=== PATIENT | female | born 1990 | race Caucasian/White ===

== ENCOUNTER → 2016-09-08 | Outpatient (CLI) | payer OTHER ==
[~2016-09-08] MED LIST: ACET500C PO; ANUS2.5C2 PR; DOCU10ELUD PO; DULO1CAP3 PO; FLUO1TAB3 PO; IBUP40TA PO; IBUP600T26 PO; MOM30SS PO; PRENTAB31 PO; PRENTAB74 PO; TOPI1TAB31 PO; VITMTA PO
[2016-09-08 18:08] LABS: BASO % 0.5 % (0.0-1.0); EOS # 0.1 K/mm3 (0.0-0.50); EOS % 0.9 % (0.0-3.0); LARGE UNSTAINED CELL # 0.1 K/mm3 (0.0-0.4); LARGE UNSTAINED CELL % 0.9 % (0.0-4.0); LYMPH # 2.4 K/mm3 (1.5-6.5); LYMPH % 21.2 % (24.0-44.0); MEAN CORPUSCULAR HEMOGLOBIN 30.8 pg (27.0-33.0); MEAN CORPUSCULAR HGB CONC 33.9 g/dl (32.0-36.5); MEAN CORPUSCULAR VOLUME 90.7 fl (80.0-96.0); MONO # 0.4 K/mm3 (0.0-0.8); MONO % 3.6 % (0.0-5.0); NEUTROPHILS # 8.3 K/mm3 (1.8-7.7); PLATELET COUNT, AUTOMATED 260 k/mm3 (150-450); WHITE BLOOD COUNT 11.3 K/mm3 (4.0-10.0)
[2016-09-08 19:03] LABS: ALBUMIN 3.8 GM/DL (3.2-5.2); ALBUMIN/GLOBULIN RATIO 1.23 (1.00-1.93); ALKALINE PHOSPHATASE 54 U/L (45-117); ALT/SGPT 11 U/L (12-78); ANION GAP 12 MEQ/L (8-16); AST/SGOT 11 U/L (15-37); BILIRUBIN,TOTAL 0.2 MG/DL (0.2-1.0); BLOOD UREA NITROGEN 6 MG/DL (7-18); CALCIUM LEVEL 8.8 MG/DL (8.5-10.1); CARBON DIOXIDE LEVEL 24 MEQ/L (21-32); CHLORIDE LEVEL 103 MEQ/L (98-107); CREATININE FOR GFR 0.52 MG/DL (0.55-1.02); GLOMERULAR FILTRATION RATE > 60.0 (>60); GLUCOSE, FASTING 85 MG/DL (70-105); POTASSIUM SERUM 3.7 MEQ/L (3.5-5.1); SODIUM LEVEL 139 MEQ/L (136-145); TOTAL PROTEIN 6.9 GM/DL (6.4-8.2)
[2016-09-11 00:08] LABS: BENZODIAZEPINES, URINE SCREEN Negative ng/mL (Cutoff=200); METHADONE, URINE SCREEN Negative ng/mL (Cutoff=300); pH, URINE 5.6 (4.5-8.9)
== END ==
LOC: M LAB 16:45
DX: D64.9 Anemia, unspecified (principal); M79.7 Fibromyalgia; F19.10 Other psychoactive substance abuse, uncomplicated

== ENCOUNTER → 2016-12-28 | Outpatient (CLI) | payer OTHER, SELFPAY ==
--- NOTE | 2016-12-29 04:47 | REP ---
Clinical: Anatomical evaluation. Comparison: 12/02/2016 . Findings: Examination demonstrates a single live intrauterine in breech presentation. motion is identified by technologist. Placenta is noted anteriorly and grade zero without evidence for placenta previa or abruption. Amniotic fluid volume is normal. Cervix measures 4.1 cm in length and appears closed. No evidence for nuchal cord. Gestational age by LMP 24 weeks 3 days with RYANN 04/16/2017 . Gestational age by current measurements 24 weeks 3 days with RYANN 04/16/2017 . FHR equals 131 beats per minute. Estimated weight 679 grams ( 40th percentile). Anatomical assessment demonstrates normal structures including cranium, choroid plexus, cavum, cerebellum/posterior fossa, facial features, lungs, four-chamber heart/ventricular outflow tracts, diaphragm, stomach, cord insertion/three-vessel cord, kidneys/bladder, spine, and extremities. Impression: Single live intrauterine in breech presentation. Appropriate interval growth is appreciated. Anatomical assessment is complete and normal. Signed by Tobin Michele MD 12/29/2016 04:39 A
== END ==
LOC: M RAD 16:34
PROVIDERS: ATTEND Advanced Practice Midwife
DX: Z36 Encounter for antenatal screening of mother (principal); O32.1XX0 Maternal care for breech presentation, not applicable or unspecified; Z3A.24 24 weeks gestation of pregnancy

== ENCOUNTER → 2017-02-01 | Outpatient (CLI) | payer OTHER ==
[2017-02-01 19:29] LABS: MEAN CORPUSCULAR HEMOGLOBIN 31.6 pg (27.0-33.0); MEAN CORPUSCULAR HGB CONC 33.7 g/dl (32.0-36.5); MEAN CORPUSCULAR VOLUME 93.8 fl (80.0-96.0); WHITE BLOOD COUNT 10.5 K/mm3 (4.0-10.0)
== END ==
LOC: M LAB 16:51
PROVIDERS: ATTEND Obstetrics & Gynecology
DX: Z36 Encounter for antenatal screening of mother (principal); Z3A.00 Weeks of gestation of pregnancy not specified

== ENCOUNTER → 2017-02-17 | Outpatient (REF) | payer OTHER ==
[~2017-02-17] MED LIST changes: +ACET50TA PO; +IBUP-1022 PO; +IBUP-1114 PO; -IBUP600T26 PO; +KLON0.5T PO; +PERC5TAB12 PO; +PRENTAB9 PO; +TOPA50TA8 PO; +TOPI100T9 PO; -TOPI1TAB31 PO
== END ==
LOC: M LAB REF 09:34
PROVIDERS: ATTEND Physician Assistant
DX: R30.0 Dysuria (principal)

== ENCOUNTER → 2017-03-13 | Outpatient (REF) | payer OTHER, MEDICAID | LOC: M LAB REF 08:07 | PROVIDERS: ATTEND Physician Assistant | DX: R30.0 Dysuria (principal) ==

== ENCOUNTER 2017-03-17 19:16 | Emergency (ER) | payer OTHER, MEDICAID ==
[~2017-03-17] VITALS: Ht 160 cm; Wt 82.7 kg
[~2017-03-17 19:16] MED LIST changes: -ACET50TA PO; -IBUP-1114 PO; -KLON0.5T PO; -PERC5TAB12 PO; -PRENTAB9 PO; -TOPA50TA8 PO
[2017-03-17 21:31] VITALS: BP 139/79
[2017-06-03] MEDS ORDERED: TOPA50TA8 PO (11:54)
[2017-06-03] MEDS ORDERED: KLON0.5T PO (11:54)
[2017-06-11] MEDS ORDERED: PERC5TAB12 PO (09:46)
== END 2017-03-17 21:32 | disposition home or self-care (01) ==
LOC: M ED 19:16
DX: F41.9 Anxiety disorder, unspecified (principal)

== ENCOUNTER → 2017-03-18 | Outpatient (REF) | payer OTHER, MEDICAID ==
[~2017-03-18] MED LIST changes: +ACET50TA PO; +IBUP-1114 PO; +KLON0.5T PO; +PERC5TAB12 PO; +PRENTAB9 PO; +TOPA50TA8 PO
== END ==
LOC: M LAB REF 17:17
PROVIDERS: ATTEND Obstetrics & Gynecology
DX: Z34.83 Encounter for supervision of other normal pregnancy, third trimester (principal)

== ENCOUNTER 2017-04-07 15:47 | Outpatient (CLI) | payer OTHER, MEDICAID ==
[~2017-04-07] VITALS: Ht 160 cm; Wt 81.0 kg
[~2017-04-07 15:47] MED LIST changes: -ACET50TA PO; -IBUP-1114 PO; -KLON0.5T PO; -PERC5TAB12 PO; -PRENTAB9 PO; -TOPA50TA8 PO
[2017-04-07] MEDS ORDERED: LR 800 ML IV ONE (16:00)
[2017-04-07 16:14] VITALS: BP 110/60
[2017-04-07] MEDS ORDERED: LR 1,000 ML IV SCH (17:00)
[2017-04-07 17:03] VITALS: BP 108/62
[2017-04-07] MEDS ORDERED: ACET50TA PO (17:07)
[2017-04-07 17:48] VITALS: BP 102/56
--- NOTE | 2017-04-08 13:16 | REP ---
BIOPHYSICAL PROFILE OB ULTRASOUND: 04/07/2017. Clinical history: Dehydration. Evaluate for well being. Findings: There is a single intrauterine gestation in vertex position. cranium shadowing obscures the cervix. The amniotic fluid volume is subjectively lower end of the normal range but the index measurement is 9.8 and the normal range is 7.2 - 23. Largest fluid pocket is 4.8 cm. Mid cord umbilical artery Doppler shows an S/D ratio 2.33 with normal forward diastolic flow and resistive index of 0.57. There is an anterior placenta with grade 3 changes but no previa or abruption. The cord is at least draped over the neck. I cannot definitely confirm a nuchal cord however. heart rate 156 and regular. Biophysical profile: Breathing 2 Movement 2 Tone 2 AFV 2 Impression: 1. Single intrauterine gestation in vertex presentation with anterior grade 3 placenta without previa or abruption, visually low normal amniotic fluid volume but the index measurement is 9.8, well in the normal range and the largest fluid pocket is 4.8 cm. 2. Normal midcord Doppler and heart rate of 156. 3. Biophysical profile score 8/8 Signed by Yuri Lei MD 04/08/2017 09:04 A
--- NOTE | 2017-04-12 19:50 | IPNPDOC ---
Text Note Date of Service The patient was seen on 04/07/17 at 1830. NOTE Subjective: Patient is a 26-year-old female who is a at 38 weeks and 5 days gestation with an RYANN of 04/16/2017 based off of her LMP and consistent with her first trimester ultrasound. She initiated care in her first trimester at [facility]. Her has been complicated by migraines, depression and anxiety. She presented to the office today with complaints of having a migraine for 3 days with no relief from Fioricet, back pain, decreased movement, dizziness, nausea, contractions and spotting. Her cervix upon examination in the office was closed. Dr. Lindsey evaluated patient and based on patient's complaints and low heart rate he obtained he recommended evaluation on labor and delivery. Current medications: BuSpar and Fioricet Allergies: No known drug allergies Medical history: Significant for migraines, depression, anxiety, varicella as a child Surgical history: Tonsillectomy Family history: Noncontributory Social history: Single. Father of baby is not involved. Unemployed. No history of abuse. No history of smoking, alcohol use or abuse, drug use or abuse. No history of any STDs. Her depression and anxiety started during this . She's been seen by [facility] behavioral [facility]. She was started on Zoloft and stopped taking it after 1 week due to the side effects she was experiencing. Currently taking BuSpar twice daily for her anxiety. Objective: Vital signs see below. heart rate 120, moderate variability, positive accelerations, no decelerations. Contractions are occasional. Fetus is very active as heard on the external monitor. BPP 10 out of 10. Assessment: IUP at 38 weeks 5 days gestation; category 1 heart rate tracing; decreased movement Plan: Patient has received 1 L of fluid via IV. Her BPP is 10 out of 10. This was reviewed with the patient. Patient reports that she is feeling much better and desires to be discharged. Reports active movement. Saline lock to be removed and patient to be discharged. Education reviewed with patient to include access to care, kick counts, signs symptoms of labor, and danger signs to report. Patient is to follow-up with routine OB care into be seen next week. VS,Fishbone, I+O VS, Fishbone, I+O Vital Signs Date Time Temp Pulse Resp B/P (MAP) Pulse Ox O2 Delivery O2 Flow Rate FiO2 04/07/17 17:48 76 18 102/56 (71) BPP: Impression: 1. Single intrauterine gestation in vertex presentation with anterior grade 3 placenta without previa or abruption, visually low normal amniotic fluid volume but the index measurement is 9.8, well in the normal range and the largest fluid pocket is 4.8 cm. 2. Normal midcord Doppler and heart rate of 156. 3. Biophysical profile score 03/30 SYEDA VALENZUELA CNM Apr 12, 2017 19:50
[2017-06-03] MEDS ORDERED: TOPA50TA8 PO (11:54)
[2017-06-03] MEDS ORDERED: KLON0.5T PO (11:54)
[2017-06-11] MEDS ORDERED: PERC5TAB12 PO (09:46)
== END 2017-04-07 19:05 | disposition home or self-care (01) ==
LOC: M LDO 15:47
PROVIDERS: ATTEND Advanced Practice Midwife
DX: O36.8130 Decreased fetal movements, third trimester, not applicable or unspecified (principal); O47.1 False labor at or after 37 completed weeks of gestation; Z3A.38 38 weeks gestation of pregnancy; G43.909 Migraine, unspecified, not intractable, without status migrainosus; F32.9 Major depressive disorder, single episode, unspecified; F41.9 Anxiety disorder, unspecified; Z79.899 Other long term (current) drug therapy; O99.343 Other mental disorders complicating pregnancy, third trimester; O99.353 Diseases of the nervous system complicating pregnancy, third trimester

== ENCOUNTER 2017-04-15 02:24 | Inpatient (IN) | payer OTHER, MEDICAID ==
[~2017-04-15] VITALS: Ht 160 cm; Wt 83.0 kg
[2017-04-15] VITALS (16 sets, daily range): BP systolic 86–132; BP diastolic 54–90
[~2017-04-15 02:24] MED LIST changes: +ACET50TA PO
[2017-04-15] MEDS ORDERED: LACTATED RINGER'S 1000 ML IV STA (03:05)
[2017-04-15] MEDS ORDERED: LR 1,000 ML IV SCH (03:05)
[2017-04-15 03:37] LABS: BASO % 0.3 % (0.0-1.0); EOS # 0.1 K/mm3 (0.0-0.50); EOS % 1.1 % (0.0-3.0); LARGE UNSTAINED CELL # 0.2 K/mm3 (0.0-0.4); LARGE UNSTAINED CELL % 1.7 % (0.0-4.0); LYMPH # 1.9 K/mm3 (1.5-6.5); LYMPH % 17.8 % (24.0-44.0); MEAN CORPUSCULAR HEMOGLOBIN 29.6 pg (27.0-33.0); MEAN CORPUSCULAR HGB CONC 33.9 g/dl (32.0-36.5); MEAN CORPUSCULAR VOLUME 87.4 fl (80.0-96.0); MONO # 0.5 K/mm3 (0.0-0.8); MONO % 4.8 % (0.0-5.0); NEUTROPHILS % 74.3 % (36.0-66.0); PLATELET COUNT, AUTOMATED 198 k/mm3 (150-450); RED CELL DISTRIBUTION WIDTH 13.9 % (11.5-14.5); WHITE BLOOD COUNT 10.7 K/mm3 (4.0-10.0)
[2017-04-15] MEDS ORDERED: FENTANYL 2MCG/ML ROPIVACAINE 0.2% IN 0.9% NACL 200ML IVBAG As Ordered ONE (04:20)
[2017-04-15] MEDS ORDERED: EPIDURAL COMMENT XX SCH (05:00)
[2017-04-15] MEDS ORDERED: NALOXONE INJ 0.4 MG/1 ML VIAL (J2310) IV PRN (05:00)
[2017-04-15] MEDS ORDERED: LACTATED RINGER'S 1000 ML IV PRN (05:00)
[2017-04-15] MEDS ORDERED: EPIDURAL/PCA KEYS XX PRN (05:00)
[2017-04-15] MEDS ORDERED: ePHEDrine SULFATE 25 MG/5 ML(5MG/ML) SYRINGE IV PRN (05:00)
[2017-04-15] MEDS ORDERED: diphenhydrAMINE INJ 50MG/ML VIAL (J1200) IV PRN (05:00)
[2017-04-15] MEDS ORDERED: FENTANYL/ROPIVACAINE/NACL BAG 200 ML EPIDURAL SCH (05:00)
[2017-04-15] MEDS ORDERED: ONDANSETRON 4MG/2ML VIAL (J2405) IV PRN (05:00)
[2017-04-15] MEDS ORDERED: REFRIGERATOR IV KEYS XX PRN (05:00)
[2017-04-15] MEDS ORDERED: OXYTOCIN 30 UNITS IN 0.9% NaCl 500ML IV BAG (J2590) As Ordered ONE (07:15)
[2017-04-15] MEDS ORDERED: OXYTOCIN DRIP 30 UNITS in APPROPRIATE DILUENT 1 EA IV SCH (07:29)
[2017-04-15] MEDS ORDERED: MEASLES,MUMPS,RUBELLA VACCINE INJ (MMR-II) (90707) SC SCH (07:30)
[2017-04-15] MEDS ORDERED: DOCUSATE SODIUM 100 MG CAP PO PRN (07:30)
[2017-04-15] MEDS ORDERED: METHYLERGONOVINE MALEATE 0.2 MG TAB PO PRN (07:30)
[2017-04-15] MEDS ORDERED: RHOGAM 300 MCG (1500 IU) INJ (J2790) IM SCH (07:30)
[2017-04-15] MEDS ORDERED: DIBUCAINE 1% OINTMENT 30GM TOP PRN (07:30)
[2017-04-15] MEDS ORDERED: ANUSOL HC CREAM 30GM TOP PRN (07:30)
[2017-04-15 07:58] LABS: CORD GAS ABE V -6.4; CORD GAS HCO3 V 18.5 MEQ/L; CORD GAS O2 SAT V 78.7 %; CORD GAS PCO2 V 35.4 mmHg; CORD GAS PH V 7.335 UNITS; CORD GAS PO2 V 33.9 mmHg; CORD GAS SBC V 18.9 MEQ/L; CORD GAS TCO2 V 19.5 MEQ/L
[2017-04-15 08:01] LABS: CORD GAS ABE A -4.5; CORD GAS HCO3 A 24.2 MEQ/L; CORD GAS O2 SAT A 23.1 %; CORD GAS PCO2 A 59.2 mmHg; CORD GAS PH A 7.229 UNITS
[2017-04-15] MEDS: PRENATAL VITAMINS CHEWABLE TABLET PO SCH (08:46)
[2017-04-15] MEDS: IBUPROFEN 800 MG TAB PO PRN ×2 (08:46→20:29)
[2017-04-15] MEDS: ACETAMINOPHEN 500 MG TAB PO PRN ×2 (13:21→23:21)
--- NOTE | 2017-04-15 17:53 | HPE ---
DATE OF ADMISSION: 04/15/2017 Melissa is a 26-year-old female, 7, para 4-0-2-4, with an estimated date of confinement (EDC) of 04/16/2017, estimated gestational age (EGA) 39-6/7 weeks gestation who presented to labor and delivery with complaints of contractions. Upon evaluation in labor and delivery, she was found to be in labor. At this point a decision was made for admission. Her care was essentially unremarkable. She initiated care in our office in the first trimester. LABORATORY: Blood type is AB positive, rubella immune, hepatitis negative, HIV negative, GC/chlamydia negative. One-hour sugar testing was within normal limits. Her GBS is negative. PAST MEDICAL HISTORY: Significant for migraine PAST SURGICAL HISTORY: Tonsillectomy. SOCIAL HISTORY: She denies any alcohol, drugs, or cigarette smoking. REVIEW OF SYSTEMS: Unremarkable. MEDICATIONS: vitamins ALLERGIES: No known drug allergies. PHYSICAL EXAMINATION ON ADMISSION: HEENT: Within normal limits. ABDOMEN: Soft, nontender, nondistended. EXTREMITIES: No clubbing, cyanosis, or edema. VAGINAL: Exam done by RN: 4 cm, 90% effaced, fetus at -2 station. Tracing reviewed. Category 1 tracing with contractions every 3-5 minutes. ASSESSMENT: 1. Intrauterine at 39-6/7 weeks gestation in labor. 2. Group B streptococcus negative. PLAN: Admit to labor and delivery. Routine labs sent. Anticipate delivery.
[2017-04-16] MEDS: IBUPROFEN 800 MG TAB PO PRN (05:45)
[2017-04-16 06:05] VITALS: BP 98/57
[2017-04-16] MEDS: PRENATAL VITAMINS CHEWABLE TABLET PO SCH (08:06)
[2017-04-16] MEDS: ACETAMINOPHEN 500 MG TAB PO PRN (08:08)
[2017-04-16] MEDS ORDERED: medroxyPROGESTERone ACET IM SUSP 150 MG/ML VIAL (J1050) IM ONE (14:45)
[2017-04-16] MEDS ORDERED: IBUP-1114 PO (14:58)
[2017-04-16] MEDS ORDERED: PRENTAB9 PO (14:58)
--- NOTE | 2017-04-16 18:23 | DN ---
DATE: 04/15/2017 Melissa is a 26-year-old female, 7, para 4-0-2-4, who is admitted at 39-6/7 weeks gestation in labor. She progressed to fully dilated. After spontaneous rupture of membrane, delivered a live female in left occiput anterior position. scores 9 and 9. weight 8 pounds. Placenta delivered spontaneously intact. Three-vessel cord. Perineum, vagina, cervix inspected. No laceration noted. Estimated blood loss 250 mL. Both mother and baby in stable condition.
[2017-06-03] MEDS ORDERED: TOPA50TA8 PO (11:54)
[2017-06-03] MEDS ORDERED: KLON0.5T PO (11:54)
== END 2017-04-16 15:23 | disposition home or self-care (01) | DRG 560 ==
LOC: M LDO 02:24 → M LDI 03:00 → M OBS 09:43
PROVIDERS: ADMIT Obstetrics & Gynecology; ATTEND Obstetrics & Gynecology
PROC: 10E0XZZ Delivery of Products of Conception, External Approach (ICD-10-PCS; principal; 2017-04-15)
DX: O80 Encounter for full-term uncomplicated delivery (principal); Z3A.39 39 weeks gestation of pregnancy; Z37.0 Single live birth

== ENCOUNTER → 2017-05-05 | Outpatient (REF) | payer OTHER, MEDICAID ==
[~2017-05-05] MED LIST changes: +IBUP-1114 PO; +KLON0.5T PO; +PERC5TAB12 PO; +PRENTAB9 PO; +TOPA50TA8 PO
== END ==
LOC: M LAB REF 12:55
PROVIDERS: ATTEND Physician Assistant Medical
DX: N39.0 Urinary tract infection, site not specified (principal)

== ENCOUNTER 2017-06-11 07:25 | Day surgery (SDC) | payer OTHER ==
[~2017-06-11] VITALS: Ht 160 cm; Wt 71.2 kg
[~2017-06-11 07:25] MED LIST changes: -PERC5TAB12 PO
[2017-06-11] MEDS ORDERED: LIDOCAINE 1% MDV 20ML VIAL SC PRN (07:45)
[2017-06-11] MEDS ORDERED: LR 1,000 ML IV ONE (07:45)
[2017-06-11 08:05] LABS: MEAN CORPUSCULAR HEMOGLOBIN 29.1 pg (27.0-33.0); MEAN CORPUSCULAR HGB CONC 33.1 g/dl (32.0-36.5); PLATELET COUNT, AUTOMATED 270 10^3/uL (150-450); WHITE BLOOD COUNT 8.8 10^3/uL (4.0-10.0)
[2017-06-11 08:16] LABS: CONTROL LINE HCG INT CTR LINE PRESENT
[2017-06-11] MEDS ORDERED: ACETAMINOPHEN 650 MG SUPP As Ordered ONE (09:02)
[2017-06-11] MEDS ORDERED: BUPIVACAINE/EPIN 0.25% 30 ML VIAL As Ordered ONE (09:02)
[2017-06-11] MEDS ORDERED: PROPOFOL 200 MG/20 ML VIAL As Ordered ONE (09:07)
[2017-06-11] MEDS ORDERED: ROCURONIUM BROMIDE 50 MG/5 ML VIAL/SYRINGE As Ordered ONE (09:07)
[2017-06-11] MEDS ORDERED: fentaNYL 100 MCG/2 ML INJECTION (J3010) As Ordered ONE (09:07)
[2017-06-11] MEDS ORDERED: LIDOCAINE 2% INJ 100 MG/5 ML SDV (FOR ANES.) As Ordered ONE (09:07)
[2017-06-11] MEDS ORDERED: MIDAZOLAM INJ 2 MG/2 ML VIAL (J2250) As Ordered ONE (09:07)
[2017-06-11] MEDS ORDERED: dexameTHASONE 4 MG/ML 1ML VIAL (J1100) As Ordered ONE (09:08)
[2017-06-11] MEDS ORDERED: GLYCOPYRROLATE INJ 0.2 MG/ML 2 ML VIAL As Ordered ONE ×2 (09:09→09:21)
[2017-06-11] MEDS ORDERED: NEOSTIGMINE 10 MG/10 ML VIAL (J2710) As Ordered ONE (09:09)
[2017-06-11] MEDS ORDERED: ONDANSETRON 4MG/2ML VIAL (J2405) As Ordered ONE (09:09)
[2017-06-11] MEDS ORDERED: KETOROLAC 60 MG/2 ML VIAL (J1885) As Ordered ONE (09:09)
[2017-06-11] MEDS ORDERED: PERC5TAB12 PO (09:46)
[2017-06-11] MEDS ORDERED: MEPERIDINE INJ 25 MG/ML VIAL (J2175) As Ordered ONE (09:51)
[2017-06-11] MEDS: MEPERIDINE INJ 25 MG/ML VIAL (J2175) IV PRN ×2 (09:54→10:02)
[2017-06-11] MEDS: PERCOCET 5MG/325MG TAB PO PRN ×2 (09:57→10:32)
[2017-06-11] MEDS ORDERED: ONDANSETRON 4MG/2ML VIAL (J2405) IV PRN (10:00)
[2017-06-11] MEDS ORDERED: LR 1,000 ML IV SCH (10:00)
[2017-06-11] MEDS ORDERED: METOCLOPRAMIDE INJ 10MG/2ML VIAL (J2765) IV PRN (10:00)
[2017-06-11] MEDS: fentaNYL 100 MCG/2 ML INJECTION (J3010) IV PRN ×4 (10:05→10:20)
[2017-06-11 11:35] VITALS: BP 133/67
--- NOTE | 2017-06-11 18:21 | RO ---
DATE OF PROCEDURE: 06/11/2017 Melissa is a 26-year-old multiparous female who desires a permanent tubal sterilization. After counseling in the office and discussing the permanent nature of the procedure, the patient wanted to proceed with the laparoscopic bilateral tubal ligation. PREOPERATIVE DIAGNOSIS: 1. Multiparity, desires permanent tubal sterilization. POSTOPERATIVE DIAGNOSIS: 1. Multiparity, desires permanent tubal sterilization. PROCEDURE: 1. Laparoscopic bilateral tubal ligation using Filshie clip. SURGEON: García Lindsey DO COMMERCIAL CREDIT SPECIALIST: ANESTHESIA: General. COMPLICATIONS: None. ESTIMATED BLOOD LOSS: Less than 10 mL. FINDINGS: Normal appearing tubes, ovaries and uterus. The pelvis was found to be within normal limits. SPECIMENS: No specimens were sent to lab. PROCEDURE: After visiting with the patient and the holding area and reaffirming the informed consent, the patient was taken to the operating room where general anesthetic was found to be adequate. She was then draped and prepped in the usual sterile fashion in dorsal lithotomy position. At this point, a straight cath of the bladder was performed for approximately 50 mL of clear urine. We then placed a sponge stick in the vagina for uterine manipulation. At this point, my attention was turned to the abdomen where a 5 mm infraumbilical incision was made. Using a Veress needle, the abdomen was insufflated with CO2 gas to approximately 3.5 liters. The 5 mm XCEL trocar as well as the laparoscope was inserted under direct visualization. We then placed an 8 mm right lateral port. The patient was placed in Trendelenburg. Fallopian tubes, pelvis, uterus and ovaries identified with the above-noted findings. At this point, the fallopian tube was identified with the fimbriated end and a Filshie clip was then applied approximately 2-3 cm from the cornual area on each tube. The pelvis was then copiously irrigated with normal saline. Good hemostasis noted. All instruments were removed and the laparoscopic ports were then closed using DERMABOND. 0.25% Marcaine was placed at the postoperative site for postoperative pain. The patient was then transferred to recovery room in stable condition.
== END 2017-06-11 12:00 | disposition home or self-care (01) ==
LOC: M SDC 07:25
PROVIDERS: ATTEND Obstetrics & Gynecology
DX: Z30.2 Encounter for sterilization (principal); F41.9 Anxiety disorder, unspecified; F32.9 Major depressive disorder, single episode, unspecified; G43.909 Migraine, unspecified, not intractable, without status migrainosus; Z79.899 Other long term (current) drug therapy

== ENCOUNTER 2017-07-19 19:46 | Emergency (ER) | payer MEDICAID, OTHER, SELFPAY ==
[~2017-07-19] VITALS: Ht 160 cm; Wt 68.4 kg
[~2017-07-19 19:46] MED LIST changes: +PERC5TAB12 PO
[2017-07-20] MEDS ORDERED: NS 1,000 ML IV ONE (01:00)
[2017-07-20 01:28] LABS: BASO # 0.1 10^3/uL (0.0-0.2); BASO % 0.7 % (0.0-1.0); EOS # 0.2 10^3/uL (0.0-0.50); EOS % 1.3 % (0.0-3.0); IMMATURE GRANULOCYTE % 0.3 % (0-0); LYMPH # 3.1 10^3/uL (1.5-6.5); LYMPH % 21.4 % (24.0-44.0); MEAN CORPUSCULAR HEMOGLOBIN 29.5 pg (27.0-33.0); MEAN CORPUSCULAR HGB CONC 34.8 g/dl (32.0-36.5); MEAN CORPUSCULAR VOLUME 84.7 fl (80.0-96.0); MONO # 1.1 10^3/uL (0.0-0.8); MONO % 7.6 % (0.0-5.0); NEUTROPHILS % 68.7 % (36.0-66.0); PLATELET COUNT, AUTOMATED 333 10^3/uL (150-450); RED CELL DISTRIBUTION WIDTH 13.2 % (11.5-14.5); WHITE BLOOD COUNT 14.6 10^3/uL (4.0-10.0)
[2017-07-20] MEDS ORDERED: LORazepam 2 MG/ML VIAL (J2060) IV STA (01:36)
[2017-07-20 01:44] LABS: CONTROL LINE HCG INT CTR LINE PRESENT
[2017-07-20 02:03] LABS: ALBUMIN 4.2 GM/DL (3.2-5.2); ALBUMIN/GLOBULIN RATIO 1.27 (1.00-1.93); ALKALINE PHOSPHATASE 97 U/L (45-117); ALT/SGPT 29 U/L (12-78); ANION GAP 10 MEQ/L (8-16); AST/SGOT 61 U/L (7-37); BILIRUBIN,DIRECT 0.4 MG/DL (0.0-0.2); BILIRUBIN,TOTAL 1.3 MG/DL (0.2-1.0); BLOOD UREA NITROGEN 10 MG/DL (7-18); CALCIUM LEVEL 9.1 MG/DL (8.5-10.1); CARBON DIOXIDE LEVEL 25 MEQ/L (21-32); CHLORIDE LEVEL 104 MEQ/L (98-107); GLOMERULAR FILTRATION RATE > 60.0 (>60); GLUCOSE, FASTING 78 MG/DL (70-105); POTASSIUM SERUM 3.2 MEQ/L (3.5-5.1); SODIUM LEVEL 139 MEQ/L (136-145); TOTAL PROTEIN 7.5 GM/DL (6.4-8.2)
[2017-07-20 02:08] LABS: METHADONE URINE NEGATIVE (NEGATIVE)
[2017-07-20 02:59] VITALS: BP 138/78
[2017-07-20] MEDS ORDERED: PATIENT COMMENT (21:07)
[2017-07-20] MEDS ORDERED: TOPI50TA9 PO (21:07)
--- NOTE | 2017-07-21 08:03 | ECGEPIP ---
Stationary ECG Study [facility] - ED Test Date: 2017-07-20 Pat Name: PATIENCE ESPINOZA Department: Room: - Gender: F Mailroom Personnel: : 1990 Requested By: YAMIL WALKER Order Number: [id number] Reading MD: Ada Ram Measurements Intervals Myton Rate: 69 P: 44 WA: 119 QRS: 10 QRSD: 99 T: 1 QT: 421 QTc: 453 Interpretive Statements SINUS RHYTHM WITH MARKED SINUS ARRHYTHMIA WITH SHORT WA INTERVAL DECREASED RATE 07/29/16 Electronically Signed On 07-21-2017 8:02:50 EST by Ada Ram
== END 2017-07-20 03:14 | disposition home or self-care (01) ==
LOC: M ED 19:46
DX: F19.10 Other psychoactive substance abuse, uncomplicated (principal); F41.9 Anxiety disorder, unspecified; F32.9 Major depressive disorder, single episode, unspecified
CPT/HCPCS: 80048; 80076; 80307; 82550; 84443; 84703; 85025; 93005; 96361; 96374; 99284; G0480; J2060

== ENCOUNTER 2017-07-20 17:18 | Inpatient (IN) | payer SELFPAY ==
[~2017-07-20] VITALS: Ht 160 cm; Wt 72.0 kg
[2017-07-20 18:59] LABS: MEAN CORPUSCULAR HEMOGLOBIN 29.6 pg (27.0-33.0); MEAN CORPUSCULAR HGB CONC 34.3 g/dl (32.0-36.5); MEAN CORPUSCULAR VOLUME 86.2 fl (80.0-96.0); PLATELET COUNT, AUTOMATED 314 10^3/uL (150-450); RED CELL DISTRIBUTION WIDTH 13.4 % (11.5-14.5); WHITE BLOOD COUNT 12.3 10^3/uL (4.0-10.0)
[2017-07-20 19:07] LABS: METHADONE URINE NEGATIVE (NEGATIVE)
[2017-07-20 19:20] LABS: ALBUMIN 3.7 GM/DL (3.2-5.2); ALBUMIN/GLOBULIN RATIO 1.23 (1.00-1.93); ALKALINE PHOSPHATASE 83 U/L (45-117); ALT/SGPT 27 U/L (12-78); ANION GAP 8 MEQ/L (8-16); AST/SGOT 41 U/L (7-37); BILIRUBIN,DIRECT 0.2 MG/DL (0.0-0.2); BILIRUBIN,TOTAL 0.7 MG/DL (0.2-1.0); BLOOD UREA NITROGEN 9 MG/DL (7-18); CALCIUM LEVEL 8.7 MG/DL (8.5-10.1); CARBON DIOXIDE LEVEL 24 MEQ/L (21-32); CHLORIDE LEVEL 114 MEQ/L (98-107); CREATININE FOR GFR 0.83 MG/DL (0.55-1.02); GLOMERULAR FILTRATION RATE > 60.0 (>60); GLUCOSE, FASTING 106 MG/DL (70-105); POTASSIUM SERUM 3.2 MEQ/L (3.5-5.1); SODIUM LEVEL 146 MEQ/L (136-145); TOTAL PROTEIN 6.7 GM/DL (6.4-8.2)
[2017-07-20] MEDS ORDERED: PATIENT COMMENT (21:07)
[2017-07-20] MEDS ORDERED: TOPI50TA9 PO (21:07)
[2017-07-20] MEDS ORDERED: cloNIDine 0.1 MG TAB PO ONE (21:15)
[2017-07-20] MEDS ORDERED: ONDANSETRON 4 MG ORAL DISINTEGRATING TAB (S0181) PO ONE (21:15)
[2017-07-21 00:40] VITALS: BP 123/75
[2017-07-21] MEDS ORDERED: traZODone 50 MG TAB PO PRN (01:45)
[2017-07-21] MEDS ORDERED: MAALOX 30 ML SUSP *UDC PO PRN (01:45)
[2017-07-21] MEDS ORDERED: MOM 30ML SUSPENSION UDC PO PRN (01:45)
[2017-07-21] MEDS ORDERED: OXAZEPAM 15 MG CAP PO PRN (01:45)
[2017-07-21 06:43] VITALS: BP 121/65
[2017-07-21] MEDS ORDERED: METHADONE 5 MG TAB (S0109) PO SCH (09:00)
--- NOTE | 2017-07-21 10:26 | HPEPDOC ---
[facility] Medical History & Physical Date of Admission Jul 20, 2017 History and Physical PCP: [facility] ATTENDING: Dr. Chaka Chan HPI: 26 yo F admitted to [facility] for unspecified depressive disorder, being medically examined today. The patient complains of left great toe pain. Toe has been swollen and tender to touch. She does not recall an injury house however states she might have hit her toe. Denies any fevers, chills, weakness, fatigue, CASTELLANOS, CP, SOB, cough, palpitations, abdominal pain, N/V/D or changes in bowel or bladder habits. PMHx: Depression Anxiety Substance use/IVDU Migraine headaches PSHX: Tubal ligation SOCHX: Resides in: [facility] Marital Status: Single Kids: 5 Employment: Unemployed Tobacco use: Denies ETOH: Denies Illicit Drugs: Cocaine and heroin. History of lindy. IV Drug Use: Cocaine and heroin Tattoos done unprofessionally: Denies FAMHX: Mother: Alive, well Father: Alive, well Siblings: Alive, well Children: Alive, well Unexpected deaths due to medical reasons: None. ROS: As noted in HPI, otherwise 11pt ROS of systems reviewed and remarkable only for LMP NA, tubal ligation. PE: GEN: 26 yo F, appears stated age. Well-nourished, well developed. No acute distress. Alert and oriented x 3. Pleasant, interactive. HEENT: Normocephalic, atraumatic. Pupils are equal, round, and reactive to light. Extraocular movements are intact. No nystagmus appreciated. Sclera are nonicteric. Conjunctiva without injection. Nose midline. Nasal turbinates without bogginess. EACs both patent BL. TMs both visualized and dunn with good cone of light, no bulging or erythema. No facial asymmetry. Moist mucous membranes. Dentition fair. Pharynx pink and moist, no cobblestoning. Neck supple , trachea midline. No lymphadenopathy or thyromegaly appreciated. CHEST: Regular rate and rhythm, +S1, +S2 LUNGS: Clear to auscultation bilaterally. No wheezes, rales, or rhonchi. Breathing appears symmetric and easy. Patient is speaking in full sentences. No accessory muscle use. ABD: Round, soft, mild suprapubic TTP noted, non-distended. +Bowel sounds throughout. No rebound or guarding. No costovertebral angle tenderness. EXT: Pulses 2+ bilaterally dorsalis pedis and radial. No lower extremity edema appreciated. There is tenderness with palpation at the tip of the left great toe. There appears to be mild ecchymosis. There is no erythema. No warmth. No streaking. SKIN: [place], dry, warm. Capillary refill <2sec. No rashes. Injection sites are noted in the left antecubital area. No edema, erythema, streaking. NEURO: Alert and oriented x 3. Cranial nerves III-XII are intact. No focal deficits appreciated. EK07/20/17 SINUS RHYTHM WITH MARKED SINUS ARRHYTHMIA WITH SHORT FL INTERVAL DECREASED RATE 07/29/16 A&P: 26 yo F admitted to [facility] for unspecified depressive disorder 1. Psych. Plan per Psychiatry. EKG on file. 2. Hypernatremia. Sodium is noted to be 146 on admission. Patient's oral intake has improved. Recheck BMP. 3. Borderline EKG. No cardiac signs or symptoms appreciated on exam, follow with PCP. 4. Follow up with PCP on discharge. 5. Substance abuse. Per psychiatry. 6. Hypokalemia. Recheck BMP. Supplement if needed. 7. Elevated AST. Recheck CMP in a.m. Check hepatitis profile. 8. IVDU. Check HIV and hepatitis screening. 9. Left great toe pain. Check x-ray of the left foot. There are no injection sites noted on the left foot or toes. There does not appear to be cellulitis or infection at this time. There is no drainage. No streaking. Ecchymosis is noted , possible prior injury. 10. Staff member Mimi MARTÍNEZ present throughout exam. Vital Signs Vital Signs Date Time Temp Pulse Resp B/P (MAP) Pulse Ox O2 Delivery O2 Flow Rate FiO2 07/21/17 09:26 16 07/21/17 06:43 98.2 73 121/65 (83) Room Air 07/21/17 00:40 97 Laboratory Data Labs 24H Laboratory Tests 2 07/20/17 18:01: Nucleated Red Blood Cells % (auto) 0.0, Anion Gap 8, Glomerular Filtration Rate > 60.0, Calcium Level 8.7, Aspartate Amino Transf (AST/SGOT) 41H, Alanine Aminotransferase (ALT/SGPT) 27, Alkaline Phosphatase 83, Total Bilirubin 0.7, Direct Bilirubin 0.2, Total Protein 6.7, Albumin 3.7, Albumin/Globulin Ratio 1.23, Thyroid Stimulating Hormone (TSH) 0.260L, Salicylates Level < 1.7L, Urine Amphetamines Screen NEGATIVE, Urine Benzodiazepines Screen NEGATIVE, Urine Opiates Screen POSITIVEH, Urine Methadone Screen NEGATIVE, Acetaminophen Level < 2.0L, Urine Barbiturates Screen NEGATIVE, Urine Phencyclidine Screen NEGATIVE , Urine Cocaine Metabolite Screen POSITIVEH, Urine Cannabinoids Screen NEGATIVE , Ethyl Alcohol Level 0.006 CBC/BMP Laboratory Tests 07/20/17 18:01 Red Blood Count 4.43, Mean Corpuscular Volume 86.2, Mean Corpuscular Hemoglobin 29.6, Mean Corpuscular Hemoglobin Concent 34.3, Red Cell Distribution Width 13.4 Home Medications Scheduled Topiramate (Topiramate) 50 Mg Tab, 50 MG PO BID Miscellaneous Medications [Patient Comment] PATIENT STATES THAT SHE HAS NOT TAKEN HER MEDICATION FOR DAYS. Allergies Coded Allergies: No Known Allergies (Verified Allergy, Unknown, 03/09/06) Kelley Harrison Jul 21, 2017 10:26
--- NOTE | 2017-07-21 11:03 | REP ---
Left foot series: Four views. History: Great toe pain. FINDINGS: Four views of the left foot demonstrate overall normal mineralization. There is no evidence of fracture, subluxation or erosive change. Impression: Negative left foot radiographs. Signed by Clayton Goode MD 07/21/2017 11:20 A
[2017-07-21] MEDS ORDERED: METHADONE 10 MG TAB (S0109) PO ONE (12:00)
[2017-07-21] MEDS: CitaloPRAM (CeleXA) 10 MG TABLET PO SCH (12:07)
[2017-07-21 12:30] LABS: MEAN CORPUSCULAR HEMOGLOBIN 29.6 pg (27.0-33.0); MEAN CORPUSCULAR HGB CONC 33.5 g/dl (32.0-36.5); MEAN CORPUSCULAR VOLUME 88.3 fl (80.0-96.0); PLATELET COUNT, AUTOMATED 330 10^3/uL (150-450); RED CELL DISTRIBUTION WIDTH 13.5 % (11.5-14.5); WHITE BLOOD COUNT 10.6 10^3/uL (4.0-10.0)
[2017-07-21 12:45] VITALS: BP 132/83
[2017-07-21 13:07] LABS: ANION GAP 6 MEQ/L (8-16); BLOOD UREA NITROGEN 8 MG/DL (7-18); CALCIUM LEVEL 9.4 MG/DL (8.5-10.1); CARBON DIOXIDE LEVEL 29 MEQ/L (21-32); CHLORIDE LEVEL 110 MEQ/L (98-107); CREATININE FOR GFR 0.89 MG/DL (0.55-1.02); GLOMERULAR FILTRATION RATE > 60.0 (>60); GLUCOSE, FASTING 96 MG/DL (70-105); SODIUM LEVEL 145 MEQ/L (136-145)
--- NOTE | 2017-07-21 13:32 | MHHPE ---
DATE OF ADMISSION: 07/20/2017 LEGAL STATUS AT ADMISSION: 9.39 legal status. CHIEF COMPLAINT: "I have been feeling very depressed." HISTORY OF PRESENT ILLNESS: 26-year-old female with history of depression and polysubstance dependency admitted to our unit on a 9.39 legal status. According to the record, the patient sent text messages expressing suicidal thoughts. She found out that [facility] has a waiting period of approximately two weeks and she wants to stop using drugs. The patient came to the emergency department a day prior to this admission asking for help and the referral to [facility] was made. The patient reports that she has been feeling depressed, tearful with low energy, low appetite, having trouble sleeping, feeling hopeless and helpless. The patient reported she has been using heroin and cocaine IV for the last four months and she wants to stop using. The patient states she has five children ages 11, 6, 4, 2 and 3 months old. Says that she owns a house and her brother and her brother's girlfriend, who are addicts, have been using and "this has been part of the problem." During the interview, there is no evidence of psychotic symptoms. No auditory or visual hallucinations are delusions. PAST MEDICAL HISTORY: Patient denies any acute medical problems. ALLERGIES: No known drug allergies. PAST PSYCHIATRIC HISTORY: Patient denies any psychiatric diagnosis other than depression and polysubstance dependency. FAMILY HISTORY: Patient reports her mom was an alcoholic and her father uses drugs. SUBSTANCE ABUSE HISTORY: As above, the patient has been using cocaine and heroin IV for the last four months. She would like to go to detox/rehab. SOCIAL HISTORY: Patient had a very difficult childhood. Says her parents were arguing most of the time. Her mother was an alcoholic and she quit school at tenth grade because she got , but then she got her GED. As above, she owns a house where she lives with her five children. PSYCHIATRIC REVIEW OF SYSTEMS: BIPOLAR DISORDER/CHRISTOS: No distractibility or grandiosity. No flight of ideas or pressured speech. ANXIETY DISORDER: Patient is anxious, denies panic, agoraphobia, obsessive-compulsive disorder (OCD), washing hands repeatedly, or checking things over and over. SOMATIZATION DISORDER: Screening for pain, conversion, gastrointestinal (GI) and sexual symptoms is negative. EATING DISORDER: Screening for dieting, use of laxatives, eating in binges is negative. COGNITIVE DISORDER: Memory, attention, concentration and general information is negative for cognitive disorder. PSYCHOTIC DISORDER: No evidence of delusions. No paranoia. No grandiosity. No bahai preoccupation. No hallucinations. No looseness of associations. PHYSICAL EXAMINATION: As per physician's lab assistant. LABS AT ADMISSION: CBC showed WBC of 12.3, rest within normal limits. CMP shows sodium of 146, potassium 3.2, AST of 41, rest within normal limits. TSH 0.26. Urine drug screen (UDS) positive for opiates and cocaine. Blood alcohol level is negative. MENTAL STATUS EXAMINATION: Patient is dressed in [facility]. The patient is cooperative. Her speech is soft and monotone. She has poor eye contact. Mood is anxious and depressed. Affect is labile. Patient is oriented to time, place, person and situation. Maintains attention and concentration correctly. Instant recall, recent and remote memory are intact. Thought processes are coherent, logical and goal directed. Patient does not have auditory or visual hallucinations. Patient does not have paranoid, persecutory, somatic, grandiose or bahai delusions. The patient is denying suicidal or homicidal ideation during the interview. Insight and judgment is limited. DIAGNOSIS: Kirksey I: Unspecified depressive disorder. Polysubstance dependency (cocaine and heroin IV). Rule out major depressive disorder. Rule out substance induced mood disorder. Kirksey II: Deferred. Kirksey III: None acute. INITIAL TREATMENT PLAN: Patient was admitted on a 9.39 legal status. Complete was obtained. With her permission, family will be contacted and database will be expanded. Her medication regime will be reviewed and changed accordingly. She will be provided with protected environment. She will be treated with individual, group and milieu therapy. She will also receive supportive psychoeducation. Discharge planning will commence immediately. Length of stay will be between 5 and 7 days. Outpatient followup will be strongly recommended. The treatment plan will focus initially on depression, risk for suicide and substance abuse.
[2017-07-21] MEDS: ACETAMINOPHEN TAB 650MG DOSE (2X325MG) PO PRN (15:07)
[2017-07-21] MEDS: chlordiazePOXIDE 25 MG CAP PO SCH ×2 (16:00→20:39)
[2017-07-21 18:00] VITALS: BP 109/67
[2017-07-21] MEDS: METHADONE 10 MG TAB (S0109) PO SCH (20:39)
[2017-07-21] MEDS: traZODone 100 MG TAB PO SCH (20:39)
[2017-07-21 21:00] VITALS: BP 118/74
[2017-07-22 06:52] VITALS: BP 102/53
[2017-07-22 07:51] LABS: MEAN CORPUSCULAR HEMOGLOBIN 29.6 pg (27.0-33.0); MEAN CORPUSCULAR HGB CONC 32.7 g/dl (32.0-36.5); MEAN CORPUSCULAR VOLUME 90.6 fl (80.0-96.0); PLATELET COUNT, AUTOMATED 252 10^3/uL (150-450); RED CELL DISTRIBUTION WIDTH 13.6 % (11.5-14.5); WHITE BLOOD COUNT 8.4 10^3/uL (4.0-10.0)
[2017-07-22] MEDS: chlordiazePOXIDE 25 MG CAP PO SCH ×2 (08:08→20:33)
[2017-07-22] MEDS: METHADONE 10 MG TAB (S0109) PO SCH (08:09)
[2017-07-22] MEDS: CitaloPRAM (CeleXA) 10 MG TABLET PO SCH (08:09)
[2017-07-22 08:30] LABS: ALBUMIN 3.1 GM/DL (3.2-5.2); ALBUMIN/GLOBULIN RATIO 1.15 (1.00-1.93); ALKALINE PHOSPHATASE 68 U/L (45-117); ALT/SGPT 21 U/L (12-78); ANION GAP 5 MEQ/L (8-16); AST/SGOT 16 U/L (7-37); BILIRUBIN,TOTAL 0.2 MG/DL (0.2-1.0); BLOOD UREA NITROGEN 8 MG/DL (7-18); CALCIUM LEVEL 8.7 MG/DL (8.5-10.1); CARBON DIOXIDE LEVEL 30 MEQ/L (21-32); CHLORIDE LEVEL 110 MEQ/L (98-107); GLOMERULAR FILTRATION RATE > 60.0 (>60); GLUCOSE, FASTING 92 MG/DL (70-105); POTASSIUM SERUM 3.8 MEQ/L (3.5-5.1); SODIUM LEVEL 145 MEQ/L (136-145); T UPTAKE 38 % (30-39); THYROXINE (T4) 8.7 UG/DL (4.5-12.0); TOTAL PROTEIN 5.8 GM/DL (6.4-8.2)
[2017-07-22 12:00] VITALS: BP 87/50
--- NOTE | 2017-07-22 16:19 | MHIPN ---
DATE: 07/22/2017 HISTORY: 26-year-old female with a history of depression and polysubstance dependency, admitted for depression and suicidal ideation. The patient has been using heroin intravenously and cocaine intravenously for the last several months. MEDICATIONS: - Librium 25 mg by mouth three times a day - methadone 10 mg by mouth twice a day - Celexa 10 mg by mouth in the morning SUBJECTIVE: "I am not feeling well this morning." OBJECTIVE: The patient is tearful, anxious, depressed, somewhat irritable. Denies side effect from the medications. The patient reports getting help from the low dosage of methadone to help with the withdrawal symptoms. The patient was able to sleep better last night. MENTAL STATUS EXAMINATION: The patient is dressed in [facility]. The patient is cooperative during the interview. The patient is tearful, labile, depressed. Poor eye contact. No delusions. No hallucinations. Memory, attention and concentration are fair. The patient is able to contract for safety during the hospitalization. Insight and judgment is limited. ASSESSMENT: 1. Depression. 2. Suicidal ideation. 3. Polysubstance dependency. PLAN: 1. Continue Librium 25 mg by mouth twice a day, tapering. 2. Continue methadone 10 mg by mouth twice a day, tapering. 3. Increase Celexa to 20 mg by mouth in the morning.
[2017-07-22] MEDS: traZODone 100 MG TAB PO SCH (20:33)
[2017-07-22] MEDS ORDERED: METHADONE 10 MG TAB (S0109) PO ONE (21:00)
[2017-07-22 22:15] VITALS: BP 117/69
[2017-07-23 06:19] VITALS: BP 96/53
[2017-07-23] MEDS: chlordiazePOXIDE 25 MG CAP PO SCH (08:27)
[2017-07-23] MEDS: CitaloPRAM (CeleXA) 20 MG TAB PO SCH (08:27)
[2017-07-23] MEDS: METHADONE 5 MG TAB (S0109) PO SCH ×2 (08:28→20:41)
--- NOTE | 2017-07-23 15:46 | MHIPN ---
DATE OF SERVICE: 07/23/2017 HISTORY: 26-year-old female with a history of depression and polysubstance dependency, admitted for depression and suicidal ideation. The patient has been using heroin and cocaine intravenously for the last several months. MEDICATIONS: - Librium 25 mg by mouth three times a day - methadone 5 mg by mouth every morning and 10 mg by mouth at bedtime - Celexa 20 mg by mouth every morning SUBJECTIVE: "I am feeling a little better". OBJECTIVE: The patient shows no signs or symptoms of opioid withdraw with help of the medication. Patient was tearful and labile early in the morning, she was very frustrated after she was told by Child and Protective Services (CPS) that she could not keep the children until she recovers. Patient has been able to sleep well. Denies side effect from the medications. She feels less depressed. MENTAL STATUS EXAMINATION: The patient is dressed in [facility]. The patient is cooperative during the interview. The patient was labile, but less depressed. No delusions. No hallucinations. Memory, attention and concentration are fair. The patient is able to contract for safety during her hospitalization. Insight and judgment is limited. ASSESSMENT: 1. Depression. 2. Suicidal ideation. 3. Polysubstance dependency. PLAN: 1. Continue Librium taper. 2. Continue methadone taper. 3. Increase Celexa 20 mg by mouth in the morning.
[2017-07-23] MEDS ORDERED: chlordiazePOXIDE 25 MG CAP PO PRN (16:15)
[2017-07-23 18:00] VITALS: BP 98/54
[2017-07-23] MEDS: traZODone 100 MG TAB PO SCH (20:41)
[2017-07-24 07:04] VITALS: BP 96/51
[2017-07-24] MEDS: METHADONE 5 MG TAB (S0109) PO SCH ×2 (08:21→20:22)
[2017-07-24] MEDS: CitaloPRAM (CeleXA) 20 MG TAB PO SCH (08:21)
[2017-07-24] MEDS: ACETAMINOPHEN TAB 650MG DOSE (2X325MG) PO PRN (17:24)
[2017-07-24 18:00] VITALS: BP 108/56
[2017-07-24] MEDS: traZODone 100 MG TAB PO SCH (20:23)
--- NOTE | 2017-07-24 20:29 | MHIPN ---
DATE: 07/24/2017 CHIEF COMPLAINT: Says doing okay. SUBJECTIVE: Is seen for followup in the presence of staff. Says is doing okay, and that her mood is better. She says that she had better sleep, and that appetite is okay. MENTAL STATUS EXAMINATION: Neat. Somewhat guarded, possibly appears disinterested as well. She is coherent. No agitation. No psychomotor retardation. Affect is restricted in range but shows reactivity. Denies any suicidal thoughts or intents. No homicidal ideas or intents. No evidence of any psychosis. Cognition is grossly intact. Judgment and insight are questionable. ASSESSMENT: 1. Other specified depressive disorder. 2. Opioid use disorder. 3. Consider alcohol use disorder. PLAN: Continue current care and methadone at 5 mg twice a day, currently no overt withdrawal symptoms from the opiates. She is to continue with the taper of Librium as well. I would suggest obtaining collateral information. Encourage participation in activities on the unit. She is on Celexa 30 mg daily, this is to continue. Also consider substance abuse treatment upon discharge, may require rehabilitation, though she does not think that she does at present. Suggests would want to attend outpatient care.
[2017-07-25 06:48] VITALS: BP_SYST 64
[2017-07-25] MEDS: CitaloPRAM (CeleXA) 20 MG TAB PO SCH (08:10)
[2017-07-25] MEDS ORDERED: METHADONE 5 MG TAB (S0109) PO ONE ×2 (09:00)
[2017-07-25 18:00] VITALS: BP 134/80
[2017-07-25] MEDS: traZODone 100 MG TAB PO SCH (20:40)
[2017-07-26 07:23] VITALS: BP 15/92
[2017-07-26] MEDS: CitaloPRAM (CeleXA) 20 MG TAB PO SCH (08:08)
[2017-07-26] MEDS ORDERED: TRAZ10TA PO (09:20)
[2017-07-26] MEDS ORDERED: CELE20TA PO (09:20)
--- NOTE | 2017-07-26 18:02 | MHDS ---
DATE OF ADMISSION: 07/20/2017 DATE OF DISCHARGE: 07/26/2017 LEGAL STATUS AT ADMISSION: 9.39 legal status. HISTORY OF PRESENT ILLNESS: 26-year-old female with history of depression and polysubstance dependency admitted to our unit on a 9.39 legal status. According to the record, the patient sent text messages expressing suicidal thoughts. She found out that [facility] has a waiting period for admission of 2 weeks for detoxification/rehabilitation. The patient reports that has been depressed, tearful, with low energy, low appetite, having trouble sleeping, feeling hopeless and helpless. The patient says that has been using heroin and cocaine intravenous (IV) for the last 4 months and wants to stop using. The patient states that has five children. She owns a house and her brother, her brother's girlfriend, and her father have been using drugs. During the interview, there was no evidence of psychotic symptoms. No auditory or visual hallucinations or delusions. LABORATORIES AT ADMISSION: Her CBC was unremarkable. CMP within normal limits except sodium of 146, potassium of 3.2, TSH was within normal limits. Urine drug screen was positive for opiates and cocaine. Blood alcohol level was negative. HOSPITAL COURSE: After the first evaluation, she was started on methadone 10 mg by mouth twice a day, Librium 25 mg by mouth three times a day, Celexa 10 mg by mouth every morning, and trazodone 100 mg by mouth nightly. The patient had no complication during this hospital admission. The patient was motivated for treatment and wanted to stop using drugs. The patient had no side effects from the medications. The taper of methadone and Librium went well. The patient did not suffer signs or symptoms of opiate withdrawal during her hospitalization due to the above medications. At the moment of discharge, the patient is in a stable condition with no auditory or visual hallucinations, delusions, suicidal or homicidal ideation. The patient originally wanted to be admitted to inpatient facility for detoxification, but since she was admitted to our service for depression and suicidal ideation, and detoxification was completed, she then preferred to be treated in outpatient basis at [facility], so she is being discharged, and appointment will be given to her to follow her treatment at [facility]. MENTAL STATUS EXAMINATION AT DISCHARGE: The patient is dressed in [facility]. The patient is calm and cooperative. Her speech is clear, coherent, with normal rate, and is spontaneous. The patient has good eye contact. Mood is euthymic. Affect is appropriate and congruent with mood. The patient is oriented to time, place, person, and situation. Maintains attention and concentration correctly. Instant recall, recent and remote memory are intact. Thought processes are coherent, logical, and goal directed. The patient does not have auditory or visual hallucinations. The patient does not have paranoid, persecutory, somatic, grandiose, or episcopal delusions. The patient is denying suicidal or homicidal ideation. Insight and judgment are fair. DISCHARGE DIAGNOSES: [place] I: Adjustment disorder with depressed and anxious moods. Substance-induced mood disorder. Polysubstance dependency. [place] II: Deferred. [place] III: None acute. MEDICATIONS AT DISCHARGE: - Celexa 20 mg by mouth every morning - trazodone 100 mg by mouth nightly CONDITION AT DISCHARGE: Stable. No auditory or visual hallucinations. No delusion. No suicidal or homicidal ideation. INSTRUCTIONS TO THE PATIENT: The patient is to continue taking her medications as prescribed and followup appointments. She is advised to maintain absolute sobriety from drugs and alcohol. The patient has scheduled appointment for medication management, individual psychotherapy, [facility], and primary care physician.
== END 2017-07-26 13:50 | disposition home or self-care (01) | DRG 755 ==
LOC: M ED 17:18 → M ED INP 20:50 → M PSY 07-21 00:34
PROVIDERS: ADMIT Psychiatry & Neurology Psychiatry; ATTEND Psychiatry & Neurology Psychiatry
DX: F43.23 Adjustment disorder with mixed anxiety and depressed mood (principal); F14.24 Cocaine dependence with cocaine-induced mood disorder; F11.24 Opioid dependence with opioid-induced mood disorder; G43.909 Migraine, unspecified, not intractable, without status migrainosus; E87.0 Hyperosmolality and hypernatremia; E87.6 Hypokalemia; M79.672 Pain in left foot; Z81.1 Family history of alcohol abuse and dependence; Z81.3 Family history of other psychoactive substance abuse and dependence; Z79.899 Other long term (current) drug therapy

== ENCOUNTER 2017-08-12 11:39 | Emergency (ER) | payer MEDICAID, OTHER, SELFPAY ==
[~2017-08-12] VITALS: Ht 160 cm; Wt 69.5 kg
[~2017-08-12 11:39] MED LIST changes: -AMOX875T PO; -CELE40TA PO; -TOPI50TA9
[2017-08-12 11:40] VITALS: BP 112/72
[2017-08-12] MEDS ORDERED: TOPI50TA9 (11:51)
[2017-08-12] MEDS ORDERED: CELE40TA PO (11:51)
[2017-08-12] MEDS ORDERED: AMOX875T PO (12:18)
== END 2017-08-12 12:27 | disposition home or self-care (01) ==
LOC: M ED 11:39
DX: J01.90 Acute sinusitis, unspecified (principal); F19.11 Other psychoactive substance abuse, in remission; F41.9 Anxiety disorder, unspecified; F33.9 Major depressive disorder, recurrent, unspecified; Z79.899 Other long term (current) drug therapy

== ENCOUNTER → 2017-08-12 | Outpatient (CLI) | payer MEDICAID, OTHER ==
[~2017-08-12] MED LIST changes: +AMOX875T PO; +CELE20TA PO; +CELE40TA PO; +PATIENT COMMENT; +TOPI50TA9; +TOPI50TA9 PO; +TRAZ10TA PO
[2017-08-12 13:41] LABS: BASO # 0.1 10^3/uL (0.0-0.2); BASO % 0.7 % (0.0-1.0); EOS # 0.2 10^3/uL (0.0-0.50); EOS % 1.3 % (0.0-3.0); IMMATURE GRANULOCYTE % 0.3 % (0-0); LYMPH # 3.1 10^3/uL (1.5-6.5); LYMPH % 26.7 % (24.0-44.0); MEAN CORPUSCULAR HEMOGLOBIN 30.1 pg (27.0-33.0); MEAN CORPUSCULAR HGB CONC 32.7 g/dl (32.0-36.5); MEAN CORPUSCULAR VOLUME 92.1 fl (80.0-96.0); MONO # 0.7 10^3/uL (0.0-0.8); NEUTROPHILS # 7.5 10^3/uL (1.8-7.7); PLATELET COUNT, AUTOMATED 346 10^3/uL (150-450); RED CELL DISTRIBUTION WIDTH 13.4 % (11.5-14.5); WHITE BLOOD COUNT 11.6 10^3/uL (4.0-10.0)
[2017-08-12 13:53] LABS: ALBUMIN 4.2 GM/DL (3.2-5.2); ALBUMIN/GLOBULIN RATIO 1.35 (1.00-1.93); ALKALINE PHOSPHATASE 74 U/L (45-117); ALT/SGPT 11 U/L (12-78); ANION GAP 8 MEQ/L (8-16); AST/SGOT 12 U/L (7-37); BILIRUBIN,DIRECT 0.1 MG/DL (0.0-0.2); BILIRUBIN,TOTAL 0.3 MG/DL (0.2-1.0); BLOOD UREA NITROGEN 12 MG/DL (7-18); CALCIUM LEVEL 9.4 MG/DL (8.5-10.1); CARBON DIOXIDE LEVEL 27 MEQ/L (21-32); CHLORIDE LEVEL 109 MEQ/L (98-107); CREATININE FOR GFR 0.85 MG/DL (0.55-1.02); GLOMERULAR FILTRATION RATE > 60.0 (>60); GLUCOSE, FASTING 84 MG/DL (70-105); POTASSIUM SERUM 4.7 MEQ/L (3.5-5.1); SODIUM LEVEL 144 MEQ/L (136-145); TOTAL PROTEIN 7.3 GM/DL (6.4-8.2)
== END ==
LOC: M LAB 12:38
PROVIDERS: ATTEND Student in an Organized Health Care Education/Training Program
DX: E87.6 Hypokalemia (principal); D72.829 Elevated white blood cell count, unspecified; F19.10 Other psychoactive substance abuse, uncomplicated

== ENCOUNTER → 2017-08-19 | Outpatient (CLI) | payer MEDICAID ==
[2017-08-24 14:19] LABS: AMPHETAMINE SCREEN, URINE Negative ng/mL (Cutoff=1000); BARBITURATES SCREEN, URINE Negative ng/mL (Cutoff=200); BENZODIAZEPINES, URINE SCREEN Negative ng/mL (Cutoff=200); CANNABINOID SCREEN, URINE Negative ng/mL (Cutoff=20); COCAINE SCREEN, URINE Negative ng/mL (Cutoff=300); FENTANYL URINE SCREEN Negative pg/mL (Cutoff=2000); METHADONE, URINE SCREEN Negative ng/mL (Cutoff=300); OPIATE SCREEN, URINE Negative ng/mL (Cutoff=300); OXYCODONE, SCREEN, URINE Negative ng/mL (Cutoff=100); PCP SCREEN, URINE Negative ng/mL (Cutoff=25); pH, URINE 6.6 (4.5-8.9)
== END ==
LOC: M LAB 16:38
DX: F19.10 Other psychoactive substance abuse, uncomplicated (principal)

== ENCOUNTER → 2017-09-15 | Outpatient (CLI) | payer OTHER ==
[2017-09-15 16:01] LABS: HEMATOCRIT 41.3 % (36.0-47.0); HEMOGLOBIN 13.7 g/dl (12.0-16.0); MEAN CORPUSCULAR HGB CONC 33.2 g/dl (32.0-36.5); MEAN CORPUSCULAR VOLUME 90.4 fl (80.0-96.0); PLATELET COUNT, AUTOMATED 237 10^3/uL (150-450); RED BLOOD COUNT 4.57 10^6/uL (4.00-5.40); RED CELL DISTRIBUTION WIDTH 12.1 % (11.5-14.5); WHITE BLOOD COUNT 7.1 10^3/uL (4.0-10.0)
[2017-09-15 17:10] LABS: ALBUMIN 3.9 GM/DL (3.2-5.2); ALBUMIN/GLOBULIN RATIO 1.34 (1.00-1.93); ALKALINE PHOSPHATASE 76 U/L (45-117); ALT/SGPT 187 U/L (12-78); ANION GAP 6 MEQ/L (8-16); AST/SGOT 243 U/L (7-37); BILIRUBIN,TOTAL 0.4 MG/DL (0.2-1.0); BLOOD UREA NITROGEN 13 MG/DL (7-18); CALCIUM LEVEL 8.8 MG/DL (8.5-10.1); CARBON DIOXIDE LEVEL 29 MEQ/L (21-32); CHLORIDE LEVEL 104 MEQ/L (98-107); CREATININE FOR GFR 0.61 MG/DL (0.55-1.02); GLOMERULAR FILTRATION RATE > 60.0 (>60); GLUCOSE, FASTING 94 MG/DL (70-100); POTASSIUM SERUM 4.2 MEQ/L (3.5-5.1); SODIUM LEVEL 139 MEQ/L (136-145); TOTAL PROTEIN 6.8 GM/DL (6.4-8.2)
[2017-09-16 08:30] LABS: CHLAMYDIA DNA AMPLIFICATION NEGATIVE (NEGATIVE); GC DNA AMPLIFICATION NEGATIVE (NEGATIVE)
[2017-09-17 10:27] LABS: HEPATITIS B SURFACE ANTIGEN NEGATIVE (NEGATIVE)
[2017-09-17 10:41] LABS: HIV 1&2 SCREEN CENTAUR NEGATIVE (NEGATIVE)
[2017-09-17 12:09] LABS: HEPATITIS C VIRUS ABY INDEX 4.9 INDEX (<0.8)
[2017-09-20 08:06] LABS: HCV RNA NAA QUALITATIVE Positive (Negative)
== END ==
LOC: M LAB 14:52
DX: F11.20 Opioid dependence, uncomplicated (principal)
CPT/HCPCS: 93005

== ENCOUNTER 2017-09-20 16:45 | Emergency (ER) | payer OTHER ==
[2017-09-20] MEDS: NAPROXEN 250 MG TAB PO (19:00)
[2017-09-20 19:28] LABS: INFLUENZA A AMPLIFICATION NEGATIVE (NEGATIVE); INFLUENZA B AMPLIFICATION NEGATIVE (NEGATIVE); RSV AMPLIFICATION NEGATIVE (NEGATIVE)
== END 2017-09-20 19:54 | disposition home or self-care (01) ==
LOC: M ED 16:45
DX: J02.9 Acute pharyngitis, unspecified (principal); F33.9 Major depressive disorder, recurrent, unspecified; F41.9 Anxiety disorder, unspecified; F19.10 Other psychoactive substance abuse, uncomplicated
CPT/HCPCS: 87631

== ENCOUNTER → 2017-09-24 | Outpatient (CLI) | payer OTHER ==
[2017-09-24 15:14] LABS: BASO # 0.1 10^3/uL (0.0-0.2); BASO % 0.7 % (0.0-1.0); EOS # 0.2 10^3/uL (0.0-0.50); EOS % 2.2 % (0.0-3.0); HEMATOCRIT 40.2 % (36.0-47.0); HEMOGLOBIN 13.3 g/dl (12.0-16.0); IMMATURE GRANULOCYTE % 0.1 % (0-0); LYMPH # 2.1 10^3/uL (1.5-6.5); LYMPH % 30.6 % (24.0-44.0); MEAN CORPUSCULAR HEMOGLOBIN 29.9 pg (27.0-33.0); MEAN CORPUSCULAR HGB CONC 33.1 g/dl (32.0-36.5); MEAN CORPUSCULAR VOLUME 90.3 fl (80.0-96.0); MONO # 0.5 10^3/uL (0.0-0.8); MONO % 7.1 % (0.0-5.0); NEUTROPHILS % 59.3 % (36.0-66.0); PLATELET COUNT, AUTOMATED 215 10^3/uL (150-450); RED BLOOD COUNT 4.45 10^6/uL (4.00-5.40); RED CELL DISTRIBUTION WIDTH 12.2 % (11.5-14.5); WHITE BLOOD COUNT 6.7 10^3/uL (4.0-10.0)
[2017-09-24 15:25] LABS: INR 1.06; PROTHROMBIN TIME 13.9 SECONDS (12.4-14.5)
[2017-09-24 15:26] LABS: PARTIAL THROMBOPLASTIN TIME 35.1 SECONDS (26.8-37.9)
[2017-09-24 15:37] LABS: ALBUMIN 3.8 GM/DL (3.2-5.2); ALBUMIN/GLOBULIN RATIO 1.31 (1.00-1.93); ALKALINE PHOSPHATASE 132 U/L (45-117); ALT/SGPT 384 U/L (12-78); AST/SGOT 382 U/L (7-37); BILIRUBIN,DIRECT 0.1 MG/DL (0.0-0.2); BILIRUBIN,TOTAL 0.4 MG/DL (0.2-1.0); TOTAL PROTEIN 6.7 GM/DL (6.4-8.2)
== END ==
LOC: M LAB 14:38
DX: B17.10 Acute hepatitis C without hepatic coma (principal)
CPT/HCPCS: 84460

== ENCOUNTER → 2017-10-26 | Outpatient (REF) | payer OTHER ==
[2017-10-26 11:29] LABS: ALBUMIN/GLOBULIN RATIO 1.38 (1.00-1.93); ALKALINE PHOSPHATASE 116 U/L (45-117); ALT/SGPT 213 U/L (12-78); AST/SGOT 140 U/L (7-37); BILIRUBIN,DIRECT 0.2 MG/DL (0.0-0.2); BILIRUBIN,TOTAL 0.5 MG/DL (0.2-1.0); TOTAL PROTEIN 6.9 GM/DL (6.4-8.2)
[2017-10-27 11:02] LABS: HEPATITIS B SURFACE ANTIBODY POSITIVE (POSITIVE)
== END ==
LOC: M SFHCPLAZ 09:15
DX: B17.10 Acute hepatitis C without hepatic coma (principal)
CPT/HCPCS: 36415

== ENCOUNTER → 2017-11-17 | Outpatient (REF) | payer OTHER, MEDICAID | LOC: M LAB REF 17:45 | DX: F11.21 Opioid dependence, in remission (principal) | CPT/HCPCS: 80362 ==

== ENCOUNTER 2017-12-02 15:21 | Outpatient (RCR) | payer MEDICAID | END 2017-12-20 | LOC: M OUTALCOH 12-09 09:00 | DX: F11.20 Opioid dependence, uncomplicated (principal); F15.20 Other stimulant dependence, uncomplicated; F14.20 Cocaine dependence, uncomplicated ==

== ENCOUNTER → 2017-12-08 | Outpatient (REF) | payer MEDICAID | LOC: M LAB REF 17:29 | DX: F11.21 Opioid dependence, in remission (principal) | CPT/HCPCS: 80362 ==

== ENCOUNTER → 2017-12-09 | Outpatient (REF) | payer MEDICAID, OTHER | LOC: M SFHCPLAZ 12-10 11:35 | DX: J02.9 Acute pharyngitis, unspecified (principal) | CPT/HCPCS: 87081 ==

== ENCOUNTER 2017-12-21 10:18 | Outpatient (RCR) | payer MEDICAID | END 2018-01-20 | LOC: M OUTALCOH 10:18 | DX: F11.20 Opioid dependence, uncomplicated (principal); F14.20 Cocaine dependence, uncomplicated; F15.20 Other stimulant dependence, uncomplicated ==

== ENCOUNTER → 2017-12-22 | Outpatient (REF) | payer MEDICAID | LOC: M LAB REF 09:09 | DX: F11.21 Opioid dependence, in remission (principal) ==

== ENCOUNTER → 2017-12-28 | Outpatient (REF) | payer OTHER ==
[2017-12-28 13:54] LABS: ALBUMIN/GLOBULIN RATIO 1.25 (1.00-1.93); ALKALINE PHOSPHATASE 77 U/L (45-117); ALT/SGPT 20 U/L (12-78); AST/SGOT 26 U/L (7-37); BILIRUBIN,DIRECT 0.1 MG/DL (0.0-0.2); BILIRUBIN,TOTAL 0.4 MG/DL (0.2-1.0); TOTAL PROTEIN 7.2 GM/DL (6.4-8.2)
[2017-12-30 10:14] LABS: HEPATITIS C QUANTITATION 1680 IU/mL (.)
== END ==
LOC: M SFHCPLAZ 10:51
DX: B17.10 Acute hepatitis C without hepatic coma (principal)
CPT/HCPCS: 80076

== ENCOUNTER → 2018-01-05 | Outpatient (REF) | payer MEDICAID | LOC: M LAB REF 16:41 | DX: F11.21 Opioid dependence, in remission (principal) ==

== ENCOUNTER → 2018-01-12 | Outpatient (REF) | payer MEDICAID ==
[2018-01-20 10:13] LABS: AMPHETAMINE SCREEN, URINE Negative ng/mL (Cutoff=1000); BARBITURATES SCREEN, URINE Negative ng/mL (Cutoff=200); BENZODIAZEPINES, URINE SCREEN Negative ng/mL (Cutoff=200); BENZOYLECGONINE (GC/MS) 23880 ng/mL (Cutoff=150); CANNABINOID SCREEN, URINE Negative ng/mL (Cutoff=20); COCAINE + METABOLITE Positive (Cutoff=300); COCAINE SCREEN, URINE See Final Results ng/mL (Cutoff=300); CREATININE, URINE 182.5 mg/dL (20.0-300.0); FENTANYL URINE SCREEN Negative pg/mL (Cutoff=2000); METHADONE, URINE SCREEN Negative ng/mL (Cutoff=300); NALOXONE RESULT Negative (.); OPIATE SCREEN, URINE Negative ng/mL (Cutoff=300); OXYCODONE, SCREEN, URINE Negative ng/mL (Cutoff=100); PCP SCREEN, URINE Negative ng/mL (Cutoff=25); SPECIFIC GRAVITY, URINE 1.018 (.); URINE BUPRENORPHINE Positive (.); URINE BUPRENORPHINE Positive (Cutoff=10); URINE BUPRENORPHINE See Final Results ng/mL (Cutoff=10); URINE BUPRENORPHINE CONFIRM 188 ng/mL (Cutoff=10); URINE NORBUPRENORPHINE Positive (.); URINE NORBUPRENORPHINE CONFIRM 436 ng/mL (Cutoff=10); pH, URINE 6.6 (4.5-8.9)
== END ==
LOC: M LAB REF 19:15
DX: F11.21 Opioid dependence, in remission (principal)

== ENCOUNTER → 2018-01-19 | Outpatient (REF) | payer MEDICAID ==
[2018-01-26 14:17] LABS: AMPHETAMINE SCREEN, URINE Negative ng/mL (Cutoff=1000); BARBITURATES SCREEN, URINE Negative ng/mL (Cutoff=200); BENZODIAZEPINES, URINE SCREEN Negative ng/mL (Cutoff=200); CANNABINOID SCREEN, URINE Negative ng/mL (Cutoff=20); COCAINE SCREEN, URINE Negative ng/mL (Cutoff=300); CREATININE, URINE 92.5 mg/dL (20.0-300.0); FENTANYL URINE SCREEN Negative pg/mL (Cutoff=2000); METHADONE, URINE SCREEN Negative ng/mL (Cutoff=300); NALOXONE RESULT Positive (.); OPIATE SCREEN, URINE Negative ng/mL (Cutoff=300); OXYCODONE, SCREEN, URINE Negative ng/mL (Cutoff=100); PCP SCREEN, URINE Negative ng/mL (Cutoff=25); SPECIFIC GRAVITY, URINE 1.011 (.); pH, URINE 5.2 (4.5-8.9)
== END ==
LOC: M LAB REF 07:59
DX: F11.21 Opioid dependence, in remission (principal)

== ENCOUNTER 2018-10-29 11:37 | Inpatient (IN) | payer MEDICAID, OTHER ==
[~2018-10-29] VITALS: Ht 160 cm; Wt 73.7 kg
[~2018-10-29 11:37] MED LIST changes: -ACET50TA PO; +AMOX875T PO; +BUPRENORPHINE/NALOXONE 8-2MG SUBLINGUAL TABLET(SUBOXONE) SL SCH; +CELE40TA PO; +FLON1SPR; +MAPA500T2 PO; +SUBO2MIS SL; +SUBO4MIS SL; +TOPI50TA9; +TYLE325T5 PO
[2018-10-29] MEDS ORDERED: TOPA50TA8 PO (11:43)
[2018-10-29 12:15] LABS: HEMATOCRIT 41.6 % (36.0-47.0); HEMOGLOBIN 13.9 g/dl (12.0-15.5); MEAN CORPUSCULAR HEMOGLOBIN 29.8 pg (27.0-33.0); MEAN CORPUSCULAR HGB CONC 33.4 g/dl (32.0-36.5); MEAN CORPUSCULAR VOLUME 89.1 fl (80.0-96.0); PLATELET COUNT, AUTOMATED 275 10^3/uL (150-450); RED BLOOD COUNT 4.67 10^6/uL (4.00-5.40); WHITE BLOOD COUNT 10.8 10^3/uL (4.0-10.0)
[2018-10-29 13:35] LABS: AMPHETAMINES LEVEL URINE POSITIVE (NEGATIVE); BARBITURATES URINE NEGATIVE (NEGATIVE); BENZODIAZEPINES URINE NEGATIVE (NEGATIVE); CANNABINOIDS URINE NEGATIVE (NEGATIVE); COCAINE METABOLITE URINE NEGATIVE (NEGATIVE); METHADONE URINE NEGATIVE (NEGATIVE); OPIATES URINE NEGATIVE (NEGATIVE); PHENCYCLIDINE URINE NEGATIVE (NEGATIVE)
[2018-10-29 13:49] LABS: ACETAMINOPHEN LEVEL < 2.0 UG/ML (10.0-30.0); ALBUMIN 4.3 GM/DL (3.2-5.2); ALT/SGPT 42 U/L (12-78); BILIRUBIN,DIRECT 0.3 MG/DL (0.0-0.2); BILIRUBIN,TOTAL 1.1 MG/DL (0.2-1.0); BLOOD UREA NITROGEN 16 MG/DL (7-18); CALCIUM LEVEL 8.9 MG/DL (8.5-10.1); CARBON DIOXIDE LEVEL 23 MEQ/L (21-32); CHLORIDE LEVEL 111 MEQ/L (98-107); CREATININE FOR GFR 0.97 MG/DL (0.55-1.30); ETHYL ALCOHOL (ETHANOL) < 0.003 % (0.000-0.010); GLOMERULAR FILTRATION RATE > 60.0 (>60); GLUCOSE, FASTING 97 MG/DL (70-100); POTASSIUM SERUM 3.6 MEQ/L (3.5-5.1); SALICYLATE LEVEL < 1.7 MG/DL (5.0-30.0); SODIUM LEVEL 144 MEQ/L (136-145); TOTAL PROTEIN 8.1 GM/DL (6.4-8.2)
[2018-10-29] MEDS ORDERED: SUBO8MIS SL (14:20)
[2018-10-29] MEDS ORDERED: MAALOX 30 ML SUSP *UDC PO PRN (14:45)
[2018-10-29] MEDS ORDERED: ACETAMINOPHEN TAB 650MG DOSE (2X325MG) PO PRN (14:45)
[2018-10-29] MEDS ORDERED: traZODone 50 MG TAB PO PRN (14:45)
[2018-10-29] MEDS ORDERED: MOM 30ML SUSPENSION UDC PO PRN (14:45)
[2018-10-29 15:36] VITALS: BP 121/76
[2018-10-29] MEDS: BUPRENORPHINE/NALOXONE 8-2MG SUBLINGUAL TABLET(SUBOXONE) SL SCH (16:23)
[2018-10-29] MEDS: TOPIRAMATE (TopAMAX) 25 MG TAB PO SCH (21:00)
[2018-10-30 06:11] VITALS: BP 122/59
[2018-10-30] MEDS: BUPRENORPHINE/NALOXONE 8-2MG SUBLINGUAL TABLET(SUBOXONE) SL SCH ×3 (07:45→15:53)
[2018-10-30] MEDS: TOPIRAMATE (TopAMAX) 25 MG TAB PO SCH ×2 (08:01→21:30)
[2018-10-30 11:20] VITALS: BP 130/69
[2018-10-30 18:03] VITALS: BP 110/65
[2018-10-30 21:00] VITALS: BP 120/66
[2018-10-31 06:18] VITALS: BP 112/53
--- NOTE | 2018-10-31 09:38 | MHHPE ---
DATE OF ADMISSION: 10/29/2018 DATE OF EVALUATION: 10/30/2018 HISTORY OF PRESENT ILLNESS: This is a 28-year-old woman who was admitted after she presented to the emergency room complaining of depression and suicidal ideations, although she did not have a specific plan. She complained of being increasingly stressed out. Apparently, the father of her 1-year-old child just got out of halfway and she said she relapsed with lindy for a couple of days. This patient has a significant history of heroin abuse and she actually is supposed to be on Suboxone 8 mg three times a day. She is also Topamax 50 mg twice a day. When I saw her today, the patient was very irritable and basically did not want to answer most of my questions. She kept on stating, "I don't know if I am going to stay here". I did clarify to the patient that she had been committed to the hospital because of her voicing suicidal ideations. She then proceeded to tell me that she was not going to eat any of the food in the hospital because she did not like it. At that point, I did not continue with the interview. I did review some records from her last hospitalization at [facility] from 07/20/2017 until 07/26/2017. She presented with complaints of depression and suicidal ideation and she was abusing drugs at that time, which included heroin and cocaine intravenously. She was diagnosed with unspecified depressive disorder, polysubstance dependence (cocaine and heroin intravenously). The patient was placed on Suboxone 20 mg daily and trazodone 100 mg nightly. PAST PSYCHIATRIC HISTORY: Unable to obtain further information. FAMILY HISTORY: The patient's mother with alcohol and father with drugs. PAST MEDICAL HISTORY: There are no medical problems. SUBSTANCE ABUSE HISTORY: This is as noted above. REVIEW OF SYSTEMS: VITAL SIGNS: Blood pressure is 122/59, Pulse is 52, Respirations are 18. APPEARANCE: She appears to be in no apparent distress. The patient appears her stated age. All other systems found to be negative. MENTAL STATUS EXAMINATION: Patient is alert and oriented times three. Eye contact is fair. Psychomotor activity is normal. She is quite irritable as I said not really wanting to answer any more questions. There is no formal though disorder noted. Patient does admit that she is depressed. Affect appears to be somewhat labile. She is not psychotic. She denies suicidal ideations today. She denies homicidal ideations. Concentration is fair. Memory is grossly intact. Insight and judgment are poor. DIAGNOSES: Unspecified depressive disorder. Cocaine use disorder. Opioid use disorder. TREATMENT PLAN: Will continue to monitor the patient for any ongoing depression and for continued resolution of suicidal ideations. Will continue current medications of the Topamax 50 mg twice a day and Suboxone 8 mg three times a day. Hopefully, the patient will be more receptive obtaining further information tomorrow. We will adjust the medications as indicated. VIRGILIO
[2018-10-31] MEDS: TOPIRAMATE (TopAMAX) 25 MG TAB PO SCH ×2 (09:52→21:00)
[2018-10-31] MEDS: BUPRENORPHINE/NALOXONE 8-2MG SUBLINGUAL TABLET(SUBOXONE) SL SCH ×3 (09:53→16:00)
[2018-10-31 18:00] VITALS: BP 90/52
[2018-10-31] MEDS: traZODone 50 MG TAB PO PRN (21:03)
--- NOTE | 2018-11-01 06:12 | HPE ---
DATE OF ADMISSION: 10/29/2018 HISTORY OF PRESENT ILLNESS: Please refer to psychiatric history and evaluation for further details on this admission. This examination and history is intended for medical issues, which may need treatment, followup, or consult on this 28-year-old female. ALLERGIES: No known allergies. SOCIAL HISTORY: She is single. She does not drink alcohol. She does not smoke cigarettes. Recreational drug use. Joanna a few days ago. History of polysubstance abuse. She states she has not used heroin for approximately a year. PAST MEDICAL HISTORY: Migraines. PAST SURGICAL HISTORY: Tonsillectomy, wisdom teeth extraction, tubal ligation. HOME MEDICATIONS: - Suboxone 8-2 mg sublingual three times a day - Topamax 50 mg by mouth twice a day FAMILY HISTORY: Noncontributory. LABORATORY STUDIES: WBC 10.8, hemoglobin 13.9, hematocrit 41.6, platelets 275. Urine was positive for amphetamines. Sodium 144, potassium 3.6, chloride 111, anion gap is 23, BUN 16, creatinine 0.97, total bilirubin 1.1, direct bilirubin 0.3. REVIEW OF SYSTEMS: 10 systems review was done and was unremarkable. Patient had no complaints. Unremarkable. PHYSICAL EXAMINATION: 28--year-old cooperative female in no acute distress. Height 63 inches, weight 73 Kg. Patient is alert and oriented times three. Pupils equal and reactive to light. Extraocular movements (EOMs) intact. Cornea and sclerae clear. Conjunctivae normal. No facial asymmetry. Pharynx, tongue, gums pink and moist. Tongue is pierced. Neck is supple without lymphadenopathy. No thyromegaly. No goiter. Carotids 2+ without bruit. Chest: Clear to auscultation without wheezes or retraction. Heart: Is regular. Abdomen: Benign. Bowel sounds positive. Genitourinary/Rectal: Not done. Extremities: Show equal strength. Full range of motion. No cyanosis, clubbing, or edema. Peripheral pulse equal and palpable bilaterally. Trace bilateral pedal edema. IMPRESSION/PLAN: Psychiatric plan for psychiatry. No acute medical issues. MTDD
[2018-11-01 06:42] VITALS: BP 92/50
[2018-11-01] MEDS ORDERED: BUPRENORPHINE/NALOXONE 8-2MG SUBLINGUAL TABLET(SUBOXONE) SL SCH (08:00)
[2018-11-01] MEDS: BUPRENORPHINE/NALOXONE 8-2MG SUBLINGUAL TABLET(SUBOXONE) SL SCH ×2 (08:00→14:00)
--- NOTE | 2018-11-01 08:13 | MHIPNPDOC ---
[facility] Progress Note Progress Note DATE OF SERVICE: 10/31/18 HISTORY: See HPI. Interval history: States she was called by ex-boyfriend who was just released from detention and decided to go take "lindy" at his apartment. Today says she has a migraine headache, states she has not tried imitrex before and that topomax only partially controls headache. Agrees to PRN Imitrex. She states she started using drugs 2 years ago and that her work hours at [employer] were decreased recently due to "work cuts". States that lonmgest sober period was several months and that her kids and job kept her from using drugs. Says she has 5 children she needs to care for and despite working at [employer] there is some financial strain. She states she wants inpatient rehab to help with her drug use. Agrees to start fluoxetine 20 mg PO for chronic depressed mood. She denies SI/HI/AVH/zoe/PTSD. VITAL SIGNS: See below. NEW TEST RESULTS: None CURRENT MEDICATIONS: See below. MENTAL STATUS EXAMINATION: Patient is a 28-year old female, who is wearing red casual clothing, mildly withdrawn. Speech: Is slow rate, rhythm and normal volume. Language skills are normal, no profanity. Thought processes including: circumstantial. Thought content: States she has poor concentration since withdrawing from drugs. Description of abnormal or psychotic thoughts: denies paranoia/AVH/delusions Judgment: poor Insight: very limited Orientation: lethargic and oriented Recent and remote memory: fair Attention span and concentration: poor. Fund of knowledge: poor Mood: "depressed" Affect: dysthymic, congruent, blunted, does not smile DIAGNOSES: 1. Persistent depressive disorder 2. Other substance use disorder ("lindy"), severe 3. Opioid use disorder 4. Cocaine use disorder in remission ASSESSMENT:Patient is a 28 woman with history polysubstance abuse and reported depression who was admitted after arriving to the ED stating she was having Suicidal thoughts. On interview she endorsed chronic depressed mood, poor sleep, poor appetite and withdrawal symptoms. Per chart review she was last admitted Jun 2017, reporting she "was stressed out" and wanted admission inpatient rehab. She denies any past SA. MANAGEMENT PLAN: Will continue to monitor for mood, anxiety and worsening withdrawal symptoms. Started patient on fluoxetine 20 mg PO daily for mood. States she felt dizzy and was "knocked out" by trazodone 50 mg QHS, decreased to 25 mg QHS. Agrees to have PRN imitrex 25 mg PRN, MDD 2 for migraines and continue topiramate. She was made aware of common and rare side effects and agreed to start the medication. Was hesitant to decreased suboxone from a reported 20 mg daily (seemed unclear which dose she was taking). Nursing told to hold suboxone overnight. TIME SPENT: 30 minutes. Vital Signs Vital Signs Date Time Temp Pulse Resp B/P (MAP) Pulse Ox O2 Delivery O2 Flow Rate FiO2 10/31/18 06:18 98.9 65 18 112/53 (72) 10/29/18 14:37 98 Room Air Current Medications Current Medications Acetaminophen (Tylenol Tab) 650 mg Q6HP PRN PO HEADACHE or DISCOMFORT; Start 10/29/18 at 14:45 Al Hydrox/Mg Hydrox/Simethicone (Mylanta) 30 ml Q4HP PRN PO HEARTBURN/INDIGESTION; Start 10/29/18 at 14:45 Buprenorphine/ Naloxone (Suboxone 8/2mg) 1 tab TID@0800,1200,1600 SL Last administered on 10/31/18at 12:53; Start 10/29/18 at 16:00 Buprenorphine/ Naloxone (Suboxone 8/2mg) 3 tab DAILY SL ; Start 10/29/18 at 09:00; Stop 10/29/18 at 16:10; Status DC Magnesium Hydroxide (Milk Of Magnesia) 30 ml DAILYPRN PRN PO CONSTIPATION; Start 10/29/18 at 14:45 Topiramate (TopAMAX) 50 mg BID PO Last administered on 10/31/18at 09:52; Start 10/29/18 at 21:00 Trazodone HCl (Desyrel) 50 mg QHSP PRN PO INSOMNIA Last administered on 10/30/18at 21:30; Start 10/29/18 at 14:45 Allergies Coded Allergies: No Known Allergies (Verified Allergy, Unknown, 03/09/06) WILLY GUZMAN PGY-1 Oct 31, 2018 20:08
[2018-11-01] MEDS: FLUoxetine 20 MG CAP PO SCH (09:00)
[2018-11-01] MEDS: TOPIRAMATE (TopAMAX) 25 MG TAB PO SCH ×2 (09:00→21:00)
--- NOTE | 2018-11-01 15:08 | MHIPNPDOC ---
[facility] Progress Note Progress Note DATE OF SERVICE: 11/01/18 HISTORY: See HPI. Interval history: Patient was seen lying in bed stating she has a migraine headache and not willing to engage in further interview. Told her she has as needed imitrex she has to ask for which may help with headaches, but she decides to remain in bed. States she is not feeling great and just wants to sleep. Denies SI/HI/AVH/paranoia/zoe. When asked if she wants to discuss withdrawal symptoms and possible adjuvant medications she states she just wants to sleep. VITAL SIGNS: See below. NEW TEST RESULTS: none CURRENT MEDICATIONS: See below. MENTAL STATUS EXAMINATION: Patient is a 28-year old female, who is who is lying in bed, wearing casual clothing and fair hygiene. Speech: Is slowed, minimal volume and minimal Language skills are poor Thought processes including: linear, logical Thought content: irritable and wants to wait for rehab. Abstract reasoning, and computation: intact Description of associations: normal Description of abnormal or psychotic thoughts: none, no AVH/zoe Judgment:poor Insight:fair Orientation: x3 Recent and remote memory: intact Attention span and concentration: poor Language: italian Fund of knowledge: low Mood: "not great" Affect: dysthymic, irritable, blunted, does not smile DIAGNOSES: 1. Persistent depressive disorder 2. Other substance use disorder ("lindy"), severe 3. Opioid use disorder 4. Cocaine use disorder in remission 5. Unspecified personality disorder ASSESSMENT:Patient is a 28 woman with history polysubstance abuse and reported depression who was admitted after arriving to the ED stating she was having Suicidal thoughts. Patient continues to be withdrawing from "lindy" intoxication, has depressed mood. She appears somnolent and also unwilling to engage further at this time in her treatment. She denies SI/HI/AVH/zoe/PTSD. Continues to want inpatient rehab. Likely will use drugs if discharged. She needs further time in the hospital for stabilization of her withdrawals/medication management/safety plan. MANAGEMENT PLAN: Will continue to monitor for mood, anxiety and worsening withd tasha symptoms. Continue on fluoxetine 20 mg PO daily for mood, trazodone 25 mg QHS. Agrees to continue with PRN imitrex 25 mg PRN, MDD 2 for migraines and continue topiramate. Continue suboxone 16 mg daily. BP was low range, asked nursing to get manual vitals and encourage PO intake of fluids. Continue with inpatient rehab. planning. TIME SPENT: 10 minutes. Vital Signs Vital Signs Date Time Temp Pulse Resp B/P (MAP) Pulse Ox O2 Delivery O2 Flow Rate FiO2 11/01/18 08:11 Room Air 11/01/18 06:42 97.2 58 12 92/50 (64) 10/29/18 14:37 98 Current Medications Current Medications Acetaminophen (Tylenol Tab) 650 mg Q6HP PRN PO HEADACHE or DISCOMFORT; Start 10/29/18 at 14:45 Al Hydrox/Mg Hydrox/Simethicone (Mylanta) 30 ml Q4HP PRN PO HEARTBURN/INDIGESTION; Start 10/29/18 at 14:45 Buprenorphine/ Naloxone (Suboxone 8/2mg) 1 tab BID@0800,1200 SL ; Start 11/01/18 at 08:00; Stop 11/01/18 at 10:19; Status DC Buprenorphine/ Naloxone (Suboxone 8/2mg) 1 tab BID@0800,1400 SL ; Start 11/01/18 at 08:00 Buprenorphine/ Naloxone (Suboxone 8/2mg) 1 tab TID@0800,1200,1600 SL Last administered on 10/31/18at 12:53; Start 10/29/18 at 16:00; Stop 10/31/18 at 20:48; Status DC Buprenorphine/ Naloxone (Suboxone 8/2mg) 3 tab DAILY SL ; Start 10/29/18 at 09:00; Stop 10/29/18 at 16:10; Status DC Fluoxetine HCl (PROzac) 20 mg QAM PO ; Start 11/01/18 at 09:00 Magnesium Hydroxide (Milk Of Magnesia) 30 ml DAILYPRN PRN PO CONSTIPATION; Start 10/29/18 at 14:45 Topiramate (TopAMAX) 50 mg BID PO Last administered on 10/31/18at 21:00; Start 10/29/18 at 21:00 Trazodone HCl (Desyrel) 25 mg QHSP PRN PO INSOMNIA Last administered on 10/31/18at 21:03; Start 10/31/18 at 21:00 Trazodone HCl (Desyrel) 50 mg QHSP PRN PO INSOMNIA Last administered on 10/30/18at 21:30; Start 10/29/18 at 14:45; Stop 10/31/18 at 20:48; Status DC Allergies Coded Allergies: No Known Allergies (Verified Allergy, Unknown, 03/09/06) WILLY GUZMAN PGY-1 Nov 01, 2018 14:58
[2018-11-01 18:00] VITALS: BP 116/58
[2018-11-02 06:00] VITALS: BP 100/56
[2018-11-02] MEDS: FLUoxetine 20 MG CAP PO SCH (08:34)
[2018-11-02] MEDS: TOPIRAMATE (TopAMAX) 25 MG TAB PO SCH ×2 (08:34→20:27)
[2018-11-02] MEDS: BUPRENORPHINE/NALOXONE 8-2MG SUBLINGUAL TABLET(SUBOXONE) SL SCH ×2 (08:35→13:02)
[2018-11-02 11:48] VITALS: BP 107/53
[2018-11-02 18:13] VITALS: BP 98/58
[2018-11-02] MEDS: traZODone 50 MG TAB PO PRN (20:28)
[2018-11-03 06:34] VITALS: BP 102/58
[2018-11-03] MEDS: BUPRENORPHINE/NALOXONE 8-2MG SUBLINGUAL TABLET(SUBOXONE) SL SCH (07:58)
[2018-11-03] MEDS: FLUoxetine 20 MG CAP PO SCH (08:00)
[2018-11-03] MEDS: TOPIRAMATE (TopAMAX) 25 MG TAB PO SCH (08:01)
--- NOTE | 2018-11-03 09:03 | MHIPNPDOC ---
[facility] Progress Note Progress Note DATE OF SERVICE: 11/02/18 HISTORY: See HPI. Interval history: Patient reports mood has improved, with increased energy and imitrex helps with migraines. Told her will reach out to provider and can consider discharge tomorrow if has appointment set up and can go to inpatient rehab from her home. She states she is interested in inpatient rehab, has been attending some groups and spends majority of the day sleeping in her room. Denies SI/HI/AVH/paranoia/zoe. VITAL SIGNS: See below. NEW TEST RESULTS: none CURRENT MEDICATIONS: See below. MENTAL STATUS EXAMINATION: Patient is a 28-year old female, who is who is lying in bed, wearing casual clothing and fair hygiene. Speech: Is slowed, minimal volume and minimal Language skills are poor Thought processes including: linear, logical Thought content: irritable and wants to wait for rehab. Abstract reasoning, and computation: intact Description of associations: normal Description of abnormal or psychotic thoughts: none, no AVH/zoe Judgment:poor Insight:fair Orientation: x3 Recent and remote memory: intact Attention span and concentration: poor Language: malay Fund of knowledge: low Mood: "better" Affect: mildly dysthymic, irritable, constricted, does not smile DIAGNOSES: 1. Persistent depressive disorder 2. Other substance use disorder ("lindy"), severe 3. Opioid use disorder 4. Cocaine use disorder in remission 5. Unspecified personality disorder ASSESSMENT:Patient is a 28 woman with history polysubstance abuse and reported depression who was admitted after arriving to the ED stating she was having Suicidal thoughts. Possible withdrawal from "lindy improved. Imitrex continues to help treat headaches, denies any side effects from medications. MANAGEMENT PLAN: Will continue to monitor for mood, anxiety and worsening withdrawal symptoms. Continue on fluoxetine 20 mg PO daily for mood, trazodone 25 mg QHS. Continue with PRN imitrex 25 mg PRN, MDD 2 for migraines and continue topiramate. Continue suboxone 16 mg daily. Time spent: 15 minutes Vital Signs Vital Signs Date Time Temp Pulse Resp B/P (MAP) Pulse Ox O2 Delivery O2 Flow Rate FiO2 11/03/18 06:34 98.0 50 16 102/58 (73) 11/01/18 08:11 Room Air 10/29/18 14:37 98 Current Medications Current Medications Acetaminophen (Tylenol Tab) 650 mg Q6HP PRN PO HEADACHE or DISCOMFORT Last administered on 11/03/18 07:58; Start 10/29/18 at 14:45 Al Hydrox/Mg Hydrox/Simethicone (Mylanta) 30 ml Q4HP PRN PO HEARTBURN/INDIGESTION; Start 10/29/18 at 14:45 Buprenorphine/ Naloxone (Suboxone 8/2mg) 1 tab BID@0800,1200 SL ; Start 11/01/18 at 08:00; Stop 11/01/18 at 10:19; Status DC Buprenorphine/ Naloxone (Suboxone 8/2mg) 1 tab BID@0800,1400 SL Last administered on 11/03/18 07:58; Start 11/01/18 at 08:00 Buprenorphine/ Naloxone (Suboxone 8/2mg) 1 tab TID@0800,1200,1600 SL Last administered on 10/31/18at 12:53; Start 10/29/18 at 16:00; Stop 10/31/18 at 20:48; Status DC Buprenorphine/ Naloxone (Suboxone 8/2mg) 3 tab DAILY SL ; Start 10/29/18 at 09:00; Stop 10/29/18 at 16:10; Status DC Fluoxetine HCl (PROzac) 20 mg QAM PO Last administered on 11/03/18 08:00; Start 11/01/18 at 09:00 Magnesium Hydroxide (Milk Of Magnesia) 30 ml DAILYPRN PRN PO CONSTIPATION; Start 10/29/18 at 14:45 Topiramate (TopAMAX) 50 mg BID PO Last administered on 11/03/18 08:01; Start 10/29/18 at 21:00 Trazodone HCl (Desyrel) 25 mg QHSP PRN PO INSOMNIA Last administered on 11/02/18at 20:28; Start 10/31/18 at 21:00 Trazodone HCl (Desyrel) 50 mg QHSP PRN PO INSOMNIA Last administered on 10/30/18 21:30; Start 10/29/18 at 14:45; Stop 10/31/18 at 20:48; Status DC Allergies Coded Allergies: No Known Allergies (Verified Allergy, Unknown, 03/09/06) WILLY GUZMAN PGY-1 Nov 03, 2018 09:03
[2018-11-03] MEDS ORDERED: FLUO20CA19 PO (09:42)
[2018-11-03] MEDS ORDERED: TRAZO50TA PO (09:42)
--- NOTE | 2018-11-03 11:00 | MHDSPDOC ---
[facility] Discharge Summary Discharge Summary DATE OF ADMISSION: Oct 29, 2018 at 14:33 DATE OF DISCHARGE: Nov 03, 2018 DISCHARGE DIAGNOSES: 1. Persistent depressive disorder 2. Other substance use disorder ("lindy"), severe 3. Opioid use disorder 4. Cocaine use disorder in remission 5. Unspecified personality disorder REASON FOR ADMISSION: Per Dr. Cardenas's H and P note 10/31/18: "This is a 28-year-old woman who was admitted after she presented to the emergency room complaining of depression and suicidal ideations, although she did not have a specific plan. She complained of being increasingly stressed out. Apparently, the father of her 1-year-old child just got out of penitentiary and she said she relapsed with lindy for a couple of days. This patient has a significant history of heroin abuse and she actually is supposed to be on Suboxone 8 mg t hree times a day. She is also Topamax 50 mg twice a day. When I saw her today, the patient was very irritable and basically did not want to answer most of my questions. She kept on stating, "I don't know if I am going to stay here". I did clarify to the patient that she had been committed to the hospital because of her voicing suicidal ideations. She then proceeded to tell me that she was not going to eat any of the food in the hospital because she did not like it. At that point, I did not continue with the interview. I did review some records from her last hospitalization at [facility] from 07/20/2017 until 07/26/2017. She presented with complaints of depression and suicidal ideation and she was abusing drugs at that time, which included heroin and cocaine intravenously. She was diagnosed with unspecified depressive disorder, polysubstance dependence (cocaine and heroin intravenously). The patient was placed on Suboxone 20 mg daily and trazodone 100 mg nightly." CONSULTANTS INVOLVED: none TREATMENT AND PROGRESS ON THE UNIT : Patient presented on a 9.39 to [facility] psychiatry after being seen in the ED. The patient reported depressed mood and suicidal ideations. Her CMP was unremarkable, urine drug screen was positive for amphetamines, TSH was within normal limits at 1.5. She was started on fluoxetine 20 mg Po daily for mood and trazodone 50 mg Po nightly for sleep. She was continued on home medications; topiramate 50 BID for headaches and suboxone 8 mg TID, which was decreased to 8 mg BID. During stay she attended less than half of the therapy groups and reported withdrawal symptoms decreased, including headache. She reported mood and sleep improved during stay. EKG for monitoring showed Qtc of 485 ms and sinus bradycardia at 48 BPM, patient states she chronically has bradycardia. HOSPITAL COURSE: as above. DISCHARGE ASSESSMENT: Patient is A/O x3, in no acute distress, denies hallucinations, zoe, paranoia, suicidal or homicidal thoughts. States she is ready to leave and wants to return home to see her kids. MENTAL STATUS EXAMINATION ON DISCHARGE: Patient is a 28-year old female, who is sitting in a chair, wearing casual clothing and fair hygiene, long nails. Speech: Is slowed, normal volume and normal quantity Language skills are poor Thought processes including: linear, logical Thought content: States she is willing to return to rehab, misses children. Abstract reasoning, and computation: intact Description of associations: normal Description of abnormal or psychotic thoughts: none, no AVH/zoe Judgment:poor Insight:fair Orientation: x3 Recent and remote memory: intact Attention span and concentration: improved Language: azeri Fund of knowledge: low Mood: "better" Affect: euthymic, constricted, does not smile MEDICATIONS ON DISCHARGE: Scheduled Buprenorphine/Naloxone (Suboxone 8-2 mg) 1 Mis Mis, 1 STRIP SL TID, (Reported) Fluoxetine Hcl (Fluoxetine HCl) 20 Mg Cap, 20 MG PO QAM for mood for 7 Days, #7 Topiramate (Topamax) 50 Mg Tab, 50 MG PO BID, (Reported) Scheduled PRN Trazodone HCl (Trazodone HCl) 50 Mg Tab, 25 MG PO QHSP PRN for INSOMNIA for 7 Days, #7 PLAN/FOLLOWUP ARRANGEMENTS: Follow Up Care Education Label * Chemical Dependency Appt1 * Additional information [facility] in hours Wednesday - Wednesday 8-[address] [place] [address] [facility] Walk in hours Wednesday -Wednesday [phone] [place] [address] Follow Up Care Education Label * Mental Health Appt 1 * Mental Health [facility] * Established With This Provider No * Therapist PAMELLA BAH * Date Nov 08, 2018 * Time 08:00 * Address of Clinic or Practice [address] [place] [address] * Follow Up Care Education Label * Medical * Medical Follow Up [facility] * Established With This Provider Yes * Therapist DR. SCHRADER * Date Nov 15, 2018 * Time 15:00 * Address of Clinic or Practice [address] [place] [address] * Follow Up Care Education Label * Lorenzo [facility] Follow up program * Date Nov 08, 2018 * Time 11:00 * Additional information Lorenzo Jamil from [facility] follow up program will come to patient's home to follow up with patient following her discharge. The amount of time spent in the coordination of care for this patient was approximately 30 minutes. Vital Signs/I&Os Vital Signs Date Time Temp Pulse Resp B/P (MAP) Pulse Ox O2 Delivery O2 Flow Rate FiO2 11/03/18 06:34 98.0 50 16 102/58 (73) 11/01/18 08:11 Room Air 10/29/18 14:37 98 Medications Scheduled Buprenorphine/Naloxone (Suboxone 8-2 mg) 1 Mis Mis, 1 STRIP SL TID, (Reported) Fluoxetine Hcl (Fluoxetine HCl) 20 Mg Cap, 20 MG PO QAM for mood for 7 Days, #7 Topiramate (Topamax) 50 Mg Tab, 50 MG PO BID, (Reported) Scheduled PRN Trazodone HCl (Trazodone HCl) 50 Mg Tab, 25 MG PO QHSP PRN for INSOMNIA for 7 Days, #7 Allergies Coded Allergies: No Known Allergies (Verified Allergy, Unknown, 03/09/06) WILLY GUZMAN PGY-1 Nov 03, 2018 09:54 KADE WHITT MD Nov 04, 2018 20:23
--- NOTE | 2018-11-03 15:25 | ECGEPIP ---
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
== END 2018-11-03 11:50 | disposition home or self-care (01) | DRG 754 ==
LOC: M ED 11:37 → M ED INP 14:33 → M PSY 15:22
PROVIDERS: ADMIT Psychiatry & Neurology Psychiatry; ATTEND Psychiatry & Neurology Psychiatry
DX: F34.1 Dysthymic disorder (principal); F14.21 Cocaine dependence, in remission; F11.20 Opioid dependence, uncomplicated; F15.20 Other stimulant dependence, uncomplicated; F60.9 Personality disorder, unspecified; Z81.1 Family history of alcohol abuse and dependence; Z81.3 Family history of other psychoactive substance abuse and dependence

== ENCOUNTER → 2018-12-15 | Outpatient (REF) | payer MEDICAID ==
[~2018-12-15] MED LIST changes: -BUPRENORPHINE/NALOXONE 8-2MG SUBLINGUAL TABLET(SUBOXONE) SL SCH; -DOCU10ELUD PO; +DOCU5LIQ PO; +FLUO20CA19 PO; -IBUP40TA PO; +SUBO8MIS SL; +TRAZO50TA PO
== END ==
LOC: M LAB REF 16:34
PROVIDERS: ATTEND Family Medicine Addiction Medicine
DX: J02.8 Acute pharyngitis due to other specified organisms (principal)

== ENCOUNTER 2019-02-11 15:12 | Emergency (ER) | payer MEDICAID, OTHER ==
[~2019-02-11] VITALS: Ht 160 cm; Wt 76.9 kg
[~2019-02-11 15:12] MED LIST changes: +TRAZ1TAB10 PO; -TRAZO50TA PO
[2019-02-11] MEDS ORDERED: METH5TA PO (15:25)
[2019-02-11] MEDS ORDERED: NS 1,000 ML IV ONE (16:00)
[2019-02-11 16:58] LABS: BASO # 0.1 10^3/uL (0.0-0.2); BASO % 0.4 % (0.0-1.0); EOS # 0.6 10^3/uL (0.0-0.50); EOS % 3.9 % (0.0-3.0); HEMATOCRIT 44.7 % (36.0-47.0); HEMOGLOBIN 15.1 g/dl (12.0-15.5); LYMPH # 2.6 10^3/uL (1.5-4.5); LYMPH % 17.7 % (24.0-44.0); MEAN CORPUSCULAR HEMOGLOBIN 30.3 pg (27.0-33.0); MEAN CORPUSCULAR HGB CONC 33.8 g/dl (32.0-36.5); MEAN CORPUSCULAR VOLUME 89.6 fl (80.0-96.0); MONO # 0.9 10^3/uL (0.0-0.8); MONO % 6.1 % (0.0-5.0); NEUTROPHILS # 10.4 10^3/uL (1.8-7.7); NEUTROPHILS % 71.5 % (36.0-66.0); PLATELET COUNT, AUTOMATED 251 10^3/uL (150-450); RED BLOOD COUNT 4.99 10^6/uL (4.00-5.40); WHITE BLOOD COUNT 14.5 10^3/uL (4.0-10.0)
[2019-02-11 17:16] LABS: HCG, SERUM QUALITATIVE NEGATIVE (NEGATIVE)
[2019-02-11 17:31] LABS: ALBUMIN 3.7 GM/DL (3.2-5.2); ALT/SGPT 22 U/L (12-78); AMYLASE 36 U/L (25-115); BILIRUBIN,DIRECT 0.1 MG/DL (0.0-0.2); BILIRUBIN,TOTAL 0.6 MG/DL (0.2-1.0); BLOOD UREA NITROGEN 9 MG/DL (7-18); CALCIUM LEVEL 9.1 MG/DL (8.5-10.1); CARBON DIOXIDE LEVEL 30 MEQ/L (21-32); CHLORIDE LEVEL 102 MEQ/L (98-107); CREATININE FOR GFR 0.75 MG/DL (0.55-1.30); GLOMERULAR FILTRATION RATE > 60.0 (>60); GLUCOSE, FASTING 94 MG/DL (70-100); LIPASE 74 U/L (73-393); POTASSIUM SERUM 4.1 MEQ/L (3.5-5.1); SODIUM LEVEL 137 MEQ/L (136-145); TOTAL PROTEIN 7.7 GM/DL (6.4-8.2)
[2019-02-11] MEDS ORDERED: ISOVUE-370 76% 100ML VIAL (Q9967) As Ordered ONE (17:37)
--- NOTE | 2019-02-11 19:02 | REPVR ---
EXAM: CT Abdomen and Pelvis With Contrast EXAM DATE/TIME: 02/11/2019 5:39 PM CLINICAL HISTORY: 28 years old, female; Abdominal pain; Generalized; Additional info: Diffuse abdominal pain TECHNIQUE: Imaging protocol: Axial computed tomography images of the abdomen and pelvis with intravenous contrast. Coronal and sagittal reformatted images were created and reviewed. Radiation optimization: All CT scans at this facility use at least one of these dose optimization techniques: automated exposure control; mA and/or kV adjustment per patient size (includes targeted exams where dose is matched to clinical indication); or iterative reconstruction. Contrast material: ISOVUE 370; Contrast volume: 100 ml; Contrast route: IV; COMPARISON: US BPP W/O NON STRESS TEST 04/07/2017 4:33 PM FINDINGS: Liver: Normal. No mass. Gallbladder and bile ducts: Normal. No calcified stones. No ductal dilation. Pancreas: Normal. No ductal dilation. Spleen: Normal. No splenomegaly. Adrenals: Normal. No mass. Kidneys and ureters: Normal. No hydronephrosis. Stomach and bowel: There are a few mildly dilated air and fluid-filled loops of the proximal jejunum with a borderline mild wall thickening. Appendix: No evidence of appendicitis. Intraperitoneal space: Small amount of free fluid noted within the pelvis. Vasculature: Normal. No abdominal aortic aneurysm. Lymph nodes: Multiple mesenteric lymph nodes noted. They're notable for their number. All measure less than a centimeter in short axis. Bladder: Unremarkable as visualized. Reproductive: Tubal ligation clips noted within the pelvis. This is a normal finding in a menstruating female. Bones/joints: No acute fracture. No dislocation. Soft tissues: Unremarkable. IMPRESSION: 1. Finding suggests enteritis of the proximal jejunum. 2. Mesenteric adenitis may be secondary to #1 Electronically signed by: Kimberley Paz On 02/11/2019 19:01:58 PM
[2019-02-11] MEDS ORDERED: ONDA4TAB6 PO (19:17)
[2019-02-11 19:27] VITALS: BP 101/58
--- NOTE | 2019-02-13 13:14 | ED PDOC ---
Post-Departure [facility] faxed formal report of ct abd/p for fu Ania Gutierrez MD Feb 13, 2019 13:14
== END 2019-02-11 19:37 | disposition home or self-care (01) ==
LOC: M ED 15:12
DX: K52.9 Noninfective gastroenteritis and colitis, unspecified (principal); I88.0 Nonspecific mesenteric lymphadenitis; Z87.19 Personal history of other diseases of the digestive system; B19.20 Unspecified viral hepatitis C without hepatic coma; Z79.891 Long term (current) use of opiate analgesic
CPT/HCPCS: 36415; 74177; 80048; 80076; 81001; 82150; 83690; 84703; 85025; 87086; 96360; 96361; 99284; Q9967

== ENCOUNTER → 2019-03-02 | Outpatient (REF) | payer OTHER ==
[~2019-03-02] MED LIST changes: -DULO1CAP3 PO; +DULO1CAP6 PO; +METH5TA PO; +ONDA4TAB6 PO
[2019-03-03 11:19] LABS: HIV 1&2 SCREEN CENTAUR NEGATIVE (NEGATIVE)
[2019-03-07 14:07] LABS: HPV HYBRID CAPTURE II Negative (Negative)
== END ==
LOC: M SFHCWAGY 14:30
PROVIDERS: ATTEND Nurse Practitioner Women's Health
DX: Z12.4 Encounter for screening for malignant neoplasm of cervix (principal); Z11.4 Encounter for screening for human immunodeficiency virus [HIV]; Z11.3 Encounter for screening for infections with a predominantly sexual mode of transmission; R87.610 Atypical squamous cells of undetermined significance on cytologic smear of cervix (ASC-US)

== ENCOUNTER → 2019-03-02 | Outpatient (REF) | payer OTHER ==
[2019-03-02 22:39] LABS: CHLAMYDIA DNA AMPLIFICATION POSITIVE (NEGATIVE); GC DNA AMPLIFICATION NEGATIVE (NEGATIVE)
== END ==
LOC: M SFHCWAGY 17:24
PROVIDERS: ATTEND Nurse Practitioner Women's Health
DX: Z11.3 Encounter for screening for infections with a predominantly sexual mode of transmission (principal)

== ENCOUNTER → 2019-04-17 | Outpatient (REF) | payer OTHER ==
[2019-04-17 16:02] LABS: BASO # 0.1 10^3/uL (0.0-0.2); BASO % 0.7 % (0.0-1.0); EOS # 0.1 10^3/uL (0.0-0.50); EOS % 0.8 % (0.0-3.0); HEMATOCRIT 41.2 % (36.0-47.0); HEMOGLOBIN 13.4 g/dl (12.0-15.5); LYMPH % 26.4 % (24.0-44.0); MEAN CORPUSCULAR HEMOGLOBIN 30.1 pg (27.0-33.0); MEAN CORPUSCULAR HGB CONC 32.5 g/dl (32.0-36.5); MEAN CORPUSCULAR VOLUME 92.6 fl (80.0-96.0); MONO # 0.5 10^3/uL (0.0-0.8); NEUTROPHILS # 5.1 10^3/uL (1.8-7.7); PLATELET COUNT, AUTOMATED 250 10^3/uL (150-450); RED BLOOD COUNT 4.45 10^6/uL (4.00-5.40); WHITE BLOOD COUNT 7.7 10^3/uL (4.0-10.0)
[2019-04-17 16:05] LABS: ALBUMIN 3.8 GM/DL (3.2-5.2); ALT/SGPT 43 U/L (12-78); BILIRUBIN,TOTAL 0.4 MG/DL (0.2-1.0); BLOOD UREA NITROGEN 9 MG/DL (7-18); CARBON DIOXIDE LEVEL 31 MEQ/L (21-32); CHLORIDE LEVEL 103 MEQ/L (98-107); CREATININE FOR GFR 0.69 MG/DL (0.55-1.30); GLOMERULAR FILTRATION RATE > 60.0 (>60); GLUCOSE, FASTING 125 MG/DL (70-100); POTASSIUM SERUM 3.9 MEQ/L (3.5-5.1); SODIUM LEVEL 140 MEQ/L (136-145); TOTAL PROTEIN 7.3 GM/DL (6.4-8.2)
== END ==
LOC: M SFHCPLAZ 13:28
PROVIDERS: ATTEND Internal Medicine Infectious Disease
DX: B18.2 Chronic viral hepatitis C (principal)

== ENCOUNTER → 2019-05-11 | Outpatient (CLI) | payer OTHER ==
--- NOTE | 2019-05-12 04:24 | REP ---
Clinical: Pelvic pain . Technique: Transabdominal pelvic ultrasound followed by transvaginal examination for better evaluation of the endometrium and adnexa with color Doppler evaluation of the ovaries. Findings: Bladder is unremarkable and measures 9.2 x 9.5 x 7.5 cm . Heterogeneous anteverted uterus measures 7.9 x 3.8 x 5.5 cm . The endometrial complex measures 3.1 mm thickness. No discrete uterine or endometrial abnormalities are appreciated. Bilateral ovaries are normal in appearance and vascularity without evidence for torsion. Right ovary measures 3.7 x 2.5 x 3.5 cm ; R I = 0.56 . Left ovary measures 4.5 x 2.2 x 3.0 cm ; R I = 0.58 . Small amount of free fluid in the left adnexa is nonspecific and likely physiologic. Impression: 1. essentially normal pelvic ultrasound.
== END ==
LOC: M WHC 11:10
PROVIDERS: ATTEND Nurse Practitioner Women's Health
DX: R10.2 Pelvic and perineal pain (principal); N92.6 Irregular menstruation, unspecified

== ENCOUNTER → 2019-09-25 | Outpatient (CLI) | payer OTHER ==
[~2019-09-25] MED LIST changes: -TRAZ10TA PO; +TRAZ1TAB12 PO
[2019-09-25 13:50] LABS: HEMATOCRIT 41.1 % (36.0-47.0); HEMOGLOBIN 13.4 g/dl (12.0-15.5); MEAN CORPUSCULAR HEMOGLOBIN 30.3 pg (27.0-33.0); MEAN CORPUSCULAR HGB CONC 32.6 g/dl (32.0-36.5); PLATELET COUNT, AUTOMATED 254 10^3/uL (150-450); RED BLOOD COUNT 4.42 10^6/uL (4.00-5.40); WHITE BLOOD COUNT 11.6 10^3/uL (4.0-10.0)
[2019-09-25 14:29] LABS: ALBUMIN 3.9 GM/DL (3.2-5.2); ALT/SGPT 11 U/L (12-78); BILIRUBIN,TOTAL 0.4 MG/DL (0.2-1.0); BLOOD UREA NITROGEN 10 MG/DL (7-18); CALCIUM LEVEL 9.4 MG/DL (8.5-10.1); CARBON DIOXIDE LEVEL 30 MEQ/L (21-32); CHLORIDE LEVEL 104 MEQ/L (98-107); GLOMERULAR FILTRATION RATE > 60.0 (>60); GLUCOSE, FASTING 103 MG/DL (70-100); POTASSIUM SERUM 5.2 MEQ/L (3.5-5.1); SODIUM LEVEL 140 MEQ/L (136-145); TOTAL PROTEIN 7.4 GM/DL (6.4-8.2)
[2019-09-25 14:30] LABS: HCG, SERUM QUALITATIVE NEGATIVE (NEGATIVE)
[2019-09-25 14:44] LABS: HEPATITIS B SURFACE ANTIGEN NEGATIVE (NEGATIVE)
[2019-09-25 15:13] LABS: HIV 1&2 SCREEN CENTAUR NEGATIVE (NEGATIVE)
[2019-09-25 15:16] LABS: HEPATITIS C VIRUS ABY INDEX > 11.0 INDEX (<0.8)
[2019-09-25 15:17] LABS: CHLAMYDIA DNA AMPLIFICATION POSITIVE (NEGATIVE); GC DNA AMPLIFICATION NEGATIVE (NEGATIVE)
--- NOTE | 2019-09-25 20:56 | ECGEPIP ---
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
== END ==
LOC: M LAB 12:25
PROVIDERS: ATTEND Family Medicine
DX: F11.90 Opioid use, unspecified, uncomplicated (principal)

== ENCOUNTER → 2019-11-20 | Outpatient (CLI) | payer MEDICAID ==
[~2019-11-20] MED LIST changes: -FLUO20CA19 PO; +FLUO20CA22 PO
== END ==
LOC: M OUTALCOH 07:50
PROVIDERS: ATTEND Psychiatry & Neurology Addiction Medicine
DX: F11.20 Opioid dependence, uncomplicated (principal)

== ENCOUNTER 2019-11-27 15:09 | Outpatient (RCR) | payer MEDICAID | END 2019-12-21 | LOC: M OUTALCOH 15:09 | PROVIDERS: ATTEND Psychiatry & Neurology Addiction Medicine | DX: F11.20 Opioid dependence, uncomplicated (principal); 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, uncomplicated ==

== ENCOUNTER 2020-01-14 14:25 | Emergency (ER) | payer MEDICAID, OTHER ==
[~2020-01-14] VITALS: Ht 160 cm; Wt 74.8 kg
[2020-01-14 14:26] VITALS: BP 139/95
[2020-01-14] MEDS ORDERED: DOXYCYCLINE HYCLATE 100MG TABLET PO ONE (14:45)
[2020-01-14] MEDS ORDERED: BUPR1FIL3 (14:53)
[2020-01-14] MEDS ORDERED: DOXY100C37 PO (15:15)
[2020-01-14] MEDS ORDERED: IBUP-1022 PO (15:15)
--- NOTE | 2020-01-15 11:54 | REP ---
Clinical: Status post emergency CPR. Technique: Axial noncontrast images from the thoracic inlet to the upper abdomen with coronal and sagittal re-formations. Comparison: None. Findings: Bilateral lung milton are well-aerated and clear. No acute consolidation, nodule or mass lesion. No pleural effusion. No pneumothorax. Tracheobronchial tree is patent. No obvious adenopathy. The mediastinum demonstrates normal thoracic aorta, pulmonary vasculature, and heart/pericardium. Surrounding musculoskeletal structures are intact. Impression: Normal noncontrast chest CT. No acute mediastinal or pleuroparenchymal process. Electronically Signed by Tobin Michele MD 01/15/2020 11:45 A
== END 2020-01-14 15:24 | disposition home or self-care (01) ==
LOC: M ED 14:25
DX: S20.219A Contusion of unspecified front wall of thorax, initial encounter (principal); L03.114 Cellulitis of left upper limb; Y92.9 Unspecified place or not applicable; Y99.9 Unspecified external cause status

== ENCOUNTER → 2020-01-24 | Outpatient (REF) | payer OTHER, MEDICAID ==
[~2020-01-24] MED LIST changes: +BUPR1FIL3; +DOXY100C37 PO
[2020-01-24 17:46] LABS: BASO # 0.1 10^3/uL (0.0-0.2); BASO % 0.7 % (0.0-1.0); EOS # 0.2 10^3/uL (0.0-0.5); EOS % 2.4 % (0.0-3.0); HEMATOCRIT 41.7 % (36.0-47.0); HEMOGLOBIN 13.7 g/dl (12.0-15.5); LYMPH # 2.9 10^3/uL (1.5-5.0); LYMPH % 31.7 % (24.0-44.0); MEAN CORPUSCULAR HEMOGLOBIN 30.3 pg (27.0-33.0); MEAN CORPUSCULAR HGB CONC 32.9 g/dl (32.0-36.5); MEAN CORPUSCULAR VOLUME 92.3 fl (80.0-96.0); MONO # 0.4 10^3/uL (0.0-0.8); MONO % 4.7 % (0.0-5.0); NEUTROPHILS # 5.5 10^3/uL (1.5-8.5); NEUTROPHILS % 59.8 % (36.0-66.0); PLATELET COUNT, AUTOMATED 233 10^3/uL (150-450); RED BLOOD COUNT 4.52 10^6/uL (4.00-5.40); WHITE BLOOD COUNT 9.1 10^3/uL (4.0-10.0)
[2020-01-24 17:56] LABS: ALBUMIN 3.8 GM/DL (3.2-5.2); ALT/SGPT 14 U/L (12-78); BILIRUBIN,TOTAL 0.3 MG/DL (0.2-1.0); BLOOD UREA NITROGEN 13 MG/DL (7-18); CALCIUM LEVEL 8.8 MG/DL (8.5-10.1); CARBON DIOXIDE LEVEL 31 MEQ/L (21-32); CHLORIDE LEVEL 103 MEQ/L (98-107); CHOLESTEROL LEVEL 280 MG/DL (<200); CHOLESTEROL RISK RATIO 7.179 (<5); CREATININE FOR GFR 0.56 MG/DL (0.55-1.30); GLOMERULAR FILTRATION RATE > 60.0 (>60); GLUCOSE, FASTING 78 MG/DL (70-100); HDL CHOLESTEROL 39 MG/DL (>40); LDL CHOLESTEROL 186 MG/DL (<100); NON-HDL-C 241 MG/DL; POTASSIUM SERUM 4.1 MEQ/L (3.5-5.1); SODIUM LEVEL 139 MEQ/L (136-145); TOTAL PROTEIN 7.3 GM/DL (6.4-8.2); TRIGLYCERIDES LEVEL 274 MG/DL (<150)
[2020-01-24 18:43] LABS: HIV 1&2 SCREEN CENTAUR NEGATIVE (NEGATIVE)
[2020-01-26 09:03] LABS: HEPATITIS B SURFACE ANTIBODY POSITIVE (POSITIVE)
[2020-01-26 09:13] LABS: HEPATITIS B SURFACE ANTIGEN NEGATIVE (NEGATIVE)
[2020-01-31 23:13] LABS: HEPATITIS A IgG TOTAL Positive (Negative); HEPATITIS B CORE ANTIBODY IGG Negative (Negative); HEPATITIS C QUANTITATION <15 IU/mL (.)
== END ==
LOC: M LAB REF 16:37
PROVIDERS: ATTEND Nurse Practitioner Family
DX: Z13.9 Encounter for screening, unspecified (principal); B18.2 Chronic viral hepatitis C; F11.21 Opioid dependence, in remission

== ENCOUNTER → 2020-01-30 | Outpatient (REF) | payer OTHER, MEDICAID ==
[2020-01-30 20:28] LABS: CHLAMYDIA DNA AMPLIFICATION NEGATIVE (NEGATIVE); GC DNA AMPLIFICATION NEGATIVE (NEGATIVE)
== END ==
LOC: M SFHCWAGY 17:34
PROVIDERS: ATTEND Nurse Practitioner Family
DX: Z11.3 Encounter for screening for infections with a predominantly sexual mode of transmission (principal); Z12.4 Encounter for screening for malignant neoplasm of cervix; Z01.419 Encounter for gynecological examination (general) (routine) without abnormal findings

== ENCOUNTER → 2020-01-31 | Outpatient (REF) | payer OTHER, MEDICAID | LOC: M LAB REF 18:17 | PROVIDERS: ATTEND Nurse Practitioner Adult Health | DX: B18.2 Chronic viral hepatitis C (principal) ==

== ENCOUNTER → 2020-02-13 | Outpatient (REF) | payer OTHER | LOC: M SFHCWAGY 16:40 | PROVIDERS: ATTEND Nurse Practitioner Family | DX: R30.0 Dysuria (principal) ==

== ENCOUNTER 2020-09-07 19:14 | Emergency (ER) | payer OTHER ==
[~2020-09-07] VITALS: Ht 160 cm; Wt 78.2 kg
[2020-09-07 19:14] VITALS: BP 133/89
--- OUTSIDE RECORDS SUMMARY | 2020-09-07 19:22 | CCD ---
Author Author [facility] Organization [facility] Address Unknown Phone Unavailable Support Name Relationship Address Phone Migdalia Reese Next Of Kin Unknown Unavailable Dalia Horton Next Of Kin [address] [place] [address] MORTEZA REESE Next Of Kin Unknown Unavailable IHOP Next Of Kin [address] [place] [address] SOFIA ZAMBRANO Next Of Kin Unknown Unavailable Kevin Mackay MD Next Of Kin [address] [place] [address] UNEMPLOYED Next Of Kin [address] [place] [address] ORTIZ MOROCHO Next Of Kin [address] [place] [address] ZHAO PENA Next Of Kin [address] [place] [address] MIGDALIA REESE Next Of Kin [address] [place] [address] Neville REESE Next Of Kin [address] [facility] [address] [place] [address] FAMILY DOLLAR Next Of Kin [place] [address] GABY [employer] [place] [address] CONVERGY'S Next Of Kin [address] [place] [address] YAMILE MCLEAN Next Of Kin [address] [place] [address] STREAM Next Of Kin [address] [place] [address] [place] [address] UNK UE Next Of Kin Unknown Unavailable carlmigdalia castro [address] [place] [address] Care Team Providers Care Jewel Setter Name Role Phone LASHAUN SESAY MD Unavailable Unavailable LASHAUN SESAY MD Unavailable Unavailable LASHAUN SESAY MD Unavailable Unavailable LASHAUN SESAY MD Unavailable Unavailable LASHAUN SESAY MD Unavailable Unavailable LASHAUN SESAY MD Unavailable Unavailable LASHAUN SESAY MD Unavailable Unavailable Sam Null MD Unavailable Unavailable Zewe Jr, Pedro Migdalia DO Unavailable Unavailable Zewe Jr, Pedro Migdalia DO Unavailable Unavailable Zewe Jr, Pedro Migdalia DO Unavailable Unavailable Zewe Jr, Pedro Migdalia DO Unavailable Unavailable Zewe Jr, Pedro Migdalia DO Unavailable Unavailable Robles Sesay MD Unavailable Unavailable Naomi GONZALES MD Unavailable Unavailable Naomi GONZALES MD Unavailable Unavailable Naomi GONZALES MD Unavailable Unavailable Naomi GONZALES MD Unavailable Unavailable Naomi GONZALES MD Unavailable Unavailable Naomi GONZALES MD Unavailable Unavailable Naomi GONZALES MD Unavailable Unavailable Naomi GONZALES MD Unavailable Unavailable Naomi GONZALES MD Unavailable Unavailable Naomi GONZALES MD Unavailable Unavailable Naomi GONZALES MD Unavailable Unavailable Naomi GONZALES MD Unavailable Unavailable Naomi GONZALES MD Unavailable Unavailable Renato, A Dalia COMBINATION PRESSER Unavailable Unavailable Renato, A Dalia COMBINATION PRESSER Unavailable Unavailable Renato, A Dalia COMBINATION PRESSER Unavailable Unavailable Renato, A Dalia COMBINATION PRESSER Unavailable Unavailable Renato, A Dalia COMBINATION PRESSER Unavailable Unavailable Renato, A Dalia COMBINATION PRESSER Unavailable Unavailable Renato, A Dalia COMBINATION PRESSER Unavailable Unavailable Renato, A Dalia COMBINATION PRESSER Unavailable Unavailable Renato, A Dalia COMBINATION PRESSER Unavailable Unavailable Renato, A Dalia COMBINATION PRESSER Unavailable Unavailable Renato, A Dalia COMBINATION PRESSER Unavailable Unavailable Renato, A Dalia COMBINATION PRESSER Unavailable Unavailable Renato, A Dalia COMBINATION PRESSER Unavailable Unavailable Renato, A Dalia COMBINATION PRESSER Unavailable Unavailable Renato, A Dalia COMBINATION PRESSER Unavailable Unavailable Renato, A Dalia COMBINATION PRESSER Unavailable Unavailable Renato, A Dalia COMBINATION PRESSER Unavailable Unavailable Renato, A Dalia COMBINATION PRESSER Unavailable Unavailable Renato, A Dalia COMBINATION PRESSER Unavailable Unavailable Renato, A Dalia COMBINATION PRESSER Unavailable Unavailable Renato, A Dalia COMBINATION PRESSER Unavailable Unavailable Renato, A Dalia COMBINATION PRESSER Unavailable Unavailable Renato, A Dalia COMBINATION PRESSER Unavailable Unavailable Renato, A Dalia COMBINATION PRESSER Unavailable Unavailable Renato, A Dalia COMBINATION PRESSER Unavailable Unavailable Renato, A Dalia COMBINATION PRESSER Unavailable Unavailable Renato, A Dalia COMBINATION PRESSER Unavailable Unavailable Dion Stanford MD Unavailable Unavailable Dion Stanford MD Unavailable Unavailable Dion Stanford MD Unavailable Unavailable Dion Stanford MD Unavailable Unavailable Dion Stanford MD Unavailable Unavailable Dion Stanford MD Unavailable Unavailable Dion Stanford MD Unavailable Unavailable Dion Stanford MD Unavailable Unavailable Dion Stanford MD Unavailable Unavailable PHYSICIAN, ER Unavailable Unavailable Naomi Mackay MD Unavailable Unavailable Naomi Mackay MD Unavailable Unavailable Naomi Mackay MD Unavailable Unavailable Naomi Mackay MD Unavailable Unavailable Naomi Mackay MD Unavailable Unavailable Naomi Mackay MD Unavailable Unavailable Naomi Mackay MD Unavailable Unavailable Naomi Mackay MD Unavailable Unavailable Naomi Mackay MD Unavailable Unavailable Naomi Mackay MD Unavailable Unavailable Naomi Mackay MD Unavailable Unavailable Naomi Mackay MD Unavailable Unavailable Naomi Mackay MD Unavailable Unavailable Naomi Mackay MD Unavailable Unavailable Naomi Mackay MD Unavailable Unavailable Naoim Mackay MD Unavailable Unavailable Naomi Mackay MD Unavailable Unavailable Naomi Mackay MD Unavailable Unavailable Naomi Mackay MD Unavailable Unavailable Naomi Mackay MD Unavailable Unavailable Naomi Mackay MD Unavailable Unavailable Naomi Mackay MD Unavailable Unavailable Naomi Mackay MD Unavailable Unavailable Naomi Mackay MD Unavailable Unavailable Naomi Mackay MD Unavailable Unavailable Naomi Mackay MD Unavailable Unavailable Naomi Mackay MD Unavailable Unavailable Naomi Mackay MD Unavailable Unavailable Naomi Mackay MD Unavailable Unavailable Naomi Mackay MD Unavailable Unavailable Naomi Mackay MD Unavailable Unavailable Naomi Mackay MD Unavailable Unavailable Naomi Mackay MD Unavailable Unavailable Naomi Mackay MD Unavailable Unavailable Naomi Mackay MD Unavailable Unavailable Naomi Mackay MD Unavailable Unavailable Naomi Mackay MD Unavailable Unavailable Naomi Mackay MD Unavailable Unavailable Naomi Mackay MD Unavailable Unavailable Naomi Mackay MD Unavailable Unavailable Naomi Mackay MD Unavailable Unavailable Naomi Mackay MD Unavailable Unavailable Naomi Mackay MD Unavailable Unavailable Naomi Mackay MD Unavailable Unavailable Naomi Mackay MD Unavailable Unavailable Naomi Mackay MD Unavailable Unavailable Naomi Mackay MD Unavailable Unavailable Naomi Mackay MD Unavailable Unavailable Naomi Mackay MD Unavailable Unavailable Naomi Mackay MD Unavailable Unavailable Naomi Mackay MD Unavailable Unavailable Naomi Mackay MD Unavailable Unavailable Naomi Mackay MD Unavailable Unavailable Naomi Mackay MD Unavailable Unavailable Naomi Mackay MD Unavailable Unavailable Naomi Mackay MD Unavailable Unavailable Naomi Mackay MD Unavailable Unavailable Naomi Mackay MD Unavailable Unavailable Naomi Mackay MD Unavailable Unavailable Naomi Mackay MD Unavailable Unavailable Naomi Mackay MD Unavailable Unavailable Naomi Mackay MD Unavailable Unavailable Naomi Mackay MD Unavailable Unavailable Naomi Mackay MD Unavailable Unavailable Naomi Mackay MD Unavailable Unavailable Naomi Mackay MD Unavailable Unavailable Naomi Mackay MD Unavailable Unavailable Naomi Mackay MD Unavailable Unavailable Naomi Mackay MD Unavailable Unavailable Naomi Mackay MD Unavailable Unavailable Naomi Mackay MD Unavailable Unavailable Naomi Mackay MD Unavailable Unavailable Naomi Mackay MD Unavailable Unavailable Naomi Mackay MD Unavailable Unavailable Naomi Mackay MD Unavailable Unavailable Naomi Mackay MD Unavailable Unavailable Naomi Mackay MD Unavailable Unavailable Naomi Mackay MD Unavailable Unavailable Naomi Mackay MD Unavailable Unavailable Naomi Mackay MD Unavailable Unavailable Naomi Mackay MD Unavailable Unavailable Naomi Mackay MD Unavailable Unavailable Naomi Mackay MD Unavailable Unavailable Naomi Mackay MD Unavailable Unavailable Naomi Mackay MD Unavailable Unavailable Naomi Mackay MD Unavailable Unavailable Naomi Mackay MD Unavailable Unavailable Naomi Mackay MD Unavailable Unavailable Naomi Mackay MD Unavailable Unavailable Sam Null MD Unavailable [phone] Sam Null MD Unavailable [phone] Sam Null MD Unavailable [phone] SALONI IV, L BIRDIE COMBINATION PRESSER Unavailable Unavailable SALONI IV, L BIRDIE COMBINATION PRESSER Unavailable Unavailable SALONI IV, L BIRDIE COMBINATION PRESSER Unavailable Unavailable SALONI IV, L BIRDIE COMBINATION PRESSER Unavailable Unavailable SALONI IV, L BIRDIE COMBINATION PRESSER Unavailable Unavailable SALONI IV, L BIRDIE COMBINATION PRESSER Unavailable Unavailable SALONI IV, L BIRDIE COMBINATION PRESSER Unavailable Unavailable SALONI IV, L BIRDIE COMBINATION PRESSER Unavailable Unavailable SALONI IV, L BIRDIE COMBINATION PRESSER Unavailable Unavailable SALONI IV, L BIRDIE COMBINATION PRESSER Unavailable Unavailable SALONI IV, L BIRDIE COMBINATION PRESSER Unavailable Unavailable SALONI IV, L BIRDIE COMBINATION PRESSER Unavailable Unavailable SALONI IV, L BIRDIE COMBINATION PRESSER Unavailable Unavailable SALONI IV, L BIRDIE COMBINATION PRESSER Unavailable Unavailable SALONI IV, L BIRDIE COMBINATION PRESSER Unavailable Unavailable SALONI IV, L BIRDIE COMBINATION PRESSER Unavailable Unavailable SALONI IV, L BIRDIE COMBINATION PRESSER Unavailable Unavailable SALONI IV, L BIRDIE COMBINATION PRESSER Unavailable Unavailable SALONI IV, L BIRDIE COMBINATION PRESSER Unavailable Unavailable SALONI IV, L BIRDIE COMBINATION PRESSER Unavailable Unavailable SALONI IV, L BIRDIE COMBINATION PRESSER Unavailable Unavailable SALONI IV, L BIRDIE COMBINATION PRESSER Unavailable Unavailable SALONI IV, L BIRDIE COMBINATION PRESSER Unavailable Unavailable SALONI IV, L BIRDIE COMBINATION PRESSER Unavailable Unavailable SALONI IV, L BIRDIE COMBINATION PRESSER Unavailable Unavailable SALONI IV, L BIRDIE COMBINATION PRESSER Unavailable Unavailable SALONI IV, L BIRDIE COMBINATION PRESSER Unavailable Unavailable SALONI IV, L BIRDIE COMBINATION PRESSER Unavailable Unavailable SALONI IV, L BIRDIE COMBINATION PRESSER Unavailable Unavailable SALONI IV, L BIRDIE COMBINATION PRESSER Unavailable Unavailable SALONI IV, L BIRDIE COMBINATION PRESSER Unavailable Unavailable SALONI IV, L BIRDIE COMBINATION PRESSER Unavailable Unavailable Sparkle, L Meagan LAND ACQUISITION SPECIALIST Unavailable Unavailable Sparkle, L Meagan LAND ACQUISITION SPECIALIST Unavailable Unavailable Sparkle, L Meagan LAND ACQUISITION SPECIALIST Unavailable Unavailable Sparkle, L Meagan LAND ACQUISITION SPECIALIST Unavailable Unavailable Sparkle, L Meagan LAND ACQUISITION SPECIALIST Unavailable Unavailable Sparkle, L Meagan LAND ACQUISITION SPECIALIST Unavailable Unavailable Sparkle, L Meagan LAND ACQUISITION SPECIALIST Unavailable Unavailable Sparkle, L Meagan LAND ACQUISITION SPECIALIST Unavailable Unavailable Sparkle, L Meagan LAND ACQUISITION SPECIALIST Unavailable Unavailable Sparkle, L Meagan LAND ACQUISITION SPECIALIST Unavailable Unavailable Sparkle, L Meagan LAND ACQUISITION SPECIALIST Unavailable Unavailable Dodard, García DO Unavailable Unavailable Dodard, García DO Unavailable Unavailable Dodard, García DO Unavailable Unavailable Dodard, García DO Unavailable Unavailable Dodard, García DO Unavailable Unavailable Dodard, García DO Unavailable Unavailable Dodard, García DO Unavailable Unavailable Dodard, García DO Unavailable Unavailable Dodard, García DO Unavailable Unavailable Dodard, García DO Unavailable Unavailable Dodard, García DO Unavailable Unavailable Dodard, García DO Unavailable Unavailable Dodard, García DO Unavailable Unavailable Dodard, García DO Unavailable Unavailable Dodard, García DO Unavailable Unavailable Dodard, García DO Unavailable Unavailable Dodard, García DO Unavailable Unavailable Dodard, García DO Unavailable Unavailable Dodard, García DO Unavailable Unavailable Dodard, García DO Unavailable Unavailable Dodard, García DO Unavailable Unavailable Dodard, García DO Unavailable Unavailable Dodard, García DO Unavailable Unavailable Dodard, García DO Unavailable Unavailable Dodard, García DO Unavailable Unavailable Dodard, García DO Unavailable Unavailable Dodard, García DO Unavailable Unavailable Dodard, García DO Unavailable Unavailable Dodard, García DO Unavailable Unavailable Dodard, García DO Unavailable Unavailable Dodard, García DO Unavailable Unavailable Dodard, García DO Unavailable Unavailable Dodard, García DO Unavailable Unavailable Dodard, García DO Unavailable Unavailable Dodard, Agrcía DO Unavailable Unavailable Dodard, García DO Unavailable Unavailable Dodard, García DO Unavailable Unavailable Dodard, García DO Unavailable Unavailable Dodard, García DO Unavailable Unavailable Dodard, García DO Unavailable Unavailable Dodard, García DO Unavailable Unavailable Dodard, García DO Unavailable Unavailable Dodard, García DO Unavailable Unavailable Dodard, García DO Unavailable Unavailable Migdalia Alexis, DO Unavailable Unavailable Dalia Gross COMBINATION PRESSER COMBINATION PRESSER Unavailable Unavailable Atul Danielle MD Unavailable Unavailable Atul Danielle MD Unavailable Unavailable Atul Danielle MD Unavailable Unavailable Atul Danielle Sammaria eugenia SOLORZANO Unavailable Unavailable Atul Danielle MD Unavailable Unavailable Atul Danielle MD Unavailable Unavailable Atul Danielle Samah Unavailable Unavailable Atul Danielle MD Unavailable Unavailable Atul Danielleah Unavailable Unavailable Atul Danielle MD Unavailable Unavailable Atul Danielle MD Unavailable Unavailable Atul Danielle MD Unavailable Unavailable Atul Danielle MD Unavailable Unavailable Atul Danielle MD Unavailable Unavailable Atul Danielle MD Unavailable Unavailable Atul Danielle MD Unavailable Unavailable Atul Danielle MD Unavailable Unavailable Atul Danielle MD Unavailable Unavailable Atul Danielle MD Unavailable Unavailable Atul Danielle MD Unavailable Unavailable Atul Danielle MD Unavailable Unavailable Atul Danielle MD Unavailable Unavailable Atul Danielleah Unavailable Unavailable Atul Danielle MD Unavailable Unavailable Atul Danielle MD Unavailable Unavailable Atul Danielle MD Unavailable Unavailable Atul Danielle MD Unavailable Unavailable Atul Danielleah Unavailable Unavailable Atul Danielle Samah Unavailable Unavailable Lolis O Samah Unavailable Unavailable Atul Danielleah Unavailable Unavailable Atul Danielle Samah Unavailable Unavailable Atul Danielleah Unavailable Unavailable Atul Danielle Samah Unavailable Unavailable Atul Danielleah Unavailable Unavailable Atul Danielleah Unavailable Unavailable Atul Danielle MD Unavailable Unavailable Atul Danielleah Unavailable Unavailable Lolis, O Samah MD Unavailable Unavailable Lolis, O Samah MD Unavailable Unavailable Lolis, O Samah MD Unavailable Unavailable Lolis, O Samah MD Unavailable Unavailable Lolis, O Samah MD Unavailable Unavailable Lolis, O Samah MD Unavailable Unavailable Lolis, O Samah MD Unavailable Unavailable Lolis, O Samah MD Unavailable Unavailable Lolis, O Samah MD Unavailable Unavailable Lolis, O Samah MD Unavailable Unavailable Lolis, O Samah MD Unavailable Unavailable Lolis, O Samah MD Unavailable Unavailable Lolis, O Samah MD Unavailable Unavailable Lolis, O Samah MD Unavailable Unavailable Lolis, O Samah MD Unavailable Unavailable Lolis, O Samah MD Unavailable Unavailable Lolis, O Samah MD Unavailable Unavailable Lolis, O Samah MD Unavailable Unavailable Lolis, O Samah MD Unavailable Unavailable Lolis, O Samah MD Unavailable Unavailable Lolis, O Samah MD Unavailable Unavailable Lolis, O Samah MD Unavailable Unavailable Lolis, O Samah MD Unavailable Unavailable Lolis, O Samah MD Unavailable Unavailable Lolis, O Samah MD Unavailable Unavailable Lolis, O Samah MD Unavailable Unavailable Lolis, O Samah MD Unavailable Unavailable Lolis, O Samah MD Unavailable Unavailable Lolis, O Samah MD Unavailable Unavailable Lolis, O Samah MD Unavailable Unavailable Lolis, O Samah MD Unavailable Unavailable Lolis, O Samah MD Unavailable Unavailable Lolis, O Samah MD Unavailable Unavailable Lolis, O Samah MD Unavailable Unavailable Lolis, O Samah MD Unavailable Unavailable Lolis, O Samah MD Unavailable Unavailable Lolis, O Samah MD Unavailable Unavailable Re-disclosure Warning The records that you are about to access may contain information from federally-assisted alcohol or drug abuse programs. If such information is present, then the following federally mandated warning applies: This information has been disclosed to you from records protected by federal confidentiality rules (42 CFR part 2). The federal rules prohibit you from making any further disclosure of this information unless further disclosure is expressly permitted by the written consent of the person to whom it pertains or as otherwise permitted by 42 CFR part 2. A general authorization for the release of medical or other information is NOT sufficient for this purpose. The Federal rules restrict any use of the information to criminally investigate or prosecute any alcohol or drug abuse patient.The records that you are about to access may contain highly sensitive health information, the redisclosure of which is protected by Article 27-F of the [facility] Public Health law. If you continue you may have access to information: Regarding HIV / AIDS; Provided by facilities licensed or operated by the [facility] Office of Mental Health; or Provided by the [facility] Office for People With Developmental Disabilities. If such information is present, then the following [facility] mandated warning applies: This information has been disclosed to you from confidential records which are protected by state law. State law prohibits you from making any further disclosure of this information without the specific written consent of the person to whom it pertains, or as otherwise permitted by law. Any unauthorized further disclosure in violation of state law may result in a fine or [place] [facility] sentence or both. A general authorization for the release of medical or other information is NOT sufficient authorization for further disc losure. Allergies and Adverse Reactions Type Description Substance Reaction Status Data Source(s ) Drug allergy Drug allergy No Known Allergies [facility] Drug allergy Drug allergy No Known Allergies [facility] Family History Family Member Name Family Member Gender Family Member Status Date o f Status Description Data Source(s) Unknown Unknown Problem [facility] Encounters Encounter Providers Location Date Indications Data Source(s ) Outpatient Attender: BIRDIE GUALLPA [facility] 2019 04:30:00 PM [facility] 08/07/2020 04:31:00 PM [facility] Patient discharged. Outpatient Attender: BIRDIE GUALLPA [facility] 06/26/2020 05:00:00 PM [facility] Outpatient ED-[facility] 06/21/2020 12:00:00 PM [facility] Outpatient Attender: Dalia CHAVES 06/18/2020 02:0 6:02 PM [facility] Outpatient Attender: DEN[facility] CHAVES [facility]: Dal[facility] CHAVES 06/12/2020 02:0 7:00 PM EDT [facility] Outpatient Attender: DENISE WALKER 06/11/2020 03:56:01 P M EDT [facility] Outpatient Attender: Dalia Gross DENISE 06/04/2020 03:4 5:02 PM EDT [facility] Outpatient Attender: Dalia Gross DENISE 06/04/2020 03:3 8:00 PM EDT [facility] Outpatient ED-[facility] 05/29/2020 10:35 :00 AM EDT - 05/29/2020 10:36:00 AM EDT [facility] Patient discharged. Outpatient ED-[facility] 05/23/2020 02:00 :00 PM EDT - 05/23/2020 02:01:00 PM EDT [facility] Patient discharged. Outpatient Attender: DENISE WALKER 05/23/2020 08:41:03 A M EDT [facility] 12:02:15 A M EDT [facility]/22/2020 02:2 1:03 PM EDT [facility] Outpatient Attender: DENISE WALKER 05/22/2020 12:40:01 P M EDT [facility] Outpatient Attender: DENISE WALKER 05/21/2020 01:59:00 P M EDT [facility] Outpatient Attender: Stephane Danielle MD Main office - [facility] 05/20/2020 08:30:[facility] Outpatient ED-[facility] 05/15/2020 10:00 :00 AM EDT - 05/15/2020 10:01:00 AM EDT [facility] Patient discharged. Outpatient Attender: Dalia WALKER 05/07/2020 08:4 5:02 AM EDT [facility] Outpatient Attender: BIRDIE GUALLPA IV ED-[facility] 2019 11:30:00 AM EDT - 05/06/2020 11:31:00 AM EDT [facility] Patient discharged. Outpatient Attender: SHAHIDA GONZALES MD ED-[facility] 2019 01:23:00 PM EDT - 04/29/2020 01:24:00 PM EDT [facility] Patient discharged. Outpatient ED-[facility] 04/26/2020 01:00 :00 PM EDT - 04/26/2020 01:01:00 PM EDT [facility] Patient discharged. Preadmit Attender: BIRDIE GUALLPA LOIS ED-[facility] 04/22/2020 09:00:00 AM EDT [facility] Outpatient ED-[facility] 04/18/2020 12:00 :00 PM EDT - 04/18/2020 12:01:00 PM EDT [facility] Patient discharged. Outpatient Attender: BIRDIE GUALLPA IV [facility] 2019 12:01:00 PM EDT - 04/15/2020 12:02:00 PM EDT [facility] Patient discharged. Outpatient Attender: DENISE WALKER 04/15/2020 11:11:01 A M EDT [facility] Outpatient Attender: Dalia CHAVES 04/05/2020 08:4 7:00 AM EDT [facility] Outpatient ED-[facility] 04/04/2020 01:13 :00 PM EDT - 04/04/2020 01:14:00 PM EDT [facility] Patient discharged. Outpatient Attender: Dalia CHAVES 04/04/2020 12:1 6:59 AM EDT [facility] Outpatient Attender: Dalia CHAVES 04/03/2020 11:5 4:01 AM EDT [facility] Outpatient Attender: DENISE CHAVES 04/03/2020 07:39:00 A M EDT [facility] Outpatient Attender: DENISE CHAVES 04/01/2020 02:22:03 P M EDT [facility] Outpatient Attender: DENISE CHAVES 04/01/2020 01:28:01 P M EDT [facility] Outpatient Attender: BIRDIE GUALLPA IV [facility] 2019 11:14:00 AM EDT - 04/01/2020 11:15:00 AM EDT [facility] Patient discharged. Outpatient ED-[facility] 03/28/2020 01:18 :00 PM EDT - 03/28/2020 01:19:00 PM EDT [facility] Patient discharged. Preadmit Attender: BIRDIE GUALLPA [facility] 03/25/2020 09:00:00 AM EDT [facility] 03/22/2020 01:37 :00 PM EDT - 03/22/2020 01:38:00 PM EDT [facility] Patient discharged. Outpatient ED-[facility] 03/21/2020 02:25 :00 PM EDT - 03/21/2020 02:26:00 PM EDT [facility] Patient discharged. Outpatient Attender: BIRDIE GUALLPA [facility] 2019 11:59:00 AM EDT - 03/18/2020 12:00:00 PM EDT [facility] Patient discharged. Outpatient ED-[facility] 03/15/2020 03:21 :00 PM EDT - 03/15/2020 03:22:00 PM EDT [facility] Patient discharged. Outpatient ED-[facility] 03/14/2020 03:03 :00 PM EDT - 03/14/2020 03:04:00 PM EDT [facility] Patient discharged. Preadmit ED-[facility] 03/08/2020 04:30:00 PM EDT [facility] 03/07/2020 11:10 :00 AM EDT - 03/07/2020 11:11:00 AM EDT [facility] Patient discharged. Outpatient Attender: BIRDIE GUALLPA [facility] 2019 01:01:00 PM EDT - 03/04/2020 01:02:00 PM EDT [facility] MAR Patient discharged. [facility]/29/2020 04:2 9:02 PM EDT [facility] Outpatient Attender: Dalia WALKER 02/29/2020 04:2 8:00 PM EDT [facility] Outpatient ED-[facility] 02/22/2020 04:25 :00 PM EDT - 02/22/2020 04:26:00 PM EDT [facility] PSD Patient discharged. Outpatient ED-[facility] 02/15/2020 03:08 :00 PM EDT - 02/15/2020 03:09:00 PM EDT [facility] PSD Patient discharged. Outpatient ED-[facility] 02/14/2020 02:00 :00 PM EDT - 02/14/2020 02:01:00 PM EDT [facility] PSD Patient discharged. Outpatient ED-[facility] 02/08/2020 03:00 :00 PM EDT - 02/08/2020 03:01:00 PM EDT [facility] PSD Patient discharged. Outpatient ED-[facility] 02/07/2020 02:00 :00 PM EDT - 02/07/2020 02:01:00 PM EDT [facility] PSD Patient discharged. Outpatient Attender: Dalia CHAVES 02/07/2020 11:1 0:02 AM EDT [facility] Outpatient Attender: DENISE CHAVES 02/07/2020 11:10:02 A M EDT [facility] Outpatient Attender: Dalia CHAVES 02/05/2020 04:3 3:04 PM EDT [facility] Outpatient ED-[facility] 02/02/2020 03:00 :00 PM EDT - 02/02/2020 03:01:00 PM EDT [facility] PSD Patient discharged. Outpatient ED-[facility] 02/01/2020 03:00 :00 PM EDT - 02/01/2020 03:01:00 PM EDT [facility] PSD Patient discharged. Outpatient Attender: Dalia CHAVES 01/31/2020 04:4 6:02 PM EDT [facility] Outpatient Attender: DENISE CHAVES 01/31/2020 04:46:00 P M EDT [facility] Outpatient Attender: Dalia CHAVES 01/30/2020 11:5 8:01 PM EDT [facility] Outpatient Attender: DENISE CHAVES 01/30/2020 11:58:01 P M EDT [facility] Outpatient Attender: Dalia CHAVES 01/30/2020 11:5 7:00 PM EDT [facility] Outpatient Attender: DENISE CHAVES 01/30/2020 07:53:35 P M EDT [facility] Outpatient Attender: DENISE CHAVES 01/30/2020 11:39:00 A M EDT [facility] Outpatient [address] [facility] [address] 01/30/2020 12:00:00 AM EDT eC1 ([facility]) Outpatient ED-[facility] 01/29/2020 03:00 :00 PM EDT - 01/29/2020 03:01:00 PM EDT [facility] PSD Patient discharged. Outpatient Referrer: García Lindsey DO 01/25/2020 05:49:00 AM EDT [facility] Outpatient Attender: DENISE CHAVES 01/24/2020 02:44:01 P M EDT [facility] Outpatient Attender: DENISE CHAVES 01/24/2020 01:34:00 P M EDT [facility] Outpatient Attender: DENISE CHAVES 01/22/2020 11:09:00 A M EDT [facility] Outpatient Attender: BIRDIE GUALLPA IV ED-[facility] 2019 11:00:00 AM EDT - 01/22/2020 11:01:00 AM EDT [facility] MAR Patient discharged. Outpatient Attender: DENISE CHAVES 01/22/2020 10:55:00 A M EDT [facility] Outpatient Attender: DENISE CHAVES 01/22/2020 10:54:00 A M EDT [facility] Outpatient ED-[facility] 01/19/2020 01:00 :00 PM EDT - 01/19/2020 01:01:00 PM EDT [facility] PSD Patient discharged. Outpatient Attender: BIRDIE GUALLPA IV ED-[facility] 2019 03:00:00 PM EDT - 01/17/2020 03:01:00 PM EDT [facility] MAR Patient discharged. Outpatient Attender: Dalia CHAVES 01/11/2020 09:5 8:03 AM EDT [facility] Outpatient ED-[facility] 01/09/2020 02:00 :00 PM EDT - 01/09/2020 02:01:00 PM EDT [facility] PSD Patient discharged. Outpatient Attender: BIRDIE GUALLPA IV ED-[facility] 2019 04:00:00 PM EDT - 01/08/2020 04:01:00 PM EDT [facility] MAR Patient discharged. Outpatient Attender: DENISE WALKER 01/08/2020 11:56:00 A M EDT [facility] Outpatient ED-[facility] 01/05/2020 02:00 :00 PM EDT - 01/05/2020 02:01:00 PM EDT [facility] PSD Patient discharged. Outpatient Attender: Kevin Mackay MD 01/04/2020 10:45:00 AM EDT [facility] Outpatient ED-[facility] 01/03/2020 02:00 :00 PM EDT - 01/03/2020 02:01:00 PM EDT [facility] PSD Patient discharged. Outpatient ED-[facility] 01/02/2020 02:30 :00 PM EDT - 01/02/2020 02:31:00 PM EDT [facility] MAR Patient discharged. Outpatient Attender: Kevin Mackay MD 12/28/2019 08:37:01 AM EDT [facility] Outpatient Attender: BIRDIE GUALLPA IV ED-[facility] 2019 11:30:00 AM EDT - 12/25/2019 11:31:00 AM EDT [facility] MAR Patient discharged. Outpatient Attender: SHAHIDA GONZALES MD ED-[facility] 2019 02:00:00 PM EDT - 12/22/2019 02:01:00 PM EDT [facility] PSD Patient discharged. Outpatient ED-[facility] 12/20/2019 10:30 :00 AM EDT - 12/20/2019 10:31:00 AM EDT [facility] PSD Patient discharged. Outpatient ED-[facility] 12/18/2019 11:00 :00 AM EDT - 12/18/2019 11:01:00 AM EDT [facility] PSD Patient discharged. Outpatient Attender: BIRDIE GUALLPA LOIS ED-[facility] 2019 02:00:00 PM EDT - 12/15/2019 02:01:00 PM EDT [facility] PSD Patient discharged. Preadmit Attender: Meaganstacie Villagran NP ED-[facility] 12/14/2019 09:30:00 AM EDT [facility] Outpatient [facility] 12/12/2019 11:00 :00 AM EDT - 12/12/2019 11:01:00 AM EDT [facility] PSD Patient discharged. Outpatient [facility] 12/06/2019 09:37:00 AM EDT [facility] 12/05/2019 09:52:00 AM EDT [facility] Inpatient Attender: Sam Null MDA ttender: Sam Null MDAdmitter: Sam Null MD ED-[facility] 12/04/2019 10:19:00 PM EDT - 12/08/2019 09:25:00 AM EDT F19.20 [facility] F19.20 Patient discharged. Preadmit Attender: Meagan Villagran NP [facility] 11/30/2019 10:30:00 AM EDT [facility] Outpatient Attender: Kevin Mackay MD 11/26/2019 05:56:00 PM EDT [facility] Outpatient Attender: Kevin Mackay MD 11/26/2019 05:55:59 PM EDT [facility] Outpatient Attender: Kevin Mackay MD 11/22/2019 12:42:00 PM EDT [facility] Outpatient Attender: Kevin Mackay MD 11/22/2019 12:41:01 PM EDT [facility] Outpatient Attender: Kevin Mackay MD 11/22/2019 12:40:00 PM EDT [facility] Outpatient Attender: Kevin Mackay MD 11/21/2019 05:36:00 PM EDT [facility] Outpatient Attender: Kevin CHAVES 11/21/2019 05:13:01 PM EDT [facility] Outpatient Attender: Kevin Mackay MD 11/21/2019 03:54:00 PM EDT [facility] Outpatient Attender: Kevin Mackay MD 11/21/2019 01:20:00 PM EDT [facility] Outpatient Attender: Kevin CHAVES 11/21/2019 01:07:00 PM EDT [facility] Outpatient Attender: Kevin CHAVES 11/17/2019 08:58:01 AM EDT [facility] Outpatient Attender: Meagan Villagran [employer]IST [facility] 2019 08:25:00 AM EDT - 11/16/2019 08:26:00 AM EDT PSD [facility] PSD Patient discharged. Outpatient Attender: Kevin Mackay MD 11/02/2019 11:21:02 AM EDT [facility] Inpatient Attender: Lashaun Montalvo nder: LASHAUN SESAY MDAdmitter: LASHAUN SESAY MD [facility] 10/18/2019 10:49:00 AM EST - 11/15/2019 08:55:00 AM EDT PSYCHOACTIVE SUBSTANCE DEPENDENCE [facility] PSYCHOACTIVE SUBSTANCE DEPENDENCE Patient discharged. Outpatient [facility] 10/15/2019 02:26:00 PM EST [facility] Inpatient Attender: Jr Migdalia Salgado OAttender: Migdalia Alexis JrAdmitter: Migdalia Alexis Jr [facility] 10/14/2019 09:41:00 PM EST - 10/18/2019 08:15:00 AM EST F19.20 [facility] F19.20 Patient discharged. [facility] [place] [address] [place] [address] 09/18/2019 12:00:00 AM EST eCW1 ([facility]) [facility] [place] [address] [facility] [place] [address] 09/18/2019 12:00:00 AM EST eCW1 ([facility]) Emergency Attender: Laura Stanford MDAttender: ER PHYSICIAN 09/06/2019 11:26:00 AM EST - 09/06/2019 01:02:00 PM EST RING STUCK ON FINGER [facility] RING STUCK ON FINGER Patient discharged. Outpatient Attender: Kevin Mackay MD 08/31/2019 09:01:08 PM EST [facility] [address] [facility] [address] 08/07/2019 12:00:00 AM EST eCW1 ([facility]) Medications Medication Brand Name Start Date Product Form Dose Route Admi nistrative Instructions Pharmacy Instructions Status Indications Reaction Description Data Source(s) 300 mg 09/03/2020 12:00:00 AM EST capsule 20 TAKE ONE CAPSULE BY MOUTH EVERY 12 HOURS FOR 10 DAYS TAKE ONE CAPSULE BY MOUTH EVERY 12 HOURS FOR 10 DAYS S OLD: 09/03/2020 [facility] 150 mg 05/20/2020 12:00:00 AM EDT tablet 2 TAKE ONE TABLET BY MOUTH AT START OF SYMPTOMS AND MAY REPEAT IN 72 HOURS NEEDED TAKE ONE TABLET BY MOUTH AT START OF SYMPTOMS AND MAY REPEAT IN 72 HOURS NEEDED SOLD: 05/24/2020 [facility] 0.75 % 05/20/2020 12:00:00 AM EDT gel 70 APPLY 1 APPLICATORFUL VAGINALLY ONCE NIGHTLY FOR 7 DAYS APPLY 1 APPLICATORFUL VAGINALLY ONCE NIGHTLY FOR 7 DAY S SOLD: 05/24/2020 [facility] Amitriptyline Hydrochloride 25 MG Oral Tablet Amitriptyline HCL 05/20/2020 12:00:00 AM EDT active M EDENT ([facility]) Microgestin FE 1/20 1-20 MG-MCG Microgestin FE 1/20 1-20 MG- MCG 01/30/2020 12:00:00 AM EDT 1.0 {tablet} active Mi crogestin FE /20 1-20 MG-MCG eCW1 ([facility]) Clonidine Hydrochloride 0.1 MG Oral Tablet CLONIDINE HCL 09/22/2019 12:00:00 AM EST tablet 90 TAKE ONE TABLET BY MOUTH THR EE TIMES A DAY TAKE ONE TABLET BY MOUTH THREE TIMES A DAY SOLD: 09/22/2019 [facility] 8-2 mg 09/22/2019 12:00:00 AM EST film [address] ONE FILM UNDER THE TONGUE EVERY MORNING MAXIMUM DAILY DOSE = [address] ONE FILM UNDER THE TONGUE EVERY MORNING MAXIMUM DAILY DOSE = 1 STRIP SOLD: 09/22/2019 [facility] Insurance Providers Payer name Policy type / Coverage type Policy ID Covered libertarian ID Covered libertarian's relationship to melvin Policy Melvin Plan Information [facility] [id number] SP [id number] [facility] [address] [id number] Unemploye d [id number] Medicaid S [id number] S [id number] Managed Care - [facility] Community Plan P [id number] S [id number] [facility] [address] [id number] Unemploye d [id number] EMEDNY [id number] SP [id number] [facility](MCAID) O [id number] S [id number] Medicaid S [id number] S [id number] [facility] [id number] SP [id number] [facility] [address] [id number] S [id number] Managed Care - [facility] P [id number] S [id number] [facility] [address] [id number] S [id number] [facility] [address] [id number] S [id number] [facility] HEA [id number] S [id number] [facility] [address] [id number] S [id number] SELF PAY S ANSI-Medicaid [id number] ANSI-Medicaid [id number] ANSI-Medicaid [id number] ANSI-Medicaid [id number] ANSI-Medicaid [id number] ANSI-Medicaid [id number] Medicaid S [id number] S [id number] [facility] [id number] SP [id number] MEDICAID [id number] SP [id number] ANSI-Medicaid [id number] ANSI-Medicaid [id number] ANSI-Medicaid [id number] [facility] Care [facility] [id number] S [id number] ANSI-Medicaid [id number] ANSI-Medicaid [id number] ANSI-Medicaid [id number] ANSI-Medicaid [id number] ANSI-Medicaid [id number] ANSI-Medicaid [id number] ANSI-Medicaid [id number] ANSI-Medicaid [id number] ANSI-Medicaid [id number] ANSI-Medicaid [id number] ANSI-Medicaid [id number] ANSI-Medicaid [id number] ANSI-Medicaid [id number] ANSI-Medicaid [id number] ANSI-Medicaid [id number] SELF PAY ONLY UNAVAILABLE SP UNAV AILABLE Medicaid S [id number] S [id number] Managed Care - [facility] P [id number] S [id number] Medicaid S [id number] S [id number] Sliding Fee Scale P UNAVAILABLE S UNAVAILABLE MEDICAID M [id number] S [id number] SELF PAY ONLY [id number] SP [id number] [facility] [id number] S [id number] UNHC COMMUNITY PLAN MCDO [id number] SP [id number] [facility] [id number] SP [id number] SELF PAY ONLY [id number] SP [id number] SELF PAY ONLY UNAVAILABLE SP UNAV AILABLE UNHC COMMUNITY PLAN MCDO [id number] SP [id number] [facility] Layla/MCR Health Maintenance Organization (HMO) Self BS [facility] Plus Health Maintenance Organization (HMO) Self United HLCR/Community Arsenio Health Maintenance Organization (HMO) Self UNHC COMMUNITY PLAN MCDO [id number] SP [id number] UNHC AMERICHOICE XIX -HMO [id number] 18 [id number] [facility] FAMILY HLTH PLUS [id number] SP [id number] SELF PAY UNAVAILABLE UNAVAILA BLE [facility] [id number] SP [id number] NCO EPALS [id number] SP [id number] S [id number] Problems, Conditions, and Diagnoses Code Display Name Description Problem Type Effective Dates Data Source(s) 71099110 Migraine Migraine Problem 05/20/2020 12:00:00 AM ED T RIP ([facility]) V70.0 Encounter for general adult medical exam ination with abnormal findings Encounter for general adult medical examination with abnormal findings 04/01/2020 02:20:33 PM EDT [facility] V65.8 Person consulting for explanation of exa mination or test findings Person consulting for explanation of examination or test findings 04/01/2020 02:20:33 PM EDT [facility] [id number] Hyperlipidemia, unspecified Hyperlipidemia, unspecifie d 04/01/2020 02:20:33 PM EDT [facility] N94.12 [id number] Deep dyspareunia Problem 01/30/2020 12:00:00 AM EDT eCW1 ([facility]) 786.50 Rib pain Rib pain 01/24/2020 02:42:57 PM ED T [facility] V70.0 Health Screening Health Screening 01/24/2020 02 :42:57 PM EDT [facility] 070.54 Chronic hepatitis C Chronic hepatitis C 020 02:42:57 PM EDT [facility] [id number] Acute upper respiratory infection, unspe cified Acute upper respiratory infection, unspecified 11/21/2019 05:34:05 PM EDT [facility] 786.2 Cough Cough 11/21/2019 05:34:05 PM ED T [facility] 478.19 Congestion of nasal sinus Congestion of nasal sinus 11/21/2019 05:34:05 PM EDT [facility] R99 Ill-defined and unknown cause of mortali ty ILL-DEFINED AND UNKNOWN CAUSE OF MORTALITY Diagnosis 04/29/2020 01:23:00 PM EDT [facility] F11.20 Opioid dependence, uncomplicated OPIOID DEPENDEN CE, UNCOMPLICATED Diagnosis 03/15/2020 03:21:00 PM EDT [facility] F15.20 Other stimulant dependence, uncomplicate d OTHER STIMULANT DEPENDENCE, UNCOMPLICATED Diagnosis 03/07/2020 11:10:00 AM EDT [facility] B18.2 Chronic viral hepatitis C CHRONIC VIRAL HEPATITIS C Di agnosis 03/04/2020 01:01:00 PM EDT [facility] G47.9 Sleep disorder, unspecified SLEEP DISORDER, UNSPECIFIE D Diagnosis 01/29/2020 03:00:00 PM EDT [facility] F41.9 Anxiety disorder, unspecified ANXIETY DISORDER, UNSPEC IFIED Diagnosis 01/29/2020 03:00:00 PM EDT [facility] F19.20 Other psychoactive substance dependence, uncomplicated OTHER PSYCHOACTIVE SUBSTANCE DEPENDENCE, UNCOMPLICATED Diagnosis 01/17/2020 03:00:00 PM E [facility] R45.89 Other symptoms and signs involving emoti onal state OTHER SYMPTOMS AND SIGNS INVOLVING EMOTIONAL STATE Diagnosis 01/02/2020 02:30:00 PM EDT [facility] Z63.0 Problems in relationship with spouse or partner PROBLEMS IN RELATIONSHIP WITH SPOUSE OR PARTNER Diagnosis 12/15/2019 02:00:00 PM EDT [facility] Z60.8 Other problems related to social environ ment OTHER PROBLEMS RELATED TO SOCIAL ENVIRONMENT Diagnosis 12/12/2019 11:00:00 AM EDT [facility] F15.10 Other stimulant abuse, uncomplicated OTH ER STIMULANT ABUSE, UNCOMPLICATED Diagnosis 12/04/2019 10:19:00 PM EDT [facility]ital L03.113 Cellulitis of right upper limb CELLULITIS OF RIGHT UPP ER LIMB Diagnosis 12/04/2019 10:19:00 PM [facility] G43.909 Migraine, unspecified, not intractable, without status migrainosus MIGRAINE, UNSP, NOT INTRACTABLE, WITHOUT STATUS MIGRAINOSUS Diagnosis 12/04/2019 10:19:00 PM [facility] E66.9 Obesity, unspecified OBESITY, UNSPECIFIED Diagnosis 12/04/2019 10:19:00 PM [facility] Z68.31 Body mass index (BMI) 31.0-31.9, adult B HANS MASS INDEX (BMI) 31.0-31.9, ADULT Diagnosis 12/04/2019 10:19:00 PM [facility] spital E66.8 Other obesity OTHER OBESITY Diagnosis 12/04/2019 10:19:00 PM [facility] R74.8 Abnormal levels of other serum enzymes A BNORMAL LEVELS OF OTHER SERUM ENZYMES Diagnosis 12/04/2019 10:19:00 PM [facility] E86.0 Dehydration DEHYDRATION Diagnosis 12/04/2019 10:19:00 PM [facility] F32.9 Major depressive disorder, single episod e, unspecified MAJOR DEPRESSIVE DISORDER, SINGLE EPISODE, UNSPECIFIED Diagnosis 12/04/2019 10:19:00 PM [facility] D72.829 Elevated white blood cell count, unspeci fied ELEVATED WHITE BLOOD CELL COUNT, UNSPECIFIED Diagnosis 12/04/2019 10:19:00 PM [facility] E87.6 Hypokalemia HYPOKALEMIA Diagnosis 12/04/2019 10:19:00 PM [facility] F11.23 Opioid dependence with withdrawal OPIOID DEPENDE NCE WITH WITHDRAWAL Diagnosis 12/04/2019 10:19:00 PM [facility] Z63.72 Alcoholism and drug addiction in family ALCOHOLISM AND DRUG ADDICTION IN FAMILY Diagnosis 11/16/2019 08:25:00 AM [facility] spital F14.10 Cocaine abuse, uncomplicated COCAINE ABUSE, UNCOMPLICA SHOLA Diagnosis 11/16/2019 08:25:00 AM [facility] J10.1 Influenza due to other ident ified influenza virus with other respiratory manifestations FLU DUE TO OTH IDENT INFLUENZA VIRUS W OTH RESP MANIFE ST Diagnosis 10/18/2019 10:49:00 AM [facility] G43.909 Migraine, unspecified, not intractable, without status migrainosus MIGRAINE, UNSP, NOT INTRACTABLE, WITHOUT STATUS MIGRAINOSUS Diagnosis 10/18/2019 10:49:00 AM [facility] G47.00 Insomnia, unspecified INSOMNIA, UNSPECIFIED Diagnosis 10/18/2019 10:49:00 AM [facility] F41.9 Anxiety disorder, unspecified ANXIETY DISORDER, UNSPEC IFIED Diagnosis 10/18/2019 10:49:00 AM [facility] F32.9 Major depressive disorder, single episod e, unspecified MAJOR DEPRESSIVE DISORDER, SINGLE EPISODE, UNSPECIFIED Diagnosis 10/18/2019 10:49:00 AM [facility] Z86.19 Personal history of other infectious and parasitic diseases PERSONAL HISTORY OF OTHER INFECTIOUS AND PARASITIC DISEASES Diagnosis 10:49:00 AM [facility] F15.20 Other stimulant dependence, uncomplicate d OTHER STIMULANT DEPENDENCE, UNCOMPLICATED Diagnosis 10/18/2019 10:49:00 AM [facility] 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, uncomplicated H ALLUCINOGEN DEPENDENCE, UNCOMPLICATED Diagnosis 10/18/2019 10:49:00 AM [facility] F11.20 Opioid dependence, uncomplicated OPIOID DEPENDEN CE, UNCOMPLICATED Diagnosis 10/18/2019 10:49:00 AM [facility] 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 SICK-EUTHYROID SYNDROME Diagno sis 10/14/2019 09:41:00 PM [facility] E05.90 Thyrotoxicosis, unspecified without thyr otoxic crisis or storm THYROTOXICOSIS, UNSP WITHOUT THYROTOXIC CRISIS OR STORM Diagnosis 10/14/2019 09:41:00 PM [facility] R73.9 Hyperglycemia, unspecified HYPERGLYCEMIA, UNSPECIFIED Diagnosis 10/14/2019 09:41:00 PM [facility] Surgeries/Procedures Procedure Description Date Indications Data Source(s) Medication Management for Substance Abuse Treatment, N aloxone MEDS MGMT FOR SUBSTANCE ABUSE TREATMENT, NALOXONE 12/04/2019 12:00:00 AM [facility] Individual Counseling for Substance Abuse Treatment, C ontinuing Care INDIV SUPERVISOR KENNEL FOR SUBSTANCE ABUSE TREATMENT, CONTINUING CARE 12/04/2019 12:00:00 AM [facility] Detoxification Services for Substance Abuse Treatment DETOXIFICATION SERVICES FOR SUBSTANCE ABUSE TREATMENT 12/04/2019 12:00:00 AM [facility] Individual Counseling for Substance Abuse Treatment, C ognitive-Behavioral INDIV SUPERVISOR KENNEL FOR SUBSTANCE ABUSE, COGNITIVE BEHAVIORAL 10/18/2019 12:00:00 AM [facility] Group Counseling for Substance Abuse Treatment, Motiva tional Enhancement GROUP SUPERVISOR KENNEL FOR SUBSTANCE ABUSE, MOTIVATIONAL ENHANCE 10/18/2019 12:00:00 AM [facility] Group Counseling for Substance Abuse Treatment, Spirit ual GROUP COUNSELING FOR SUBSTANCE ABUSE TREATMENT, SPIRITUAL 10/18/2019 12:00:00 AM [facility] Group Counseling for Substance Abuse Treatment, Cognit isaiah-Behavioral GROUP SUPERVISOR KENNEL FOR SUBSTANCE ABUSE, COGNITIVE BEHAVIORAL 10/18/2019 12:00:00 AM [facility] Group Counseling for Substance Abuse Treatment, Interp ersonal GROUP SUPERVISOR KENNEL FOR SUBSTANCE ABUSE TREATMENT, INTERPERSONAL 10/17/2019 12:00:00 AM [facility] Group Counseling for Substance Abuse Treatment, Cognit isaiah-Behavioral GROUP SUPERVISOR KENNEL FOR SUBSTANCE ABUSE, COGNITIVE BEHAVIORAL 10/17/2019 12:00:00 AM [facility] Measurement of Cardiac Electrical Activity, External A pproach MEASUREMENT OF CARDIAC ELECTRICAL ACTIVITY, CHANGE MANAGEMENT SPECIALIST APPROACH 10/14/2019 12:00:00 AM [facility] Results ID Date Data Source [id number] 06/18/2020 12:33:52 PM EDT [facility] Current Problems: Encounter for general adult medical examination with abnormal findings (ICD-V70.0) (TQZ97-W64.01)Person consulting for explanation of examination or test findings (ICD-V65.8) (HJX64-J71.2)Hyperlipidemia, unspecified (JRL26-B56.5)Rib pain (ICD-786.50) (NUF53-R02.81)Health Screening (ICD-V70.0) (YCY94-V55.9)Chronic hepatitis C (ICD-070.54) (PCE63-O80.2)Acute upper respiratory infection, unspecified (OPQ73-C23.9)Cough (ICD-786.2) (ICD10- R05)Congestion of nasal sinus (ICD-478.19) (BVS80-S82.81)Acute pharyngitis due to other specified organisms (FXO58-W89.8)Other specified depressive episodes (AIN03-E33.89)Acute maxillary sinusitis, unspecified (QYJ19-K81.00)Opioid dependence, in remission (ICD-304.03) (HVC03-U01.21)Acute cystitis without hematuria (EDE87-I83.00)Problem list reviewed during this update.Current Medications: * GABAPENTIN 300 MG 3 times daily; Route: ORALSUBOXONE 8-2 MG SUBLINGUAL FILM (BUPRENORPHINE HCL-NALOXONE HCL) 3 films a day. MDD 3. KAREN [id number]. For the treatment of opiate addiction. [BMN]TOPAMAX 50 MG ORAL TABLET (TOPIRAMATE) take one tab po bid; Route: ORALMedication list reviewed during this update.Allergy list reviewed during this update.No known allergies. Dental Chart: Procedures:Type - CDT Code - Description B - (D2161) Amalgam, 4 or more surfaces, primary or permanent on Tooth # 3 on Tooth Surface DOLM (Performed by Mimi Kumar DDS) Chart Notes:paddy (Jun 18 2020 2:05PM): [facility] (-) per pt Took temp@ F. Additional PPE requirements due to COVID-19 in the dental setting, N95, surgical mask, hair covering, gown CC: none. HurriCaine (Watermelon) Topical, UR Infiltration 1 and a 1/2 carp. Septocaine (Articaine HCL 4%) X 1:200.000 epi. Operative: #3-MODL Gluma and amalgam. Excavated with High Speed, Slow Speed and Spoon. Occlusion checked. No complications. Informed pt befroe starting procedure that this filling is very big and under the gum line. If she feels sensitivy after fillings she may need rct and crown. Informed pt crown may or may not be able to be done due to cavitiy under the gum line.Pt chose to continue with filling. POI.Given. Assisted by AG . Pt was cooperative. NV:Mimi Ying DDS by paddy (06/18/2020 2:04 PM): Tooth Notes and Watches:- Tooth 19 Note: buccal is area very sensitiveRaso Francine CHAPMAN by paddy (05/22/2020 2:18 PM): Assessment & Plan Medications:GABAPENTIN 300 MGSUBOXONE 8-2 MG SUBLINGUAL FILMTOPAMAX 50 MG ORAL TABLETAllergies:No Known Allergies (updated 06/18/2020) Name Value Range Interpretation Code Description Data Desiree rce(s) Supporting Document(s) ID Date Data Source [id number] 06/12/2020 01:43:49 PM EDT [facility] Patient History Medical History:AnxietyS ubstance abuseFamily History:Hypertension (Mother)Social/Personal History: Smoking Status: never smokerCurrent Problems: Encounter for general adult medical examination with abnormal findings (ICD-V70.0) (XQO86-O82.01)Person consulting for explanation of examination or test findings (ICD-V65.8) (TFP19-S76.2)Hyperlipidemia, unspecified (BXJ97-R70.5)Rib pain (ICD-786.50) (EHG10-G24.81)Health Screening (ICD-V70.0) (FYR90-H71.9)Chronic hepatitis C (ICD-070.54) (QWI11-G16.2)Acute upper respiratory infection, unspecified (TUO94-X59.9)Cough (ICD-786.2) (WMQ40-A17)Congestion of nasal sinus (ICD-478.19) (ZUG59-A36.81)Acute pharyngitis due to other specified organisms (CFI80-E97.8)Other specified depressive episodes (ETV69-M98.89)Acute maxillary sinusitis, unspecified (ICD10- J01.00)Opioid dependence, in remission (ICD-304.03) (BSL76-T95.21)Acute cystitis without hematuria (ZLC00-N00.00)Problem list reviewed during this update.Current Medications: * GABAPENTIN 300 MG 3 times daily; Route: ORALSUBOXONE 8-2 MG SUBLINGUAL FILM (BUPRENORPHINE HCL-NALOXONE HCL) 3 films a day. MDD 3. KAREN [id number]. For the treatment of opiate addiction. [BMN]TOPAMAX 50 MG ORAL TABLET (TOPIRAMATE) take one tab po bid; Route: ORALMedication list reviewed during this update.Allergy list reviewed during this update.No known allergies.Past Medical History:(reviewed - no changes required) AnxietySubstance abuse Dental Chart: Procedures:Type - CDT Code - Description B - (D1110) Prophylaxis, adult (Performed by Francine Guerrier RDH) Treatments:Type - CDT Code - Description T - (D2150) Amalgam, 2 surfaces, primary or permanent on Tooth # 19 on Tooth Surface MO (Performed by Francine Guerrier RDH) T - (D2160) Amalgam, 3 surfaces, primary or permanent on Tooth # 3 on Tooth Surface DOM (Performed by Francine Guerrier RDH) T - (D2160) Amalgam, 3 surfaces, primary or permanent on Tooth # 15 on Tooth Surface BOD (Performed by Farncine Guerrier RDH) Chart Notes:laya (Jun 12 2020 2:06PM): [facility] with patient- no changes. No problems or concerns today. Adult prophy- handscaled, comoran- mint prophy paste, flossOH-Patient brushes twice/day and NOT flossing regularlyLT gen marginal biofilm and marginal/introproximal calculus on LA. Marginal tissue is slight inflamed with light bleeding on scaling. OHI- Advise to brush 2x a day and floss everyday. Went over brushing along the gum line and flossing properly. Patient is cooperative. NV- 6 month recall/fillingsRasFrancine dudley RDH by laya (06/12/2020 2:06 PM): Tooth Notes and Watches:- Tooth 19 Note: buccal is area very sensitiveRaso Francine CHAPMAN by paddy (05/22/2020 2:18 PM): - Tooth 3 Note: large decay and we are going to try to do a filling and if not then RC or extraction.Francine Guerrier RDH (05/22/2020 1:16 PM): Assessment & Plan Medications:GABAPENTIN 300 MGSUBOXONE 8-2 MG SUBLINGUAL FILMTOPAMAX 50 MG ORAL TABLETAllergies:No Known Allergies (updated 05/22/2020) Name Value Range Interpretation Code Description Data Desiree rce(s) Supporting Document(s) ID Date Data Source [id number] 05/22/2020 12:44:16 PM EDT [facility] Patient History Medical History:AnxietyS ubstance abuseFamily History:Hypertension (Mother)Social/Personal History: Smoking Status: never smokerCurrent Problems: Encounter for general adult medical examination with abnormal findings (ICD-V70.0) (IIJ55-F50.01)Person consulting for explanation of examination or test findings (ICD-V65.8) (WTT41-D79.2)Hyperlipidemia, unspecified (VQC70-H12.5)Rib pain (ICD-786.50) (RAG14-N42.81)Health Screening (ICD-V70.0) (RTS28-D38.9)Chronic hepatitis C (ICD-070.54) (PHL52-R77.2)Acute upper respiratory infection, unspecified (TFB13-Q21.9)Cough (ICD-786.2) (DJV25-U77)Congestion of nasal sinus (ICD-478.19) (XEM69-Z67.81)Acute pharyngitis due to other specified organisms (QBJ12-R73.8)Other specified depressive episodes (JET04-M43.89)Acute maxillary sinusitis, unspecified (ICD10- J01.00)Opioid dependence, in remission (ICD-304.03) (KZL42-O62.21)Acute cystitis without hematuria (UQQ04-E38.00)Problem list reviewed during this update.Current Medications: * GABAPENTIN 300 MG 3 times daily; Route: ORALSUBOXONE 8-2 MG SUBLINGUAL FILM (BUPRENORPHINE HCL-NALOXONE HCL) 3 films a day. MDD 3. KAREN [id number]. For the treatment of opiate addiction. [BMN]TOPAMAX 50 MG ORAL TABLET (TOPIRAMATE) take one tab po bid; Route: ORALMedication list reviewed during this update.Allergy list reviewed during this update.No known allergies.Past Medical History:(reviewed - no changes required) AnxietySubstance abuse Dental Chart: Procedures:Type - CDT Code - Description B - (D0150) Comprehensive oral evaluation - new or established patient (Performed by Mimi Kumar DDS) B - (D0274) Bitewings, 4 radiographic images (Performed by Francine Guerrier RDH) B - (D0220) Intraoral, periapical, first radiographic image on Tooth # 11 (Performed by Francine Guerrier RDH) B - (D 0230) Intraoral, periapical, each additional radiographic image on Tooth # 6 (Performed by Francine Guerrier RDH) B - (D0230) Intraoral, periapical, each additional radiographic image on Tooth # 8 (Performed by Francine Guerrier RDH) Existing:Type - CDT Code - Description[E] Decay On #15 Surface , #19 Surface OM, #3 Surface DOM[E] Amalgam Advent On #2 Surface MO, #31 Surface OB[E] Resin-Based Composite - Direct On #12 Surface DO, #13 Surface MOD, #14 Surface MO, #15 Surface DO, #18 Surface OL, #19 Surface DLOB, #29 Surface DO, #3 Surface ODBL[E] Missing - [place] and Root On #1 Surface O Region XR, #16 Surface O Region XR, #17 Surface O Region XR, #30 Surface O Region XR, #32 Surface O Region XR Chart Notes:sraso (May 22 2020 1:27PM): [facility] with NEW patient- updated. She is sensitive on the lower molar area. C exam, 4 BW's, 3 PA's, 1-4 mm probingOH-Patient brushes twice/day and NOT flossing regularlyLT gen marginal biofilm and marginal/introproximal calculus on LA. Marginal tissue is mostly pink with no BOP with localized areas of red inflamed gums- very little.OHI- Advise to brush 2x a day and floss everyday. Will give more instruction on cleaning day.Patient is cooperative. She has slight areas of recession on lower back molars that are causing sensitivity. Recommended to brush gently in that area- gave a extra soft toothbrush and instructed to use sensodyne toothpaste. NV- aprophy 45/ filling starting on #3RFrancine lópez RDH by laya (05/22/2020 1:27 PM): ; paddy (May 22 2020 2:19PM): [facility](-). CC: sensitieve # 19. Noted recession and enamel erosion. Reviewed Xrays. Exam: blair steven detected. OCS: WNL, IO/ EO completed, No significant hard findings upon clinical exam.Additional PPE requirements due to COVID-19 in the dental setting, N95, surgical mask, hair covering, gown and shield. recommend sensodyne, flouride rinse to help with sensitivity. Pt was cooperative. OHI given Referral: N/A NV:Francine Pagan RDH by paddy (05/22/2020 2:09 PM): Tooth Notes and Watches:- Tooth 19 Note: buccal is area very sensitiveFrancine Guerrier RDH by paddy (05/22/2020 2:18 PM): - Tooth 3 Note: large decay and we are going to try to do a filling and if not then RC or extraction.Francine Guerrier RDH (05/22/2020 1:16 PM): Assessment & Plan Medications:GABAPENTIN 300 MGSUBOXONE 8- 2 MG SUBLINGUAL FILMTOPAMAX 50 MG ORAL TABLETAllergies:No Known Allergies (updated 05/22/2020) Name Value Range Interpretation Code Description Data Desiree rce(s) Supporting Document(s) ID Date Data Source [id number] 04/01/2020 01:27:41 PM EDT [facility] Measurements & CalculationsHeight: 63 inches (5 ft. 3 in.) 160.02 cm Weight: 180 pounds 8 oz. 82.05 kg Body Mass Index (BMI): 32.09BMI Interpretation: ObeseBody Surface Area (BSA): 1.85Weight Management Education Done (Nutrition/Physical Activity)Vital SignsTemperature: 98.3FPulse Rate: 65 beats/minuteRespiratory Rate: 14 respirations/minuteBlood Pressure: 103/70 O2 Saturation: 97% Vital Signs performed by: Klaudia Dalton LPN, April 01, 2020 1:28 PMVital Signs performed by: Klaudia Dalton LPN, April 01, 2020 1:28 PMInitial Intake Information From: patientRoom #: 9Infectious Disease / Travel ScreeningRecent travel for you or any close contacts? NoHave you had any close contact with anyone diagnosed with or under investigation for COVID-19 (coronavirus)? NoFever? NoRespiratory symptoms: cough, cold, congestion, shortness of breath, difficulty breathing? NoLoss of smell? NoLoss of taste? NoSmoking, Tobacco, Vaping or Smoke Exposure StatusSmoke Status: never smokerTobacco Use: NoDo you vape? NoPassive Smoke Exposure: NoMenstrual HistoryLast Menstrual Period (LMP): 04/01/2020Any possibility of ? NoHealthcare HistorySince your last office visit...Have you been admitted to the hospital? NoHave you been to an emergency room (ER) or urgent care clinic? NoHave you seen another healthcare provider? Yes - DR Birdie Piña [facility] you [facility] a [facility] performed by: Klaudia Dalton LPN, April 01, 2020 1:31 PMRate Your HealthIn general, would you say your health is? GoodPain AssessmentAre you currently having any pain which... You would like your provider to address? No Affects your activity level? NoDepression Screening - PHQ-2Over the last two weeks, have you... Had little interest or pleasure in doing things? Not at all Been feeling down, depressed, or hopeless? Not at all PHQ-2 Score: 0Anxiety Screening - DENNIS-2Over the last two weeks, have you been... Feeling nervous, anxious, or on edge? Not at all Unable to stop or control worrying? Not at all DENNIS-2 Score: 0Food InsecurityWithin the past year...Did you worry whether your food would run out before you got money to buy more? NoWas there a time when the food you bought didn't last and you didn't have money to get more? NoPRAPARE Sociodemographic Characteristics Race: White Ethnicity: Not or Preferred Language: EnglishFamily and Home Address: [address] [place] [address] What is your housing situation today? I have housing Are you worried about losing your housing? NoMoney and Resources In the past year, have you or any family members you live with been unable to get any of the following when it was really needed? Denies Insecurity: food, utilities, clothing, director maternal child, phone, legal services, otherWithin the past year did you worry whether your food would run out before you got money to buy more? NoWithin the past year was there a time when the food you bought didn't last and you didn't have money to get more? NoSocial and Emotional Health How often do you see or talk to people that you care about and feel close to? More than 5 times a week How stressed are you? A little bitAdditional Optional Domains Do you feel physically and emotionally safe where you live? Yes In the past year, have you been afraid of a partner, ex-partner? YesScreening, Brief Intervention, & Referral to Treatment (SBIRT)Pre-Screening Questions How many times have you have 4 or more drinks in a day? 0How many times have you used an illegal drug or used a prescription medication for a non-medical reason? 0Performed by: Klaudia Dalton LPN, April 01, 2020 1:34 PMPatient History Medical History:AnxietySubstance abuseSurgical History:tubal ligation 2017Family History:Hypertension (Mother)Social/Personal History: Chief ComplaintAnnual Exam Room 9History of Present Illness (HPI)29 YO female here for annual exam.Pt states presently goes to [facility] for MAT, pt is interested in switching to in house. Pt states during winter months concerned may be difficult to get to her appointment. Pt states doing well no recent relapse. Pt states healthy diet and physical activities. HPI performed by: Dalia WALKER, April 01, 2020 2:06 PMTransitions of Care InboundMedication Reconciliation & ReviewMedication List was reviewed and/or updated during this visit, including review of any [id number] medications, herbal therapies, and/or supplements.Allergy ReviewAllergy List was reviewed and/or updated during this visit. Patient has no known allergies.Adult Preventive CareProvider Calculated and Reviewed all Clinical Protocols for patient today. Labs/Meds/Other Counseling-Nutrition and Physical Activity:BMI Interpretation: Obese (04/01/2020) Counseling: Done (04/01/2020) Physical Activity: Done (04/01/2020)Cancer Screening Pap Smear/HPV TestingReviewed: Patient Refused Pap SmearPrevious Comments: yesturday [facility] (01/31/2020)Today's Comments: Had done at [facility] 2019Review of Systems General: Denies loss of appetite, chills, dizziness, fatigue, fever, continued fever, headache, feeling ill, sweats, night sweats, sleep disturbances, weight loss. Eyes: Denies blurring of vision, double vision, irritation, discharge, vision loss, eye pain, eye swelling, droopy eyelid, sensitivity to light, redness, itching. Ears/Nose/Throat: Denies earache, ear discharge, ringing in ears, decreased hearing, nasal congestion, nosebleeds, runny nose, sore throat, hoarseness, difficulty swallowing, dry mouth, tooth pain, bleeding gums, swollen glands. Cardiovascular: Denies chest pain, palpitations, feeling faint, trouble breathing w/exertion, SOB upon lying down, SOB at night, peripheral edema, elevated blood pressure, decreased heart rate. Respiratory: Denies cough, difficulty breathing, shortness of breath, excessive sputum, coughing up blood, wheezing, chest pain. Breast: Denies discoloration, tenderness, breast changes, breast lump, nipple discharge. Gastrointestinal: Denies nausea, vomiting, bleeding, burning, itching, irritation, cramps, diarrhea, constipation. Genitourinary: Denies urinary incontinence, pain with urination, burning with urination, urinary frequency, urinary hesitancy, urinary urgency, urinary urgency at night, incomplete emptying, blood in urine. Musculoskeletal: Denies back pain, joint pain, leg pain, other pain-see comments, joint swelling, body aches, muscle aches, muscle cramps, muscle weakness, stiffness, recent injury. Skin: Denies rash, hives, redness, itching, dryness, nail changes, suspicious lesions, athlete's foot, rash on palms, rash on bottom of feet. Neurologic: Denies muscle impairment, weakness, numbness/tingling, seizures, slurred speech, feeling faint, tremors, vertigo, paralysis on one side, paralysis on both sides. Psychiatric: Denies depression, anxiety, memory loss, mental disturbance, suicidal ideation, homicidal ideation, hallucinations, paranoia, feeling stressed, hearing voices. Endocrine: Denies cold intolerance, heat intolerance, excessive thirst, excessive hunger, excessive urination, weight loss, weight gain. Heme/Lymphatic: Denies abnormal bruising, bleeding, enlarged lymph nodes. Physical ExamGeneral Appearance: well nourished, well hydrated, no acute distressEyes, External: conjunctivae and lids normal, EOMIRespiratory, Ausculta tion: clear to auscultation bilaterally; no rales, rhonchi, or wheezesRespiratory, Effort: no intercostal retractions or use of accessory musclesCardiovascular, Auscultation: S1, S2 audible; no murmur, rub, or gallop; RRRPeripheral Circulation: no clubbing, cyanosis, edema, or varicositiesAbdomen: soft, non-tender, no masses, bowel sounds normalGait & Station: normalSkin, Inspection: no rashes, lesions, or ulcerationsOrientation: oriented to time, place, and personMood & Affect: no depression, anxiety, or agitationJudgment & Insight: seems intactCare Management Plan Transitions of CareInboundRate Your HealthIn general, would you say your health is? GoodAssessment & Plan Problems:Added: Person consulting for explanation of examination or test findings (ICD-V65.8) (KLG38-F43.2) Assessment: Instructions: We have reviewed your lab results with you today. lab results were unremarkable except for elevated cholesterol levels. Please start/ continue lifestyle changes to include healthy diet and physical activities. Please try to maintain adequate intake of water daily. Please try to avoid processed foods.Hyperlipidemia, unspecified (KWI50-A63.5) Assessment: Instructions: Please start/ continue lifestyle changes to include healthy diet and physical activities. Please try to maintain adequate intake of water daily. Please try to avoid processed foods.Encounter for general adult medical examination with abnormal findings (ICD-V70.0) (QLI50-S65.01) Assessment: Instructions: You have had your annual physical exam done today.Assessed:Opioid dependence, in remission (ICD-30 4.03) (AMY61-E47.21) Assessment: Instructions: Please continue to follow with your specialist as scheduled.Opioid dependence, in remission (ICD-304.03) (OTP47-V70.21) Assessment: [place] substance abuse coordinator in to speak with patient.Assessment not Saved Person consulting for explanation of examination or test findings (JZF40-F61.2): Patient Instructions/Care Plan: Person consulting for explanation of examination or test findings: We have reviewed your lab results with you today. lab results were unremarkable except for elevated cholesterol levels. Please start/ continue lifestyle changes to include healthy diet and physical activities. Please try to maintain adequate intake of water daily. Please try to avoid processed foods.Hyperlipidemia- unspecified: Please start/ continue lifestyle changes to include healthy diet and physical activities. Please try to maintain adequate intake of water daily. Please try to avoid processed foods.Encounter for general adult medical examination with abnormal findings: You have had your annual physical exam done today.Opioid dependence- in remission: Please continue to follow with your specialist as scheduled. Plan developed in collaboration with patient and/or familyMedications:GABAPENTIN 300 MGSUBOXONE 8-2 MG SUBLINGUAL FILMTOPAMAX 50 MG ORAL TABLETAllergies:No Known Allergies (updated 04/01/2020) Orders:COMP METABOLIC PANEL [CPT-13043] CBC W/DIFF [CPT-64672] LIPID PANEL [CPT-06292] Adult - Ofc Vst, EST, Level IV [CPT-08397] Follow-Up Return to clinic: 6-8 weeks for follow up on cholesterol Clinical Visit Summary Completed Name Value Range Interpretation Code Description Data Desiree rce(s) Supporting Document(s) ID Date Data Source [id number] 01/31/2020 04:20:00 PM EDT [facility] Name Value Range Interpretation Code Description Data Desiree rce(s) Supporting Document(s) HEP C AB > 11.0 <0.8 H [facility] ID Date Data Source [id number] 01/31/2020 03:41:56 PM EDT [facility] Measurements & CalculationsHeight: 63 inches (5 ft. 3 in.) 160.02 cm Weight: 177 pounds 80.45 kg Body Mass Index (BMI): 31.47BMI Interpretation: ObeseBody Surface Area (BSA): 1.84Weight Management Education Done (Nutrition/Physical Activity)Vital SignsTemperature: 97.4FPulse Rate: 73 beats/minuteRespiratory Rate: 18 respirations/minuteBlood Pressure: 122/81 Vital Signs performed by: Nubia Chan MA, January 31, 2020 3:45 PMInitial Intake Information From: patientInfectious Disease / Travel ScreeningRecent travel for you or any close contacts? NoHave you had any close contact with anyone diagnosed with or under investigation for COVID-19 (coronavirus)? NoFever? NoRespiratory symptoms: cough, cold, congestion, shortness of breath, difficulty breathing? NoLoss of smell? NoLoss of taste? NoSmoking, Tobacco, Vaping or Smoke Exposure StatusSmoke Status: never smokerTobacco Use: NoDo you vape? NoMenstrual HistoryLast Menstru al Period (LMP): 01/05/2020Any possibility of ? NoHealthcare HistorySince your last office visit...Have you been admitted to the hospital? [facility] admission date reported today: 10/29/2018Have you been to an emergency room (ER) or urgent care clinic? No - [facility] ER Emergency room (ER) or urgent care date reported today: 01/17/2020Have you seen another healthcare provider? Yes - [facility] Have you seen a dentist? Yes - [facility] exam date reported today: 10/27/2017Intake performed by: Nubia Chan MA, January 31, 2020 3:43 PMRate Your HealthIn general, would you say your health is? FairPain AssessmentAre you currently having any pain which... You would like your provider to address? No Affects your activity level? NoDepression Screening - PHQ-2Over the last two weeks, have you... Had little interest or pleasure in doing things? Not at all Been feeling down, depressed, or hopeless? Not at all PHQ-2 Score: 0Anxiety Screening - DENNIS-2Over the last two weeks, have you been... Feeling nervous, anxious, or on edge? Not at all Unable to stop or control worrying? Not at all DENNIS-2 Score: 0Screening, Brief Intervention, & Referral to Treatment (SBIRT)Pre-Screening Questions How many times have you have 4 or more drinks in a day? 0How many times have you used an illegal drug or used a prescription medication for a non-medical reason? 0Performed by: Nubia Chan MA, January 31, 2020 3:45 PMPatient History Medical History:AnxietySubstance abuseSurgical History:tubal ligation 2017Family History:Hypertension (Mother)Social/Personal History: Chief Complainthep c History of Present Illness (HPI)Telemedicine visit with patient's location at [facility] and provider's location at offsite office. Additional person(s)participating in the visit: n/a. Pt here today for evaluation for hepatitis C treatment. She was diagnosed last year and was treated by Dr. Bass with [facility]. She states that she relapsed on IVDU and shared needles with someone and was told she was reinfected. She has never been diagnosed with liver disease. Denies abdominal pain, ascites, no edema, no jaundice. She is currently in an MAT program at [facility] and is taking Suboxone, she has hx of abusing opiates. Her last date of use of any opiates was 2 weeks ago. She does not drink alcohol. Labs reviewed, pt has +HCV antibody test, but no viral load available in chart.HPI performed by: Ines COTTER, January 31, 2020 3:50 PMTransitions of Care InboundProblem ReviewProblem List was reviewed and/or updated during this visit.Medication Reconciliation & ReviewMedication List was reviewed and/or updated during this visit, including review of any nxzt-qlw-sfnzeiu medications, herbal therapies, and/or supplements.Allergy ReviewAllergy List was reviewed and/or updated during this visit. Patient has no known allergies.Hepatitis C ScreeningHave you ever illegally used an injectable drug? YesHave you ever illegally used an intranasal drug? YesDid you receive any blood, organs, or tissue transplants before 1992? NoDid you receive any blood clotting products before 1986? NoHave you ever been diagnosed with HIV/AIDS? NoHave you ever been on hemodialysis? NoHave you ever had tattoos or body piecings? YesHave you ever had signs or symptoms of liver disease? NoWhen you were born, was your mother infected with Hepatitis C? NoDo you have a sexual partner with Hepatitis C virus? NoHave you ever been exposed to Hepatitis C at work? NoHave you ever had any other exposure to Hepatitis C? NoHepatitis C Management - TreatmentResponsible Provider for Hepatitis C Treatment: Ines COTTERHepatitis C Management - Patient EngagementPatient EducationDisease Process - Education Given Today:general Hepatitis C infoimpact of liver diseaseHarm Reduction - Education Given Today:abstaining from alcoholmaintaining a healthy weighthandwashing & infection controlproper needle use & disposalHepatitis A vaccineHepatitis B vaccineTrea tment - Education Given Today:risk/benefit assessmentside effectstreatment optionstreatment adherencelikelihood/benefits of curecost of treatmentFibrosis-4 (FIB-4) Score CalculatorPatient Age: 29 Years OldSGOT(AST): 16SGPT(ALT): 14PLATELETS: 233 Fibrosis-4 (FIB-4) Score = 0.57Adult Preventive CareProvider Calculated and Reviewed all Clinical Protocols for patient today. Labs/Meds/Other Counseling-Nutrition and Physical Activity:BMI Interpretation: Obese (01/31/2020) Counseling: Done (01/31/2020) Physical Activity: Done (01/31/2020)Cancer Screening Pap Smear/HPV TestingReviewed: Previous Comments: has [facility] for this (01/24/2020)Today's Comments: yesturday womenTaptu wellnessReview of Systems General: Denies chills, fatigue, fever, headache, feeling ill, sweats, night sweats, sleep disturbances. Cardiovascular: Denies chest pain. Respiratory: Denies cough. Gastrointestinal: Denies nausea, vomiting, diarrhea, constipation, abdominal pain, black or tarry stools, jaundice, heartburn. Psychiatric: Denies depression, anxiety. Physical ExamGeneral Appearance: well nourished, well hydrated, no acute distressEyes, External: conjunctivae and lids normal, EOMIHearing: grossly intactRespiratory, Effort: no intercostal retractions or use of accessory musclesGait & Station: normalOrientation: oriented to time, place, and personMood & Affect: no depression, anxiety, or agitationJudgment & Insight: need further assessmentMemory: intact for recent and remote eventsCare Management Plan Transitions of CareInboundRate Your HealthIn general, would you say your health is? FairAssessment & Plan Problems:Assessed:Chronic hepatitis C (ICD-070.54) (DXN35-S87.2) Assessment: Instructions: You have had blood work or a urine sample taken today. We will notify you within 7 days of any abnormal results. If everything is normal, you will not hear from us. You can check the portal or call if you want as well. I will send your script to our specialty pharmacy once we get the blood work back This process may take 1-2 weeks to get it approved. They will contact you when the medication gets approved or if we need more tests. The medication will get delivered to your home. Please return to clinic 1 month after starting the medication for labs and follow up.Chronic hepatitis C (ICD-070.54) (AAF13-Y76.2) Assessment: Needs viral load, genotyping, hep A antibody and HCV antiboday testing to determine if she was reinfected. Labs ordered, will follow up with pt based on results.Patient Instructions/Care Plan: Chronic hepatitis C: You have had blood work or a urine sample taken today. We will notify you within 7 days of any abnormal results. If everything is normal, you will not hear from us. You can check the portal or call if you want as well. I will send your script to our specialty pharmacy once we get the blood work back This process may take 1-2 weeks to get it approved. They will contact you when the medication gets approved or if we need more tests. The medication will get delivered to your home. Please return to clinic 1 month after starting the medication for labs and follow up. Plan developed in collaboration with patient and/or familyMedications:GABAPENTIN 300 MGSUBOXONE 8-2 MG SUBLINGUAL FILMTOPAMAX 50 MG ORAL TABLETAllergies:No Known Allergies (updated 01/31/2020) Orders:Hepatitis C Viral Load [CPT-03331] HCV Genotype [CPT-58072] HCV Antibody To RNA Reflex Test [CPT-24741] HepA IgG [CPT-43284] Office Visit - Established, Level 3 [CPT-77781NT] Follow-Up Return to clinic: 1 month after starting medication for Hep c for blood work Clinical Visit Summary Compl eted Name Value Range Interpretation Code Description Data Desiree rce(s) Supporting Document(s) ID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 Urine 0-2 Siu [facility] WBC Urine Auto 0-10 Normal (applies to non-numeric r esults) [facility] Casts,Hyaline,Urine Auto 0-2 Normal (applies to non -numeric results) [facility] Bacteria Urine Auto None Seen Normal (applies to non-nume rufina results) [facility] Epithelial Cell Ur Auto None-Few Normal (applies to non- numeric results) [facility] ID Date Data Source [id number] 10/29/2019 08:38:00 AM EDT [facility] Method performed by [employer]. Reference value: Influenza A and B viral RNA not detected. This result does not rule out co-infections with other pathogens or identify any specific influenza A or B virus subtype/lineage. Negative results do not preclude infection with influenza virus and should not be the sole basis of a patient treatment decision. Name Value Range Interpretation Code Description Data [facility](s) Supporting Document(s) ID Date Data Source [id number] 10/27/2019 12:09:00 PM EST [facility] Method performed by [employer]. Reference value: Influenza A and B viral RNA not detected. This result does not rule out co-infections with other pathogens or identify any specific influenza A or B virus subtype/lineage. Negative results do not preclude infection with influenza virus and should not be the sole basis of a patient treatment decision.Not detectedNot detected Name Value Range Interpretation Code Description Data [facility](s) Supporting Document(s) ID Date Data Source [id number] 10/19/2019 09:37:00 AM EST [facility] Name Value Range Interpretation Code Description Data Desiree rce(s) Supporting Document(s) HIV 1/2 Ab p24 Ag Screen Nonreactive Normal (applies to non-numeric results) [facility] ID Date Data Source [id number] 10/19/2019 09:37:[address] [facility] Name Value Range Interpretation Code Description Data Desiree rce(s) Supporting Document(s) HAVM Nonreactive Normal (applies to non-numeric resu lts) [facility] ID Date Data Source [id number] 10/19/2019 09:37:[address] [facility] Name Value Range Interpretation Code Description Data Desiree rce(s) Supporting Document(s) Vitamin D,Total (25OH) 30.0-100.0 Below low normal [facility] Reference Range: <10 ng/mL: Deficien t 10-30 ng/mL: Insufficient 30-100 ng/mL: Sufficient >100 ng/mL: Toxicity possible ID Date Data Source [id number] 10/19/2019 09:03:[address] [facility] Name Value Range Interpretation Code Description Data Desiree rce(s) Supporting Document(s) Sodium 138 mmol/L 137-145 Normal (applies to non-numeric resul ts) [facility] Potassium 3.5-5.1 Normal (applies to non-numeric resul ts) [facility] Chloride 107 mmol/L 98-112 Normal (applies to non-numeric resul ts) [facility] Carbon Dioxide CO2 22.0-33.0 Normal (applies to non-numer ic results) [facility] Anion Gap 4.0-11.0 Normal (applies to non-numeric resul ts) [facility] BUN 11 mg/dL 7-17 Normal (applies to non-numeric resul ts) [facility] Creatinine 0.70-1.20 Normal (applies to non-numeric resul ts) [facility] GFR 87 mL/min >60 Normal (applies to non-numeric resul ts) [facility] Result based on MDRD formula. Glucose Level 101 mg/dL 74-99 Above high normal [facility] The reference range is only applicable w hen fasting. Calcium-Uncorrected 8.4-10.2 Normal (applies to non-nume rufina results) [facility] Corrected Calcium 8.4-10.2 Normal (applies to non-numeri c results) [facility] Bilirubin,Total 0.2-1.3 Normal (applies to non-numeric results) [facility] Bilirubin,Direct 0.0-0.3 Normal (applies to non-numeric results) [facility] SGOT(AST) 12 U/L 14-36 Below low normal [facility] SGPT(ALT) 13 U/L 9-52 Normal (applies to non-numeric resul ts) [facility] Alkaline Phosphatase 79 U/L 38-126 Normal (applies to non-num estefania results) [facility] can increase Alkaline Phosp le vels up to 2 times the normal adult value. Normal values for children and adolescents are 2 to 3 times the normal adult value. CPK 56 U/L 26-192 Normal (applies to non-numeric resul ts) [facility] Total Protein 6.3-8.2 Normal (applies to non-numeric re sults) [facility] Albumin 3.5-5.0 Normal (applies to non-numeric resul ts) [facility] Thyroid Stimulate Hormone TSH 0.358-3.740 No rmal (applies to non-numeric results) [facility] ID Date Data Source [id number] 10/19/2019 09:03:[address] [facility] Name Value Range Interpretation Code Description Data Desiree rce(s) Supporting Document(s) Magnesium 1.80-2.40 Normal (applies to non-numeric resul ts) [facility] ID Date Data Source [id number] 10/19/2019 09:03:[address] [facility] Name Value Range Interpretation Code Description Data Desiree rce(s) Supporting Document(s) C-Reactive Protein,Wide Range <3.00 Above high normal [facility] ID Date Data Source [id number] 10/19/2019 08:34:[address] [facility] Name Value Range Interpretation Code Description Data Desiree rce(s) Supporting Document(s) White Blood Count 4.8-10.8 Above high normal [facility] Red Blood Count 3.68-5.22 Normal (applies to non-numeric results) [facility] Hemoglobin 11.2-15.7 Normal (applies to non-numeric resul ts) [facility] Hematocrit 34.1-44.9 Normal (applies to non-numeric resul ts) [facility] Mean Corpuscular Volume 81-99 Normal (applies to non- numeric results) [facility] Mean Corpuscular Hemoglobin 27.0-33.0 Normal (appli es to non-numeric results) [facility] Mean Corpuscular HGB Conc 32.0-36.0 Normal (applies to no n-numeric results) [facility] Red Cell Distribution Width 11.5-14.5 Normal (appli es to non-numeric results) [facility] Platelet Count 359 X10 3/uL 130-450 Normal (applies to non-numeric results) [facility] Mean Platelet Volume 9.5-12.7 Normal (applies to non-num estefania results) [facility] Imm Grans% (AUTO) 0 % 0-2 Normal (applies to non-numeri c results) [facility] Neutrophils % (AUTO) 62 % 40-75 Normal (applies to non-num estefania results) [facility] Lymphocytes % (AUTO) 31 % 21-46 Normal (applies to non-num estefania results) [facility] Monocytes % (AUTO) 6 % 5-12 Normal (applies to non-numer ic results) [facility] Eosinophils % (AUTO) 1 % 1-5 Normal (applies to non-num estefania results) [facility] Basophils % (AUTO) 1 % 0-1 Normal (applies to non-numer ic results) [facility] Imm Grans# (AUTO) 0.00-0.50 Normal (applies to non-numeri c results) [facility] Neutrophils # (AUTO) 1.5-8.1 Normal (applies to non-num estefania results) [facility] Lymphocytes # (AUTO) 1.0-3.1 Above high normal [facility] Monocytes # (AUTO) 0.2-1.3 Normal (applies to non-numer ic results) [facility] Eosinophils# (AUTO) 0.0-0.5 Normal (applies to non-nume rufina results) [facility] Basophils # (AUTO) 0.00-0.10 Normal (applies to non-numer ic results) [facility] ID Date Data Source [id number] 10/18/2019 12:48:00 PM [facility] Name Value Range Interpretation Code Description Data Desiree rce(s) Supporting Document(s) Opiate Screen,Urine Negative Normal (applies to non-nume rufina results) [facility] Amphetamine Screen,Urine Negative Normal (applies to non -numeric results) [facility] Benzodiazepines Scrn,Ur result Negative N ormal (applies to non-numeric results) [facility] Cocaine Screen,Urine Negative Normal (applies to non-num estefania results) [facility] Methadone Screen,Urine Negative Siu [facility] If a positive quantitative confirmation is desired, an additional order must be submitted and the specimen will be sent out to a reference lab. Cannabinoid Screen, Ur Negative Normal (applies to non-n umeric results) [facility] Therapeutic Drug Ranges for Emergency an d Rehabilitation Threshold Levels (ng/mL) Cocaine 300 Opiates 300 Cannabinoids 50 Barbiturates 200 Benzodiazepine 200 Methadone 300 Amphetamines 1000 Emergency toxicology analytes exceeding the therapeutic threshold levels are positive. The confirmation of all positive drug levels may be confirmed at the request of the attending physician. Results are to be used for medical treatment purposes only. ID Date Data Source [id number] 10/18/2019 12:12:00 PM [facility] Name Value Range Interpretation Code Description Data Desiree rce(s) Supporting Document(s) Color,Urine Yellow Siu [facility] Clarity,Urine Clear Normal (applies to non-numeric re sults) [facility] Specific [place],Urine 1.001-1.030 Normal (applies to non- numeric results) [facility] PH,Urine 5.0-8.0 Normal (applies to non-numeric resul ts) [facility] Protein,Urine Negative Normal (applies to non-numeric re sults) [facility] Glucose,Urine (UA) Negative Normal (applies to non-numer ic results) [facility] Ketones,Urine Negative Normal (applies to non-numeric re sults) [facility] Blood,Urine Negative Normal (applies to non-numeric resu lts) [facility] Bilirubin,Urine Negative Normal (applies to non-numeric results) [facility] Urobilinogen,Urine Norm 0.2-1 Normal (applies to non-numer ic results) [facility] Leukocyte Esterase,Urine Negative Siu [facility] Nitrite,Urine Negative Normal (applies to non-numeric re sults) [facility] ID Date Data Source [id number] 10/18/2019 12:12:[address] [facility] Name Value Range Interpretation Code Description Data Desiree rce(s) Supporting Document(s) RBC,Auto Urine 0-2 Normal (applies to non-numeric r esults) [facility] WBC Urine Auto 0-10 Normal (applies to non-numeric r esults) [facility] Casts,Hyaline,Urine Auto 0-2 Normal (applies to non -numeric results) [facility] Bacteria Urine Auto None Seen Normal (applies to non-nume rufina results) [facility] Epithelial Cell Ur Auto None-Few Normal (applies to non- numeric results) [facility] ID Date Data Source [id number] 10/18/2019 12:12:[address] [facility] Name Value Range Interpretation Code Description Data Desiree rce(s) Supporting Document(s) Urine HCG Negative Normal (applies to non-numeric resul ts) [facility] ID Date Data Source [id number] 10/17/2019 07:15:00 PM [facility] Name Value Range Interpretation Code Description Data Desiree rce(s) Supporting Document(s) Hepatitis A Ab,IgG result Normal (applies to no n-numeric results) [facility] Result indicates immunity to hepatitis A infection from either vaccination or past exposure to hepatitis A. False-positive results may be observed in patients with CMV antibodies or heterophilic antibodies. REFERENCE VALUE Unvaccinated: Negative Vaccinated: Positive Test Performed by: [place] [address] [employer] Ex[employer]itor: Jackson Alanis M.D. Ph.D.; CLIA# [id number] ID Date Data Source [id number] 10/17/2019 04:05:00 PM EST [facility] Name Value Range Interpretation Code Description Data Desiree rce(s) Supporting Document(s) Hepatitis A Ab,IgG result Normal (applies to no n-numeric results) [facility] Result indicates immunity to hepatitis A infection from either vaccination or past exposure to hepatitis A. False-positive results may be observed in patients with CMV antibodies or heterophilic antibodies. REFERENCE VALUE Unvaccinated: Negative Vaccinated: Positive Test Performed by: [facility] [place] [address] [employer] Ex[employer]itor: Jackson Alanis M.D. Ph.D.; CLIA# [id number] ID Date Data Source [id number] 10/15/2019 12:02:00 AM [facility] Name Value Range Interpretation Code Description Data [facility](s) Supporting Document(s) Sodium 141 mmol/L 136-145 Normal (applies to non-numeric resul ts) [facility] Potassium 3.5-5.1 Normal (applies to non-numeric resul ts) [facility] Chloride 103 mmol/L 98-107 Normal (applies to non-numeric resul ts) [facility] Carbon Dioxide CO2 21-32 Normal (applies to non-numer ic results) [facility] Anion Gap 5.0-16.0 Normal (applies to non-numeric resul ts) [facility] BUN 6 mg/dL 7-18 [facility] Creatinine,Serum 0.7-1.2 Normal (applies to non-numeric results) [facility] GFR >60 Normal (applies to non-numeric results) [facility] Glucose Level 104 mg/dL 60-99 Above high normal [facility] Reference range is only applicable when patient is fasting Note the following drug interference: Sulfasalazine Sulfapyridine Can see falsely depressed Can see falsely elevated result with up to 17% results with up to 11% decrease in measurement increase in measurement Recommend patients be collected for this test prior to administration of either drug. Calcium 8.5-10.1 Normal (applies to non-numeric resul ts) [facility] Bilirubin,Total 0.1-1.9 Normal (applies to non-numeric results) [facility] SGOT(AST) 19 U/L 15-37 Normal (applies to non-numeric resul ts) [facility] Note the following drug interference: Sulfasalazine Sulfapyridine Can see falsely depressed Can see falsely elevated result with up to 10% results with up to 10% decrease in measurement increase in measurement Recommend patients be collected for this test prior to administration of either drug. SGPT(ALT) 18 U/L 12-78 Normal (applies to non-numeric resul ts) [facility] Note the following drug interference: Sulfasalazine Sulfapyridine Can see falsely depressed Can see falsely elevated result with up to 29% results with up to 10% decrease in measurement increase in measurement Recommend patients be collected for this test prior to administration of either drug. Alkaline Phosphatase 82 U/L 38-126 Normal (applies to non-num estefania results) [facility] can increase Alkaline Phosp le vels up to 2 times the normal adult value. Normal values for children and adolescents are 2 to 3 times the normal adult value. Total Protein 6.0-8.2 Normal (applies to non-numeric re sults) [facility] Albumin Level 3.4-5.0 Normal (applies to non-numeric re sults) [facility] ID Date Data Source [id number] 10/15/2019 12:02:00 AM EST [facility] Name Value Range Interpretation Code Description Data Desiree rce(s) Supporting Document(s) Bilirubin,Direct 0.05-0.20 Below low normal [facility] ID Date Data Source [id number] 10/15/2019 12:02:00 AM [facility] Name Value Range Interpretation Code Description Data Desiree rce(s) Supporting Document(s) Magnesium 1.8-2.4 Normal (applies to non-numeric resul ts) [facility] ID Date Data Source [id number] 10/15/2019 12:02:00 AM [facility] Name Value Range Interpretation Code Description Data Desiree rce(s) Supporting Document(s) Phosphorus 2.5-4.9 Normal (applies to non-numeric resul ts) [facility] ID Date Data Source [id number] 10/15/2019 12:02:00 AM [facility] Name Value Range Interpretation Code Description Data Desiree rce(s) Supporting Document(s) Thyroid Stimulate Hormone TSH 0.358-3.74 Below low normal [facility] ID Date Data Source [id number] 10/14/2019 11:53:00 PM [facility] Name Value Range Interpretation Code Description Data Desiree rce(s) Supporting Document(s) Ethanol Less than 10.0 Normal (applies to non-numeric r esults) [facility] ID Date Data Source [id number] 10/14/2019 11:47:00 PM [facility] Name Value Range Interpretation Code Description Data Desiree rce(s) Supporting Document(s) Beta HCG,Screen Negative Normal (applies to non-numeric results) [facility] ID Date Data Source [id number] 10/14/2019 11:37:00 PM [facility] Name Value Range Interpretation Code Description Data Desiree rce(s) Supporting Document(s) White Blood Count 3.5-10.5 Normal (applies to non-numeri c results) [facility] Red Blood Count 3.90-5.00 Normal (applies to non-numeric results) [facility] Hemoglobin 12.0-15.5 Normal (applies to non-numeric resul ts) [facility] Hematocrit 34.9-44.5 Normal (applies to non-numeric resul ts) [facility] Mean Corpuscular Volume 81.2-95.1 Normal (applies to non- numeric results) [facility] Mean Corpuscular Hgb 25.6-32.2 Normal (applies to non-num estefania results) [facility] Mean Corpuscular Hgb Conc 32.0-36.0 Normal (applies to no n-numeric results) [facility] Red Cell Distribution Width 11.9-15.5 Normal (appli es to non-numeric results) [facility] Platelet Count 297 x10 3/uL 150-450 Normal (applies to non-numeric results) [facility] Mean Platelet Volume 9.4-12.4 Normal (applies to non-num estefania results) [facility] Neutrophils% (Auto) 31.0-71.0 Normal (applies to non-nume rufina results) [facility] Lymphocytes% (Auto) 20.0-55.0 Normal (applies to non-nume rufina results) [facility] Monocytes% (Auto) 4.0-12.0 Normal (applies to non-numeri c results) [facility] Eosinophils% (Auto) 1.0-8.0 Normal (applies to non-nume rufina results) [facility] Basophils% (Auto) 0.0-2.0 Normal (applies to non-numeri c results) [facility] Immature Granulocytes% (Auto) 0.0-2.0 Normal (dahlia lies to non-numeric results) [facility] Neutrophils# (Auto) 1.50-6.20 Normal (applies to non-nume rufina results) [facility] Lymphocytes# (Auto) 1.20-4.00 Normal (applies to non-nume rufina results) [facility] Monocytes# (Auto) 0.00-0.90 Normal (applies to non-numeri c results) [facility] Eosinophils# (Auto) 0.00-0.50 Normal (applies to non-nume rufina results) [facility] Basophils# (Auto) 0.00-0.20 Normal (applies to non-numeri c results) [facility] Immature Granulocytes# (Auto) 0.00-7.00 No rmal (applies to non-numeric results) [facility] ID Date Data Source [id number] 10/18/2019 09:59:00 AM EST [facility] Value Range Interpretation Code Description Data Desiree rce(s) Supporting Document(s) CPK result 176 U/L 26-192 Normal (applies to non-numeric resul ts) [facility] Test Performed By: [facility] [address] [place] [address] Director: Jesse Taylor MD ID Date Data Source [id number] 10/18/2019 09:59:00 AM EST [facility] Name Value Range Interpretation Code Description Data Desiree rce(s) Supporting Document(s) Hepatitis C Virus Ab result Nonreactive Very abnormal (applies to non-numeric units [facility] Test Performed By: [place] [address] Director: Jesse Taylor MD Results called 10/15/19 MOO Batista ([facility]) [facility] THIS IS A STATE REPORTABLE COMMUNICABLE DISEASE. Note: This patient's sample tests reactive with a high Index >/= 11.00. Samples with high indexes have been shown to repeat positive using a different methodology 95% of the time or greater but <5 of every 100 samples might be false positives. Additional testing for verification of the result can be requested by the physician if necessary. ([facility] MMWR No RR-3. 2002). ID Date Data Source [id number] 10/18/2019 09:59:00 AM [facility] Value Range Interpretation Code Description Data Desiree rce(s) Supporting Document(s) Hep Bs Ag result T-Test Nonreactive Normal (applies to non -numeric results) [facility] Test Performed By: [facility] [address] [place] [address] Director: Jesse Taylor MD ID Date Data Source [id number] 10/18/2019 09:59:00 AM [facility] Value Range Interpretation Code Description Data Desiree rce(s) Supporting Document(s) Syphilis Serology result Nonreactive Normal (applies to non-numeric results) [facility] Test Performed By: [facility] [address] [place] [address] Director: Jesse Taylor MD ID Date Data Source [id number] 10/18/2019 09:59:00 AM [facility] Name Value Range Interpretation Code Description Data Desiree rce(s) Supporting Document(s) Chlamydia,Urine result Negative Normal (applies to non-n umeric results) [facility] Test Performed By: [facility] [address] [place] [address] Director: Jesse Taylor MD . GC Urine result Negative Normal (applies to non-numeric results) [facility] Test Performed By: [place] [address] Director: Jesse Taylor MD . Methodology: Second generation nucleic acid amplification. ID Date Data Source [id number] 10/18/2019 09:28:00 AM [facility] Name Value Range Interpretation Code Description Data Desiree rce(s) Supporting Document(s) Chlamydia,Urine Negative Normal (applies to non-numeric results) [facility] Test Performed By: [place] [address] Director: Jesse Taylor MD . GC Urine Negative Normal (applies to non-numeric resul ts) [facility] Test Performed By: [place] [address] Director: Jesse Taylor MD . Methodology: Second generation nucleic acid amplification. ID Date Data Source [id number] 10/15/2019 09:32:00 PM EST [facility] Test Performed By: [facility] [address] [place] [address] Director: Jesse Taylor MD Test Performed By: [place] [address] Director: Jesse Taylor MD Name Value Range Interpretation Code Description Data Desiree rce(s) Supporting Document(s) Hep C Ab-T Test Nonreactive [facility] Test Performed By: [facility] [address] [place] [address] Director: Jesse Taylor MD Results called 10/15/19 1919,MOO MASON ([facility]) read back information to [facility] THIS IS A STATE REPORTABLE COMMUNICABLE DISEASE. Note: This patient's sample tests reactive with a high Index >/= 11.00. Samples with high indexes have been shown to repeat positive using a different methodology 95% of the time or greater but <5 of every 100 samples might be false positives. Additional testing for verification of the result can be requested by the physician if necessary. ([facility] MMWR No RR-3. 2002). ID Date Data Source [id number] 10/15/2019 09:32:00 PM EST [facility] Test Performed By: [facility] [address] [place] [address] Director: Jesse Taylor MD Test Performed By: [facility] [address] [place] [address] Director: Jesse Taylor MD Name Value Range Interpretation Code Description Data Desiree rce(s) Supporting Document(s) ID Date Data Source [id number] 10/15/2019 09:32:00 PM EST [facility] Test Performed By: [facility] [address] [place] [address] Director: Jesse Taylor MD Test Performed By: [facility] [address] [place] [address] Director: Jesse Taylor MD Name Value Range Interpretation Code Description Data Desiree rce(s) Supporting Document(s) ID Date Data Source [id number] 10/15/2019 06:33:00 PM [facility] Name Value Range Interpretation Code Description Data Desiree rce(s) Supporting Document(s) CPK 176 U/L 26-192 Normal (applies to non-numeric resul ts) [facility] Test Performed By: [facility] [address] [place] [address] Director: Jesse Taylor MD ID Date Data Source [id number] 10/14/2019 11:23:00 PM [facility] Name Value Range Interpretation Code Description Data [facility] rce(s) Supporting Document(s) UDS Phencyclidine Screen Negative Normal (applies to non -numeric results) [facility] UDS Benzodiazepines Screen Negative Normal (applies to n on-numeric results) [facility] UDS Cocaine Screen Negative Normal (applies to non-numer ic results) [facility] UDS Ampetamine Screen Negative Normal (applies to non-nu meric results) [facility] UDS Cannabinoids Screen Negative Normal (applies to non- numeric results) [facility] UDS Opiates Screen Negative Siu [facility] UDS Barbiturates Screen Negative Normal (applies to non- numeric results) [facility] UDS Tricyclic Screen Negative Normal (applies to non-num estefania results) [facility] Therapeutic Drug Ranges for Emergency Threshold Levels (ng/mL) PCP 25 Benzodiazepine 300 Cocaine 300 Amphetamines 1000 Cannabinoids 50 Opiates 300 Barbiturates 300 Tricyclic(TCA) 1000 Emergency toxicology analytes exceeding the therapeutic threshold levels are positive. Positive findings are unconfirmed. Positive drug levels may be confirmed at the request of the ordering provider. Results are to be used for medical treatment purposes only. ID Date Data Source [id number] 10/14/2019 11:22:00 PM [facility] Collected By: Nurse Initials: CF Time Collected: 2302 Collected By: Nurse Initials: CF Time Collected: 2302 Name Value Range Interpretation Code Description Data Desiree rce(s) Supporting Document(s) Color,Urine Colorl-Dk Y Normal (applies to non-numeric res ults) [facility] Clarity,Urine [facility] [place],Urine 1.005-1.030 Normal (applies to non- numeric results) [facility] pH,Urine 5.0-8.0 Normal (applies to non-numeric resul ts) [facility] Protein,Urine Negative Normal (applies to non-numeric re sults) [facility] Glucose,Urine Negative Normal (applies to non-numeric re sults) [facility] Ketones,Urine Negative Normal (applies to non-numeric re sults) [facility] Blood,Urine Negative [facility] l Bilirubin,Urine Negative Normal (applies to non-numeric results) [facility] Urobilinogen,Urine 0.2-1.0 Normal (applies to non-numer ic results) [facility] Leukocyte Esterase,Urine Negative [facility] Nitrite,Urine Negative Normal (applies to non-numeric re sults) [facility] ID Date Data Source [id number] 10/14/2019 11:22:00 PM EST [facility] Collected By: Nurse Initials: CF Time Collected: 2302 Collected By: Nurse Initials: CF Time Collected: 2302 Name Value Range Interpretation Code Description Data Desiree rce(s) Supporting Document(s) RBC,Urine None Seen [facility] WBC,Urine None Seen [facility] Casts,Urine None Seen Normal (applies to non-numeric resu lts) [facility] Squamous Cells,Urine None Seen [facility] Bacteria,Urine None Seen [facility] ital Procedure Social History Code Duration Value Status Description Data Source(s ) Smoking 01/30/2020 12:00:00 AM EDT Never Smoker completed Never S mateo eCW1 ([facility]) Vital Signs ID Date Data Source UNK Name Value Range Interpretation Code Description Data Source(s) Body height 53 [in_i] 53 [in_i] [facility] 4'5" Respiratory rate 12 /min 12 /min [facility] ( [facility]) [place] body weight 100 [lb_av] 100 [lb_av] MEDEN T ([facility]) Body mass index (BMI) [Ratio] 42.5 kg/m2 42.5 k g/m2 [facility] ([facility]) Body weight 170.00 [lb_av] 170.00 [lb_av] MEDEN T ([facility]) Diastolic blood pressure 74 mm[Hg] 74 mm[Hg] eCW1 ([facility]) Systolic blood pressure 116 mm[Hg] 116 mm[Hg] e CW1 ([facility]) Body mass index (BMI) [Ratio] 31.24 kg/m2 31.24 kg/m2 eCW1 ([facility]) Body height 63 [in_i] 63 [in_i] eCW1 ([facility]) Body weight 176.4 [lb_av] 176.4 [lb_av] eCW1 ([facility]) Body temperature 36.7 leonardo Normal (applies to non-numeric results) 36.7 leonardo [facility] Respiratory rate 16 min Normal (applies to non-numeric results) 16 min [facility] Deprecated Oxygen saturation in Capillary blood by Oximetry 96 % Normal (applies to non-numeric results) 96 % [facility] Body height 159.7152 cm Normal (applies to non-numeric res ults) 159.7152 cm [facility] Heart rate 84 min Normal (applies to non-numeric resul ts) 84 min [facility] Body mass index (BMI) [Ratio] 29.2 kg/m2 No rmal (applies to non-numeric results) 29.2 kg/m2 [facility] Diastolic blood pressure 81 mm[Hg] Normal (applies to non-numeric results) 81 mm[Hg] [facility] Systolic blood pressure 120 mm[Hg] Normal (applies t o non-numeric results) 120 mm[Hg] [facility] Body weight Measured 165 [lb_av] Normal (applies to n on-numeric results) 165 [lb_av] [facility] ID Date Data Source [id number] 08/09/[facility] Interpretation Code Description Data Source(s) Weight (Calculated Kilograms) 80.29 80.29 [facility] Height (Calculated Centimeters) 160.02 160. 02 [facility] Body Mass Index (BMI) 31.3 31.3 [facility] ID Date Data Source [id number] 07/09/2020 11:35:00 AM EST [facility] Name Value Range Interpretation Code Description Data Source(s) Weight (Calculated Kilograms) 80.29 80.29 [facility] Height (Calculated Centimeters) 160.02 160. 02 [facility] Body Mass Index (BMI) 31.3 31.3 [facility] ID Date Data Source [id number] 06/28/2020 11:28:00 AM EST [facility] Name Value Range Interpretation Code Description Data Source(s) Weight (Calculated Kilograms) 80.29 80.29 [facility] Height (Calculated Centimeters) 160.02 160. 02 [facility] Body Mass Index (BMI) 31.3 31.3 [facility] ID Date Data Source [id number] 05/30/2020 12:01:00 AM EDT [facility] Name Value Range Interpretation Code Description Data Source(s) Weight (Calculated Kilograms) 80.29 80.29 [facility] Height (Calculated Centimeters) 160.02 160. 02 [facility] Body Mass Index (BMI) 31.3 31.3 [facility] ID Date Data Source [id number] 05/25/2020 12:01:00 AM EDT [facility] Name Value Range Interpretation Code Description Data Source(s) Weight (Calculated Kilograms) 80.29 80.29 [facility] Height (Calculated Centimeters) 160.02 160. 02 [facility] Body Mass Index (BMI) 31.3 31.3 [facility] ID Date Data Source [id number] 05/16/2020 12:01:00 AM [facility] Name Value Range Interpretation Code Description Data Source(s) Weight (Calculated Kilograms) 80.29 80.29 [facility] Height (Calculated Centimeters) 160.02 160. 02 [facility] Body Mass Index (BMI) 31.3 31.3 [facility] ID Date Data Source [id number] 05/08/2020 12:00:00 AM EDT [facility] Name Value Range Interpretation Code Description Data Source(s) Weight (Calculated Kilograms) 80.29 80.29 [facility] Height (Calculated Centimeters) 160.02 160. 02 [facility] Body Mass Index (BMI) 31.3 31.3 [facility] ID Date Data Source [id number] 05/09/2020 07:16:00 AM EDT [facility] Name Value Range Interpretation Code Description Data Source(s) Weight (Calculated Kilograms) 80.29 80.29 [facility] Height (Calculated Centimeters) 160.02 160. 02 [facility] Body Mass Index (BMI) 31.3 313 [facility] Weight (Calculated Kilograms) 80.29 80.29 [facility] Height (Calculated Centimeters) 160.02 160. 02 [facility] Body Mass Index (BMI) 31.3 31.3 [facility] ID Date Data Source [id number] 05/01/2020 12:01:00 AM EDT [facility] Name Value Range Interpretation Code Description Data Source(s) Weight (Calculated Kilograms) 80.29 80.29 [facility] Height (Calculated Centimeters) 160.02 160. 02 [facility] Body Mass Index (BMI) 31.3 313 [facility] ID Date Data Source [id number] 04/18/2020 08:51:00 AM EDT [facility] Name Value Range Interpretation Code Description Data Source(s) Weight (Calculated Kilograms) 80.29 80.29 [facility] Height (Calculated Centimeters) 160.02 160. 02 [facility] Body Mass Index (BMI) 31.3 31.3 [facility] ID Date Data Source [id number] 04/19/2020 12:01:00 AM EDT [facility] Name Value Range Interpretation Code Description Data Source(s) Weight (Calculated Kilograms) 80.29 80.29 [facility] Height (Calculated Centimeters) 160.02 160. 02 [facility] Body Mass Index (BMI) 31.3 313 [facility] ID Date Data Source [id number] 04/16/2020 12:01:00 AM EDT [facility] Name Value Range Interpretation Code Description Data Source(s) Weight (Calculated Kilograms) 80.29 80.29 [facility] Height (Calculated Centimeters) 160.02 160. 02 [facility] Body Mass Index (BMI) 31.3 313 [facility] Weight (Calculated Kilograms) 80.29 80.29 [facility] Height (Calculated Centimeters) 160.02 160. 02 [facility] Body Mass Index (BMI) 31.3 31.3 [facility] Weight (Calculated Kilograms) 80.29 80.29 [facility] Height (Calculated Centimeters) 160.02 160. 02 [facility] Body Mass Index (BMI) 31.3 31.3 [facility] ID Date Data Source [id number] 04/05/2020 12:01:00 AM EDT [facility] Name Value Range Interpretation Code Description Data Source(s) Weight (Calculated Kilograms) 80.29 80.29 [facility] Height (Calculated Centimeters) 160.02 160. 02 [facility] Body Mass Index (BMI) 31.3 31.3 [facility] Weight (Calculated Kilograms) 80.29 80.29 [facility] Height (Calculated Centimeters) 160.02 160. 02 [facility] Body Mass Index (BMI) 31.3 31.3 [facility] ID Date Data Source [id number] 04/02/2020 12:00:00 AM EDT [facility] Name Value Range Interpretation Code Description Data Source(s) Weight (Calculated Kilograms) 80.29 80.29 [facility] Height (Calculated Centimeters) 160.02 160. 02 [facility] Body Mass Index (BMI) 31.3 31.3 [facility] Weight (Calculated Kilograms) 80.29 80.29 [facility] Height (Calculated Centimeters) 160.02 160. 02 [facility] Body Mass Index (BMI) 31.3 313 [facility] ID Date Data Source [id number] 03/29/2020 12:01:00 AM EDT [facility] Name Value Range Interpretation Code Description Data Source(s) Weight (Calculated Kilograms) 80.29 80.29 [facility] Height (Calculated Centimeters) 160.02 160. 02 [facility] Body Mass Index (BMI) 31.3 31.3 [facility] ID Date Data Source [id number] 03/19/2020 11:59:00 AM EDT [facility] Name Value Range Interpretation Code Description Data Source(s) Weight (Calculated Kilograms) 80.29 80.29 [facility] Height (Calculated Centimeters) 160.02 160. 02 [facility] Body Mass Index (BMI) 31.3 31.3 [facility] ID Date Data Source [id number] 03/23/2020 12:00:00 AM EDT [facility] Name Value Range Interpretation Code Description Data Source(s) Weight (Calculated Kilograms) 80.29 80.29 [facility] Height (Calculated Centimeters) 160.02 160. 02 [facility] Body Mass Index (BMI) 31.3 31.3 [facility] ID Date Data Source [id number] 03/22/2020 12:01:00 AM EDT [facility] Name Value Range Interpretation Code Description Data Source(s) Weight (Calculated Kilograms) 80.29 80.29 [facility] Height (Calculated Centimeters) 160.02 160. 02 [facility] Body Mass Index (BMI) 31.3 31.3 [facility] ID Date Data Source [id number] 03/19/2020 12:01:00 AM EDT [facility] Name Value Range Interpretation Code Description Data Source(s) Weight (Calculated Kilograms) 80.29 80.29 [facility] Height (Calculated Centimeters) 160.02 160. 02 [facility] Body Mass Index (BMI) 31.3 31.3 [facility] Weight (Calculated Kilograms) 80.29 80.29 [facility] Height (Calculated Centimeters) 160.02 160. 02 [facility] Body Mass Index (BMI) 31.3 31.3 [facility] ID Date Data Source [id number] 03/26/2020 02:31:00 PM EDT [facility] Name Value Range Interpretation Code Description Data Source(s) Weight (Calculated Kilograms) 80.29 80.29 [facility] Height (Calculated Centimeters) 160.02 160. 02 [facility] Body Mass Index (BMI) 31.3 31.3 [facility] Weight (Calculated Kilograms) 80.29 80.29 [facility] Height (Calculated Centimeters) 160.02 160. 02 [facility] Body Mass Index (BMI) 31.3 31.3 [facility] Weight (Calculated Kilograms) 80.29 80.29 [facility] Height (Calculated Centimeters) 160.02 160. 02 [facility] Body Mass Index (BMI) 31.3 31.3 [facility] ID Date Data Source [id number] 03/27/2020 02:22:00 PM EDT [facility] Name Value Range Interpretation Code Description Data Source(s) Weight (Calculated Kilograms) 80.29 80.29 [facility] Height (Calculated Centimeters) 160.02 160. 02 [facility] Body Mass Index (BMI) 31.3 31.3 [facility] Weight (Calculated Kilograms) 80.29 80.29 [facility] Height (Calculated Centimeters) 160.02 160. 02 [facility] Body Mass Index (BMI) 31.3 313 [facility] Weight (Calculated Kilograms) 80.29 80.29 [facility] Height (Calculated Centimeters) 160.02 160. 02 [facility] Body Mass Index (BMI) 31.3 31.3 [facility] ID Date Data Source [id number] 03/08/2020 04:10:00 PM EDT [facility] Name Value Range Interpretation Code Description Data Source(s) Weight (Calculated Kilograms) 80.29 80.29 [facility] Height (Calculated Centimeters) 160.02 160. 02 [facility] Body Mass Index (BMI) 31.3 31.3 [facility] ID Date Data Source [id number] 03/12/2020 11:07:00 AM EDT [facility] Name Value Range Interpretation Code Description Data Source(s) Weight (Calculated Kilograms) 80.29 80.29 [facility] Height (Calculated Centimeters) 160.02 160. 02 [facility] Body Mass Index (BMI) 31.3 31.3 [facility] Weight (Calculated Kilograms) 80.29 80.29 [facility] Height (Calculated Centimeters) 160.02 160. 02 [facility] Body Mass Index (BMI) 31.3 31.3 [facility] ID Date Data Source [id number] 03/11/2020 10:50:00 AM EDT [facility] Name Value Range Interpretation Code Description Data Source(s) Weight (Calculated Kilograms) 80.29 80.29 [facility] Height (Calculated Centimeters) 160.02 160. 02 [facility] Body Mass Index (BMI) 31.3 31.3 [facility] Weight (Calculated Kilograms) 80.29 80.29 [facility] Height (Calculated Centimeters) 160.02 160. 02 [facility] Body Mass Index (BMI) 31.3 31.3 [facility] Weight (Calculated Kilograms) 80.29 80.29 [facility] Height (Calculated Centimeters) 160.02 160. 02 [facility] Body Mass Index (BMI) 31.3 31.3 [facility] Weight (Calculated Kilograms) 80.29 80.29 [facility] Height (Calculated Centimeters) 160.02 160. 02 [facility] Body Mass Index (BMI) 31.3 31.3 [facility] Weight (Calculated Kilograms) 80.29 80.29 [facility] Height (Calculated Centimeters) 160.02 160. 02 [facility] Body Mass Index (BMI) 31.3 31.3 [facility] Weight (Calculated Kilograms) 80.29 80.29 [facility] Height (Calculated Centimeters) 160.02 160. 02 [facility] Body Mass Index (BMI) 31.3 31.3 [facility] Weight (Calculated Kilograms) 80.29 80.29 [facility] Height (Calculated Centimeters) 160.02 160. 02 [facility] Body Mass Index (BMI) 31.3 31.3 [facility] ID Date Data Source [id number] 02/28/2020 02:24:00 PM EDT [facility] Name Value Range Interpretation Code Description Data Source(s) Weight (Calculated Kilograms) 80.29 80.29 [facility] Height (Calculated Centimeters) 160.02 160. 02 [facility] Body Mass Index (BMI) 31.3 31.3 [facility] Weight (Calculated Kilograms) 80.29 80.29 [facility] Height (Calculated Centimeters) 160.02 160. 02 [facility] Body Mass Index (BMI) 31.3 31.3 [facility] ID Date Data Source [id number] 02/20/2020 03:20:00 PM EDT [facility] Name Value Range Interpretation Code Description Data Source(s) Weight (Calculated Kilograms) 80.29 80.29 [facility] Height (Calculated Centimeters) 160.02 160. 02 [facility] Body Mass Index (BMI) 31.3 31.3 [facility] Weight (Calculated Kilograms) 80.29 80.29 [facility] Height (Calculated Centimeters) 160.02 160. 02 [facility] Body Mass Index (BMI) 31.3 31.3 [facility] Weight (Calculated Kilograms) 80.29 80.29 [facility] Height (Calculated Centimeters) 160.02 160. 02 [facility] Body Mass Index (BMI) 31.3 31.3 [facility] ID Date Data Source [id number] 02/16/2020 01:53:00 PM EDT [facility] Name Value Range Interpretation Code Description Data Source(s) Weight (Calculated Kilograms) 80.29 80.29 [facility] Height (Calculated Centimeters) 160.02 160. 02 [facility] Body Mass Index (BMI) 31.3 31.3 [facility] Weight (Calculated Kilograms) 80.29 80.29 [facility] Height (Calculated Centimeters) 160.02 160. 02 [facility] Body Mass Index (BMI) 31.3 31.3 [facility] Weight (Calculated Kilograms) 80.29 80.29 [facility] Height (Calculated Centimeters) 160.02 160. 02 [facility] Body Mass Index (BMI) 31.3 31.3 [facility] ID Date Data Source [id number] 02/13/2020 02:15:00 PM EDT [facility] Name Value Range Interpretation Code Description Data Source(s) Weight (Calculated Kilograms) 80.29 80.29 [facility] Height (Calculated Centimeters) 160.02 160. 02 [facility] Body Mass Index (BMI) 31.3 31.3 [facility] Weight (Calculated Kilograms) 80.29 80.29 [facility] Height (Calculated Centimeters) 160.02 160. 02 [facility] Body Mass Index (BMI) 31.3 31.3 [facility] ID Date Data Source [id number] 02/13/2020 01:30:00 PM EDT [facility] Name Value Range Interpretation Code Description Data Source(s) Weight (Calculated Kilograms) 80.29 80.29 [facility] Height (Calculated Centimeters) 160.02 160. 02 [facility] Body Mass Index (BMI) 31.3 31.3 [facility] Weight (Calculated Kilograms) 80.29 80.29 [facility] Height (Calculated Centimeters) 160.02 160. 02 [facility] Body Mass Index (BMI) 31.3 31.3 [facility] ID Date Data Source [id number] 02/07/2020 09:42:00 AM EDT [facility] Name Value Range Interpretation Code Description Data Source(s) Weight (Calculated Kilograms) 80.29 80.29 [facility] Height (Calculated Centimeters) 160.02 160. 02 [facility] Body Mass Index (BMI) 31.3 31.3 [facility] Weight (Calculated Kilograms) 80.29 80.29 [facility] Height (Calculated Centimeters) 160.02 160. 02 [facility] Body Mass Index (BMI) 31.3 31.3 [facility] ID Date Data Source [id number] 02/06/2020 01:42:00 PM EDT [facility] Name Value Range Interpretation Code Description Data Source(s) Weight (Calculated Kilograms) 80.29 80.29 [facility] Height (Calculated Centimeters) 160.02 160. 02 [facility] Body Mass Index (BMI) 31.3 31.3 [facility] Weight (Calculated Kilograms) 80.29 80.29 [facility] Height (Calculated Centimeters) 160.02 160. 02 [facility] Body Mass Index (BMI) 31.3 31.3 [facility] ID Date Data Source [id number] 02/02/2020 01:11:00 PM EDT [facility] Name Value Range Interpretation Code Description Data Source(s) Weight (Calculated Kilograms) 80.29 80.29 [facility] Height (Calculated Centimeters) 160.02 160. 02 [facility] Body Mass Index (BMI) 31.3 31.3 [facility] Weight (Calculated Kilograms) 80.29 80.29 [facility] Height (Calculated Centimeters) 160.02 160. 02 [facility] Body Mass Index (BMI) 31.3 31.3 [facility] Weight (Calculated Kilograms) 80.29 80.29 [facility] Height (Calculated Centimeters) 160.02 160. 02 [facility] Body Mass Index (BMI) 31.3 31.3 [facility] ID Date Data Source [id number] 01/29/2020 03:18:00 PM EDT [facility] Name Value Range Interpretation Code Description Data Source(s) Weight (Calculated Kilograms) 80.29 80.29 [facility] Height (Calculated Centimeters) 160.02 160. 02 [facility] Body Mass Index (BMI) 31.3 31.3 [facility] Weight (Calculated Kilograms) 80.29 80.29 [facility] Height (Calculated Centimeters) 160.02 160. 02 [facility] Body Mass Index (BMI) 31.3 31.3 [facility] Weight (Calculated Kilograms) 80.29 80.29 [facility] Height (Calculated Centimeters) 160.02 160. 02 [facility] Body Mass Index (BMI) 31.3 31.3 [facility] ID Date Data Source [id number] 01/24/2020 07:47:00 AM EDT [facility] Name Value Range Interpretation Code Description Data Source(s) Weight (Calculated Kilograms) 80.29 80.29 [facility] Height (Calculated Centimeters) 160.02 160. 02 [facility] Body Mass Index (BMI) 31.3 31.3 [facility] Weight (Calculated Kilograms) 80.29 80.29 [facility] Height (Calculated Centimeters) 160.02 160. 02 [facility] Body Mass Index (BMI) 31.3 31.3 [facility] ID Date Data Source [id number] 01/19/2020 11:17:00 AM EDT [facility] Name Value Range Interpretation Code Description Data Source(s) Weight (Calculated Kilograms) 80.29 80.29 [facility] Height (Calculated Centimeters) 160.02 160. 02 [facility] Body Mass Index (BMI) 31.3 31.3 [facility] Weight (Calculated Kilograms) 80.29 80.29 [facility] Height (Calculated Centimeters) 160.02 160. 02 [facility] Body Mass Index (BMI) 31.3 31.3 [facility] Weight (Calculated Kilograms) 80.29 80.29 [facility] Height (Calculated Centimeters) 160.02 160. 02 [facility] Body Mass Index (BMI) 31.3 31.3 [facility] ID Date Data Source [id number] 01/11/2020 09:33:00 AM EDT [facility] Name Value Range Interpretation Code Description Data Source(s) Weight (Calculated Kilograms) 80.29 80.29 [facility] Height (Calculated Centimeters) 160.02 160. 02 [facility] Body Mass Index (BMI) 31.3 31.3 [facility] Weight (Calculated Kilograms) 80.29 80.29 [facility] Height (Calculated Centimeters) 160.02 160. 02 [facility] Body Mass Index (BMI) 31.3 31.3 [facility] ID Date Data Source [id number] 01/10/2020 09:37:00 AM EDT [facility] Name Value Range Interpretation Code Description Data Source(s) Weight (Calculated Kilograms) 80.29 80.29 [facility] Height (Calculated Centimeters) 160.02 160. 02 [facility] Body Mass Index (BMI) 31.3 31.3 [facility] Weight (Calculated Kilograms) 80.29 80.29 [facility] Height (Calculated Centimeters) 160.02 160. 02 [facility] Body Mass Index (BMI) 31.3 31.3 [facility] Weight (Calculated Kilograms) 80.29 80.29 [facility] Height (Calculated Centimeters) 160.02 160. 02 [facility] Body Mass Index (BMI) 31.3 31.3 [facility] ID Date Data Source [id number] 01/09/2020 09:43:00 AM EDT [facility] Name Value Range Interpretation Code Description Data Source(s) Weight (Calculated Kilograms) 80.29 80.29 [facility] Height (Calculated Centimeters) 160.02 160. 02 [facility] Body Mass Index (BMI) 31.3 31.3 [facility] Weight (Calculated Kilograms) 80.29 80.29 [facility] Height (Calculated Centimeters) 160.02 160. 02 [facility] Body Mass Index (BMI) 31.3 31.3 [facility] ID Date Data Source [id number] 01/05/2020 11:23:00 AM EDT [facility] Name Value Range Interpretation Code Description Data Source(s) Weight (Calculated Kilograms) 80.29 80.29 [facility] Height (Calculated Centimeters) 160.02 160. 02 [facility] Body Mass Index (BMI) 31.3 31.3 [facility] Weight (Calculated Kilograms) 80.29 80.29 [facility] Height (Calculated Centimeters) 160.02 160. 02 [facility] Body Mass Index (BMI) 31.3 31.3 [facility] ID Date Data Source [id number] 01/04/2020 10:18:00 AM EDT [facility] Name Value Range Interpretation Code Description Data Source(s) Weight (Calculated Kilograms) 80.29 80.29 [facility] Height (Calculated Centimeters) 160.02 160. 02 [facility] Body Mass Index (BMI) 31.3 31.3 [facility] Weight (Calculated Kilograms) 80.29 80.29 [facility] Height (Calculated Centimeters) 160.02 160. 02 [facility] Body Mass Index (BMI) 31.3 31.3 [facility] Weight (Calculated Kilograms) 80.29 80.29 [facility] Height (Calculated Centimeters) 160.02 160. 02 [facility] Body Mass Index (BMI) 31.3 31.3 [facility] Weight (Calculated Kilograms) 80.29 80.29 [facility] Height (Calculated Centimeters) 160.02 160. 02 [facility] Body Mass Index (BMI) 31.3 31.3 [facility] ID Date Data Source [id number] 12/27/2019 09:18:00 AM EDT [facility] Name Value Range Interpretation Code Description Data Source(s) Weight (Calculated Kilograms) 80.29 80.29 [facility] Height (Calculated Centimeters) 160.02 160. 02 [facility] Body Mass Index (BMI) 31.3 31.3 [facility] Weight (Calculated Kilograms) 80.29 80.29 [facility] Height (Calculated Centimeters) 160.02 160. 02 [facility] Body Mass Index (BMI) 31.3 31.3 [facility] Weight (Calculated Kilograms) 80.29 80.29 [facility] Height (Calculated Centimeters) 160.02 160. 02 [facility] Body Mass Index (BMI) 31.3 31.3 [facility] ID Date Data Source [id number] 12/26/2019 10:41:00 AM EDT [facility] Name Value Range Interpretation Code Description Data Source(s) Weight (Calculated Kilograms) 80.29 80.29 [facility] Height (Calculated Centimeters) 160.02 160. 02 [facility] Body Mass Index (BMI) 31.3 31.3 [facility] Weight (Calculated Kilograms) 80.29 80.29 [facility] Height (Calculated Centimeters) 160.02 160. 02 [facility] Body Mass Index (BMI) 31.3 313 [facility] ID Date Data Source [id number] 12/22/2019 10:24:00 AM EDT [facility] Name Value Range Interpretation Code Description Data Source(s) Weight (Calculated Kilograms) 80.29 80.29 [facility] Height (Calculated Centimeters) 160.02 160. 02 [facility] Body Mass Index (BMI) 31.3 313 [facility] Weight (Calculated Kilograms) 80.29 80.29 [facility] Height (Calculated Centimeters) 160.02 160. 02 [facility] Body Mass Index (BMI) 31.3 31.3 [facility] ID Date Data Source [id number] 12/20/2019 10:14:00 AM EDT [facility] Name Value Range Interpretation Code Description Data Source(s) Weight (Calculated Kilograms) 80.29 80.29 [facility] Height (Calculated Centimeters) 160.02 160. 02 [facility] Body Mass Index (BMI) 31.3 31.3 [facility] Weight (Calculated Kilograms) 80.29 80.29 [facility] Height (Calculated Centimeters) 160.02 160. 02 [facility] Body Mass Index (BMI) 31.3 31.3 [facility] ID Date Data Source [id number] 12/19/2019 10:45:00 AM EDT [facility] Name Value Range Interpretation Code Description Data Source(s) Weight (Calculated Kilograms) 80.29 80.29 [facility] Height (Calculated Centimeters) 160.02 160. 02 [facility] Body Mass Index (BMI) 31.3 31.3 [facility] Weight (Calculated Kilograms) 80.29 80.29 [facility] Height (Calculated Centimeters) 160.02 160. 02 [facility] Body Mass Index (BMI) 31.3 31.3 [facility] Weight (Calculated Kilograms) 80.29 80.29 [facility] Height (Calculated Centimeters) 160.02 160. 02 [facility] Body Mass Index (BMI) 31.3 31.3 [facility] Weight (Calculated Kilograms) 80.29 80.29 [facility] Height (Calculated Centimeters) 160.02 160. 02 [facility] Body Mass Index (BMI) 31.3 31.3 [facility] ID Date Data Source [id number] 12/14/2019 09:02:00 AM EDT [facility] Name Value Range Interpretation Code Description Data Source(s) Weight (Calculated Kilograms) 80.29 80.29 [facility] Height (Calculated Centimeters) 160.02 160. 02 [facility] Body Mass Index (BMI) 31.3 31.3 [facility] ID Date Data Source [id number] 12/14/2019 07:36:00 AM EDT [facility] Name Value Range Interpretation Code Description Data Source(s) Weight (Calculated Kilograms) 80.29 80.29 [facility] Height (Calculated Centimeters) 160.02 160. 02 [facility] Body Mass Index (BMI) 31.3 31.3 [facility] Weight (Calculated Kilograms) 80.29 80.29 [facility] Height (Calculated Centimeters) 160.02 160. 02 [facility] Body Mass Index (BMI) 31.3 31.3 [facility] ID Date Data Source [id number] 12/12/2019 04:52:00 PM EDT [facility] Name Value Range Interpretation Code Description Data Source(s) Weight (Calculated Kilograms) 71.21 71.21 [facility] Height (Calculated Centimeters) 160.02 160. 02 [facility] Body Mass Index (BMI) 27.[address] [facility] ID Date Data Source [id number] 12/07/2019 09:26:00 AM EDT [facility] Name Value Range Interpretation Code Description Data Source(s) Weight (Calculated Kilograms) 71.21 71.21 [facility] Height (Calculated Centimeters) 160.02 160. 02 [facility] Body Mass Index (BMI) 27.8 27.8 [facility] ID Date Data Source [id number] 12/12/2019 04:56:00 PM EDT [facility] Name Value Range Interpretation Code Description Data Source(s) Weight Measurement Method 1 1 [facility] Weight (Calculated Kilograms) 80.29 80.29 [facility] Weight 2832 2832 [facility] pital Temperature Source 7 7 [facility] Temperature 97.6 97.6 [facility] Respiratory Effort 1 1 [facility] Respiratory Rate 17 17 [facility] Pulse Assessment Method 1 1 [facility] Pulse Rate 60 60 [facility] Height (Calculated Centimeters) 160.02 160. 02 [facility] Height 63 63 [facility] pital Blood Pressure 113/67 113/67 [facility] Body Mass Index (BMI) 31.3 31.3 [facility] Weight Measurement Method 1 1 [facility] Weight (Calculated Kilograms) 80.29 80.29 [facility] Weight 2832 2832 [facility] pital Temperature Source 7 7 [facility] Temperature 97.6 97.6 [facility] Respiratory Effort 1 1 [facility] Respiratory Rate 17 17 [facility] Pulse Assessment Method 1 1 [facility] Pulse Rate 60 60 [facility]ital Height (Calculated Centimeters) 160.02 160. 02 [facility] Height 63 63 [facility] pital Blood Pressure 113/67 113/67 [facility] Body Mass Index (BMI) 31.3 31.3 [facility] Weight Measurement Method 1 1 [facility] Weight (Calculated Kilograms) 80.29 80.29 [facility] Weight 2832 2832 [facility] pital Temperature Source 7 7 [facility] Temperature 97.6 97.6 [facility] Respiratory Effort 1 1 [facility] Respiratory Rate 17 17 [facility] Pulse Assessment Method 1 1 [facility] Pulse Rate 60 60 [facility] Height (Calculated Centimeters) 160.02 160. 02 [facility] 63 63 [facility] 113/67 113/67 [facility] Body Mass Index (BMI) 31.3 31.3 [facility] Weight Measurement Method 1 1 [facility] Weight (Calculated Kilograms) 80.29 80.29 [facility] Weight 2832 2832 [facility] pital Temperature Source 7 7 [facility] Temperature 98.7 98.7 [facility] Respiratory Effort 1 1 [facility] Respiratory Rate 18 18 [facility] Pulse Assessment Method 4 4 G [facility] Pulse Rate 83 83 [facility]ital Height (Calculated Centimeters) 160.02 160. 02 [facility] Height 63 63 [facility] Blood Pressure 137/89 137/89 [facility] Body Mass Index (BMI) 31.3 31.3 [facility] Weight (Calculated Kilograms) 81.37 81.37 [facility] Height (Calculated Centimeters) 160.02 160. 02 [facility] Body Mass Index (BMI) 31.8 31.8 [facility] Weight (Calculated Kilograms) 81.37 81.37 [facility] Height (Calculated Centimeters) 160.02 160. 02 [facility] Body Mass Index (BMI) 31.8 31.8 [facility] ID Date Data Source [id number] 11/29/2019 12:33:00 PM EDT [facility] Name Value Range Interpretation Code Description Data Source(s) Weight (Calculated Kilograms) 81.37 81.37 [facility] Height (Calculated Centimeters) 160.02 160. 02 [facility] Body Mass Index (BMI) 31.8 318 [facility] ID Date Data Source [id number] 11/17/2019 10:13:00 AM EDT [facility] Name Value Range Interpretation Code Description Data Source(s) Weight (Calculated Kilograms) 81.37 81.37 [facility] Height (Calculated Centimeters) 160.02 160. 02 [facility] Body Mass Index (BMI) 31.8 318 [facility] Weight (Calculated Kilograms) 81.37 81.37 [facility] Height (Calculated Centimeters) 160.02 160. 02 [facility] Body Mass Index (BMI) 31.8 318 [facility] Weight (Calculated Kilograms) 81.37 81.37 [facility] Height (Calculated Centimeters) 160.02 160. 02 [facility] Body Mass Index (BMI) 31.8 318 [facility] Weight (Calculated Kilograms) 81.37 81.37 [facility] Height (Calculated Centimeters) 160.02 160. 02 [facility] Body Mass Index (BMI) 31.8 318 [facility] ID Date Data Source [id number] 11/20/2019 04:23:00 AM EDT [facility] Name Value Range Interpretation Code Description Data Source(s) Weight Measurement Method 1 1 [facility] Weight (Calculated Kilograms) 71.21 71.21 [facility] Weight 3088 3088 [facility] Temperature Source 7 7 [facility] Temperature 96.1 96.1 [facility] Respiratory Effort 1 1 [facility] Respiratory Rate 15 15 [facility] Pulse Assessment Method 4 4 [facility] Pulse Rate 74 74 [facility] Height (Calculated Centimeters) 160.02 160. 02 [facility] Height 63 63 [facility] Blood Pressure 106/70 106/70 [facility] Body Mass Index (BMI) 27.[address] [facility] Weight Measurement Method 1 1 [facility] Weight (Calculated Kilograms) 71.21 71.21 [facility] Weight 3088 3088 [facility] Temperature Source 7 7 [facility] Temperature 96.1 96.1 [facility] Respiratory Effort 1 1 [facility] Respiratory Rate 15 15 [facility] Pulse Assessment Method 4 4 [facility] Pulse Rate 74 74 [facility] Height (Calculated Centimeters) 160.02 160. 02 [facility] Height 63 63 [facility] Blood Pressure 106/70 106/70 [facility] Body Mass Index (BMI) 27.[address] [facility] Weight Measurement Method 1 1 [facility] Weight (Calculated Kilograms) 71.21 71.21 [facility] Weight 3088 3088 [facility] Temperature Source 7 7 [facility] Temperature 96.1 96.1 [facility] Respiratory Effort 1 1 [facility] Respiratory Rate 15 15 [facility] Pulse Assessment Method 4 4 [facility] Pulse Rate 74 74 [facility] Height (Calculated Centimeters) 160.02 160. 02 [facility] Height 63 63 [facility] Blood Pressure 106/70 106/70 [facility] Body Mass Index (BMI) 27.[address] [facility] Weight Measurement Method 1 1 [facility] Weight (Calculated Kilograms) 71.21 71.21 [facility] Weight 3088 3088 [facility] Temperature Source 7 7 [facility] Temperature 96.1 96.1 [facility] Respiratory Effort 1 1 [facility] Respiratory Rate 15 15 [facility] Pulse Assessment Method 4 4 [facility] Pulse Rate 74 74 [facility] Height (Calculated Centimeters) 160.02 160. 02 [facility] Height 63 63 [facility] Blood Pressure 106/70 106/70 [facility] Body Mass Index (BMI) 27.[address] [facility] Weight Measurement Method 1 1 [facility] Weight (Calculated Kilograms) 71.21 71.21 [facility] Weight 2512 2512 [facility] Temperature Source 7 7 [facility] Temperature 97.8 97.8 [facility] Respiratory Effort 1 1 [facility] Respiratory Rate 15 15 [facility] Pulse Rate 77 77 [facility] Height (Calculated Centimeters) 160.02 160. 02 [facility] Height 63 63 [facility] Blood Pressure 137/88 137/88 [facility] Body Mass Index (BMI) [address] [facility] Weight Measurement Method 1 1 [facility] Weight (Calculated Kilograms) 71.21 71.21 [facility] Weight 2512 2512 [facility] Temperature Source 7 7 [facility] Temperature 97.8 97.8 [facility] Respiratory Effort 1 1 [facility] Respiratory Rate 15 15 [facility] Pulse Rate 77 77 [facility] Height (Calculated Centimeters) 160.02 160. 02 [facility] Height 63 63 [facility] Blood Pressure 137/88 137/88 [facility] Body Mass Index (BMI) 27.[address] [facility] ID Date Data Source [id number] 10/19/2019 07:57:00 AM EST [facility] Name Value Range Interpretation Code Description Data Source(s) Weight Measurement Method 1 1 [facility] Weight (Calculated Kilograms) 81.37 81.37 [facility] Weight 2870.4 2870.4 [facility] pital Temperature Source 7 7 [facility] Temperature 97.6 97.6 [facility] spital Respiratory Effort 1 1 [facility] Respiratory Rate 18 18 [facility] Pulse Assessment Method 1 1 [facility]ulse [facility] 99 99 [facility] Height (Calculated Centimeters) 160.02 160. 02 [facility] Height 63 63 [facility] Blood Pressure 123/91 123/91 [facility] Body Mass Index (BMI) 31.8 31.8 [facility] Weight Measurement Method 1 1 [facility] Weight (Calculated Kilograms) 81.37 81.37 [facility] Weight 2870.4 2870.4 [facility] pital Temperature Source 7 7 [facility] Temperature 97.6 97.6 [facility] Res[facility] Effort 1 1 [facility] Respiratory Rate 18 18 [facility] Pulse Assessment Method 1 1 [facility] Pulse Rate 99 99 [facility] pital Height (Calculated Centimeters) 160.02 160. 02 [facility] Height 63 63 [facility] pital Blood Pressure 123/91 123/91 [facility] Body Mass Index (BMI) 31.8 31.8 [facility] Weight Measurement Method 1 1 [facility] Weight (Calculated Kilograms) 81.37 81.37 [facility] Weight 2870.4 2870.4 [facility] pital Temperature Source 7 7 [facility] Temperature 97.6 97.6 [facility] Res[facility] Effort 1 1 [facility] Respiratory Rate 18 18 [facility] Pulse Assessment Method 1 1 G [facility] Pulse Rate 99 99 [facility] pital Height (Calculated Centimeters) 160.02 160. 02 [facility] Height 63 63 [facility] pital Blood Pressure 123/91 123/91 [facility] Body Mass Index (BMI) 31.8 31.8 [facility] Weight Measurement Method 1 1 [facility] Weight (Calculated Kilograms) 81.37 81.37 [facility] Weight 2870.4 2870.4 [facility] pital Temperature Source 7 7 [facility] Temperature 97.2 97.2 [facility] Res[facility] Effort 1 1 [facility] Respiratory Rate 18 18 [facility] Pulse Assessment Method 4 4 G [facility] Pulse Rate 51 51 [facility] pital Height (Calculated Centimeters) 160.02 160. 02 [facility] Height 63 63 [facility] pital Blood Pressure 122/72 122/72 [facility] Body Mass Index (BMI) 31.8 31.8 [facility] Weight Measurement Method 1 1 [facility] Weight (Calculated Kilograms) 81.37 81.37 [facility] Weight 2870.4 2870.4 [facility] pital Temperature Source 7 7 [facility] Temperature 98.0 98.0 [facility] spital Respiratory Effort 1 1 [facility] Respiratory Rate 18 18 [facility] Pulse Assessment Method 4 4 G [facility] Pulse Rate 86 86 [facility] pital Height (Calculated Centimeters) 160.02 160. 02 [facility] Height 63 63 [facility] pital Blood Pressure 133/85 133/85 [facility] Body Mass Index (BMI) 31.8 31.8 [facility] Weight (Calculated Kilograms) 76.93 76.93 [facility] Weight 2864 2864 [facility] pital Temperature 98.4 98.4 [facility] spital Respiratory Rate 18 18 [facility] Pulse Rate 64 64 [facility] pital Height (Calculated Centimeters) 160.02 160. 02 [facility] Height 63 63 [facility] pital Blood Pressure 139/84 139/84 [facility] Body Mass Index (BMI) 30.0 30.0 [facility] Weight (Calculated Kilograms) 76.93 76.93 [facility] Height (Calculated Centimeters) 160.02 160. 02 [facility] Body Mass Index (BMI) 30.0 30.0 [facility] Patient Treatment Plan of Care Planned Activity Planned Date Details Description Data Source (s) Microgestin FE 09/11 1-20 [facility] 01/30/2020 12:00:00 AM EDT [email or web address] ([facility])
[2020-09-07] MEDS ORDERED: GABA-845 (19:26)
[2020-09-07] MEDS ORDERED: BUNA10MI PO (19:26)
--- OUTSIDE RECORDS SUMMARY | 2020-09-07 20:25 | CCD ---
Author Author [facility] Organization [facility] Address Unknown Phone Unavailable Support Name Relationship Address Phone SHAWN Next Of Kin [address] [place] [address] Migdalia Reese Next Of Kin Unknown Unavailable Dalia Horton Next Of Kin [address] [place] [address] MORTEZA REESE Next Of Kin Unknown Unavailable IHJUANJOSE Next Of Kin [address] [place] [address] SOFIA ZAMBRANO Next Of Kin Unknown Unavailable Kevin Mackay MD Next Of Kin [address] [place] [address] UNEMPLOYED Next Of Kin [address] [place] [address] ORTIZ MOROCHO Next Of Kin [address] [place] [address] ZHAO PENA Next Of Kin [address] [address] [place] [address] MIGDALIA REESE Next Of Kin [address] [place] [address] Neville REESE Next Of Kin [address] [place] [address] FAMILY DOLLAR Next Of [place] [address] GABY INNS [employer] [place] [address] CONVERGY'S Next Of Kin [address] [place] [address] YAMILE MCLEAN Next Of Kin [address] [place] [address] STREAM Next Of Kin [address] [place] [address] [place] [address] UNK UE Next Of Kin Unknown Unavailable migdalia reese [address] [place] [address] [phone] Care Team Providers Care Drafter Mechanical Name Role Phone LASHAUN SESAY MD Unavailable [...] GONZALES MD Unavailable Unavailable Renato, A Dalia AUTOMOTIVE PARTS CLERK Unavailable Unavailable Renato, A Dalia AUTOMOTIVE PARTS CLERK Unavailable Unavailable Renato, A Dalia AUTOMOTIVE PARTS CLERK Unavailable Unavailable Renato, A Dlaia AUTOMOTIVE PARTS CLERK Unavailable Unavailable Renato, A Dalia AUTOMOTIVE PARTS CLERK Unavailable Unavailable Renato, A Dalia AUTOMOTIVE PARTS CLERK Unavailable Unavailable Renato, A Dalia AUTOMOTIVE PARTS CLERK Unavailable Unavailable Renato, A Dalia AUTOMOTIVE PARTS CLERK Unavailable Unavailable Renato, A Dalia AUTOMOTIVE PARTS CLERK Unavailable Unavailable Renato, A Dalia AUTOMOTIVE PARTS CLERK Unavailable Unavailable Renato, A Dalia AUTOMOTIVE PARTS CLERK Unavailable Unavailable Renato, A Dalia AUTOMOTIVE PARTS CLERK Unavailable Unavailable Renato, A Dalia AUTOMOTIVE PARTS CLERK Unavailable Unavailable Renato, A Dalia AUTOMOTIVE PARTS CLERK Unavailable Unavailable Renato, A Dalia AUTOMOTIVE PARTS CLERK Unavailable Unavailable Renato, A Dalia AUTOMOTIVE PARTS CLERK Unavailable Unavailable Renato, A Dalia AUTOMOTIVE PARTS CLERK Unavailable Unavailable Renato, A Dalia AUTOMOTIVE PARTS CLERK Unavailable Unavailable Renato, A Dalia AUTOMOTIVE PARTS CLERK Unavailable Unavailable Renato, A Dalia AUTOMOTIVE PARTS CLERK Unavailable Unavailable Renato, A Dalia AUTOMOTIVE PARTS CLERK Unavailable Unavailable Renato, A Dalia AUTOMOTIVE PARTS CLERK Unavailable Unavailable Renato, A Dalia AUTOMOTIVE PARTS CLERK Unavailable Unavailable Renato, A Dalia AUTOMOTIVE PARTS CLERK Unavailable Unavailable Renato, A Dalia AUTOMOTIVE PARTS CLERK Unavailable Unavailable Renato, A Dalia AUTOMOTIVE PARTS CLERK Unavailable Unavailable Renato, A Dalia AUTOMOTIVE PARTS CLERK Unavailable Unavailable Dion Stanford MD Unavailable Unavailable [...] MD Unavailable Unavailable Sam Null MD Unavailable [phone] Sam Null MD Unavailable [phone] Sam Null MD Unavailable [phone] SALONI IV, L BIRDIE AUTOMOTIVE PARTS CLERK Unavailable Unavailable SALONI IV, L BIRDIE AUTOMOTIVE PARTS CLERK Unavailable Unavailable SALONI IV, L BIRDIE AUTOMOTIVE PARTS CLERK Unavailable Unavailable SALONI IV, L BIRDIE AUTOMOTIVE PARTS CLERK Unavailable Unavailable SALONI IV, L BIRDIE AUTOMOTIVE PARTS CLERK Unavailable Unavailable SALONI IV, L BIRDIE AUTOMOTIVE PARTS CLERK Unavailable Unavailable SALONI IV, L BIRDIE AUTOMOTIVE PARTS CLERK Unavailable Unavailable SALONI IV, L BIRDIE AUTOMOTIVE PARTS CLERK Unavailable Unavailable SALONI IV, L BIRDIE AUTOMOTIVE PARTS CLERK Unavailable Unavailable SALONI IV, L BIRDIE AUTOMOTIVE PARTS CLERK Unavailable Unavailable SALONI IV, L BIRDIE AUTOMOTIVE PARTS CLERK Unavailable Unavailable SALONI IV, L BIRDIE AUTOMOTIVE PARTS CLERK Unavailable Unavailable SALONI IV, L BIRDIE AUTOMOTIVE PARTS CLERK Unavailable Unavailable SALONI IV, L BIRDIE AUTOMOTIVE PARTS CLERK Unavailable Unavailable SALONI IV, L BIRDIE AUTOMOTIVE PARTS CLERK Unavailable Unavailable SALONI IV, L BIRDIE AUTOMOTIVE PARTS CLERK Unavailable Unavailable SALONI IV, L BIRDIE AUTOMOTIVE PARTS CLERK Unavailable Unavailable SALONI IV, L BIRDIE AUTOMOTIVE PARTS CLERK Unavailable Unavailable SALONI IV, L BIRDIE AUTOMOTIVE PARTS CLERK Unavailable Unavailable SALONI IV, L BIRDIE AUTOMOTIVE PARTS CLERK Unavailable Unavailable SALONI IV, L BIRDIE AUTOMOTIVE PARTS CLERK Unavailable Unavailable SALONI IV, L BIRDIE AUTOMOTIVE PARTS CLERK Unavailable Unavailable SALONI IV, L BIRDIE AUTOMOTIVE PARTS CLERK Unavailable Unavailable SALONI IV, L BIRDIE AUTOMOTIVE PARTS CLERK Unavailable Unavailable SALONI IV, L BIRDIE AUTOMOTIVE PARTS CLERK Unavailable Unavailable SALONI IV, L BIRDIE AUTOMOTIVE PARTS CLERK Unavailable Unavailable SALONI IV, L BIRDIE AUTOMOTIVE PARTS CLERK Unavailable Unavailable SALONI IV, L BIRDIE AUTOMOTIVE PARTS CLERK Unavailable Unavailable SALONI IV, L BIRDIE AUTOMOTIVE PARTS CLERK Unavailable Unavailable SALONI IV, L BIRDIE AUTOMOTIVE PARTS CLERK Unavailable Unavailable SALONI IV, L BIRDIE AUTOMOTIVE PARTS CLERK Unavailable Unavailable SALONI IV, L BIRDIE AUTOMOTIVE PARTS CLERK Unavailable Unavailable Sparkle, L Meagan CHILLER OPERATOR Unavailable Unavailable Sparkle, L Meagan CHILLER OPERATOR Unavailable Unavailable Sparkle, L Meagan CHILLER OPERATOR Unavailable Unavailable Sparkle, L Meagan CHILLER OPERATOR Unavailable Unavailable Sparkle, L Meagan CHILLER OPERATOR Unavailable Unavailable Sparkle, L Meagan CHILLER OPERATOR Unavailable Unavailable Sparkle, L Meagan CHILLER OPERATOR Unavailable Unavailable Sparkle, L Meagan CHILLER OPERATOR Unavailable Unavailable Sparkle, L Meagan CHILLER OPERATOR Unavailable Unavailable Sparkle, L Meagan CHILLER OPERATOR Unavailable Unavailable Sparkle, L Meagan CHILLER OPERATOR Unavailable Unavailable Dodard, García DO Unavailable Unavailable [...] Migdalia Alexis, DO Unavailable Unavailable Dalia Gross AUTOMOTIVE PARTS CLERK AUTOMOTIVE PARTS CLERK Unavailable Unavailable Atul Danielle MD Unavailable Unavailable Atul Danielle Sammaria eugenia SOLORZANO Unavailable Unavailable Atul Danielle Sammaria eugenia SOLORZANO Unavailable Unavailable Atul Danielle Samah Unavailable Unavailable Atul Danielle Sammaria eugenia SOLORZANO Unavailable Unavailable Atul Danielle Sammaria eugenia SOLORZANO Unavailable Unavailable Atul Danielle Sammaria eugenia SOLORZANO Unavailable Unavailable Atul Danielle MD Unavailable Unavailable Atul Danielle MD Unavailable Unavailable Atul Danielle MD Unavailable Unavailable Atul Dainelle MD Unavailable Unavailable Atul Danielle MD Unavailable [...] Sammaria eugenia SOLORZANO Unavailable Unavailable Atul Danielle Sammaria eugenia SOLORZANO Unavailable Unavailable Atul Danielle Samah Unavailable Unavailable Atul Danielle Samah Unavailable Unavailable Lolis O Samah Unavailable Unavailable Atul Danielle Samah Unavailable Unavailable Atul Danielle Samah Unavailable Unavailable Atul Danielle Samah Unavailable Unavailable Atul Danielle Samah Unavailable Unavailable Atul Danielle Samah Unavailable Unavailable Atul Danielle Samah Unavailable Unavailable Atul Danielleah Unavailable Unavailable Atul Danielle MD Unavailable Unavailable Atul Danielle Samah Unavailable Unavailable Lolis, O Samah MD Unavailable [...] Samah MD Unavailable Unavailable Lolis, O Samah Unavailable Unavailable Re-disclosure Warning The records that [...] is protected by Article 27-F of the [facility] Public Health law. If you continue you may have access to information: Regarding HIV / AIDS; Provided by facilities licensed or operated by the [facility] Office of Mental Health; or Provided by the [facility] Office for People With Developmental Disabilities. If such information is present, then the following [facility] mandated warning applies: This information has [...] law may result in a fine or intermediate sentence or both. A general authorization for the release of medical or other information is NOT sufficient authorization for further disc losure. Allergies and Adverse Reactions Type Description Substance Reaction Status Data Source(s ) Drug allergy Drug allergy No Known Allergies [facility] Drug allergy Drug allergy No Known Allergies [facility] Family History Family Member Name Family Member Gender Family Member Status Date o f Status Description Data Source(s) Unknown Unknown Problem [facility] ) Encounters Encounter Providers Location Date Indications Data Source(s ) Outpatient Attender: BIRDIE GUALLPA [facility] 2019 04:30:00 PM [facility] 08/07/2020 04:31:00 PM [facility] Patient discharged. Outpatient Attender: BIRDIE [facility] 06/26/2020 05:00:00 PM [facility] Outpatient [facility] 06/21/2020 12:00:00 PM EDT [facility] Outpatient Attender: Dalia CHAVES 06/18/2020 02:0 6:02 PM EDT [facility] Outpatient Attender: DENISE WALKER 06/17/2020 10:16:01 A M EDT [facility] Outpatient Attender: Dalia Renato WALKER 06/12/2020 02:0 7:00 PM EDT [facility] Outpatient Attender: DENISE Renato DENISE 06/11/2020 03:56:01 P M EDT [facility] Outpatient Attender: Dalia Renato WALKER 06/04/2020 03:4 5:02 PM EDT [facility] Outpatient Attender: Dalia Renato WALKER 06/04/2020 03:3 8:00 PM EDT [facility] Outpatient [facility] 05/29/2020 10:35 :00 AM EDT - 05/29/2020 10:36:00 AM EDT [facility] Patient discharged. Outpatient [facility] 05/23/2020 02:00 :00 PM EDT - 05/23/2020 02:01:00 PM EDT [facility] Patient discharged. Outpatient Attender: DENISE WALKER 05/23/2020 08:41:03 A M EDT [facility] Outpatient Attender: DENISE WALKER 05/23/2020 12:02:15 A M EDT [facility] Outpatient Attender: Daliara Renato WALKER 05/22/2020 02:2 1:03 PM EDT [facility] Outpatient Attender: DENISE WALKER 05/22/2020 12:40:01 P M EDT [facility] Outpatient Attender: DENISE WALKER 05/21/2020 01:59:00 P M EDT [facility] Outpatient Attender: Stephane Danielle MD Main office - [facility] 05/20/2020 08:30:00 AM EDT [facility] ([facility] [place]) Outpatient [facility] 05/15/2020 10:00 :00 AM EDT - 05/15/2020 10:01:00 AM EDT [facility] Patient discharged. Outpatient Attender: Dalia WALKER 05/07/2020 08:4 5:02 AM EDT [facility] Outpatient Attender: BIRDIE GUALLPA IV [facility] 2019 11:30:00 AM EDT - 05/06/2020 11:31:00 AM EDT [facility] Patient discharged. Outpatient Attender: SHAHIDA GONZALES MD ED-[facility] 2019 01:23:00 PM EDT - 04/29/2020 01:24:00 PM EDT [facility] Patient discharged. Outpatient [facility] 04/26/2020 01:00 :00 PM EDT - 04/26/2020 01:01:00 PM EDT [facility] Patient discharged. Preadmit Attender: BIRDIE GUALLPA IV [facility] 04/22/2020 09:00:00 AM EDT [facility]patient [facility] 04/18/2020 12:00 :00 PM EDT - 04/18/2020 12:01:00 PM EDT [facility] Patient discharged. Outpatient Attender: BIRDIE GUALLPA IV [facility] 2019 12:01:00 PM EDT - 04/15/2020 12:02:00 PM EDT [facility] Patient discharged. Outpatient Attender: DENISE CHAVES 04/15/2020 11:11:01 A M EDT [facility] Outpatient Attender: Dalia WALKER 04/05/2020 08:4 7:00 AM EDT [facility] Outpatient [facility] 04/04/2020 01:13 :00 PM EDT - 04/04/2020 01:14:00 PM EDT [facility] Patient discharged. Outpatient Attender: Dalia CHAVES 04/04/2020 12:1 6:59 AM EDT [facility] Outpatient Attender: Dalia CHAVES 04/03/2020 11:5 4:01 AM EDT [facility] Outpatient Attender: DENISE CHAVES 04/03/2020 07:39:00 A M EDT [facility] Outpatient Attender: DENISE CHAVES 04/01/2020 02:22:03 P M EDT [facility] Outpatient Attender: DENISE CHAVES 04/01/2020 01:28:01 P M EDT [facility] Outpatient Attender: BIRDIE GUALLPA IV [facility] 2019 11:14:00 AM EDT - 04/01/2020 11:15:00 AM EDT [facility] Patient discharged. Outpatient [facility] 03/28/2020 01:18 :00 PM EDT - 03/28/2020 01:19:00 PM EDT [facility] Patient discharged. Preadmit Attender: BIRDIE GUALLPA IV [facility] 03/25/2020 09:00:00 AM EDT [facility] Outpatient [facility] 03/22/2020 01:37 :00 PM EDT - 03/22/2020 01:38:00 PM EDT [facility] Patient discharged. Outpatient [facility] 03/21/2020 02:25 :00 PM EDT - 03/21/2020 02:26:00 PM EDT [facility] Patient discharged. Outpatient Attender: BIRDIE GUALLPA [facility] 2019 11:59:00 AM EDT - 03/18/2020 12:00:00 PM EDT [facility] Patient discharged. Outpatient [facility] 03/15/2020 03:21 :00 PM EDT - 03/15/2020 03:22:00 PM EDT [facility] Patient discharged. Outpatient [facility] 03/14/2020 03:03 :00 PM EDT - 03/14/2020 03:04:00 PM EDT [facility] Patient discharged. Preadmit [facility] 03/08/2020 04:30:00 PM EDT [facility] Outpatient [facility] 03/07/2020 11:10 :00 AM EDT - 03/07/2020 11:11:00 AM EDT [facility] Patient discharged. Outpatient Attender: BIRDIE GUALLPA [facility] 2019 01:01:00 PM EDT - 03/04/2020 01:02:00 PM EDT [facility] MAR Patient discharged. Outpatient Attender: Dalia CARDENASP FP 02/29/2020 04:2 9:02 PM EDT [facility] Outpatient Attender: Dalia CHAVES 02/29/2020 04:2 8:00 PM EDT [facility] Outpatient [facility] 02/22/2020 04:25 :00 PM EDT - 02/22/2020 04:26:00 PM EDT [facility] Patient discharged. Outpatient [facility] 02/15/2020 03:08 :00 PM EDT - 02/15/2020 03:09:00 PM EDT [facility] Patient discharged. Outpatient [facility] 02/14/2020 02:00 :00 PM EDT - 02/14/2020 02:01:00 PM EDT [facility] Patient discharged. Outpatient [facility] 02/08/2020 03:00 :00 PM EDT - 02/08/2020 03:01:00 PM EDT [facility] Patient discharged. Outpatient [facility] 02/07/2020 02:00 :00 PM EDT - 02/07/2020 02:01:00 PM EDT [facility] Patient discharged. Outpatient Attender: Dalia CHAVES 02/07/2020 11:1 0:02 AM EDT [facility] Outpatient Attender: DENISE CHAVES 02/07/2020 11:10:02 A M EDT [facility] Outpatient Attender: Dalia CHAVES 02/05/2020 04:3 3:04 PM EDT [facility] Outpatient [facility] 02/02/2020 03:00 :00 PM EDT - 02/02/2020 03:01:00 PM EDT [facility] Patient discharged. Outpatient [facility] 02/01/2020 03:00 :00 PM EDT - 02/01/2020 03:01:00 PM EDT [facility] Patient discharged. Outpatient Attender: Dalia CHAVES 01/31/2020 04:4 6:02 PM EDT [facility] Outpatient Attender: DENISE CHAVES 01/31/2020 04:46:00 P M EDT [facility] Outpatient Attender: Dalia CHAVES 01/30/2020 11:5 8:01 PM EDT [facility] Outpatient Attender: DENISE CHAVES 01/30/2020 11:58:01 P M EDT [facility] Outpatient Attender: Dalia CHAVES 01/30/2020 11:5 7:00 PM EDT [facility] Outpatient Attender: DENISE CHAVES 01/30/2020 07:53:35 P M EDT [facility] Outpatient Attender: DNEISE CHAVES 01/30/2020 11:39:00 A M EDT [facility] Outpatient [address] [facility] [address] 01/30/2020 12:00:00 AM EDT [facility] Outpatient [facility] 01/29/2020 03:00 :00 PM EDT - 01/29/2020 03:01:00 PM EDT [facility] Patient discharged. Outpatient Referrer: García Lindsey DO 01/25/2020 05:49:00 AM EDT [facility] Outpatient Attender: DENISE WALKER 01/24/2020 02:44:01 P M EDT [facility] Outpatient Attender: DENISE CHAVES 01/24/2020 01:34:00 P M EDT [facility] Outpatient Attender: DENISE CHAVES 01/22/2020 11:09:00 A M EDT [facility] Outpatient Attender: BIRDIE GUALLPA IV [facility] 2019 11:00:00 AM EDT - 01/22/2020 11:01:00 AM EDT [facility] MAR Patient discharged. Outpatient Attender: DENISE WALKER 01/22/2020 10:55:00 A M EDT [facility] Outpatient Attender: DENISE CHAVES 01/22/2020 10:54:00 A M EDT [facility] Outpatient [facility] 01/19/2020 01:00 :00 PM EDT - 01/19/2020 01:01:00 PM EDT [facility] Patient discharged. Outpatient Attender: BIRDIE GUALLPA IV [facility] 2019 03:00:00 PM EDT - 01/17/2020 03:01:00 PM EDT [facility] MAR Patient discharged. Outpatient Attender: Dalia CHAVES 01/11/2020 09:5 8:03 AM EDT [facility] Outpatient [facility] 01/09/2020 02:00 :00 PM EDT - 01/09/2020 02:01:00 PM EDT [facility] Patient discharged. Outpatient Attender: BIRDIE GUALLPA IV [facility] 2019 04:00:00 PM EDT - 01/08/2020 04:01:00 PM EDT [facility] MAR Patient discharged. Outpatient Attender: DENISE CHAVES 01/08/2020 11:56:00 A M EDT [facility] Outpatient [facility] 01/05/2020 02:00 :00 PM EDT - 01/05/2020 02:01:00 PM EDT [facility] Patient discharged. Outpatient Attender: Kevin Mackay MD 01/04/2020 10:45:00 AM EDT [facility] Outpatient [facility] 01/03/2020 02:00 :00 PM EDT - 01/03/2020 02:01:00 PM EDT [facility] Patient discharged. Outpatient [facility] 01/02/2020 02:30 :00 PM EDT - 01/02/2020 02:31:00 PM EDT [facility] MAR Patient discharged. Outpatient Attender: Kevin CHAVES 12/28/2019 08:37:01 AM EDT [facility] Outpatient Attender: BIRDIE GUALLPA IV [facility] 2019 11:30:00 AM EDT - 12/25/2019 11:31:00 AM EDT [facility] MAR Patient discharged. Outpatient Attender: SHAHIDA GONZALES MD [facility] 2019 02:00:00 PM EDT - 12/22/2019 02:01:00 PM EDT [facility] Patient discharged. Outpatient [facility] 12/20/2019 10:30 :00 AM EDT - 12/20/2019 10:31:00 AM EDT [facility] Patient discharged. Outpatient [facility] 12/18/2019 11:00 :00 AM EDT - 12/18/2019 11:01:00 AM EDT [facility] Patient discharged. Outpatient Attender: BIRDIE GUALLPA OLIS [facility] 2019 02:00:00 PM EDT - 12/15/2019 02:01:00 PM EDT [facility] Patient discharged. Preadmit Attender: Meagan Villagran NP [facility] 12/14/2019 09:30:00 AM EDT [facility] Outpatient [facility] 12/12/2019 11:00 :00 AM EDT - 12/12/2019 11:01:00 AM EDT [facility] 09:37:[address] [facility] 12/05/2019 09:52:[address] [facility] Inpatient Attender: Sam Null MDA ttender: Sam Null MDAdmitter: Sam Null MD [facility] 12/04/2019 10:19:00 PM EDT - 12/08/2019 09:25:00 AM EDT F19.20 [facility] F19.20 Patient discharged. Preadmit Attender: Meagan Villagran NP -[facility] 11/30/2019 10:30:00 AM EDT [facility] Outpatient Attender: Kevin Mackay MD 11/26/2019 05:56:00 PM EDT [facility] Outpatient Attender: Kevin Mackay MD 11/26/2019 05:55:59 PM EDT [facility] Outpatient Attender: Kevin CHAVES 11/22/2019 12:42:00 PM EDT [facility] Outpatient Attender: Kevin CHAVES 11/22/2019 12:41:01 PM EDT [facility] Outpatient Attender: Kevin CHAVES 11/22/2019 12:40:00 PM EDT [facility] Outpatient Attender: Kevin CHAVES 11/21/2019 05:36:00 PM EDT [facility] Outpatient Attender: Kevin CHAVES 11/21/2019 05:13:01 PM EDT [facility] Outpatient Attender: Kevin CHAVES 11/21/2019 03:54:00 PM EDT [facility] Outpatient Attender: Kevin CHAVES 11/21/2019 01:20:00 PM EDT [facility] Outpatient Attender: Kevin CHAVES 11/21/2019 01:07:00 PM EDT [facility] Outpatient Attender: Kevin CHAVES 11/17/2019 08:58:01 AM EDT [facility] Outpatient Attender: Meagan Villagran CHILLER OPERATOR [facility] 2019 08:25:00 AM EDT - 11/16/2019 08:26:00 AM EDT [facility] Patient discharged. Outpatient Attender: Kevin Mackay MD 11/02/2019 11:21:02 AM EDT [facility] Inpatient Attender: Lashaun Montalvo nder: LASHAUN SESAY MDAdmitter: LASHAUN SESAY MD [facility] 10/18/2019 10:49:00 AM EST - 11/15/2019 08:55:00 AM EDT PSYCHOACTIVE SUBSTANCE DEPENDENCE [facility] PSYCHOACTIVE SUBSTANCE DEPENDENCE Patient discharged. Outpatient [facility] 10/15/2019 02:26:[address] [facility] Inpatient Attender: Jr Migdalia Salgado OAttender: Migdalia Alexis JrAdmitter: Migdalia Alexis Jr [facility] 10/14/2019 09:41:00 PM EST - 10/18/2019 08:15:00 AM EST F19.20 [facility] F19.20 Patient discharged. [facility] [address] [facility] [address] 09/18/2019 12:00:00 AM EST eCW1 ([facility]) [facility] [address] [facility] [address] 09/18/2019 12:00:00 AM EST eCW1 ([facility]) Emergency Attender: Laura Stanford MDAttender: ER PHYSICIAN 09/06/2019 11:26:00 AM EST - 09/06/2019 01:02:00 PM EST RING STUCK ON FINGER [facility] RING STUCK ON FINGER Patient discharged. Outpatient Attender: Kevin CHAVES 08/31/2019 09:01:08 PM EST [facility] Edie [address] [place] [address], [place] [address] 08/07/2019 12:00:00 AM EST eCW1 ([facility]) Medications Medication Brand Name Start Date [...] NIGHTLY FOR 7 DAY S SOLD: 05/24/2020 [facility] Amitriptyline Hydrochloride 25 MG Oral Tablet Amitriptyline HCL 05/20/2020 12:00:00 AM EDT active M EDENT ([facility]) Microgestin FE 1/20 1-20 MG-MCG Microgestin FE 1/20 1-20 MG- MCG 01/30/2020 12:00:00 AM EDT 1.0 {tablet} active Mi crogestin FE 1/20 1-20 [facility] eCW1 ([facility]) Clonidine Hydrochloride 0.1 MG Oral Tablet CLONIDINE HCL 09/22/2019 12:00:00 AM EST tablet 90 TAKE ONE TABLET BY MOUTH THR EE TIMES A DAY TAKE ONE TABLET BY MOUTH THREE TIMES A DAY SOLD: 09/22/2019 [facility] 8-2 mg 09/22/2019 12:00:00 AM EST film [address] PL[address] ONE FILM UNDER THE TONGUE EVERY MORNING MAXIMUM DAILY DOSE = [address] ONE FILM UNDER THE TONGUE EVERY MORNING MAXIMUM DAILY DOSE = 1 STRIP SOLD: 09/22/2019 [employer] Insurance Providers Payer name Policy type / Coverage type Policy ID Covered constitution party ID Covered constitution party's relationship to melvin Policy Melvin Plan Information [employer] COMMUNITY PLAN MCDHMO [id number] SP [id number] [facility] PL [id number] Unemploye d [id number] Medicaid S [id number] S [id number] Managed Care - [facility] Community Plan P [id number] S [id number] [facility] PL [id number] Unemploye d [id number] [place]ED[place] [id number] SP [id number] [facility](MCAID) O [id number] S [id number] Medicaid S [id number] S [id number] [facility] LAYLA [id number] SP [id number] [facility] PL [id number] S [id number] Managed Care - [facility] P [id number] S [id number] [facility] PL [id number] S [id number] [facility] PL [id number] S [id number] [facility] HEA [id number] S [id number] [facility] PL [id number] S [id number] SELF PAY S ANS-Medicaid [id number] ANSI-Medicaid [id number] ANSI-Medicaid [id number] ANSI-Medicaid [id number] ANSI-Medicaid [id number] ANSI-Medicaid [id number] Medicaid S [id number] S [id number] [facility] [id number] SP [id number] MEDICAID [id number] SP [id number] ANSI-Medicaid [id number] ANSI-Medicaid [id number] ANSI-Medicaid [id number] [facility] [id number] S [id number] ANSI-Medicaid [id number] ANSI-Medicaid [id number] ANSI-Medicaid [id number] ANSI-Medicaid [id number] ANSI-Medicaid [id number] ANSI-Medicaid [id number] ANSI-Medicaid [id number] ANSI-Medicaid [id number] ANSI-Medicaid [id number] ANSI-Medicaid [id number] ANSI-Medicaid [id number] ANSI-Medicaid [id number] ANSI-Medicaid [id number] ANSI-Medicaid [id number] ANSI-Medicaid [id number] SELF PAY ONLY UNAVAILABLE SP UNAV AILABLE Medicaid S [id number] S [id number] Managed Care [facility] P [id number] S [id number] Medicaid S [id number] S [id number] Sliding Fee Scale P UNAVAILABLE S UNAVAILABLE MEDICAID M [id number] S [id number] SELF PAY ONLY [id number] SP [id number] [facility] O [id number] S [id number] UNHC COMMUNITY PLAN MCDO [id number] SP [id number] [facility] LAYLA [id number] SP [id number] SELF PAY ONLY [id number] SP [id number] SELF PAY ONLY UNAVAILABLE SP UNAV AILABLE UNHC COMMUNITY PLAN MCDO [id number] SP [id number] [facility] Layla/MCR Health Maintenance Organization (HMO) Self BS [facility] Health Maintenance Organization (HMO) Self United HLCR/Community [facility]sen[facility] Health Maintenance Organization (HMO) Self UNHC COMMUNITY PLAN MCDO [id number] SP [id number] [facility] AMERICHOICE XIX -HMO [id number] 18 [id number] [facility] PLUS [id number] SP [id number] SELF PAY UNAVAILABLE UNAVAILA BLE UN COMMUNITY PLAN MCDO [id number] SP [id number] [facility] EPALS [id number] SP [id number] S [id number] Problems, Conditions, and Diagnoses Code Display Name Description Problem Type Effective Dates Data Source(s) 11388568 Migraine Migraine Problem 05/20/2020 12:00:00 AM ED T RIP ([facility]) V70.0 Encounter for general adult medical exam ination with abnormal findings Encounter for general adult medical examination with abnormal findings 04/01/2020 02:20:33 PM EDT [facility] V65.8 Person consulting for explanation of exa mination or test findings Person consulting for explanation of examination or test findings 04/01/2020 02:20:33 PM EDT [facility] [id number] Hyperlipidemia, unspecified Hyperlipidemia, unspecifie d 04/01/2020 02:20:33 PM EDT [facility] N94.12 [id number] Deep dyspareunia Problem 01/30/2020 12:00:00 AM EDT eCW1 ([facility]) 786.50 Rib pain Rib pain 01/24/2020 02:42:57 PM ED T [facility] V70.0 Health Screening Health Screening 01/24/2020 02 :42:57 PM EDT [facility] 070.54 Chronic hepatitis C Chronic hepatitis C 06/03/2 020 02:42:57 PM EDT [facility] [id number] Acute upper respiratory infection, unspe cified Acute upper respiratory infection, unspecified 11/21/2019 05:34:05 PM EDT [facility] 786.2 Cough Cough 11/21/2019 05:34:05 PM ED T [facility] 478.19 Congestion of nasal sinus Congestion of nasal sinus 11/21/2019 05:34:05 PM EDT [facility] R99 Ill-defined and unknown cause of mortali ty ILL-DEFINED AND UNKNOWN CAUSE OF MORTALITY Diagnosis 04/29/2020 01:23:00 [facility] F[facility]20 Opioid dependence, uncomplicated OPIOID DEPENDEN CE, UNCOMPLICATED Diagnosis 03/15/2020 03:21:00 PM EDT [facility] F15.20 Other stimulant dependence, uncomplicate d OTHER STIMULANT DEPENDENCE, UNCOMPLICATED Diagnosis 03/07/2020 11:10:00 AM EDT [facility] B18.2 Chronic viral hepatitis C CHRONIC VIRAL HEPATITIS C Di agnosis 03/04/2020 01:01:00 PM EDT [facility] G47.9 Sleep disorder, unspecified SLEEP DISORDER, UNSPECIFIE D Diagnosis 01/29/2020 03:00:00 PM EDT [facility] F41.9 Anxiety disorder, unspecified ANXIETY DISORDER, UNSPEC IFIED Diagnosis 01/29/2020 03:00:00 PM EDT [facility] F19.20 Other psychoactive substance dependence, uncomplicated OTHER PSYCHOACTIVE SUBSTANCE DEPENDENCE, UNCOMPLICATED Diagnosis 01/17/2020 03:00:00 PM [facility] R45.89 Other symptoms and signs involving emoti onal state OTHER SYMPTOMS AND SIGNS INVOLVING EMOTIONAL STATE Diagnosis 01/02/2020 02:30:00 PM EDT [facility] Z63.0 Problems in relationship with spouse or partner PROBLEMS IN RELATIONSHIP WITH SPOUSE OR PARTNER Diagnosis 12/15/2019 02:00:00 PM EDT [facility] Z60.8 Other problems related to social environ ment OTHER PROBLEMS RELATED TO SOCIAL ENVIRONMENT Diagnosis 12/12/2019 11:00:00 AM EDT [facility] F15.10 Other stimulant abuse, uncomplicated OTH ER STIMULANT ABUSE, UNCOMPLICATED Diagnosis 12/04/2019 10:19:00 PM [facility] L03.113 Cellulitis of right upper limb CELLULITIS OF RIGHT UPP ER LIMB Diagnosis 12/04/2019 10:19:00 PM [facility] G43.909 Migraine, unspecified, not intractable, without status migrainosus MIGRAINE, UNSP, NOT INTRACTABLE, WITHOUT STATUS MIGRAINOSUS Diagnosis 12/04/2019 10:19:00 PM [facility] E66.9 Obesity, unspecified OBESITY, UNSPECIFIED Diagnosis 12/04/2019 10:19:00 PM [facility] Z68.31 Body mass index (BMI) 31.0-31.9, adult B HANS MASS INDEX (BMI) 31.0-31.9, ADULT Diagnosis 12/04/2019 10:19:00 PM [facility] E66.8 Other obesity OTHER OBESITY Diagnosis 12/04/2019 10:19:00 PM [facility] R74.8 Abnormal levels of other serum enzymes A BNORMAL LEVELS OF OTHER SERUM ENZYMES Diagnosis 12/04/2019 10:19:00 PM [facility] E86.0 Dehydration DEHYDRATION Diagnosis 12/04/2019 10:19:00 PM [facility] F32.9 Major depressive disorder, single episod e, unspecified MAJOR DEPRESSIVE DISORDER, SINGLE EPISODE, UNSPECIFIED Diagnosis 12/04/2019 10:19:00 PM [facility] D72.829 Elevated white blood cell count, unspeci fied ELEVATED WHITE BLOOD CELL COUNT, UNSPECIFIED Diagnosis 12/04/2019 10:19:00 PM [facility] E87.6 Hypokalemia HYPOKALEMIA Diagnosis 12/04/2019 10:19:00 PM [facility] F11.23 Opioid dependence with withdrawal OPIOID DEPENDE NCE WITH WITHDRAWAL Diagnosis 12/04/2019 10:19:00 PM [facility] Z63.72 Alcoholism and drug addiction in family ALCOHOLISM AND DRUG ADDICTION IN FAMILY Diagnosis [facility] Cocaine abuse, uncomplicated COCAINE ABUSE, UNCOMPLICA SHOLA Diagnosis 11/16/2019 08:25:00 AM EDT [facility] J10.1 Influenza due to other ident ified influenza virus with other respiratory manifestations FLU DUE TO OTH IDENT INFLUENZA VIRUS W OTH RESP MANIFE ST Diagnosis 10/18/2019 10:49:00 AM [facility] G43.909 Migraine, unspecified, not intractable, without status migrainosus MIGRAINE, UNSP, NOT INTRACTABLE, WITHOUT STATUS MIGRAINOSUS Diagnosis 10/18/2019 10:49:00 AM [facility] G47.00 Insomnia, unspecified INSOMNIA, UNSPECIFIED Diagnosis 10/18/2019 10:49:00 AM [facility] F41.9 Anxiety disorder, unspecified ANXIETY DISORDER, UNSPEC IFIED Diagnosis 10/18/2019 10:49:00 AM [facility] F32.9 Major depressive disorder, single episod e, unspecified MAJOR DEPRESSIVE DISORDER, SINGLE EPISODE, UNSPECIFIED Diagnosis 10/18/2019 10:49:00 AM [facility] Z86.19 Personal history of other infectious and parasitic diseases PERSONAL HISTORY OF OTHER INFECTIOUS AND PARASITIC DISEASES Diagnosis 10:49:00 AM [facility] F15.20 Other stimulant dependence, uncomplicate d OTHER STIMULANT DEPENDENCE, UNCOMPLICATED Diagnosis 10/18/2019 10:49:00 AM [facility] 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, uncomplicated H ALLUCINOGEN DEPENDENCE, UNCOMPLICATED Diagnosis 10/18/2019 10:49:00 AM [facility] F11.20 Opioid dependence, uncomplicated OPIOID DEPENDEN CE, UNCOMPLICATED Diagnosis 10/18/2019 10:49:00 AM [facility] 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 SICK-EUTHYROID SYNDROME Diagno sis 10/14/2019 09:41:00 PM [facility] E05.90 Thyrotoxicosis, unspecified without thyr otoxic crisis or storm THYROTOXICOSIS, UNSP WITHOUT THYROTOXIC CRISIS OR STORM Diagnosis 10/14/2019 09:41:00 PM [facility] R73.9 Hyperglycemia, unspecified HYPERGLYCEMIA, UNSPECIFIED Diagnosis 10/14/2019 09:41:00 PM [facility] Surgeries/Procedures Procedure Description Date Indications Data Source(s) Medication Management for Substance Abuse Treatment, N aloxone MEDS MGMT FOR SUBSTANCE ABUSE TREATMENT, NALOXONE 12/04/2019 12:00:00 AM [facility] Individual Counseling for Substance Abuse Treatment, C ontinuing Care INDIV SENIOR ONLINE MARKETING MANAGER FOR SUBSTANCE ABUSE TREATMENT, CONTINUING CARE 12/04/2019 12:00:00 AM [facility] Detoxification Services for Substance Abuse Treatment DETOXIFICATION SERVICES FOR SUBSTANCE ABUSE TREATMENT 12/04/2019 12:00:00 AM [facility] Individual Counseling for Substance Abuse Treatment, C ognitive-Behavioral INDIV SENIOR ONLINE MARKETING MANAGER FOR SUBSTANCE ABUSE, COGNITIVE BEHAVIORAL 10/18/2019 12:00:00 AM [facility] Group Counseling for Substance Abuse Treatment, Motiva tional Enhancement GROUP SENIOR ONLINE MARKETING MANAGER FOR SUBSTANCE ABUSE, MOTIVATIONAL ENHANCE 10/18/2019 12:00:00 AM [facility] Group Counseling for Substance Abuse Treatment, Spirit ual GROUP COUNSELING FOR SUBSTANCE ABUSE TREATMENT, SPIRITUAL 10/18/2019 12:00:00 AM [facility] Group Counseling for Substance Abuse Treatment, Cognit isaiah-Behavioral GROUP SENIOR ONLINE MARKETING MANAGER FOR SUBSTANCE ABUSE, COGNITIVE BEHAVIORAL 10/18/2019 12:00:00 AM [facility] Group Counseling for Substance Abuse Treatment, Interp ersonal GROUP SENIOR ONLINE MARKETING MANAGER FOR SUBSTANCE ABUSE TREATMENT, INTERPERSONAL 10/17/2019 12:00:00 AM [facility] Group Counseling for Substance Abuse Treatment, Cognit isaiah-Behavioral GROUP SENIOR ONLINE MARKETING MANAGER FOR SUBSTANCE ABUSE, COGNITIVE BEHAVIORAL 10/17/2019 12:00:00 AM [facility] Measurement of Cardiac Electrical Activity, External A pproach MEASUREMENT OF CARDIAC ELECTRICAL ACTIVITY, ADOPTION SOCIAL WORKER APPROACH 10/14/2019 12:00:00 AM [facility] Results ID Date Data Source [id number] 06/18/2020 12:33:52 PM EDT [facility] Current Problems: Encounter for general adult medical examination with abnormal findings (ICD-V70.0) (LAD87-Q77.01)Person consulting for explanation of examination or test findings (ICD-V65.8) (CCT42-O94.2)Hyperlipidemia, unspecified (GOV19-U53.5)Rib pain (ICD-786.50) (XSE44-B10.81)Health Screening (ICD-V70.0) (SYV51-Z02.9)Chronic hepatitis C (ICD-070.54) (KSN70-J64.2)Acute upper respiratory infection, unspecified (HZI57-X78.9)Cough (ICD-786.2) (ICD10- R05)Congestion of nasal sinus (ICD-478.19) (WDX79-A68.81)Acute pharyngitis due to other specified organisms (ENS66-U92.8)Other specified depressive episodes (OWP35-C09.89)Acute maxillary sinusitis, unspecified (ELE45-Z34.00)Opioid dependence, in remission (ICD-304.03) (VAS64-J15.21)Acute cystitis without hematuria (SVW78-J75.00)Problem list reviewed during this update.Current Medications: * GABAPENTIN 300 MG 3 times daily; Route: ORALSUBOXONE 8-2 MG SUBLINGUAL FILM (BUPRENORPHINE HCL-NALOXONE HCL) 3 films a day. MDD 3. KAREN [id number]. For the treatment of opiate addiction. [BMN]TOPAMAX [...] rce(s) Supporting Document(s) ID Date Data Source [id number] 06/12/2020 01:43:49 PM EDT [facility] Patient History Medical History:AnxietyS ubstance abuseFamily History:Hypertension (Mother)Social/Personal History: Smoking Status: never smokerCurrent Problems: Encounter for general adult medical examination with abnormal findings (ICD-V70.0) (KUT37-H04.01)Person consulting for explanation of examination or test findings (ICD-V65.8) (VMA80-M34.2)Hyperlipidemia, unspecified (MPV84-Q56.5)Rib pain (ICD-786.50) (HHU98-W00.81)Health Screening (ICD-V70.0) (QMO33-H75.9)Chronic hepatitis C (ICD-070.54) (VTV41-D93.2)Acute upper respiratory infection, unspecified (IHR96-J47.9)Cough (ICD-786.2) (ZYX58-P69)Congestion of nasal sinus (ICD-478.19) (UZR29-V07.81)Acute pharyngitis due to other specified organisms (EFZ07-L18.8)Other specified depressive episodes (VTC26-X50.89)Acute maxillary sinusitis, unspecified (ICD10- J01.00)Opioid dependence, in remission (ICD-304.03) (LDR23-S45.21)Acute cystitis without hematuria (HPX67-R38.00)Problem list reviewed during this update.Current Medications: * GABAPENTIN 300 MG 3 times daily; Route: ORALSUBOXONE 8-2 MG SUBLINGUAL FILM (BUPRENORPHINE HCL-NALOXONE HCL) 3 films a day. MDD 3. KAREN [id number]. For the treatment of opiate addiction. [BMN]TOPAMAX [...] 15 on Tooth Surface BOD (Performed by Francine Guerrier RDH) Chart Notes:laya (Jun 12 2020 2:06PM): [facility] with patient- no changes. No problems or concerns today. Adult prophy- handscaled, ecuadorean- mint prophy paste, flossOH-Patient brushes twice/day and NOT flossing regularlyLT gen marginal biofilm and marginal/introproximal calculus on LA. Marginal tissue is slight inflamed with light bleeding on scaling. OHI- Advise to brush 2x a day and floss everyday. Went over brushing along the gum line and flossing properly. Patient is cooperative. NV- 6 month recall/fillingsRFrancine lópez RDH by laya (06/12/2020 2:06 PM): Tooth Notes and Watches:- Tooth 19 Note: buccal is area very sensitiveFrancine Guerrier RDH by paddy (05/22/2020 2:18 PM): - Tooth 3 Note: large decay and we are going to try to do a filling and if not then RC or extraction.Francine Guerrier RDH by laya (05/22/2020 1:16 PM): Assessment & Plan Medications:GABAPENTIN 300 MGSUBOXONE 8-2 MG SUBLINGUAL FILMTOPAMAX 50 MG ORAL TABLETAllergies:No Known Allergies (updated 05/22/2020) Name Value Range Interpretation Code Description Data Desiree rce(s) Supporting Document(s) ID Date Data Source [id number] 05/22/2020 12:44:16 PM EDT [facility] Patient History Medical History:AnxietyS ubstance abuseFamily History:Hypertension (Mother)Social/Personal History: Smoking Status: never smokerCurrent Problems: Encounter for general adult medical examination with abnormal findings (ICD-V70.0) (HGP81-M63.01)Person consulting for explanation of examination or test findings (ICD-V65.8) (GOZ90-W07.2)Hyperlipidemia, unspecified (NRT30-I48.5)Rib pain (ICD-786.50) (ZAT33-G93.81)Health Screening (ICD-V70.0) (XOH31-A86.9)Chronic hepatitis C (ICD-070.54) (ANL00-I65.2)Acute upper respiratory infection, unspecified (VUM29-G05.9)Cough (ICD-786.2) (IZA28-F00)Congestion of nasal sinus (ICD-478.19) (BBT37-D84.81)Acute pharyngitis due to other specified organisms (BMZ73-B32.8)Other specified depressive episodes (EHQ06-M49.89)Acute maxillary sinusitis, unspecified (ICD10- J01.00)Opioid dependence, in remission (ICD-304.03) (NOR98-R20.21)Acute cystitis without hematuria (HOI99-W71.00)Problem list reviewed during this update.Current Medications: * GABAPENTIN 300 MG 3 times daily; Route: ORALSUBOXONE 8-2 MG SUBLINGUAL FILM (BUPRENORPHINE HCL-NALOXONE HCL) 3 films a day. MDD 3. KAREN [id number]. For the treatment of opiate addiction. [BMN]TOPAMAX [...] #19 Surface OM, #3 Surface DOM[E] [employer] On #2 Surface MO, #31 Surface OB[E] Resin-Based Composite - Direct On #12 Surface DO, #13 Surface MOD, #14 Surface MO, #15 Surface DO, #18 Surface OL, #19 Surface DLOB, #29 Surface DO, #3 Surface ODBL[E] Missing - [place] and [place] On #1 Surface O Region XR, #16 Surface O Region XR, #17 Surface O Region XR, #30 Surface O Region XR, #32 Surface O Region XR Chart Notes:sraso (May 22 2020 1:27PM): [facility] with NEW patient- updated. She is sensitive [...] toothpaste. NV- aprophy 45/ filling starting on #3Raso Francine CHAPMAN by laya (05/22/2020 1:27 PM): ; paddy (May 22 2020 2:19PM): [facility](-). CC: sensitieve # 19. Noted recession and enamel erosion. Reviewed Xrays. Exam: c maurizio detected. OCS: WNL, IO/ EO completed, No [...] buccal is area very sensitiveFrancine Guerrier RDH (05/22/2020 2:18 PM): - Tooth 3 Note: large decay and we are going to try to do a filling and if not then RC or extraction.Francine Guerrier RDH by laya (05/22/2020 1:16 PM): Assessment & Plan Medications:GABAPENTIN 300 MGSUBOXONE 8- 2 MG SUBLINGUAL FILMTOPAMAX 50 MG ORAL TABLETAllergies:No Known Allergies (updated 05/22/2020) Name Value Range Interpretation Code Description Data Desiree rce(s) Supporting Document(s) ID Date Data Source [id number] 04/01/2020 01:27:41 PM EDT [facility] Measurements & CalculationsHeight: 63 inches (5 [...] or Preferred Language: EnglishFamily and Home Address: [address] [place] [address] What is your housing situation today? I have housing Are you worried about losing your housing? NoMoney and Resources In the past year, have you or any family members you live with been unable to get any of the following when it was really needed? Denies Insecurity: food, utilities, clothing, registered nurse maternal child, phone, legal services, otherWithin the [...] for annual exam.Pt states presently goes to [facility] for MAT, pt is interested in [...] during this visit, including review of any vxkq-eid-ghcelnl medications, herbal therapies, and/or supplements.Allergy ReviewAllergy List was reviewed and/or updated during this visit. Patient has no known allergies.Adult Preventive CareProvider Calculated and Reviewed all Clinical Protocols for patient today. Labs/Meds/Other Counseling-Nutrition and Physical Activity:BMI Interpretation: Obese (04/01/2020) Counseling: Done (04/01/2020) Physical Activity: Done (04/01/2020)Cancer Screening Pap Smear/HPV TestingReviewed: Patient Refused Pap SmearPrevious Comments: yesturday [employer] (01/31/2020)Today's Comments: Had done at [employer] 2019Review of Systems General: Denies loss of [...] explanation of examination or test findings (ICD-V65.8) (AXQ23-V11.2) Assessment: Instructions: We have reviewed your lab results with you today. lab results were unremarkable except for elevated cholesterol levels. Please start/ continue lifestyle changes to include healthy diet and physical activities. Please try to maintain adequate intake of water daily. Please try to avoid processed foods.Hyperlipidemia, unspecified (JTT63-H17.5) Assessment: Instructions: Please start/ continue lifestyle changes to include healthy diet and physical activities. Please try to maintain adequate intake of water daily. Please try to avoid processed foods.Encounter for general adult medical examination with abnormal findings (ICD-V70.0) (UDW78-I32.01) Assessment: Instructions: You have had your annual physical exam done today.Assessed:Opioid dependence, in remission (ICD-30 4.03) (UCG88-D82.21) Assessment: Instructions: Please continue to follow with your specialist as scheduled.Opioid dependence, in remission (ICD-304.03) (FRT93-D09.21) Assessment: [place] substance abuse coordinator in to speak with patient.Assessment not Saved Person consulting for explanation of examination or test findings (TCJ93-Y71.2): Patient Instructions/Care Plan: Person consulting for explanation [...] Known Allergies (updated 04/01/2020) Orders:COMP METABOLIC PANEL [CPT-36605] CBC W/DIFF [CPT-22739] LIPID PANEL [CPT-06215] Adult - Ofc Vst, EST, Level IV [CPT-05210] Follow-Up Return to clinic: 6-8 weeks for follow up on cholesterol Clinical Visit Summary Completed Name Value Range Interpretation Code Description Data Desiree rce(s) Supporting Document(s) ID Date Data Source [id number] 01/31/2020 04:20:00 PM EDT [facility] Name Value Range Interpretation Code Description Data Desiree rce(s) Supporting Document(s) HEP C AB > 11.0 <0.8 H [facility] ID Date Data Source [id number] 01/31/2020 03:41:56 PM EDT [facility] Measurements & CalculationsHeight: 63 inches (5 [...] visit...Have you been admitted to the hospital? No - [facility] Hospital admission date reported today: 10/29/2018Have you been to an emergency room (ER) or urgent care clinic? No - [facility] ER Emergency room (ER) or urgent care date reported today: 01/17/2020Have you seen another healthcare provider? Yes - [facility] additions, [facility] Have you seen a dentist? Yes - [facility] exam date reported today: 10/27/2017Intake performed by: Nbuia Chan MA, January 31, 2020 3:43 PMRate [...] Illness (HPI)Telemedicine visit with patient's location at [facility] and provider's location at offsite office. Additional [...] is currently in an MAT program at [facility] and is taking Suboxone, she has [...] during this visit, including review of any fyxn-uji-zadixmm medications, herbal therapies, and/or supplements.Allergy ReviewAllergy List [...] Screening Pap Smear/HPV TestingReviewed: Previous Comments: has [employer] for this (01/24/2020)Today's Comments: yesturday womens wellnessReview of Systems General: Denies chills, fatigue, [...] FairAssessment & Plan Problems:Assessed:Chronic hepatitis C (ICD-070.54) (RLY91-S01.2) Assessment: Instructions: You have had blood work [...] labs and follow up.Chronic hepatitis C (ICD-070.54) (UKO26-Y80.2) Assessment: Needs viral load, genotyping, hep A [...] Allergies (updated 01/31/2020) Orders:Hepatitis C Viral Load [CPT-95403] HCV Genotype [CPT-37265] HCV Antibody To RNA Reflex Test [CPT-91515] HepA IgG [CPT-36519] Office Visit - Established, Level 3 [CPT-61590IT] Follow-Up Return to clinic: 1 month after starting medication for Hep c for blood work Clinical Visit Summary Compl eted Name Value Range Interpretation Code Description Data Desiree rce(s) Supporting Document(s) ID Date Data Source [id number] 01/31/2020 03:41:56 PM EDT [facility] Name Value Range Interpretation Code Description Data Desiree rce(s) Supporting Document(s) PLATELETS 233 10*3/mm3 [facility] ID Date Data Source [id number] 01/24/2020 02:55:00 PM EDT [facility] Name Value Range Interpretation Code Description Data Desiree rce(s) Supporting Document(s) HCT 41.7 % 36.0-47.0 [facility] HGB 13.7 g/dL 12.0-15.5 [facility] MCH 32.9 G/DL pg 32.0-36.5 N [facility] MCHC 30.3 PG % 27.0-33.0 N [facility] PLATELETS 233 10 10*3/mm3 150-450 [facility] RBC 4.52 10 10*6/mm3 4.00-5.40 [facility] RDW 12.3 % 11.5-14.5 [facility] WBC TOTAL 9.1 4.0-10.0 [facility] ID Date Data Source [id number] 01/24/2020 02:55:00 PM EDT [facility] Name Value Range Interpretation Code Description Data Desiree rce(s) Supporting Document(s) BG FASTING 78 mg/dL 70-100 [facility] ID Date Data Source [id number] 01/24/2020 01:51:08 PM EDT [facility] Measurements & CalculationsHeight: 63 inches (5 [...] (ER) or urgent care clinic? Yes - [facility] ER Emergency room (ER) or urgent care date reported today: 01/17/2020Have you seen another healthcare provider? Yes - [facility] additions Have you seen a dentist? Yes - [facility] Intake performed by: Klaudia Dalton LPN, [...] suboxone program with Dr Birdie Pelaez in [facility]. Pt states no illicit drug use x [...] during this visit, including review of any wuow-zrf-fhonmex medications, herbal therapies, and/or supplements.Allergy ReviewAllergy List [...] FairAssessment & Plan Problems:Added: Health Screening (ICD-V70.0) (YZR55-W67.9) Assessment: Instructions: Fasting labs ordered for you today.Rib pain (ICD- 786.50) (XJT83-I04.81) Assessment: Instructions: Please continue ibuprofen as prescribed. May use moist heat as neededChronic hepatitis C (ICD-070.54) (I WO40-E13.2) Assessment: Instructions: Labs ordered , will contact you to set up an appointment with our Hep c specialist.Rib pain (ICD-786.50) (ICD10- R07.81) Assessment: patient states pain to right rib area,Assessed:Opioid dependence, in remission (ICD-304.03) (UCB82-M44.21) Assessment: Instructions: Please try to avoid illicit [...] Known Allergies (updated 01/24/2020) Orders:COMP METABOLIC PANEL [CPT-85930] CBC W/DIFF [CPT-78288] LIPID PANEL [CPT- 12573] HepA IgG [CPT-44550] HBsAg [CPT-99036] HEPATITIS B SURF ANTIBODY HBSAB [CPT-73927] HEPATITIS B CORE ANTIBODY HBCAB TOTAL [CPT-29628] Hepatitis C Viral Load [CPT-58997] HCV Genotype [CPT-54646] HCV Antibody To RNA Reflex Test [CPT- 17805] HEPATITIS ANTIBODY HAAB TOTAL [CPT-35855] HIV Antibody [CPT-10738] 52138 - Venipuncture [CPT-58471] Adult - Ofc Vst, EST, Level III [CPT-26458] Follow-Up Return to clinic: as scheduled and as needed Clinical Visit Summary CompletedMedications:Cancelled TESSALON PERLES 100 MG ORAL CAPSULE (BENZONATATE) take one tablet by mouth three times daily as needed for cough #30[Capsule] x 0 Route:ORAL Entered by: Klaudia Dalton LPN Authorized by: Dalia WALKER Method used: Electronically to [facility] (retail) [address] [place] [address] RxID: [id number] FLONASE ALLERGY RELIEF 50 MCG/ACT NASAL SUSPENSION (FLUTICASONE PROPIONATE) one spray to each nostril twice daily as needed #1[Container] x 0 Route:NASAL Entered by: Klaudia Dalton LPN Authorized by: Dalia WALKER Method used: Electronically to [facility] (retail) [address] [place] [address] RxID: [id number] AZITHROMYCIN 250 MG ORAL TABLET (AZITHROMYCIN) take two tablets by mouth on day one then one tablet by mouth daily x 4 days #6[Tablet] x 0 Route:ORAL Entered by: Klaudia Dalton LPN Authorized by: Dalia WALKER Electronically sig saravanan by: Dalia WALKER on 01/24/2020 Method used: Electronically to [facility] (retail) [address] [place] [address] RxID: [id number] In-House Blood TestsDate/Time Collected: January 24, 2020 2:58 PMTest Result Reference Range Normal ValueComments: blood draw done in office, taken from right ac, tolerated well.Jasmine Rich, January 24, 2020 2:58 PM Name Value Range Interpretation Code Description Data Desiree rce(s) Supporting Document(s) ID Date Data Source [id number] 12/08/2019 10:49:00 AM EDT [facility] Name Value Range Interpretation Code Description Data Desiree rce(s) Supporting Document(s) Sodium 141 mmol/L 136-145 Normal (applies to non-numeric resul ts) [facility] Potassium 3.5-5.1 Below low normal [facility] spital Chloride 105 mmol/L 98-107 Normal (applies to non-numeric resul ts) [facility] Carbon Dioxide CO2 21-32 Normal (applies to non-numer ic results) [facility] Anion Gap 5.0-16.0 Normal (applies to non-numeric resul ts) [facility] BUN 11 mg/dL 7-18 Normal (applies to non-numeric results) [facility] Creatinine,Serum 0.7-1.2 Normal (applies to non-numeric results) [facility] GFR >60 Normal (applies to non-numeric results) [facility] Glucose Level 95 mg/dL 60-99 Normal (applies to non-numeric re sults) [facility] Reference range is only applicable when patient is fasting Note the following drug interference: Sulfasalazine Sulfapyridine Can see falsely depressed Can see falsely elevated result with up to 17% results with up to 11% decrease in measurement increase in measurement Recommend patients be collected for this test prior to administration of either drug. Calcium 8.5-10.1 Normal (applies to non-numeric resul ts) [facility] Bilirubin,Total 0.1-1.9 Normal (applies to non-numeric results) [facility] SGOT(AST) 21 U/L 15-37 Normal (applies to non-numeric resul ts) [facility] Note the following drug interference: Sulfasalazine Sulfapyridine Can see falsely depressed Can see falsely elevated result with up to 10% results with up to 10% decrease in measurement increase in measurement Recommend patients be collected for this test prior to administration of either drug. SGPT(ALT) 18 U/L 12-78 Normal (applies to non-numeric resul ts) [facility] Note the following drug interference: Sulfasalazine Sulfapyridine Can see falsely depressed Can see falsely elevated result with up to 29% results with up to 10% decrease in measurement increase in measurement Recommend patients be collected for this test prior to administration of either drug. Alkaline Phosphatase 76 U/L 38-126 Normal (applies to non-num estefania results) [facility] can increase Alkaline Phosp le vels up to 2 times the normal adult value. Normal values for children and adolescents are 2 to 3 times the normal adult value. Total Protein 6.0-8.2 Normal (applies to non-numeric re sults) [facility] Albumin Level 3.4-5.0 Normal (applies to non-numeric re sults) [facility] ID Date Data Source [id number] 12/08/2019 10:49:00 AM EDT [facility] Name Value Range Interpretation Code Description Data Desiree rce(s) Supporting Document(s) Phosphorus 2.5-4.9 Normal (applies to non-numeric resul ts) [facility] ID Date Data Source [id number] 12/08/2019 10:49:00 AM EDT [facility] Name Value Range Interpretation Code Description Data Desiree rce(s) Supporting Document(s) Magnesium 1.8-2.4 Normal (applies to non-numeric resul ts) [facility] ID Date Data Source [id number] 12/08/2019 10:49:00 AM EDT [facility] Name Value Range Interpretation Code Description Data Desiree rce(s) Supporting Document(s) White Blood Count 3.5-10.5 Normal (applies to non-numeri c results) [facility] Red Blood Count 3.90-5.00 Normal (applies to non-numeric results) [facility] Hemoglobin 12.0-15.5 Normal (applies to non-numeric resul ts) [facility] Hematocrit 34.9-44.5 Normal (applies to non-numeric resul ts) [facility] Mean Corpuscular Volume 81.2-95.1 Normal (applies to non- numeric results) [facility] Mean Corpuscular Hgb 25.6-32.2 Normal (applies to non-num estefania results) [facility] Mean Corpuscular Hgb Conc 32.0-36.0 Normal (applies to no n-numeric results) [facility] Red Cell Distribution Width 11.9-15.5 Normal (appli es to non-numeric results) [facility] Platelet Count 297 x10 3/uL 150-450 Normal (applies to non-numeric results) [facility] Mean Platelet Volume 9.4-12.4 Normal (applies to non-num estefania results) [facility] Neutrophils% (Auto) 31.0-71.0 Normal (applies to non-nume rufina results) [facility] Lymphocytes% (Auto) 20.0-55.0 Normal (applies to non-nume rufina results) [facility] Monocytes% (Auto) 4.0-12.0 Normal (applies to non-numeri c results) [facility] Eosinophils% (Auto) 1.0-8.0 Normal (applies to non-nume rufina results) [facility] Basophils% (Auto) 0.0-2.0 Normal (applies to non-numeri c results) [facility] Immature Granulocytes% (Auto) 0.0-2.0 Normal (dahlia lies to non-numeric results) [facility] Neutrophils# (Auto) 1.50-6.20 Normal (applies to non-nume rufina results) [facility] Lymphocytes# (Auto) 1.20-4.00 Normal (applies to non-nume rufina results) [facility] Monocytes# (Auto) 0.00-0.90 Normal (applies to non-numeri c results) [facility] Eosinophils# (Auto) 0.00-0.50 Normal (applies to non-nume rufina results) [facility] Basophils# (Auto) 0.00-0.20 Normal (applies to non-numeri c results) [facility] Immature Granulocytes# (Auto) 0.00-7.00 No rmal (applies to non-numeric results) [facility] ID Date Data Source [id number] 12/08/2019 10:49:00 AM EDT [facility] Name Value Range Interpretation Code Description Data Desiree rce(s) Supporting Document(s) HIV Screen result Nonreactive Normal (applies to non-numer ic results) [facility] Test Performed By: [facility] [address] [place] [address] Director: Jesse Taylor MD ID Date Data Source [id number] 12/06/2019 03:57:00 PM EDT [facility] Name Value Range Interpretation Code Description Data Desiree rce(s) Supporting Document(s) HIV 1/2 Ab p24 Ag Screen Nonreactive Normal (applies to non-numeric results) [facility] Test Performed By: [facility] [address] [place] [address] Director: Jesse Taylor MD ID Date Data Source [id number] 12/05/2019 04:05:00 PM EDT [facility] Collected By: Nurse Initials: MAURICIO Evangelista Name Value Range Interpretation Code Description Data Desiree rce(s) Supporting Document(s) Color,Urine Colorl-Dk Y Normal (applies to non-numeric res ults) [facility] Clarity,Urine Clear Normal (applies to non-numeric re sults) [facility] Specific [place],Urine 1.005-1.030 Normal (applies to non- numeric results) [facility] pH,Urine 5.0-8.0 Normal (applies to non-numeric resul ts) [facility] Protein,Urine Negative [facility] Glucose,Urine Negative Normal (applies to non-numeric re sults) [facility] Ketones,Urine Negative Normal (applies to non-numeric re sults) [facility] Blood,Urine Negative Normal (applies to non-numeric resu lts) [facility] Bilirubin,Urine Negative [facility] pital Urobilinogen,Urine 0.2-1.0 Normal (applies to non-numer ic results) [facility] Leukocyte Esterase,Urine Negative Normal (applies to non -numeric results) [facility] Nitrite,Urine Negative Normal (applies to non-numeric re sults) [facility] RBC,Urine None Seen Normal (applies to non-numeric resul ts) [facility] WBC,Urine None Seen [facility] Casts,Urine None Seen Normal (applies to non-numeric resu lts) [facility] Squamous Cells,Urine None Seen [facility] Bacteria,Urine None Seen [facility] ital ID Date Data Source [id number] 12/05/2019 10:58:00 AM EDT [facility] Name Value Range Interpretation Code Description Data Desiree rce(s) Supporting Document(s) Sodium 139 mmol/L 136-145 Normal (applies to non-numeric resul ts) [facility] Potassium 3.5-5.1 Normal (applies to non-numeric resul ts) [facility] Chloride 103 mmol/L 98-107 Normal (applies to non-numeric resul ts) [facility] Carbon Dioxide CO2 21-32 Normal (applies to non-numer ic results) [facility] Anion Gap 5.0-16.0 Normal (applies to non-numeric resul ts) [facility] BUN 12 mg/dL 7-18 Normal (applies to non-numeric results) [facility] Creatinine,Serum 0.7-1.2 Normal (applies to non-numeric results) [facility] GFR >60 Normal (applies to non-numeric results) [facility] Glucose Level 117 mg/dL 60-99 Above high normal [facility] Reference range is only applicable when patient is fasting Note the following drug interference: Sulfasalazine Sulfapyridine Can see falsely depressed Can see falsely elevated result with up to 17% results with up to 11% decrease in measurement increase in measurement Recommend patients be collected for this test prior to administration of either drug. Calcium 8.5-10.1 Normal (applies to non-numeric resul ts) [facility] Bilirubin,Total 0.1-1.9 Normal (applies to non-numeric results) [facility] SGOT(AST) 20 U/L 15-37 Normal (applies to non-numeric resul ts) [facility] Note the following drug interference: Sulfasalazine Sulfapyridine Can see falsely depressed Can see falsely elevated result with up to 10% results with up to 10% decrease in measurement increase in measurement Recommend patients be collected for this test prior to administration of either drug. SGPT(ALT) 20 U/L 12-78 Normal (applies to non-numeric resul ts) [facility] Note the following drug interference: Sulfasalazine Sulfapyridine Can see falsely depressed Can see falsely elevated result with up to 29% results with up to 10% decrease in measurement increase in measurement Recommend patients be collected for this test prior to administration of either drug. Alkaline Phosphatase 82 U/L 38-126 Normal (applies to non-num estefania results) [facility] can increase Alkaline Phosp le vels up to 2 times the normal adult value. Normal values for children and adolescents are 2 to 3 times the normal adult value. Total Protein 6.0-8.2 Normal (applies to non-numeric re sults) [facility] Albumin Level 3.4-5.0 Normal (applies to non-numeric re sults) [facility] ID Date Data Source [id number] 12/08/2019 10:54:00 AM EDT [facility] Name Value Range Interpretation Code Description Data Desiree rce(s) Supporting Document(s) Hepatitis A Ab,IgG result Normal (applies to no n-numeric results) [facility] Result indicates immunity to hepatitis A infection from either vaccination or past exposure to hepatitis A. False-positive results may be observed in patients with CMV antibodies or heterophilic antibodies. REFERENCE VALUE Unvaccinated: Negative Vaccinated: Positive Test Performed by: [facility] [place] [address] Crusher Feeder: Jackson Alanis M.D. Ph.D.; CLIA# [id number] ID Date Data Source [id number] 12/07/2019 09:26:00 AM EDT [facility] Name Value Range Interpretation Code Description Data Desiree rce(s) Supporting Document(s) Hepatitis A Ab,IgG result Normal (applies to no n-numeric results) [facility] Result indicates immunity to hepatitis A infection from either vaccination or past exposure to hepatitis A. False-positive results may be observed in patients with CMV antibodies or heterophilic antibodies. REFERENCE VALUE Unvaccinated: Negative Vaccinated: Positive Test Performed by: [facility] [place] [address] [employer]: Jackson Alanis M.D. Ph.D.; CLIA# [id number] ID Date Data Source [id number] 12/05/2019 02:27:00 PM EDT [facility] Name Value Range Interpretation Code Description Data Desiree rce(s) Supporting Document(s) CPK result 345 U/L 26-192 Siu [facility] Test Performed By: [place] [address] Director: Jesse Taylor MD ID Date Data Source [id number] 12/05/2019 02:27:00 PM EDT [facility] Value Range Interpretation Code Description Data Desiree rce(s) Supporting Document(s) Hep Bs Ag result T-Test Nonreactive Normal (applies to non -numeric results) [facility] Test Performed By: [place] [address] Director: Jesse Taylor MD ID Date Data Source [id number] 12/05/2019 02:27:00 PM EDT [facility] Value Range Interpretation Code Description Data Desiree rce(s) Supporting Document(s) Syphilis Serology result Nonreactive Normal (applies to non-numeric results) [facility] Test Performed By: [place] [address] Director: Jesse Taylor MD ID Date Data Source [id number] 12/05/2019 02:11:00 PM EDT [facility] Value Range Interpretation Code Description Data Desiree rce(s) Supporting Document(s) Hep Bs Ag Result T-Test Nonreactive Normal (applies to non -numeric results) [facility] Test Performed By: [facility] [address] [place] [address] Director: Jesse Taylor MD ID Date Data Source [id number] 12/05/2019 02:11:00 PM EDT [facility] Value Range Interpretation Code Description Data Desiree rce(s) Supporting Document(s) Syphilis Serology Nonreactive Normal (applies to non-numer ic results) [facility] Test Performed By: [facility] [address] [place] [address] Director: Jesse Taylor MD ID Date Data Source [id number] 12/05/2019 02:10:00 PM EDT [facility] Name Value Range Interpretation Code Description Data Desiree rce(s) Supporting Document(s) CPK 345 U/L 26-192 Above high normal [facility] Test Performed By: [facility] [address] [place] [address] Director: Jesse Taylor MD ID Date Data Source [id number] 12/05/2019 12:54:00 AM EDT [facility] Name Value Range Interpretation Code Description Data Desiree rce(s) Supporting Document(s) Sodium 139 mmol/L 136-145 Normal (applies to non-numeric resul ts) [facility] Potassium 3.5-5.1 PL [facility] MAURICIO HANKINS read back critical information 12/05/19 0053 [facility] Chloride 101 mmol/L 98-107 Normal (applies to non-numeric resul ts) [facility] Carbon Dioxide CO2 21-32 Normal (applies to non-numer ic results) [facility] Anion Gap 5.0-16.0 Normal (applies to non-numeric resul ts) [facility] BUN 14 mg/dL 7-18 Normal (applies to non-numeric results) [facility] Creatinine,Serum 0.7-1.2 Normal (applies to non-numeric results) [facility] GFR >60 Normal (applies to non-numeric results) [facility] Glucose Level 111 mg/dL 60-99 Above high normal [facility] Reference range is only applicable when patient is fasting Note the following drug interference: Sulfasalazine Sulfapyridine Can see falsely depressed Can see falsely elevated result with up to 17% results with up to 11% decrease in measurement increase in measurement Recommend patients be collected for this test prior to administration of either drug. Calcium 8.5-10.1 Normal (applies to non-numeric resul ts) [facility] Bilirubin,Total 0.1-1.9 Normal (applies to non-numeric results) [facility] SGOT(AST) 24 U/L 15-37 Normal (applies to non-numeric resul ts) [facility] Note the following drug interference: Sulfasalazine Sulfapyridine Can see falsely depressed Can see falsely elevated result with up to 10% results with up to 10% decrease in measurement increase in measurement Recommend patients be collected for this test prior to administration of either drug. SGPT(ALT) 20 U/L 12-78 Normal (applies to non-numeric resul ts) [facility] Note the following drug interference: Sulfasalazine Sulfapyridine Can see falsely depressed Can see falsely elevated result with up to 29% results with up to 10% decrease in measurement increase in measurement Recommend patients be collected for this test prior to administration of either drug. Alkaline Phosphatase 90 U/L 38-126 Normal (applies to non-num estefania results) [facility] can increase Alkaline Phosp le vels up to 2 times the normal adult value. Normal values for children and adolescents are 2 to 3 times the normal adult value. Total Protein 6.0-8.2 Normal (applies to non-numeric re sults) [facility] Albumin Level 3.4-5.0 Normal (applies to non-numeric re sults) [facility] ID Date Data Source [id number] 12/05/2019 12:54:00 AM EDT [facility] Name Value Range Interpretation Code Description Data Desiree rce(s) Supporting Document(s) Bilirubin,Direct 0.05-0.20 Normal (applies to non-numeric results) [facility] ID Date Data Source [id number] 12/05/2019 12:54:00 AM EDT [facility] Name Value Range Interpretation Code Description Data Desiree rce(s) Supporting Document(s) Phosphorus 2.5-4.9 Normal (applies to non-numeric resul ts) [facility] ID Date Data Source [id number] 12/05/2019 12:54:00 AM EDT [facility] Name Value Range Interpretation Code Description Data Desiree rce(s) Supporting Document(s) Magnesium 1.8-2.4 Above high normal [facility] ID Date Data Source [id number] 12/05/2019 12:54:00 AM EDT [facility] Name Value Range Interpretation Code Description Data Desiree rce(s) Supporting Document(s) Thyroid Stimulate Hormone TSH 0.358-3.74 No rmal (applies to non-numeric results) [facility] ID Date Data Source [id number] 12/05/2019 12:38:00 AM EDT [facility] Name Value Range Interpretation Code Description Data Desiree rce(s) Supporting Document(s) Ethanol Less than 10.0 Normal (applies to non-numeric r esults) [facility] ID Date Data Source [id number] 12/05/2019 12:32:00 AM EDT [facility] Name Value Range Interpretation Code Description Data Desiree rce(s) Supporting Document(s) Beta HCG,Screen Negative Normal (applies to non-numeric results) [facility] ID Date Data Source [id number] 12/05/2019 12:17:00 AM EDT [facility] Name Value Range Interpretation Code Description Data Desiree rce(s) Supporting Document(s) White Blood Count 3.5-10.5 Above high normal [facility] Red Blood Count 3.90-5.00 Normal (applies to non-numeric results) [facility] Hemoglobin 12.0-15.5 Normal (applies to non-numeric resul ts) [facility] Hematocrit 34.9-44.5 Normal (applies to non-numeric resul ts) [facility] Mean Corpuscular Volume 81.2-95.1 Normal (applies to non- numeric results) [facility] Mean Corpuscular Hgb 25.6-32.2 Normal (applies to non-num estefania results) [facility] Mean Corpuscular Hgb Conc 32.0-36.0 Normal (applies to no n-numeric results) [facility] Red Cell Distribution Width 11.9-15.5 Normal (appli es to non-numeric results) [facility] Platelet Count 324 x10 3/uL 150-450 Normal (applies to non-numeric results) [facility] Mean Platelet Volume 9.4-12.4 Normal (applies to non-num estefania results) [facility] Neutrophils% (Auto) 31.0-71.0 Normal (applies to non-nume rufina results) [facility] Lymphocytes% (Auto) 20.0-55.0 Normal (applies to non-nume rufina results) [facility] Monocytes% (Auto) 4.0-12.0 Normal (applies to non-numeri c results) [facility] Eosinophils% (Auto) 1.0-8.0 Below low normal [facility] Basophils% (Auto) 0.0-2.0 Normal (applies to non-numeri c results) [facility] Immature Granulocytes% (Auto) 0.0-2.0 Normal (dahlia lies to non-numeric results) [facility] Neutrophils# (Auto) 1.50-6.20 Above high normal [facility] Lymphocytes# (Auto) 1.20-4.00 Above high normal [facility] Monocytes# (Auto) 0.00-0.90 Above high normal [facility] Eosinophils# (Auto) 0.00-0.50 Normal (applies to non-nume rufina results) [facility] Basophils# (Auto) 0.00-0.20 Normal (applies to non-numeri c results) [facility] Immature Granulocytes# (Auto) 0.00-7.00 No rmal (applies to non-numeric results) [facility] ID Date Data Source [id number] 12/12/2019 04:56:00 PM EDT [facility] Name Value Range Interpretation Code Description Data Desiree rce(s) Supporting Document(s) Chlamydia,Urine result Negative Normal (applies to non-n umeric results) [facility] Test Performed By: [facility] skip Laboratory [address] [place] [address] Director: Jesse Taylor MD . GC Urine result Negative Normal (applies to non-numeric results) [facility] Test Performed By: [facility] [address] [place] [address] Director: Jesse Taylor MD . Methodology: Second generation nucleic acid amplification. ID Date Data Source [id number] 12/12/2019 04:52:00 PM EDT [facility] Name Value Range Interpretation Code Description Data Desiree rce(s) Supporting Document(s) Chlamydia,Urine Negative Normal (applies to non-numeric results) [facility] Test Performed By: [facility] [address] [place] [address] Director: Jesse Taylor MD . GC Urine Negative Normal (applies to non-numeric resul ts) [facility] Test Performed By: [facility] [address] [place] [address] Director: Jesse Taylor MD . Methodology: Second generation nucleic acid amplification. ID Date Data Source [id number] 11/21/2019 04:14:12 PM EDT [facility] Measurements & CalculationsHeight: 63 inches (5 [...] during this visit, including review of any lgzs-xik-svegdke medications, herbal therapies, and/or supplements.Allergy ReviewAllergy List was reviewed and/or updated during this visit. Patient has no known allergies.Adult Preventive CareProvider Calculated and Reviewed all Clinical Protocols for patient today. Labs/Meds/Other Counseling-Nutrition and Physical Activity:BMI Interpretation: Obese (11/21/2019) Counseling: Done (11/21/2019) Physical Activity: Done (11/21/2019)Cancer Screening Pap Smear/HPV TestingReviewed: Previous Comments: Pt states she will set up appt today with [facility] (12/15/2018)Today's Comments: sees women wellness in January [...] Plan Problems:Added: Congestion of nasal sinus (ICD-478.19) (UFH16-L37.81)Cough (ICD-786.2) (FEE17-G69) Assessment: Instructions: We have sent a prescription to your pharmacy today. Please take medication as pres cribed. Please report any major side effects. Please try to maintain adequate nutritiuon, adequate hydration and adequate rest.Acute upper respiratory infection, unspecified (YCT70-I30.9) Assessment: Instructions: We have sent a prescription [...] ElectronicAllergies:No Known Allergies (updated 11/21/2019) Orders:Flu test [CPT-91565] Adult - Ofc Vst, EST, Level III [CPT-06769] Follow-Up Return to clinic: 4-6 weeks for follow up. Clinical Visit Summary CompletedMedications:AZITHROMYCIN 250 MG ORAL TABLET (AZITHROMYCIN) take two tablets by mouth on day one then one tablet by mouth daily x 4 days #6[Tablet] x 0 Route:ORAL Entered and Authorized by: Dalia WALKER Method used: Electronically to [facility] (retail) [address] [place] [address] Note to Pharmacy: Route: ORAL; Indications: ACUTE UPPER RESPIRATORY INFECTION, UNSPECIFIED RxID: [id number] ALLERGY RELIEF 50 MCG/ACT NASAL SUSPENSION (FLUTICASONE PROPIONATE) one spray to each nostril twice daily as needed #1[Container] x 0 Route:NASAL Entered and Authorized by: Dalia WALKER Method used: Electronically to [facility] (retail) [address] [place] [address] Note to Pharmacy: Route: NASAL; Indications: COUGH;CONGESTION OF NASAL SINUS RxID: [id number] PERLES 100 MG ORAL CAPSULE (BENZONATATE) take one tablet by mouth three times daily as needed for cough #30[Capsule] x 0 Route:ORAL Entered and Authorized by: Dalia WALKER Method used: Electronically to [facility] (retail) [address] [place] [address] Note to Pharmacy: Route: ORAL; Indications: COUGH RxID: [id number] In-House Lab TestsDate/Time Collected: November 21, 2019 5:44 PMDate/Time Received: November 21, 2019 5:44 PMTest Result Reference Range Normal ValueInfluenza A: negative negativeInfluenza B: negative negativeJoyce Krystle JACKSON, November 21, 2019 5:44 PM Name Value Range Interpretation Code Description Data Desiree rce(s) Supporting Document(s) ID Date Data Source [id number] 11/21/2019 04:14:12 PM EDT [facility] Name Value Range Interpretation Code Description Data Desiree rce(s) Supporting Document(s) INFLUEN A AG negative [facility] ID Date Data Source [id number] 11/03/2019 09:16:00 AM EDT Health system Name Value Range Interpretation Code Description Data Desiree rce(s) Supporting Document(s) Blood Culture-Venous [facility] ID Date Data Source [id number] 10/29/2019 09:52:00 AM EDT [facility] Name Value Range Interpretation Code Description Data Desiree rce(s) Supporting Document(s) Sodium 133 mmol/L 137-145 Below low normal [facility] Potassium 3.5-5.1 Normal (applies to non-numeric resul ts) [facility] Chloride 106 mmol/L 98-112 Normal (applies to non-numeric resul ts) [facility] Carbon Dioxide CO2 22.0-33.0 Below low normal [facility] Anion Gap 4.0-11.0 Normal (applies to non-numeric resul ts) [facility] BUN 11 mg/dL 7-17 Normal (applies to non-numeric resul ts) [facility] Creatinine 0.70-1.20 Normal (applies to non-numeric resul ts) [facility] GFR 81 mL/min >60 Normal (applies to non-numeric resul ts) [facility] Result based on MDRD formula. Glucose Level 128 mg/dL 74-99 Above high normal [facility] The reference range is only applicable w hen fasting. Calcium-Uncorrected 8.4-10.2 Normal (applies to non-nume rufina results) [facility] Corrected Calcium 8.4-10.2 Normal (applies to non-numeri c results) [facility] Bilirubin,Total 0.2-1.3 Normal (applies to non-numeric results) [facility] SGOT(AST) 57 U/L 14-36 Above high normal [facility] SGPT(ALT) 38 U/L 9-52 Normal (applies to non-numeric resul ts) [facility] Alkaline Phosphatase 81 U/L 38-126 Normal (applies to non-num estefania results) [facility] can increase Alkaline Phosp le vels up to 2 times the normal adult value. Normal values for children and adolescents are 2 to 3 times the normal adult value. Total Protein 6.3-8.2 Normal (applies to non-numeric re sults) [facility] Albumin 3.5-5.0 Normal (applies to non-numeric resul ts) [facility] ID Date Data Source [id number] 10/29/2019 09:37:00 AM EDT [facility] Name Value Range Interpretation Code Description Data Desiree rce(s) Supporting Document(s) White Blood Count 4.8-10.8 Normal (applies to non-numeri c results) [facility] Red Blood Count 3.68-5.22 Normal (applies to non-numeric results) [facility] Hemoglobin 11.2-15.7 Normal (applies to non-numeric resul ts) [facility] Hematocrit 34.1-44.9 Normal (applies to non-numeric resul ts) [facility] Mean Corpuscular Volume 81-99 Normal (applies to non- numeric results) [facility] Mean Corpuscular Hemoglobin 27.0-33.0 Normal (appli es to non-numeric results) [facility] Mean Corpuscular HGB Conc 32.0-36.0 Normal (applies to no n-numeric results) [facility] Red Cell Distribution Width 11.5-14.5 Normal (appli es to non-numeric results) [facility] Platelet Count 239 X10 3/uL 130-450 Normal (applies to non-numeric results) [facility] Mean Platelet Volume 9.5-12.7 Normal (applies to non-num estefania results) [facility] Imm Grans% (AUTO) 1 % 0-2 Normal (applies to non-numeri c results) [facility] Neutrophils % (AUTO) 58 % 40-75 Normal (applies to non-num estefania results) [facility] Lymphocytes % (AUTO) 30 % 21-46 Normal (applies to non-num estefania results) [facility] Monocytes % (AUTO) 10 % 5-12 Normal (applies to non-numer ic results) [facility] Eosinophils % (AUTO) 1 % 1-5 Normal (applies to non-num estefania results) [facility] Basophils % (AUTO) 1 % 0-1 Normal (applies to non-numer ic results) [facility] Imm Grans# (AUTO) 0.00-0.50 Normal (applies to non-numeri c results) [facility] Neutrophils # (AUTO) 1.5-8.1 Normal (applies to non-num estefania results) [facility] Lymphocytes # (AUTO) 1.0-3.1 Normal (applies to non-num estefania results) [facility] Monocytes # (AUTO) 0.2-1.3 Normal (applies to non-numer ic results) [facility] Eosinophils# (AUTO) 0.0-0.5 Normal (applies to non-nume rufina results) [facility] Basophils # (AUTO) 0.00-0.10 Normal (applies to non-numer ic results) [facility] ID Date Data Source [id number] 11/03/2019 09:16:00 AM EDT Health system Name Value Range Interpretation Code Description Data Desiree rce(s) Supporting Document(s) Blood Culture-Venous [facility] ID Date Data Source [id number] 10/31/2019 11:10:00 AM EDT Health system Collected By: Nurse's Aide Initials: CLAIR Time Collected: 0750 Name Value Range Interpretation Code Description Data Desiree rce(s) Supporting Document(s) Urine Culture Normal (applies to non-numeric re sults) [facility] ID Date Data Source [id number] 10/29/2019 10:13:00 AM EDT [facility] Name Value Range Interpretation Code Description Data Desiree rce(s) Supporting Document(s) Color,Urine Yellow Normal (applies to non-numeric resu lts) [facility] Clarity,Urine Clear [facility] Specific [place],Urine 1.001-1.030 Normal (applies to non- numeric results) [facility] PH,Urine 5.0-8.0 Normal (applies to non-numeric resul ts) [facility] Protein,Urine Negative [facility] Glucose,Urine (UA) Negative Normal (applies to non-numer ic results) [facility] Ketones,Urine Negative Normal (applies to non-numeric re sults) [facility] Blood,Urine Negative Normal (applies to non-numeric resu lts) [facility] Bilirubin,Urine Negative Normal (applies to non-numeric results) [facility] Urobilinogen,Urine Norm 0.2-1 Normal (applies to non-numer ic results) [facility] Leukocyte Esterase,Urine Negative [facility] Nitrite,Urine Negative Normal (applies to non-numeric re sults) [facility] RBC,Auto Urine 0-[address] [facility] WBC Urine Auto 0-10 Normal (applies to non-numeric r esults) [facility] Casts,Hyaline,Urine Auto 0-2 Normal (applies to non -numeric results) [facility] Bacteria Urine Auto None Seen Normal (applies to non-nume rufina results) [facility] Epithelial Cell Ur Auto None-Few Normal (applies to non- numeric results) [facility] ID Date Data Source [id number] 10/29/2019 08:38:00 AM EDT Health system Method performed by Isothermal Nucle ic Acid [...] rce(s) Supporting Document(s) ID Date Data Source [id number] 10/27/2019 12:09:00 PM EST Health system Method performed by Isothermal Nucle ic Acid [...] rce(s) Supporting Document(s) ID Date Data Source [id number] 10/19/2019 09:37:00 AM [facility] Name Value Range Interpretation Code Description Data Desiree rce(s) Supporting Document(s) HIV 1/2 Ab p24 Ag Screen Nonreactive Normal (applies to non-numeric results) [facility] ID Date Data Source [id number] 10/19/2019 09:37:00 AM [facility] Name Value Range Interpretation Code Description Data Desiree rce(s) Supporting Document(s) HAVM Nonreactive Normal (applies to non-numeric resu lts) [facility] ID Date Data Source [id number] 10/19/2019 09:37:00 AM [facility] Name Value Range Interpretation Code Description Data Desiree rce(s) Supporting Document(s) Vitamin D,Total (25OH) 30.0-100.[address] [facility] Reference Range: <10 ng/mL: Deficien t 10-30 ng/mL: Insufficient 30-100 ng/mL: Sufficient >100 ng/mL: Toxicity possible ID Date Data Source [id number] 10/19/2019 09:03:00 AM [facility] Name Value Range Interpretation Code Description Data Desiree rce(s) Supporting Document(s) Sodium 138 mmol/L 137-145 Normal (applies to non-numeric resul ts) [facility] Potassium 3.5-5.1 Normal (applies to non-numeric resul ts) [facility] Chloride 107 mmol/L 98-112 Normal (applies to non-numeric resul ts) [facility] Carbon Dioxide CO2 22.0-33.0 Normal (applies to non-numer ic results) [facility] Anion Gap 4.0-11.0 Normal (applies to non-numeric resul ts) [facility] BUN 11 mg/dL 7-17 Normal (applies to non-numeric resul ts) [facility] Creatinine 0.70-1.20 Normal (applies to non-numeric resul ts) [facility] GFR 87 mL/min >60 Normal (applies to non-numeric resul ts) [facility] Result based on MDRD formula. Glucose Level 101 mg/dL 74-99 Above high normal [facility] The reference range is only applicable w hen fasting. Calcium-Uncorrected 8.4-10.2 Normal (applies to non-nume rufina results) [facility] Corrected Calcium 8.4-10.2 Normal (applies to non-numeri c results) [facility] Bilirubin,Total 0.2-1.3 Normal (applies to non-numeric results) [facility] Bilirubin,Direct 0.0-0.3 Normal (applies to non-numeric results) [facility] SGOT(AST) 12 U/L 14-36 Below low normal Health system SGPT(ALT) 13 U/L 9-52 Normal (applies to non-numeric resul ts) [facility] Alkaline Phosphatase 79 U/L 38-126 Normal (applies to non-num estefania results) [facility] can increase Alkaline Phosp le vels up to 2 times the normal adult value. Normal values for children and adolescents are 2 to 3 times the normal adult value. CPK 56 U/L 26-192 Normal (applies to non-numeric resul ts) [facility] Total Protein 6.3-8.2 Normal (applies to non-numeric re sults) [facility] Albumin 3.5-5.0 Normal (applies to non-numeric resul ts) [facility] Thyroid Stimulate Hormone TSH 0.358-3.740 No rmal (applies to non-numeric results) [facility] ID Date Data Source [id number] 10/19/2019 09:03:00 AM EST [facility] Name Value Range Interpretation Code Description Data Desiree rce(s) Supporting Document(s) Magnesium 1.80-2.40 Normal (applies to non-numeric resul ts) [facility] ID Date Data Source [id number] 10/19/2019 09:03:00 AM EST [facility] Name Value Range Interpretation Code Description Data Desiree rce(s) Supporting Document(s) C-Reactive Protein,Wide Range <3.[address] [facility] ID Date Data Source [id number] 10/19/2019 08:34:00 AM EST [facility] Name Value Range Interpretation Code Description Data Desiree rce(s) Supporting Document(s) White Blood Count 4.8-10.8 Above high normal [facility] Red Blood Count 3.68-5.22 Normal (applies to non-numeric results) [facility] Hemoglobin 11.2-15.7 Normal (applies to non-numeric resul ts) [facility] Hematocrit 34.1-44.9 Normal (applies to non-numeric resul ts) [facility] Mean Corpuscular Volume 81-99 Normal (applies to non- numeric results) [facility] Mean Corpuscular Hemoglobin 27.0-33.0 Normal (appli es to non-numeric results) [facility] Mean Corpuscular HGB Conc 32.0-36.0 Normal (applies to no n-numeric results) [facility] Red Cell Distribution Width 11.5-14.5 Normal (appli es to non-numeric results) [facility] Platelet Count 359 X10 3/uL 130-450 Normal (applies to non-numeric results) [facility] Mean Platelet Volume 9.5-12.7 Normal (applies to non-num estefania results) [facility] Imm Grans% (AUTO) 0 % 0-2 Normal (applies to non-numeri c results) [facility] Neutrophils % (AUTO) 62 % 40-75 Normal (applies to non-num estefania results) [facility] Lymphocytes % (AUTO) 31 % 21-46 Normal (applies to non-num estefania results) [facility] Monocytes % (AUTO) 6 % 5-12 Normal (applies to non-numer ic results) [facility] Eosinophils % (AUTO) 1 % 1-5 Normal (applies to non-num estefania results) [facility] Basophils % (AUTO) 1 % 0-1 Normal (applies to non-numer ic results) [facility] Imm Grans# (AUTO) 0.00-0.50 Normal (applies to non-numeri c results) [facility] Neutrophils # (AUTO) 1.5-8.1 Normal (applies to non-num estefania results) [facility] Lymphocytes # (AUTO) 1.0-3.1 Above high normal [facility] Monocytes # (AUTO) 0.2-1.3 Normal (applies to non-numer ic results) [facility] Eosinophils# (AUTO) 0.0-0.5 Normal (applies to non-nume rufina results) [facility] Basophils # (AUTO) 0.00-0.10 Normal (applies to non-numer ic results) [facility] ID Date Data Source [id number] 10/18/2019 12:48:00 PM EST [facility] Name Value Range Interpretation Code Description Data Desiree rce(s) Supporting Document(s) Opiate Screen,Urine Negative Normal (applies to non-nume rufina results) [facility] Amphetamine Screen,Urine Negative Normal (applies to non -numeric results) [facility] Benzodiazepines Scrn,Ur result Negative N ormal (applies to non-numeric results) [facility] Cocaine Screen,Urine Negative Normal (applies to non-num estefania results) [facility] Methadone Screen,Urine Negative [facility] If a positive quantitative confirmation is desired, an additional order must be submitted and the specimen will be sent out to a reference lab. Cannabinoid Screen, Ur Negative Normal (applies to non-n umeric results) [facility] Therapeutic Drug Ranges for Emergency an d [...] treatment purposes only. ID Date Data Source [id number] 10/18/2019 12:12:00 PM EST [facility] Name Value Range Interpretation Code Description Data Desiree rce(s) Supporting Document(s) Color,Urine Yellow [facility] pital Clarity,Urine Clear Normal (applies to non-numeric re sults) [facility] Specific [place],Urine 1.001-1.030 Normal (applies to non- numeric results) [facility] PH,Urine 5.0-8.0 Normal (applies to non-numeric resul ts) [facility] Protein,Urine Negative Normal (applies to non-numeric re sults) [facility] Glucose,Urine (UA) Negative Normal (applies to non-numer ic results) [facility] Ketones,Urine Negative Normal (applies to non-numeric re sults) [facility] Blood,Urine Negative Normal (applies to non-numeric resu lts) [facility] Bilirubin,Urine Negative Normal (applies to non-numeric results) [facility] Urobilinogen,Urine Norm 0.2-1 Normal (applies to non-numer ic results) [facility] Leukocyte Esterase,Urine Negative Siu [facility] Nitrite,Urine Negative Normal (applies to non-numeric re sults) [facility] ID Date Data Source [id number] 10/18/2019 12:12:00 PM [facility] Name Value Range Interpretation Code Description Data Desiree rce(s) Supporting Document(s) RBC,Auto Urine 0-2 Normal (applies to non-numeric r esults) [facility] WBC Urine Auto 0-10 Normal (applies to non-numeric r esults) [facility] Casts,Hyaline,Urine Auto 0-2 Normal (applies to non -numeric results) [facility] Bacteria Urine Auto None Seen Normal (applies to non-nume rufina results) [facility] Epithelial Cell Ur Auto None-Few Normal (applies to non- numeric results) [facility] ID Date Data Source [id number] 10/18/2019 12:12:00 PM EST [facility] Name Value Range Interpretation Code Description Data Desiree rce(s) Supporting Document(s) Urine HCG Negative Normal (applies to non-numeric resul ts) [facility] ID Date Data Source [id number] 10/17/2019 07:15:00 PM [facility] Name Value Range Interpretation Code Description Data Desiree rce(s) Supporting Document(s) Hepatitis A Ab,IgG result Normal (applies to no n-numeric results) [facility] Result indicates immunity to hepatitis A infection from either vaccination or past exposure to hepatitis A. False-positive results may be observed in patients with CMV antibodies or heterophilic antibodies. REFERENCE VALUE Unvaccinated: Negative Vaccinated: Positive Test Performed by: [place] [address] [employer] Feeder: Jackson Alanis M.D. Ph.D.; CLIA# [id number] ID Date Data Source [id number] 10/17/2019 04:05:00 PM [facility] Name Value Range Interpretation Code Description Data Desiree e(s) Supporting Document(s) Hepatitis A Ab,IgG result Normal (applies to no n-numeric results) [facility] Result indicates immunity to hepatitis A infection from either vaccination or past exposure to hepatitis A. False-positive results may be observed in patients with CMV antibodies or heterophilic antibodies. REFERENCE VALUE Unvaccinated: Negative Vaccinated: Positive Test Performed by: [facility] [place] [address] [employer]: Jackson Alanis M.D. Ph.D.; CLIA# [id number] ID Date Data Source [id number] 10/15/2019 12:02:00 AM [facility] Name Value Range Interpretation Code Description Data Desiree e(s) Supporting Document(s) Sodium 141 mmol/L 136-145 Normal (applies to non-numeric resul ts) [facility] Potassium 3.5-5.1 Normal (applies to non-numeric resul ts) [facility] Chloride 103 mmol/L 98-107 Normal (applies to non-numeric resul ts) [facility] Carbon Dioxide CO2 21-32 Normal (applies to non-numer ic results) [facility] Anion Gap 5.0-16.0 Normal (applies to non-numeric resul ts) [facility] BUN 6 mg/dL 7-18 Below low normal [facility] Creatinine,Serum 0.7-1.2 Normal (applies to non-numeric results) [facility] GFR >60 Normal (applies to non-numeric results) [facility] Glucose Level 104 mg/dL 60-99 Above high normal [facility] Reference range is only applicable when patient is fasting Note the following drug interference: Sulfasalazine Sulfapyridine Can see falsely depressed Can see falsely elevated result with up to 17% results with up to 11% decrease in measurement increase in measurement Recommend patients be collected for this test prior to administration of either drug. Calcium 8.5-10.1 Normal (applies to non-numeric resul ts) [facility] Bilirubin,Total 0.1-1.9 Normal (applies to non-numeric results) [facility] SGOT(AST) 19 U/L 15-37 Normal (applies to non-numeric resul ts) [facility] Note the following drug interference: Sulfasalazine Sulfapyridine Can see falsely depressed Can see falsely elevated result with up to 10% results with up to 10% decrease in measurement increase in measurement Recommend patients be collected for this test prior to administration of either drug. SGPT(ALT) 18 U/L 12-78 Normal (applies to non-numeric resul ts) [facility] Note the following drug interference: Sulfasalazine Sulfapyridine Can see falsely depressed Can see falsely elevated result with up to 29% results with up to 10% decrease in measurement increase in measurement Recommend patients be collected for this test prior to administration of either drug. Alkaline Phosphatase 82 U/L 38-126 Normal (applies to non-num esetfania results) [facility] can increase Alkaline Phosp le vels up to 2 times the normal adult value. Normal values for children and adolescents are 2 to 3 times the normal adult value. Total Protein 6.0-8.2 Normal (applies to non-numeric re sults) [facility] Albumin Level 3.4-5.0 Normal (applies to non-numeric re sults) [facility] ID Date Data Source [id number] 10/15/2019 12:02:00 AM EST [facility] Name Value Range Interpretation Code Description Data Desiree rce(s) Supporting Document(s) Bilirubin,Direct 0.05-0.20 Below low normal [facility] ID Date Data Source [id number] 10/15/2019 12:02:00 AM [facility] Name Value Range Interpretation Code Description Data Desiree rce(s) Supporting Document(s) Magnesium 1.8-2.4 Normal (applies to non-numeric resul ts) [facility] ID Date Data Source [id number] 10/15/2019 12:02:00 AM [facility] Name Value Range Interpretation Code Description Data Desiree rce(s) Supporting Document(s) Phosphorus 2.5-4.9 Normal (applies to non-numeric resul ts) [facility] ID Date Data Source [id number] 10/15/2019 12:02:00 AM [facility] Value Range Interpretation Code Description Data Desiree rce(s) Supporting Document(s) Thyroid Stimulate Hormone TSH 0.358-3.74 Below low normal [facility] ID Date Data Source [id number] 10/14/2019 11:53:00 PM [facility] Name Value Range Interpretation Code Description Data Desiree rce(s) Supporting Document(s) Ethanol Less than 10.0 Normal (applies to non-numeric r esults) [facility] ID Date Data Source [id number] 10/14/2019 11:47:00 PM [facility] Value Range Interpretation Code Description Data Desiree rce(s) Supporting Document(s) Beta HCG,Screen Negative Normal (applies to non-numeric results) [facility] ID Date Data Source [id number] 10/14/2019 11:37:00 PM [facility] Value Range Interpretation Code Description Data Desiree rce(s) Supporting Document(s) White Blood Count 3.5-10.5 Normal (applies to non-numeri c results) [facility] Red Blood Count 3.90-5.00 Normal (applies to non-numeric results) [facility] Hemoglobin 12.0-15.5 Normal (applies to non-numeric resul ts) [facility] Hematocrit 34.9-44.5 Normal (applies to non-numeric resul ts) [facility] Mean Corpuscular Volume 81.2-95.1 Normal (applies to non- numeric results) [facility] Mean Corpuscular Hgb 25.6-32.2 Normal (applies to non-num estefania results) [facility] Mean Corpuscular Hgb Conc 32.0-36.0 Normal (applies to no n-numeric results) [facility] Red Cell Distribution Width 11.9-15.5 Normal (appli es to non-numeric results) [facility] Platelet Count 297 x10 3/uL 150-450 Normal (applies to non-numeric results) [facility] Mean Platelet Volume 9.4-12.4 Normal (applies to non-num estefania results) [facility] Neutrophils% (Auto) 31.0-71.0 Normal (applies to non-nume rufina results) [facility] Lymphocytes% (Auto) 20.0-55.0 Normal (applies to non-nume rufina results) [facility] Monocytes% (Auto) 4.0-12.0 Normal (applies to non-numeri c results) [facility] Eosinophils% (Auto) 1.0-8.0 Normal (applies to non-nume rufina results) [facility] Basophils% (Auto) 0.0-2.0 Normal (applies to non-numeri c results) [facility] Immature Granulocytes% (Auto) 0.0-2.0 Normal (dahlia lies to non-numeric results) [facility] Neutrophils# (Auto) 1.50-6.20 Normal (applies to non-nume rufina results) [facility] Lymphocytes# (Auto) 1.20-4.00 Normal (applies to non-nume rufina results) [facility] Monocytes# (Auto) 0.00-0.90 Normal (applies to non-numeri c results) [facility] Eosinophils# (Auto) 0.00-0.50 Normal (applies to non-nume rufina results) [facility] Basophils# (Auto) 0.00-0.20 Normal (applies to non-numeri c results) [facility] Immature Granulocytes# (Auto) 0.00-7.00 No rmal (applies to non-numeric results) [facility] ID Date Data Source [id number] 10/18/2019 09:59:00 AM EST [facility] Name Value Range Interpretation Code Description Data Desiree rce(s) Supporting Document(s) CPK result 176 U/L 26-192 Normal (applies to non-numeric resul ts) [facility] Test Performed By: [facility] [address] [place] [address] Director: Jesse Taylor MD ID Date Data Source [id number] 10/18/2019 09:59:00 AM [facility] Name Value Range Interpretation Code Description Data Desiree rce(s) Supporting Document(s) Hepatitis C Virus Ab result Nonreactive Very abnormal (applies to non-numeric units [facility] Test Performed By: [facility] [address] [place] [address] Director: Jesse Taylor MD Results called 10/15/19 MOO Batista (N LAB) read back information to [facility] THIS IS A STATE REPORTABLE COMMUNICABLE DISEASE. [...] be requested by the physician if necessary. ([facility] MMWR No RR-3. 2003). ID Date Data Source [id number] 10/18/2019 09:59:00 AM [facility] Name Value Range Interpretation Code Description Data Desiree rce(s) Supporting Document(s) Hep Bs Ag result T-Test Nonreactive Normal (applies to non -numeric results) [facility] Test Performed By: [facility] [address] [place] [address] Director: Jesse Taylor MD ID Date Data Source [id number] 10/18/2019 09:59:00 AM [facility] Name Value Range Interpretation Code Description Data Desiree rce(s) Supporting Document(s) Syphilis Serology result Nonreactive Normal (applies to non-numeric results) [facility] Test Performed By: [facility] [address] [place] [address] Director: Jesse Taylor MD ID Date Data Source [id number] 10/18/2019 09:59:00 AM [facility] Name Value Range Interpretation Code Description Data Desiree rce(s) Supporting Document(s) Chlamydia,Urine result Negative Normal (applies to non-n umeric results) [facility] Test Performed By: [place] [address] Director: Jesse Taylor MD . GC Urine result Negative Normal (applies to non-numeric results) [facility] Test Performed By: [place] [address] Director: Jesse Taylor MD . Methodology: Second generation nucleic acid amplification. ID Date Data Source [id number] 10/18/2019 09:28:00 AM [facility] Value Range Interpretation Code Description Data Desiree rce(s) Supporting Document(s) Chlamydia,Urine Negative Normal (applies to non-numeric results) [facility] Test Performed By: [facility] [address] [place] [address] Director: Jesse Taylor MD . GC Urine Negative Normal (applies to non-numeric resul ts) [facility] Test Performed By: [facility] [address] [place] [address] Director: Jesse Taylor MD . Methodology: Second generation nucleic acid amplification. ID Date Data Source [id number] 10/15/2019 09:32:00 PM EST [facility] Test Performed By: [facility] [address] [place] [address] Director: Jesse Taylor MD Test Performed By: [place] [id number] Director: Jesse Taylor MD Name Value Range Interpretation Code Description Data Desiree rce(s) Supporting Document(s) Hep C Ab-T Test Nonreactive Siu [facility] Test Performed By: [facility] [address] [place] [address] Director: Jesse Taylor MD Results called 10/15/19 MOO Batista (EJN LAB) read back information to [facility] THIS IS A STATE REPORTABLE COMMUNICABLE DISEASE. [...] be requested by the physician if necessary. ([facility] MMWR No RR-3. 2003). ID Date Data Source [id number] 10/15/2019 09:32:00 PM EST [facility] Test Performed By: [facility] [address] [place] [address] Director: Jesse Taylor MD Test Performed By: [facility] [address] [place] [address] Director: Jesse Taylor MD Name Value Range Interpretation Code Description Data Desiree rce(s) Supporting Document(s) ID Date Data Source [id number] 10/15/2019 09:32:00 PM EST [facility] Test Performed By: [facility] [address] [place] [address] Director: Jesse Taylor MD Test Performed By: [facility] [address] [place] [address] Director: Jesse Taylor MD Name Value Range Interpretation Code Description Data Desiree rce(s) Supporting Document(s) ID Date Data Source [id number] 10/15/2019 06:33:00 PM EST [facility] Name Value Range Interpretation Code Description Data Desiree rce(s) Supporting Document(s) CPK 176 U/L 26-192 Normal (applies to non-numeric resul ts) [facility] Test Performed By: [facility] [address] [place] [address] Director: Jesse Taylor MD ID Date Data Source [id number] 10/14/2019 11:23:00 PM [facility] Name Value Range Interpretation Code Description Data Desiree rce(s) Supporting Document(s) UDS Phencyclidine Screen Negative Normal (applies to non -numeric results) [facility] UDS Benzodiazepines Screen Negative Normal (applies to n on-numeric results) [facility] UDS Cocaine Screen Negative Normal (applies to non-numer ic results) [facility] UDS Ampetamine Screen Negative Normal (applies to non-nu meric results) [facility] UDS Cannabinoids Screen Negative Normal (applies to non- numeric results) [facility] UDS Opiates Screen Negative Siu [facility] UDS Barbiturates Screen Negative Normal (applies to non- numeric results) [facility] UDS Tricyclic Screen Negative Normal (applies to non-num estefania results) [facility] Therapeutic Drug Ranges for Emergency Threshold Levels [...] treatment purposes only. ID Date Data Source [id number] 10/14/2019 11:22:00 PM [facility] Collected By: Nurse Initials: CF Time Collected: 2302 Collected By: Nurse Initials: CF Time Collected: 2302 Name Value Range Interpretation Code Description Data Desiree rce(s) Supporting Document(s) Color,Urine Colorl-Dk Y Normal (applies to non-numeric res ults) [facility] Clarity,Urine Clear [facility] Specific [place],Urine 1.005-1.030 Normal (applies to non- numeric results) [facility] pH,Urine 5.0-8.0 Normal (applies to non-numeric resul ts) [facility] Protein,Urine Negative Normal (applies to non-numeric re sults) [facility] Glucose,Urine Negative Normal (applies to non-numeric re sults) [facility] Ketones,Urine Negative Normal (applies to non-numeric re sults) [facility] Blood,Urine Negative [facility] l Bilirubin,Urine Negative Normal (applies to non-numeric results) [facility] Urobilinogen,Urine 0.2-1.0 Normal (applies to non-numer ic results) [facility] Leukocyte Esterase,Urine Negative [facility] Nitrite,Urine Negative Normal (applies to non-numeric re sults) [facility] ID Date Data Source [id number] 10/14/2019 11:22:00 PM EST [facility] Collected By: Nurse Initials: CF Time Collected: 2302 Collected By: Nurse Initials: CF Time Collected: 2302 Name Value Range Interpretation Code Description Data Desiree rce(s) Supporting Document(s) RBC,Urine None Seen [facility] WBC,Urine None Seen [facility] Casts,Urine None Seen Normal (applies to non-numeric resu lts) [facility] Squamous Cells,Urine None Seen [facility] Bacteria,Urine None Seen [facility] ital Procedure Social History Code Duration Value Status Description Data Source(s ) Smoking 01/30/2020 12:00:00 AM EDT Never Smoker completed Never S mateo eCW1 ([facility]) Vital Signs ID Date Data Source UNK Name Value Range Interpretation Code Description Data Source(s) Body height 53 [in_i] 53 [in_i] MEDENT ([facility], ) 4'5" Respiratory rate 12 /min 12 /min MEDENT ( [facility], ) Orion body weight 100 [lb_av] 100 [lb_av] MEDEN T ([facility], ) Body mass index (BMI) [Ratio] 42.5 kg/m2 42.5 k g/m2 MEDENT ([facility]) Body weight 170.00 [lb_av] 170.00 [lb_av] MEDEN T ([facility]) Diastolic blood pressure 74 mm[Hg] 74 mm[Hg] eCW1 ([facility]) Systolic blood pressure 116 mm[Hg] 116 mm[Hg] e CW1 ([facility]) Body mass index (BMI) [Ratio] 31.24 kg/m2 31.24 kg/m2 W1 ([facility]) Body height 63 [in_i] 63 [in_i] W1 ([facility]) Body weight 176.4 [lb_av] 176.4 [lb_av] eCW1 ([facility]) Body temperature 36.7 leonardo Normal (applies to non-numeric results) 36.7 leonardo [facility] Respiratory rate 16 min Normal (applies to non-numeric results) 16 min [facility] Deprecated Oxygen saturation in Capillary blood by Oximetry 96 % Normal (applies to non-numeric results) 96 % [facility] Body height 159.7152 cm Normal (applies to non-numeric res ults) 159.7152 cm [facility] Heart rate 84 min Normal (applies to non-numeric resul ts) 84 min [facility] Body mass index (BMI) [Ratio] 29.2 kg/m2 No rmal (applies to non-numeric results) 29.2 kg/m2 [facility] Diastolic blood pressure 81 mm[Hg] Normal (applies to non-numeric results) 81 mm[Hg] [facility] Systolic blood pressure 120 mm[Hg] Normal (applies t o non-numeric results) 120 mm[Hg] [facility] Body weight Measured 165 [lb_av] Normal (applies to n on-numeric results) 165 [lb_av] [facility] ID Date Data Source [id number] 08/09/2020 12:01:00 AM EST [facility] Name Value Range Interpretation Code Description Data Source(s) Weight (Calculated Kilograms) 80.29 80.29 [facility] Height (Calculated Centimeters) 160.02 160. 02 [facility] Body Mass Index (BMI) 31.3 31.3 [facility] ID Date Data Source [id number] 07/09/2020 11:35:00 AM EST [facility] Name Value Range Interpretation Code Description Data Source(s) Weight (Calculated Kilograms) 80.29 80.29 [facility] Height (Calculated Centimeters) 160.02 160. 02 [facility] Body Mass Index (BMI) 31.3 31.3 [facility] ID Date Data Source [id number] 06/28/2020 11:28:00 AM [facility] Name Value Range Interpretation Code Description Data Source(s) Weight (Calculated Kilograms) 80.29 80.29 [facility] Height (Calculated Centimeters) 160.02 160. 02 [facility] Body Mass Index (BMI) 31.3 31.3 [facility] ID Date Data Source [id number] 05/30/2020 12:01:00 AM EDT [facility] Name Value Range Interpretation Code Description Data Source(s) Weight (Calculated Kilograms) 80.29 80.29 [facility] Height (Calculated Centimeters) 160.02 160. 02 [facility] [facility] Body Mass Index (BMI) 31.3 31.3 [facility] ID Date Data Source [id number] 05/25/2020 12:01:00 AM EDT [facility] spital Name Value Range Interpretation Code Description Data Source(s) Weight (Calculated Kilograms) 80.29 80.29 [facility] Height (Calculated Centimeters) 160.02 160. 02 [facility] Body Mass Index (BMI) 31.3 31.3 [facility] ID Date Data Source [id number] 05/16/2020 12:01:00 AM EDT [facility] spital Name Value Range Interpretation Code Description Data Source(s) Weight (Calculated Kilograms) 80.29 80.29 [facility] Height (Calculated Centimeters) 160.02 160. 02 [facility] Body Mass Index (BMI) 31.3 31.3 [facility] ID Date Data Source [id number] 05/08/2020 12:00:00 AM EDT [facility] spital Name Value Range Interpretation Code Description Data Source(s) Weight (Calculated Kilograms) 80.29 80.29 [facility] Height (Calculated Centimeters) 160.02 160. 02 [facility] Body Mass Index (BMI) 31.3 31.3 [facility] ID Date Data Source [id number] 05/09/2020 07:16:00 AM EDT [facility] spital Name Value Range Interpretation Code Description Data Source(s) Weight (Calculated Kilograms) 80.29 80.29 [facility] Height (Calculated Centimeters) 160.02 160. 02 [facility] Body Mass Index (BMI) 31.3 31.3 [facility] Weight (Calculated Kilograms) 80.29 80.29 [facility] Height (Calculated Centimeters) 160.02 160. 02 [facility] Body Mass Index (BMI) 31.3 313 [facility] ID Date Data Source [id number] 05/01/2020 12:01:00 AM EDT [facility] spital Name Value Range Interpretation Code Description Data Source(s) Weight (Calculated Kilograms) 80.29 80.29 [facility] Height (Calculated Centimeters) 160.02 160. 02 [facility] Body Mass Index (BMI) 31.3 31.3 [facility] ID Date Data Source [id number] 04/18/2020 08:51:00 AM EDT [facility] spital Name Value Range Interpretation Code Description Data Source(s) Weight (Calculated Kilograms) 80.29 80.29 [facility] Height (Calculated Centimeters) 160.02 160. 02 [facility] Body Mass Index (BMI) 31.3 31.3 [facility] ID Date Data Source [id number] 04/19/2020 12:01:00 AM EDT [facility] spital Name Value Range Interpretation Code Description Data Source(s) Weight (Calculated Kilograms) 80.29 80.29 [facility] Height (Calculated Centimeters) 160.02 160. 02 [facility] Body Mass Index (BMI) 31.3 31.3 [facility] ID Date Data Source [id number] 04/16/2020 12:01:00 AM EDT [facility] spital Name Value Range Interpretation Code Description Data Source(s) Weight (Calculated Kilograms) 80.29 80.29 [facility] Height (Calculated Centimeters) 160.02 160. 02 [facility] Body Mass Index (BMI) 31.3 31.3 [facility] Weight (Calculated Kilograms) 80.29 80.29 [facility] Height (Calculated Centimeters) 160.02 160. 02 [facility] Body Mass Index (BMI) 31.3 31.3 [facility] Weight (Calculated Kilograms) 80.29 80.29 [facility] Height (Calculated Centimeters) 160.02 160. 02 [facility] Body Mass Index (BMI) 31.3 31.3 [facility] ID Date Data Source [id number] 04/05/2020 12:01:00 AM EDT [facility] spital Name Value Range Interpretation Code Description Data Source(s) Weight (Calculated Kilograms) 80.29 80.29 [facility] Height (Calculated Centimeters) 160.02 160. 02 [facility] Body Mass Index (BMI) 31.3 31.3 [facility] Weight (Calculated Kilograms) 80.29 80.29 [facility] Height (Calculated Centimeters) 160.02 160. 02 [facility] Body Mass Index (BMI) 31.3 31.3 [facility] ID Date Data Source [id number] 04/02/2020 12:00:00 AM EDT [facility] spital Name Value Range Interpretation Code Description Data Source(s) Weight (Calculated Kilograms) 80.29 80.29 [facility] Height (Calculated Centimeters) 160.02 160. 02 [facility] Body Mass Index (BMI) 31.3 31.3 [facility] Weight (Calculated Kilograms) 80.29 80.29 [facility] Height (Calculated Centimeters) 160.02 160. 02 [facility] Body Mass Index (BMI) 31.3 31.3 [facility] ID Date Data Source [id number] 03/29/2020 12:01:00 AM EDT [facility] spital Name Value Range Interpretation Code Description Data Source(s) Weight (Calculated Kilograms) 80.29 80.29 [facility] Height (Calculated Centimeters) 160.02 160. 02 [facility] Body Mass Index (BMI) 31.3 31.3 [facility] ID Date Data Source [id number] 03/19/2020 11:59:00 AM EDT [facility] spital Name Value Range Interpretation Code Description Data Source(s) Weight (Calculated Kilograms) 80.29 80.29 [facility] Height (Calculated Centimeters) 160.02 160. 02 [facility] Body Mass Index (BMI) 31.3 31.3 [facility] ID Date Data Source [id number] 03/23/2020 12:00:00 AM EDT [facility] spital Name Value Range Interpretation Code Description Data Source(s) Weight (Calculated Kilograms) 80.29 80.29 [facility] Height (Calculated Centimeters) 160.02 160. 02 [facility] Body Mass Index (BMI) 31.3 31.3 [facility] ID Date Data Source [id number] 03/22/2020 12:01:00 AM EDT [facility] spital Name Value Range Interpretation Code Description Data Source(s) Weight (Calculated Kilograms) 80.29 80.29 [facility] Height (Calculated Centimeters) 160.02 160. 02 [facility] Body Mass Index (BMI) 31.3 31.3 [facility] ID Date Data Source [id number] 03/19/2020 12:01:00 AM EDT [facility] spital Name Value Range Interpretation Code Description Data Source(s) Weight (Calculated Kilograms) 80.29 80.29 [facility] Height (Calculated Centimeters) 160.02 160. 02 [facility] Body Mass Index (BMI) 31.3 31.3 [facility] Weight (Calculated Kilograms) 80.29 80.29 [facility] Height (Calculated Centimeters) 160.02 160. 02 [facility] Body Mass Index (BMI) 31.3 31.3 [facility] ID Date Data Source [id number] 03/26/2020 02:31:00 PM EDT [facility] spital Name Value Range Interpretation Code Description Data Source(s) Weight (Calculated Kilograms) 80.29 80.29 [facility] Height (Calculated Centimeters) 160.02 160. 02 [facility] Body Mass Index (BMI) 31.3 31.3 [facility] Weight (Calculated Kilograms) 80.29 80.29 [facility] Height (Calculated Centimeters) 160.02 160. 02 [facility] Body Mass Index (BMI) 31.3 31.3 [facility] Weight (Calculated Kilograms) 80.29 80.29 [facility] Height (Calculated Centimeters) 160.02 160. 02 [facility] Body Mass Index (BMI) 31.3 313 [facility] ID Date Data Source [id number] 03/27/2020 02:22:00 PM EDT [facility] spital Name Value Range Interpretation Code Description Data Source(s) Weight (Calculated Kilograms) 80.29 80.29 [facility] Height (Calculated Centimeters) 160.02 160. 02 [facility] Body Mass Index (BMI) 31.3 313 [facility] Weight (Calculated Kilograms) 80.29 80.29 [facility] Height (Calculated Centimeters) 160.02 160. 02 [facility] Body Mass Index (BMI) 31.3 31.3 [facility] Weight (Calculated Kilograms) 80.29 80.29 [facility] Height (Calculated Centimeters) 160.02 160. 02 [facility] Body Mass Index (BMI) 31.3 31.3 [facility] ID Date Data Source [id number] 03/08/2020 04:10:00 PM EDT [facility] spital Name Value Range Interpretation Code Description Data Source(s) Weight (Calculated Kilograms) 80.29 80.29 [facility] Height (Calculated Centimeters) 160.02 160. 02 [facility] Body Mass Index (BMI) 31.3 31.3 [facility] ID Date Data Source [id number] 03/12/2020 11:07:00 AM EDT [facility] spital Name Value Range Interpretation Code Description Data Source(s) Weight (Calculated Kilograms) 80.29 80.29 [facility] Height (Calculated Centimeters) 160.02 160. 02 [facility] Body Mass Index (BMI) 31.3 31.3 [facility] Weight (Calculated Kilograms) 80.29 80.29 [facility] Height (Calculated Centimeters) 160.02 160. 02 [facility] Body Mass Index (BMI) 31.3 31.3 [facility] ID Date Data Source [id number] 03/11/2020 10:50:00 AM EDT [facility]ina Name Value Range Interpretation Code Description Data Source(s) Weight (Calculated Kilograms) 80.29 80.29 [facility] Height (Calculated Centimeters) 160.02 160. 02 [facility] Body Mass Index (BMI) 31.3 31.3 [facility] Weight (Calculated Kilograms) 80.29 80.29 [facility] Height (Calculated Centimeters) 160.02 160. 02 [facility] Body Mass Index (BMI) 31.3 31.3 [facility] Weight (Calculated Kilograms) 80.29 80.29 [facility] Height (Calculated Centimeters) 160.02 160. 02 [facility] Body Mass Index (BMI) 31.3 31.3 [facility] Weight (Calculated Kilograms) 80.29 80.29 [facility] Height (Calculated Centimeters) 160.02 160. 02 [facility] Body Mass Index (BMI) 31.3 31.3 [facility] Weight (Calculated Kilograms) 80.29 80.29 [facility] Height (Calculated Centimeters) 160.02 160. 02 [facility] Body Mass Index (BMI) 31.3 31.3 [facility] Weight (Calculated Kilograms) 80.29 80.29 [facility] Height (Calculated Centimeters) 160.02 160. 02 [facility] Body Mass Index (BMI) 31.3 31.3 [facility] Weight (Calculated Kilograms) 80.29 80.29 [facility] Height (Calculated Centimeters) 160.02 160. 02 [facility] Body Mass Index (BMI) 31.3 31.3 [facility] ID Date Data Source [id number] 02/28/2020 02:24:00 PM EDT [facility] spital Name Value Range Interpretation Code Description Data Source(s) Weight (Calculated Kilograms) 80.29 80.29 [facility] Height (Calculated Centimeters) 160.02 160. 02 [facility] Body Mass Index (BMI) 31.3 31.3 [facility] Weight (Calculated Kilograms) 80.29 80.29 [facility] Height (Calculated Centimeters) 160.02 160. 02 [facility] Body Mass Index (BMI) 31.3 31.3 [facility] ID Date Data Source [id number] 02/20/2020 03:20:00 PM EDT [facility] spital Name Value Range Interpretation Code Description Data Source(s) Weight (Calculated Kilograms) 80.29 80.29 [facility] Height (Calculated Centimeters) 160.02 160. 02 [facility] Body Mass Index (BMI) 31.3 31.3 [facility] Weight (Calculated Kilograms) 80.29 80.29 [facility] Height (Calculated Centimeters) 160.02 160. 02 [facility] Body Mass Index (BMI) 31.3 31.3 [facility] Weight (Calculated Kilograms) 80.29 80.29 [facility] Height (Calculated Centimeters) 160.02 160. 02 [facility] Body Mass Index (BMI) 31.3 31.3 [facility] ID Date Data Source [id number] 02/16/2020 01:53:00 PM EDT [facility] spital Name Value Range Interpretation Code Description Data Source(s) Weight (Calculated Kilograms) 80.29 80.29 [facility] Height (Calculated Centimeters) 160.02 160. 02 [facility] Body Mass Index (BMI) 31.3 31.3 [facility] Weight (Calculated Kilograms) 80.29 80.29 [facility] Height (Calculated Centimeters) 160.02 160. 02 [facility] Body Mass Index (BMI) 31.3 31.3 [facility] Weight (Calculated Kilograms) 80.29 80.29 [facility] Height (Calculated Centimeters) 160.02 160. 02 [facility] Body Mass Index (BMI) 31.3 31.3 [facility] ID Date Data Source [id number] 02/13/2020 02:15:00 PM EDT [facility] spital Name Value Range Interpretation Code Description Data Source(s) Weight (Calculated Kilograms) 80.29 80.29 [facility] Height (Calculated Centimeters) 160.02 160. 02 [facility] Body Mass Index (BMI) 31.3 31.3 [facility] Weight (Calculated Kilograms) 80.29 80.29 [facility] Height (Calculated Centimeters) 160.02 160. 02 [facility] Body Mass Index (BMI) 31.3 31.3 [facility] ID Date Data Source [id number] 02/13/2020 01:30:00 PM EDT [facility] spital Name Value Range Interpretation Code Description Data Source(s) Weight (Calculated Kilograms) 80.29 80.29 [facility] Height (Calculated Centimeters) 160.02 160. 02 [facility] Body Mass Index (BMI) 31.3 31.3 [facility] Weight (Calculated Kilograms) 80.29 80.29 [facility] Height (Calculated Centimeters) 160.02 160. 02 [facility] Body Mass Index (BMI) 31.3 31.3 [facility] ID Date Data Source [id number] 02/07/2020 09:42:00 AM EDT [facility] spital Name Value Range Interpretation Code Description Data Source(s) Weight (Calculated Kilograms) 80.29 80.29 [facility] Height (Calculated Centimeters) 160.02 160. 02 [facility] Body Mass Index (BMI) 31.3 31.3 [facility] Weight (Calculated Kilograms) 80.29 80.29 [facility] Height (Calculated Centimeters) 160.02 160. 02 [facility] Body Mass Index (BMI) 31.3 31.3 [facility] ID Date Data Source [id number] 02/06/2020 01:42:00 PM EDT [facility] spital Name Value Range Interpretation Code Description Data Source(s) Weight (Calculated Kilograms) 80.29 80.29 [facility] Height (Calculated Centimeters) 160.02 160. 02 [facility] Body Mass Index (BMI) 31.3 31.3 [facility] Weight (Calculated Kilograms) 80.29 80.29 [facility] Height (Calculated Centimeters) 160.02 160. 02 [facility] Body Mass Index (BMI) 31.3 31.3 [facility] ID Date Data Source [id number] 02/02/2020 01:11:00 PM EDT [facility] spital Name Value Range Interpretation Code Description Data Source(s) Weight (Calculated Kilograms) 80.29 80.29 [facility] Height (Calculated Centimeters) 160.02 160. 02 [facility] Body Mass Index (BMI) 31.3 31.3 [facility] Weight (Calculated Kilograms) 80.29 80.29 [facility] Height (Calculated Centimeters) 160.02 160. 02 [facility] Body Mass Index (BMI) 31.3 31.3 [facility] Weight (Calculated Kilograms) 80.29 80.29 [facility] Height (Calculated Centimeters) 160.02 160. 02 [facility] Body Mass Index (BMI) 31.3 31.3 [facility] ID Date Data Source [id number] 01/29/2020 03:18:00 PM EDT [facility] spital Name Value Range Interpretation Code Description Data Source(s) Weight (Calculated Kilograms) 80.29 80.29 [facility] Height (Calculated Centimeters) 160.02 160. 02 [facility] Body Mass Index (BMI) 31.3 31.3 [facility] Weight (Calculated Kilograms) 80.29 80.29 [facility] Height (Calculated Centimeters) 160.02 160. 02 [facility] Body Mass Index (BMI) 31.3 31.3 [facility] Weight (Calculated Kilograms) 80.29 80.29 [facility] Height (Calculated Centimeters) 160.02 160. 02 [facility] Body Mass Index (BMI) 31.3 31.3 [facility] ID Date Data Source [id number] 01/24/2020 07:47:00 AM EDT [facility] spital Name Value Range Interpretation Code Description Data Source(s) Weight (Calculated Kilograms) 80.29 80.29 [facility] Height (Calculated Centimeters) 160.02 160. 02 [facility] Body Mass Index (BMI) 31.3 31.3 [facility] Weight (Calculated Kilograms) 80.29 80.29 [facility] Height (Calculated Centimeters) 160.02 160. 02 [facility] Body Mass Index (BMI) 31.3 31.3 [facility] ID Date Data Source [id number] 01/19/2020 11:17:00 AM EDT [facility] Name Value Range Interpretation Code Description Data Source(s) Weight (Calculated Kilograms) 80.29 80.29 [facility] Height (Calculated Centimeters) 160.02 160. 02 [facility] Body Mass Index (BMI) 31.3 31.3 [facility] Weight (Calculated Kilograms) 80.29 80.29 [facility] Height (Calculated Centimeters) 160.02 160. 02 [facility] Body Mass Index (BMI) 31.3 31.3 [facility] Weight (Calculated Kilograms) 80.29 80.29 [facility] Height (Calculated Centimeters) 160.02 160. 02 [facility] Body Mass Index (BMI) 31.3 31.3 [facility] ID Date Data Source [id number] 01/11/2020 09:33:00 AM EDT [facility] spital Name Value Range Interpretation Code Description Data Source(s) Weight (Calculated Kilograms) 80.29 80.29 [facility] Height (Calculated Centimeters) 160.02 160. 02 [facility] Body Mass Index (BMI) 31.3 31.3 [facility] Weight (Calculated Kilograms) 80.29 80.29 [facility] Height (Calculated Centimeters) 160.02 160. 02 [facility] Body Mass Index (BMI) 31.3 31.3 [facility] ID Date Data Source [id number] 01/10/2020 09:37:00 AM EDT [facility] spital Name Value Range Interpretation Code Description Data Source(s) Weight (Calculated Kilograms) 80.29 80.29 [facility] Height (Calculated Centimeters) 160.02 160. 02 [facility] Body Mass Index (BMI) 31.3 31.3 [facility] Weight (Calculated Kilograms) 80.29 80.29 [facility] Height (Calculated Centimeters) 160.02 160. 02 [facility] Body Mass Index (BMI) 31.3 31.3 [facility] Weight (Calculated Kilograms) 80.29 80.29 [facility] Height (Calculated Centimeters) 160.02 160. 02 [facility] Body Mass Index (BMI) 31.3 31.3 [facility] ID Date Data Source [id number] 01/09/2020 09:43:00 AM EDT [facility] spital Name Value Range Interpretation Code Description Data Source(s) Weight (Calculated Kilograms) 80.29 80.29 [facility] Height (Calculated Centimeters) 160.02 160. 02 [facility] Body Mass Index (BMI) 31.3 31.3 [facility] Weight (Calculated Kilograms) 80.29 80.29 [facility] Height (Calculated Centimeters) 160.02 160. 02 [facility] Body Mass Index (BMI) 31.3 31.3 [facility] ID Date Data Source [id number] 01/05/2020 11:23:00 AM EDT [facility] spital Name Value Range Interpretation Code Description Data Source(s) Weight (Calculated Kilograms) 80.29 80.29 [facility] Height (Calculated Centimeters) 160.02 160. 02 [facility] Body Mass Index (BMI) 31.3 31.3 [facility] Weight (Calculated Kilograms) 80.29 80.29 [facility] Height (Calculated Centimeters) 160.02 160. 02 [facility] Body Mass Index (BMI) 31.3 31.3 [facility] ID Date Data Source [id number] 01/04/2020 10:18:00 AM EDT [facility] Name Value Range Interpretation Code Description Data Source(s) Weight (Calculated Kilograms) 80.29 80.29 [facility] Height (Calculated Centimeters) 160.02 160. 02 [facility] Body Mass Index (BMI) 31.3 31.3 [facility] Weight (Calculated Kilograms) 80.29 80.29 [facility] Height (Calculated Centimeters) 160.02 160. 02 [facility] Body Mass Index (BMI) 31.3 31.3 [facility] Weight (Calculated Kilograms) 80.29 80.29 [facility] Height (Calculated Centimeters) 160.02 160. 02 [facility] Body Mass Index (BMI) 31.3 31.3 [facility] Weight (Calculated Kilograms) 80.29 80.29 [facility] Height (Calculated Centimeters) 160.02 160. 02 [facility] Body Mass Index (BMI) 31.3 31.3 [facility] ID Date Data Source [id number] 12/27/2019 09:18:00 AM EDT [facility] Name Value Range Interpretation Code Description Data Source(s) Weight (Calculated Kilograms) 80.29 80.29 [facility] Height (Calculated Centimeters) 160.02 160. 02 [facility] Body Mass Index (BMI) 31.3 31.3 [facility] Weight (Calculated Kilograms) 80.29 80.29 [facility] Height (Calculated Centimeters) 160.02 160. 02 [facility] Body Mass Index (BMI) 31.3 31.3 [facility] Weight (Calculated Kilograms) 80.29 80.29 [facility] Height (Calculated Centimeters) 160.02 160. 02 [facility] Body Mass Index (BMI) 31.3 31.3 [facility] ID Date Data Source [id number] 12/26/2019 10:41:00 AM EDT [facility] Name Value Range Interpretation Code Description Data Source(s) Weight (Calculated Kilograms) 80.29 80.29 [facility] Height (Calculated Centimeters) 160.02 160. 02 [facility] Body Mass Index (BMI) 31.3 31.3 [facility] Weight (Calculated Kilograms) 80.29 80.29 [facility] Height (Calculated Centimeters) 160.02 160. 02 [facility] Body Mass Index (BMI) 31.3 31.3 [facility] ID Date Data Source [id number] 12/22/2019 10:24:00 AM EDT [facility] Name Value Range Interpretation Code Description Data Source(s) Weight (Calculated Kilograms) 80.29 80.29 [facility] Height (Calculated Centimeters) 160.02 160. 02 [facility] Body Mass Index (BMI) 31.3 31.3 [facility] Weight (Calculated Kilograms) 80.29 80.29 [facility] Height (Calculated Centimeters) 160.02 160. 02 [facility] Body Mass Index (BMI) 31.3 31.3 [facility] ID Date Data Source [id number] 12/20/2019 10:14:00 AM ED[facility] Value Range Interpretation Code Description Data Source(s) Weight (Calculated Kilograms) 80.29 80.29 [facility] Height (Calculated Centimeters) 160.02 160. 02 [facility] Body Mass Index (BMI) 31.3 31.3 [facility] Weight (Calculated Kilograms) 80.29 80.29 [facility] Height (Calculated Centimeters) 160.02 160. 02 [facility] Body Mass Index (BMI) 31.3 31.3 [facility] ID Date Data Source [id number] 12/19/2019 10:45:00 AM EDT [facility] Name Value Range Interpretation Code Description Data Source(s) Weight (Calculated Kilograms) 80.29 80.29 [facility] Height (Calculated Centimeters) 160.02 160. 02 [facility] Body Mass Index (BMI) 31.3 31.3 [facility] Weight (Calculated Kilograms) 80.29 80.29 [facility] Height (Calculated Centimeters) 160.02 160. 02 [facility] Body Mass Index (BMI) 31.3 31.3 [facility] Weight (Calculated Kilograms) 80.29 80.29 [facility] Height (Calculated Centimeters) 160.02 160. 02 [facility] Body Mass Index (BMI) 31.3 31.3 [facility] Weight (Calculated Kilograms) 80.29 80.29 [facility] Height (Calculated Centimeters) 160.02 160. 02 [facility] Body Mass Index (BMI) 31.3 31.3 [facility] ID Date Data Source [id number] 12/14/2019 09:02:00 AM EDT [facility] Name Value Range Interpretation Code Description Data Source(s) Weight (Calculated Kilograms) 80.29 80.29 [facility] Height (Calculated Centimeters) 160.02 160. 02 [facility] Body Mass Index (BMI) 31.3 31.3 [facility] ID Date Data Source [id number] 12/14/2019 07:36:00 AM EDT [facility] Value Range Interpretation Code Description Data Source(s) Weight (Calculated Kilograms) 80.29 80.29 [facility] Height (Calculated Centimeters) 160.02 160. 02 [facility] Body Mass Index (BMI) 31.3 31.3 [facility] Weight (Calculated Kilograms) 80.29 80.29 [facility] Height (Calculated Centimeters) 160.02 160. 02 [facility] Body Mass Index (BMI) 31.3 31.3 [facility] ID Date Data Source [id number] 12/12/2019 04:52:00 PM EDT [facility] Name Value Range Interpretation Code Description Data Source(s) Weight (Calculated Kilograms) 71.[address] [facility] Height (Calculated Centimeters) 160.[address] [facility] Body Mass Index (BMI) 27.8 27.8 [facility] ID Date Data Source [id number] 12/07/2019 09:26:00 AM EDT [facility] Name Value Range Interpretation Code Description Data Source(s) Weight (Calculated Kilograms) 71.[address] [facility] Height (Calculated Centimeters) 160.[address] [facility] Body Mass Index (BMI) 27.8 27.8 [facility] ID Date Data Source [id number] 12/12/2019 04:56:00 PM EDT [facility] Name Value Range Interpretation Code Description Data Source(s) Weight Measurement Method 1 1 [facility] Weight (Calculated Kilograms) 80.29 80.29 [facility]32 [facility] 7 7 [facility] Temperature 97.6 97.6 [facility] Respiratory Effort 1 1 [facility] Respiratory Rate 17 17 [facility] Pulse Assessment Method 1 1 [facility] 60 60 [facility] Height (Calculated Centimeters) 160.02 160. 02 [facility] Height 63 63 [facility] Blood Pressure 113/67 113/67 [facility] Body Mass Index (BMI) 31.3 31.3 [facility] Weight Measurement Method 1 1 [facility] Weight (Calculated Kilograms) 80.29 80.29 [facility] Weight 2832 2832 [facility] Temperature Source 7 7 [facility] Temperature 97.6 97.6 [facility] Respiratory Effort 1 1 [facility] Respiratory Rate 17 17 [facility] Pulse Assessment Method 1 1 [facility] Pulse Rate 60 60 [facility] Height (Calculated Centimeters) 160.02 160. 02 [facility] Height 63 63 [facility] Blood Pressure 113/67 113/67 [facility] Body Mass Index (BMI) 31.3 31.3 [facility] Weight Measurement Method 1 1 [facility] Weight (Calculated Kilograms) 80.29 80.29 [facility] Weight 2832 2832 [facility] Temperature Source 7 7 [facility] Temperature 97.6 97.6 [facility] Respiratory Effort 1 1 [facility] Respiratory Rate 17 17 [facility] Pulse Assessment Method 1 1 [facility] Pulse Rate 60 60 [facility] Height (Calculated Centimeters) 160.02 160. 02 [facility] Height 63 63 [facility] Blood Pressure 113/67 113/67 [facility] Body Mass Index (BMI) 31.3 31.3 [facility] Weight Measurement Method 1 1 [facility] Weight (Calculated Kilograms) 80.29 80.29 [facility] Weight 2832 2832 [facility] Temperature Source 7 7 [facility] Temperature 98.7 98.7 [facility] Respiratory Effort 1 1 [facility] Respiratory Rate 18 18 [facility] Pulse Assessment Method 4 4 [facility] Pulse Rate 83 83 [facility] Height (Calculated Centimeters) 160.02 160. 02 [facility] Height 63 63 [facility] Blood Pressure 137/89 137/89 [facility] Body Mass Index (BMI) 31.3 31.3 [facility] Weight (Calculated Kilograms) 81.37 81.37 [facility] Height (Calculated Centimeters) 160.02 160. 02 [facility] Body Mass Index (BMI) 31.8 31.8 [facility] Weight (Calculated Kilograms) 81.37 81.37 [facility] Height (Calculated Centimeters) 160.02 160. 02 [facility] Body Mass Index (BMI) 31.8 31.8 [facility] ID Date Data Source [id number] 11/29/2019 12:33:00 PM EDT [facility] Name Value Range Interpretation Code Description Data Source(s) Weight (Calculated Kilograms) 81.37 81.37 [facility] Height (Calculated Centimeters) 160.02 160. 02 [facility] Body Mass Index (BMI) 31.8 31.8 [facility] ID Date Data Source [id number] 11/17/2019 10:13:00 AM EDT [facility] Name Value Range Interpretation Code Description Data Source(s) Weight (Calculated Kilograms) 81.37 81.37 [facility] Height (Calculated Centimeters) 160.02 160. 02 [facility] Body Mass Index (BMI) 31.8 318 [facility] Weight (Calculated Kilograms) 81.37 81.37 [facility] Height (Calculated Centimeters) 160.02 160. 02 [facility] Body Mass Index (BMI) 31.8 31.8 [facility] Weight (Calculated Kilograms) 81.37 81.37 [facility] Height (Calculated Centimeters) 160.02 160. 02 [facility] Body Mass Index (BMI) 31.8 318 [facility] Weight (Calculated Kilograms) 81.37 81.37 [facility] Height (Calculated Centimeters) 160.02 160. 02 [facility] Body Mass Index (BMI) 31.8 318 [facility] ID Date Data Source [id number] 11/20/2019 04:23:00 AM EDT Health system Name Value Range Interpretation Code Description Data Source(s) Weight Measurement Method [address] [facility] Weight (Calculated Kilograms) 71.[address] [facility] Weight [address] [facility] Temperature Source [address] [facility] Temperature 96.1 96.1 Health system Respiratory Effort [address] [facility] Respiratory Rate 15 15 [facility] Pulse Assessment Method 4 4 [facility] Pulse Rate [address] [facility] Height (Calculated Centimeters) 160.[address] [facility] Height [address] [facility] Blood Pressure 106/70 106/70 [facility] Body Mass Index (BMI) 27.8 27.8 [facility] Weight Measurement Method [address] [facility] Weight (Calculated Kilograms) 71.[address] [facility] Weight [address] [facility] Temperature Source [address] [facility] Temperature 96.1 96.1 Health system Respiratory Effort [address] [facility] Respiratory Rate 15 15 [facility] Pulse Assessment Method 4 4 [facility] Pulse Rate [address] [facility] Height (Calculated Centimeters) 160.[address] [facility] Height [address] [facility] Blood Pressure 106/70 106/70 [facility] Body Mass Index (BMI) 27.8 27.8 [facility] Weight Measurement Method [address] [facility] Weight (Calculated Kilograms) 71.[address] [facility] Weight [address] [facility] Temperature Source [address] [facility] Temperature 96.1 96.1 Health system Respiratory Effort [address] [facility] Respiratory Rate 15 15 [facility] Pulse Assessment Method 4 4 [facility] Pulse Rate [address] [facility] Height (Calculated Centimeters) 160.[address] [facility] Height [address] [facility] Blood Pressure 106/70 106/70 [facility] Body Mass Index (BMI) 27.8 27.8 [facility] Weight Measurement Method [address] [facility] Weight (Calculated Kilograms) 71.[address] [facility] Weight [address] [facility] Temperature Source [address] [facility] Temperature 96.1 96.1 Health system Respiratory Effort [address] [facility] Respiratory Rate 15 15 [facility] Pulse Assessment Method 4 4 [facility] Pulse Rate [address] [facility] Height (Calculated Centimeters) 160.[address] [facility] Height [address] [facility] Blood Pressure 106/70 106/70 [facility] Body Mass Index (BMI) 27.8 27.8 [facility] Weight Measurement Method [address] [facility] Weight (Calculated Kilograms) 71.[address] [facility] Weight [address] [facility] Temperature Source [address] [facility] Temperature 97.8 97.8 Health system Respiratory Effort [address] [facility] Respiratory Rate 15 15 [facility] Pulse Rate [address] [facility] Height (Calculated Centimeters) 160.[address] [facility] Height [address] [facility] Blood Pressure 137/88 137/88 [facility] Body Mass Index (BMI) 27.8 27.8 [facility] Weight Measurement Method [address] [facility] Weight (Calculated Kilograms) 71.[address] [facility] Weight [address] [facility] Temperature Source [address] [facility] Temperature 97.8 97.8 Health system Respiratory Effort [address] [facility] Respiratory Rate 15 15 [facility] Pulse Rate [address] [facility] Height (Calculated Centimeters) 160.[address] [facility] Height [address] [facility] Blood Pressure 137/88 137/88 [facility] Body Mass Index (BMI) 27.8 27.8 [facility] ID Date Data Source [id number] 10/19/2019 07:57:00 AM EST [facility] Name Value Range Interpretation Code Description Data Source(s) Weight Measurement Method 1 1 [facility] Weight (Calculated Kilograms) 81.37 81.37 [facility] Weight 2870.4 2870.4 [facility] 7 7 [facility] Temperature 97.6 97.6 [facility] Respiratory Effort 1 1 [facility] Respiratory Rate 18 18 [facility] Pulse Assessment Method 1 1 [facility] Pulse Rate 99 99 [facility] Height (Calculated Centimeters) 160.02 160. 02 [facility] Height 63 63 [facility] Blood Pressure 123/91 123/91 [facility] Body Mass Index (BMI) 31.8 31.8 [facility] Weight Measurement Method 1 1 [facility] Weight (Calculated Kilograms) 81.37 81.37 [facility] Weight 2870.4 2870.4 [facility] Temperature Source 7 7 [facility] Temperature 97.6 97.6 [facility] Respiratory Effort 1 1 [facility] Respiratory Rate 18 18 [facility] Pulse Assessment Method 1 1 [facility] Pulse Rate 99 99 [facility] Height (Calculated Centimeters) 160.02 160. 02 [facility] Height 63 63 [facility] Blood Pressure 123/91 123/91 [facility] Body Mass Index (BMI) 31.8 31.8 [facility] Weight Measurement Method 1 1 [facility] Weight (Calculated Kilograms) 81.37 81.37 [facility] Weight 2870.4 2870.4 [facility] Temperature Source 7 7 [facility].6 [facility] Respiratory Effort 1 1 [facility] Respiratory Rate 18 18 [facility] Pulse Assessment Method 1 1 [facility] Pulse Rate 99 99 [facility] Height (Calculated Centimeters) 160.02 160. 02 [facility] Height 63 63 [facility] Blood Pressure 123/91 123/91 [facility] Body Mass Index (BMI) 31.8 31.8 [facility] Weight Measurement Method 1 1 [facility] Weight (Calculated Kilograms) 81.37 81.37 [facility] Weight 2870.4 2870.4 [facility] Temperature Source 7 7 [facility] Temperature 97.2 97.2 [facility] Respiratory Effort 1 1 [facility] Respiratory Rate 18 18 [facility] Pulse Assessment Method 4 4 [facility] Pulse Rate 51 51 [facility] Height (Calculated Centimeters) 160.02 160. 02 [facility] Height 63 63 [facility] Blood Pressure 122/72 122/72 [facility] Body Mass Index (BMI) 31.8 31.8 [facility] Weight Measurement Method 1 1 [facility] Weight (Calculated Kilograms) 81.37 81.37 [facility] Weight 2870.4 2870.4 [facility] Temperature Source 7 7 [facility] Temperature 98.0 98.0 [facility] Respiratory Effort 1 1 [facility] Respiratory Rate 18 18 [facility] Pulse Assessment Method 4 4 [facility] Pulse Rate 86 86 [facility] Height (Calculated Centimeters) 160.02 160. 02 [facility] Height 63 63 [facility] Blood Pressure 133/85 133/85 [facility] Body Mass Index (BMI) 31.8 31.8 [facility] Weight (Calculated Kilograms) 76.93 76.93 [facility] Weight 2864 2864 [facility] Temperature 98.4 98.4 [facility] Respiratory Rate 18 18 [facility] Pulse Rate 64 64 [facility] Height (Calculated Centimeters) 160.02 160. 02 [facility] 63 63 [facility] Pressure 139/84 139/84 [facility] Body Mass Index (BMI) 30.0 30.0 [facility] Weight (Calculated Kilograms) 76.93 76.93 [facility] Height (Calculated Centimeters) 160.02 160. 02 [facility] Body Mass Index (BMI) 30.0 300 [facility] Patient Treatment Plan of Care Planned Activity Planned Date Details Description Data Source (s) Microgestin FE 09/11 1-20 [facility] 01/30/2020 12:00:00 AM EDT [email or web address] ([facility])
== END 2020-09-07 20:25 | disposition home or self-care (01) ==
LOC: M ED 19:14
DX: Z20.828 Contact with and (suspected) exposure to other viral communicable diseases (principal)
CPT/HCPCS: 99282; U0003

== ENCOUNTER → 2020-09-13 | Outpatient (CLI) | payer MEDICAID ==
[~2020-09-13] MED LIST changes: +BUNA10MI PO; +GABA-845
== END ==
LOC: M OUTALCOH 10:12
PROVIDERS: ATTEND Psychiatry & Neurology Psychiatry
DX: Z13.39 Encounter for screening examination for other mental health and behavioral disorders (principal); 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, uncomplicated; F15.20 Other stimulant dependence, uncomplicated

== ENCOUNTER → 2020-11-27 | Outpatient (REF) | payer MEDICAID ==
[2020-11-27 13:10] LABS: BASO # 0.1 10^3/uL (0.0-0.2); BASO % 0.9 % (0.0-1.0); EOS # 0.2 10^3/uL (0.0-0.5); EOS % 2.2 % (0.0-3.0); HEMOGLOBIN 13.4 g/dl (12.0-15.5); LYMPH # 2.8 10^3/uL (1.5-5.0); LYMPH % 30.5 % (24.0-44.0); MEAN CORPUSCULAR HEMOGLOBIN 29.7 pg (27.0-33.0); MEAN CORPUSCULAR HGB CONC 32.7 g/dl (32.0-36.5); MEAN CORPUSCULAR VOLUME 90.9 fl (80.0-96.0); MONO # 0.6 10^3/uL (0.0-0.8); MONO % 6.1 % (2.0-8.0); NEUTROPHILS # 5.4 10^3/uL (1.5-8.5); NEUTROPHILS % 60.1 % (36.0-66.0); PLATELET COUNT, AUTOMATED 274 10^3/uL (150-450); RED BLOOD COUNT 4.51 10^6/uL (4.00-5.40)
[2020-11-27 13:36] LABS: APPEARANCE, URINE HAZY (CLEAR); BACTERIA, URINE AUTO NEGATIVE (NEGATIVE); BILIRUBIN, URINE AUTO NEGATIVE (NEGATIVE); BLOOD, URINE BLOOD 2+ (NEGATIVE); CALCIUM OXALATE CRYSTALS SMALL; COLOR, URINE AMBER (YELLOW); GLUCOSE, URINE (UA) AUTO NEGATIVE (NEGATIVE); KETONE, URINE AUTO NEGATIVE (NEGATIVE); LEUKOCYTE ESTERASE, URINE AUTO TRACE (NEGATIVE); MUCUS, URINE SMALL (NEGATIVE); NITRITE, URINE AUTO NEGATIVE (NEGATIVE); PROTEIN, URINE AUTO 1+ mg/dL (NEGATIVE); RBC, URINE AUTO 2 /HPF (0-3); SPECIFIC GRAVITY URINE AUTO 1.028 (1.002-1.035); SQUAMOUS EPITHELIAL CELL UR AU 6 /HPF (0-6); UROBILINOGEN, URINE AUTO 0.2 mg/dL (0.0-2.0); WBC, URINE AUTO 4 /HPF (0-3)
[2020-11-27 13:53] LABS: ALBUMIN 4.2 GM/DL (3.2-5.2); ALT/SGPT 12 U/L (12-78); BILIRUBIN,TOTAL 0.8 MG/DL (0.2-1.0); BLOOD UREA NITROGEN 10 MG/DL (7-18); CALCIUM LEVEL 9.6 MG/DL (8.5-10.1); CARBON DIOXIDE LEVEL 26 MEQ/L (21-32); CHLORIDE LEVEL 104 MEQ/L (98-107); CHOLESTEROL LEVEL 228 MG/DL (<200); CHOLESTEROL RISK RATIO 3.931 (<5); CREATININE FOR GFR 0.82 MG/DL (0.55-1.30); FREE T4 1.22 NG/DL (0.76-1.46); GLOMERULAR FILTRATION RATE > 60.0 (>60); GLUCOSE, FASTING 124 MG/DL (70-100); HDL CHOLESTEROL 58 MG/DL (>40); LDL CHOLESTEROL 156 MG/DL (<100); NON-HDL-C 170 MG/DL; POTASSIUM SERUM 3.2 MEQ/L (3.5-5.1); SODIUM LEVEL 139 MEQ/L (136-145); TOTAL 25(OH) VITAMIN D 45.9 NG/ML (30.0-100.0); TOTAL PROTEIN 7.5 GM/DL (6.4-8.2); TRIGLYCERIDES LEVEL 71 MG/DL (<150)
[2020-11-29 19:06] LABS: HEPATITIS C QUANTITATION HCV Not Detected IU/mL (.)
== END ==
LOC: M LAB REF 11:33
PROVIDERS: ATTEND Nurse Practitioner Family
DX: Z00.00 Encounter for general adult medical examination without abnormal findings (principal); E78.5 Hyperlipidemia, unspecified; F41.1 Generalized anxiety disorder; F19.11 Other psychoactive substance abuse, in remission

== ENCOUNTER 2020-11-28 12:15 | Emergency (ER) | payer MEDICAID, OTHER ==
[~2020-11-28] VITALS: Ht 160 cm; Wt 74.0 kg
[2020-11-28] MEDS ORDERED: LORazepam 0.5 MG TAB PO ONE (12:35)
--- NOTE | 2020-11-28 13:12 | REP ---
INDICATION: LUE pain r/o DVT. COMPARISON: None. TECHNIQUE: Duplex ultrasound of the left upper extremity veins: FINDINGS: No thrombus is identified in the left jugular vein, subclavian vein, axillary vein brachial veins or basilic vein. The cephalic vein could not be visualized. IMPRESSION: No evidence of left upper extremity venous thrombus as discussed above. The cephalic vein could not be visualized. <Electronically signed by El Foote > 11/28/20 [id number]
[2020-11-28 13:19] LABS: HEMATOCRIT 39.3 % (36.0-47.0); HEMOGLOBIN 13.3 g/dl (12.0-15.5); MEAN CORPUSCULAR HGB CONC 33.8 g/dl (32.0-36.5); MEAN CORPUSCULAR VOLUME 88.5 fl (80.0-96.0); PLATELET COUNT, AUTOMATED 294 10^3/uL (150-450); RED BLOOD COUNT 4.44 10^6/uL (4.00-5.40); WHITE BLOOD COUNT 12.2 10^3/uL (4.0-10.0)
[2020-11-28 13:31] LABS: INR 1.08; PROTHROMBIN TIME 14.2 SECONDS (12.5-14.3)
[2020-11-28 13:32] LABS: PARTIAL THROMBOPLASTIN TIME 28.9 SECONDS (24.2-38.5)
[2020-11-28 13:58] LABS: ACETAMINOPHEN LEVEL 2.1 UG/ML (10.0-30.0); ALBUMIN 4.1 GM/DL (3.2-5.2); ALT/SGPT 12 U/L (12-78); BILIRUBIN,DIRECT 0.2 MG/DL (0.0-0.2); BILIRUBIN,TOTAL 0.6 MG/DL (0.2-1.0); BLOOD UREA NITROGEN 13 MG/DL (7-18); CALCIUM LEVEL 9.5 MG/DL (8.5-10.1); CARBON DIOXIDE LEVEL 25 MEQ/L (21-32); CHLORIDE LEVEL 107 MEQ/L (98-107); CPK CREATINE PHOSPHOKINASE 310 U/L (26-192); CREATININE FOR GFR 0.74 MG/DL (0.55-1.30); ETHYL ALCOHOL (ETHANOL) < 0.003 % (0.000-0.010); GLOMERULAR FILTRATION RATE > 60.0 (>60); GLUCOSE, FASTING 92 MG/DL (70-100); POTASSIUM SERUM 4.2 MEQ/L (3.5-5.1); SALICYLATE LEVEL < 1.7 MG/DL (5.0-30.0); SODIUM LEVEL 139 MEQ/L (136-145); TOTAL PROTEIN 7.4 GM/DL (6.4-8.2)
[2020-11-28 15:22] VITALS: BP 140/85
== END 2020-11-28 15:30 | disposition home or self-care (01) ==
LOC: M ED 12:15
DX: F19.10 Other psychoactive substance abuse, uncomplicated (principal); G47.00 Insomnia, unspecified; G43.909 Migraine, unspecified, not intractable, without status migrainosus; F32.9 Major depressive disorder, single episode, unspecified; Z86.19 Personal history of other infectious and parasitic diseases; Z79.899 Other long term (current) drug therapy

== ENCOUNTER → 2020-12-05 | Outpatient (REF) | payer OTHER ==
[2020-12-05 18:03] LABS: APPEARANCE, URINE CLEAR (CLEAR); BACTERIA, URINE AUTO NEGATIVE (NEGATIVE); BILIRUBIN, URINE AUTO NEGATIVE (NEGATIVE); BLOOD, URINE BLOOD NEGATIVE (NEGATIVE); COLOR, URINE YELLOW (YELLOW); GLUCOSE, URINE (UA) AUTO NEGATIVE (NEGATIVE); KETONE, URINE AUTO NEGATIVE (NEGATIVE); LEUKOCYTE ESTERASE, URINE AUTO NEGATIVE (NEGATIVE); NITRITE, URINE AUTO NEGATIVE (NEGATIVE); PROTEIN, URINE AUTO NEGATIVE (NEGATIVE); RBC, URINE AUTO 0 /HPF (0-3); SPECIFIC GRAVITY URINE AUTO 1.025 (1.002-1.035); SQUAMOUS EPITHELIAL CELL UR AU 1 /HPF (0-6); WBC, URINE AUTO 0 /HPF (0-3)
== END ==
LOC: M LAB REF 16:18
PROVIDERS: ATTEND Nurse Practitioner Family
DX: N30.01 Acute cystitis with hematuria (principal)

== ENCOUNTER → 2021-02-28 | Outpatient (CLI) | payer OTHER ==
[~2021-02-28] MED LIST changes: -DOXY100C37 PO; +DOXY1CAP62 PO; +GABA-283; -GABA-845
== END ==
LOC: M PLALAB 14:20
PROVIDERS: ATTEND Nurse Practitioner Family
DX: R30.0 Dysuria (principal)

== ENCOUNTER → 2021-03-10 | Outpatient (REF) ==
[~2021-03-10] MED LIST changes: +COVID-19 VAC,AD26(JANSSEN)/PF 0.5ML SYRINGE (EUA) IM ONE
== END ==
LOC: M EMP 12:05
PROVIDERS: ATTEND Family Medicine
DX: Z11.52 Encounter for screening for COVID-19 (principal)

== ENCOUNTER 2021-12-28 09:30 | Emergency (ER) | payer OTHER ==
[~2021-12-28] VITALS: Ht 160 cm; Wt 80.3 kg
[~2021-12-28 09:30] MED LIST changes: -COVID-19 VAC,AD26(JANSSEN)/PF 0.5ML SYRINGE (EUA) IM ONE; +DOXY-443 PO; -DOXY1CAP62 PO
[2021-12-28] MEDS ORDERED: NS 1,000 ML IV ONE (10:55)
[2021-12-28 11:09] LABS: HEMATOCRIT 39.8 % (36.0-47.0); HEMOGLOBIN 13.4 g/dl (12.0-15.5); MEAN CORPUSCULAR HEMOGLOBIN 30.3 pg (27.0-33.0); MEAN CORPUSCULAR HGB CONC 33.7 g/dl (32.0-36.5); PLATELET COUNT, AUTOMATED 241 10^3/uL (150-450); RED BLOOD COUNT 4.42 10^6/uL (4.00-5.40)
[2021-12-28 11:31] LABS: HCG, SERUM QUALITATIVE NEGATIVE (NEGATIVE)
[2021-12-28 11:40] LABS: ACETAMINOPHEN LEVEL 4.8 UG/ML (10.0-30.0); ALBUMIN 4.2 GM/DL (3.2-5.2); ALT/SGPT 29 U/L (12-78); BILIRUBIN,DIRECT 0.2 MG/DL (0.0-0.2); BILIRUBIN,TOTAL 0.9 MG/DL (0.2-1.0); BLOOD UREA NITROGEN 11 MG/DL (7-18); CALCIUM LEVEL 9.9 MG/DL (8.5-10.1); CARBON DIOXIDE LEVEL 27 MEQ/L (21-32); CHLORIDE LEVEL 107 MEQ/L (98-107); CREATININE FOR GFR 0.77 MG/DL (0.55-1.30); ETHYL ALCOHOL (ETHANOL) 0.003 % (0.000-0.010); FREE T4 1.22 NG/DL (0.76-1.46); GLOMERULAR FILTRATION RATE > 60.0 (>60); GLUCOSE, FASTING 101 MG/DL (70-100); POTASSIUM SERUM 4.4 MEQ/L (3.5-5.1); SALICYLATE LEVEL < 1.7 MG/DL (5.0-30.0); SODIUM LEVEL 139 MEQ/L (136-145); THYROID STIMULATING HORMONE 0.889 uIU/ML (0.358-3.740); TOTAL PROTEIN 7.8 GM/DL (6.4-8.2)
[2021-12-28 12:06] LABS: CK-MB VALUE MASS < 1.0 NG/ML (<3.6); CPK CREATINE PHOSPHOKINASE 98 U/L (26-192); MB/CK RELATIVE INDEX 1.02 (< OR =4)
[2021-12-28 13:17] LABS: AMPHETAMINES LEVEL URINE NEGATIVE (NEGATIVE); BARBITURATES URINE NEGATIVE (NEGATIVE); BENZODIAZEPINES URINE NEGATIVE (NEGATIVE); CANNABINOIDS URINE NEGATIVE (NEGATIVE); COCAINE METABOLITE URINE POSITIVE (NEGATIVE); METHADONE URINE NEGATIVE (NEGATIVE); OPIATES URINE NEGATIVE (NEGATIVE); PHENCYCLIDINE URINE NEGATIVE (NEGATIVE)
[2021-12-28 14:09] VITALS: BP 111/66
== END 2021-12-28 14:17 | disposition home or self-care (01) ==
LOC: M ED 09:30
DX: F14.129 Cocaine abuse with intoxication, unspecified (principal); R07.9 Chest pain, unspecified

== ENCOUNTER → 2022-11-04 | Outpatient (CLI) | payer OTHER ==
[~2022-11-04] MED LIST changes: +TOPI-254; +TOPI-254 PO; -TOPI50TA9; -TOPI50TA9 PO
[2022-11-04 11:39] LABS: BASO # 0.1 10^3/uL (0.0-0.2); BASO % 0.8 % (0.0-1.0); EOS # 0.1 10^3/uL (0.0-0.5); EOS % 1.7 % (0.0-3.0); HEMOGLOBIN 14.2 g/dl (12.0-15.5); LYMPH # 2.3 10^3/uL (1.5-5.0); MEAN CORPUSCULAR HEMOGLOBIN 30.4 pg (27.0-33.0); MEAN CORPUSCULAR HGB CONC 33.8 g/dl (32.0-36.5); MEAN CORPUSCULAR VOLUME 89.9 fl (80.0-96.0); MONO # 0.5 10^3/uL (0.0-0.8); MONO % 6.8 % (2.0-8.0); NEUTROPHILS # 4.4 10^3/uL (1.5-8.5); NEUTROPHILS % 59.3 % (36.0-66.0); PLATELET COUNT, AUTOMATED 239 10^3/uL (150-450); RED BLOOD COUNT 4.67 10^6/uL (4.00-5.40); WHITE BLOOD COUNT 7.5 10^3/uL (4.0-10.0)
[2022-11-04 12:11] LABS: ALBUMIN 4.2 G/DL (3.2-5.2); ALKALINE PHOSPHATASE 72 U/L (46-116); ALT/SGPT 55 U/L (7.0-40); AST/SGOT 50 U/L (<34); BILIRUBIN,TOTAL 0.6 MG/DL (0.3-1.2); BLOOD UREA NITROGEN 18 MG/DL (9-23); CALCIUM LEVEL 9.4 MG/DL (8.5-10.1); CARBON DIOXIDE LEVEL 24 MMOL/L (20-31); CHLORIDE LEVEL 109 MMOL/L (98-107); CHOLESTEROL LEVEL 232 MG/DL (<200); CHOLESTEROL RISK RATIO 4.74 (<5); CREATININE FOR GFR 0.72 MG/DL (0.55-1.30); GLOMERULAR FILTRATION RATE > 60.0 (>60); GLUCOSE, FASTING 91 MG/DL (60-100); HDL CHOLESTEROL 48.9 MG/DL (>40); LDL CHOLESTEROL 165.9 MG/DL (<100); NON-HDL-C 183.1 MG/DL; SODIUM LEVEL 141 MMOL/L (136-145); TOTAL PROTEIN 7.2 G/DL (5.7-8.2); TRIGLYCERIDES LEVEL 86 MG/DL (<150)
[2022-11-04 12:12] LABS: VITAMIN B12 LEVEL 920 PG/ML (211-911)
== END ==
LOC: M LAB 10:28
PROVIDERS: ATTEND Internal Medicine
DX: Z00.00 Encounter for general adult medical examination without abnormal findings (principal)

== ENCOUNTER → 2024-04-26 | Outpatient (REF) ==
[~2024-04-26] MED LIST changes: +DOXY-323 PO; -DOXY-443 PO; +FLUO-365 PO; -FLUO20CA22 PO; -GABA-283; +GABA-284; -KLON0.5T PO; +KLON0.5T8 PO; +ONDA-282 PO; -ONDA4TAB6 PO; +TOPI-21; +TOPI-21 PO; -TOPI-254; -TOPI-254 PO
== END ==
LOC: M LAB 16:33
PROVIDERS: ATTEND Nurse Practitioner Adult Health
DX: Z00.00 Encounter for general adult medical examination without abnormal findings (principal)

== ENCOUNTER → 2024-05-10 | Outpatient (REF) | LOC: M EMP 09:31 | PROVIDERS: ATTEND Family Medicine | DX: Z11.52 Encounter for screening for COVID-19 (principal) ==

== ENCOUNTER → 2024-05-20 | Outpatient (CLI) | payer OTHER ==
[2024-05-20 13:49] LABS: HEMOGLOBIN A1c 4.8 % (4.0-6.0)
[2024-05-20 13:51] LABS: ALKALINE PHOSPHATASE 73 U/L (46-116); ALT/SGPT 54 U/L (7.0-40); AST/SGOT 51 U/L (<34); BILIRUBIN,TOTAL 0.8 MG/DL (0.3-1.2); BLOOD UREA NITROGEN 15 MG/DL (9-23); CALCIUM LEVEL 9.2 MG/DL (8.5-10.1); CARBON DIOXIDE LEVEL 26 MMOL/L (20-31); CHLORIDE LEVEL 108 MMOL/L (98-107); CHOLESTEROL LEVEL 224 MG/DL (<200); CREATININE FOR GFR 0.79 MG/DL (0.55-1.30); GLOMERULAR FILTRATION RATE > 60.0 (>60); GLUCOSE, FASTING 96 MG/DL (60-100); SODIUM LEVEL 139 MMOL/L (136-145); TOTAL PROTEIN 7.2 G/DL (5.7-8.2); TRIGLYCERIDES LEVEL 70 MG/DL (<150)
[2024-05-20 13:53] LABS: THYROID STIMULATING HORMONE 0.849 uIU/ML (0.55-4.78); TOTAL 25(OH) VITAMIN D 46.4 NG/ML (20.0-100.0)
[2024-05-20 14:19] LABS: CHOLESTEROL RISK RATIO 3.95 (<5); HDL CHOLESTEROL 56.7 MG/DL (>40); LDL CHOLESTEROL 153.3 MG/DL (<100); NON-HDL-C 167.3 MG/DL
[2024-05-20 14:34] LABS: HEPATITIS C VIRUS ABY INDEX > 11.00 INDEX (<0.8)
== END ==
LOC: M LAB 13:09
PROVIDERS: ATTEND Registered Nurse Psychiatric/Mental Health
DX: Z71.89 Other specified counseling (principal)

== ENCOUNTER → 2024-05-25 | Outpatient (REF) ==
[~2024-05-25] MED LIST changes: -DOXY-323 PO; +DOXY-441 PO
== END ==
LOC: M EMP 13:47
PROVIDERS: ATTEND Family Medicine
DX: Z11.52 Encounter for screening for COVID-19 (principal)

== ENCOUNTER 2024-09-27 13:50 | Emergency (ER) | payer OTHER ==
[~2024-09-27] VITALS: Ht 160 cm; Wt 77.3 kg
[2024-09-27] MEDS: KETOROLAC 30 MG/ML 1ML VIAL IM ONE (15:54)
[2024-09-27 16:32] VITALS: BP 118/76; TEMP 97.7; O2SAT 100
== END 2024-09-27 16:37 | disposition home or self-care (01) ==
LOC: M ED 13:50
DX: S00.03XA Contusion of scalp, initial encounter (principal); Y92.9 Unspecified place or not applicable; Y93.9 Activity, unspecified; Y99.0 Civilian activity done for income or pay; W01.10XA Fall on same level from slipping, tripping and stumbling with subsequent striking against unspecified object, initial encounter; F32.A Depression, unspecified; Z79.899 Other long term (current) drug therapy
CPT/HCPCS: 70450; 72125; 96372; 99283; J1885

== ENCOUNTER → 2024-10-06 | Outpatient (REF) | LOC: M EMP 10:16 | PROVIDERS: ATTEND Family Medicine | DX: Z11.52 Encounter for screening for COVID-19 (principal) ==

== ENCOUNTER → 2024-10-10 | Outpatient (REF) | LOC: M EMP 08:02 | PROVIDERS: ATTEND Family Medicine | DX: Z11.52 Encounter for screening for COVID-19 (principal) ==

== ENCOUNTER → 2024-12-08 | Outpatient (REF) ==
[~2024-12-08] MED LIST changes: +TOPI-257 PO; -TOPI100T9 PO
[2024-12-08 10:50] LABS: SOFIA COVID ANTIGEN NEGATIVE (NEGATIVE)
== END ==
LOC: M EMP 10:29
PROVIDERS: ATTEND Family Medicine
DX: R09.89 Other specified symptoms and signs involving the circulatory and respiratory systems (principal)

== ENCOUNTER → 2025-03-02 | Outpatient (CLI) | payer OTHER | LOC: M RAD 16:12 | PROVIDERS: ATTEND Physician Assistant Medical | DX: N94.10 Unspecified dyspareunia (principal) ==